=== PATIENT | female | born 1995 | race Caucasian/White ===

== ENCOUNTER → 2018-03-12 15:37 | Outpatient (REF) | payer OTHER, SELFPAY ==
[2018-03-12 19:29] LABS: TSH (W/Ref FT4) 2.72 uIU/mL (0.358-3.74)
== END ==
LOC: NCHCN 15:37
PROVIDERS: PCP Family Medicine; Visit Provider Family Medicine
DX: E03.9 Hypothyroidism, unspecified (principal)
CPT/HCPCS: 84443

== ENCOUNTER 2018-09-24 12:17 | Emergency (ER) | payer OTHER, SELFPAY ==
[2018-09-24 12:20] VITALS: BP 119/74; PULSE 89; RESP 16; TEMP 36.7; O2SAT 95
--- NOTE | 2018-09-24 13:11 | W.ED.GENAD ---
Discharge Plan Disposition Patient Disposition: HOME Condition: Stable Discharge Details Chief Complaint: RespSymp Clinical Impression: Viral syndrome Primary Care Provider: Marisol Palmer V ED Provider: Yoandy Gottlieb Home Meds and New Rx's Prescriptions: Continued trazodone 50 MG tablet 150 mg PO HS PRNRF: 0 Flovent HFA 10.6 GM HFA aerosol inhaler 88 mcg Inhalation BID RF: 0 medroxyprogesterone [Depo-Provera] 150 MG/1 ML syringe 150 mg IM [id number] RF: 0 loratadine [Claritin Liqui-Gel] 10 MG capsule 10 mg PO DAILY PRNRF: 0 paroxetine HCl 20 MG tablet 20 mg PO DAILY RF: 0 albuterol sulfate [Ventolin HFA] 1 PUFF HFA aerosol inhaler 2 puff Inhalation PRN PRNRF: 0 Discharge Instructions Instructions: Viral Syndrome (ED) Additional Instructions: Stay well-hydrated and continue to take [id number] medications as needed. Please return immediately if you begin running a new fever, have worsening of symptoms or further concerns otherwise follow-up with your primary care provider if not improving Stand Alone Forms: Work Release Referrals: Marisol Palmer MD [Primary Care Provider] - (As needed for reassessment) Medical Decision Making Patient presenting to the emergency department for chief complaint of cough, sore throat, intermittent vomiting, nasal congestion. Patient states that this is been going on for approximately 10 days and ran a fever for the first 3-4 days which is now resolved but symptoms have continued over the past week. Patient denies any new symptoms but just states more continuation of illness. Physical exam shows some mild anterior cervical lymphadenopathy otherwise clear lung sounds, normal HEENT exam, normal cardiac exam, normal abdominal exam. Did discuss with patient influenza testing but given duration of symptoms she would not meet criteria for treatment and is otherwise stable so influenza testing was deferred. Given report of sore throat, nausea, and cold-like symptoms consideration of streptococcal illness is made along with patient's persistent cough plan to do chest x-ray for rule out of pneumonia. I am mostly concern for post viral etiology and URI. Patient is stable with normal vital signs, afebrile, no tachycardia. Patient is not and chest x-ray performed and shows no acute findings as per my interpretation. Rapid strep test also returned negative result. Patient was able to tolerate p.o. intake in the emergency department and was offered lab testing for complaint of vomiting but patient has a nontender nonsurgical abdomen. Patient refused testing at this time. I feel most of patient's symptoms are viral in nature. return precautions discussed. After discussion of diagnosis and plan of care patient has no further needs, questions, or concerns and states clear understanding to return to the emergency department for any worsening symptoms. HPI General Mode of arrival: ambulatory. Date/Time Provider Initiated Documentation: 09/24/18 12:17. Limitations to Documentation: no limitations. Information obtained by: patient. History of Present Illness 22 year old F presents to the emergency department with the chief complaint of Cough, cold, sore throat, described as moderate, Quality is described as sharp, and is localized to the mouth (Sore throat). Patient started experiencing this day(s) (10) and it has been constant. No relieving factors improve symptom(s), Patient did receive the following treatments prior to arrival, other ([id number]) Related Data Home Medications Medication Instructions Recorded Confirmed albuterol sulfate [Ventolin HFA] 2 puff INHALATION PRN PRN 12/11/12 09/24/18 paroxetine HCl 20 mg PO DAILY 12/11/12 09/24/18 Flovent HFA 88 mcg INHALATION BID inhaler 07/08/14 09/24/18 loratadine [Claritin Liqui-Gel] 10 mg PO DAILY PRN 07/08/14 09/24/18 medroxyprogesterone [Depo-Provera] 150 mg IM [id number] 07/08/14 09/24/18 trazodone 150 mg PO HS PRN 07/08/14 09/24/18 Allergies Allergy/AdvReac Type Severity Reaction Status Date / Time bupropion HCl Allergy Mild Unverified 09/24/18 12:27 [From Wellbutrin] General Stated Complaint: RespSymp BERT: 3 Review of Systems Constitutional Reports body ache(s), Reports chills, Reports fever(s), Reports headache(s) and Reports malaise Eyes Denies eye discharge ENT Reports as per HPI, Denies ear discharge, Denies otalgia, Reports headache(s), Reports nasal congestion, Reports nasal discharge, Denies neck pain, Reports sinus pain, Reports sinus pressure, Reports sore throat and Denies throat swelling Cardiovascular Denies chest pain and Denies dyspnea Respiratory Reports cough and Denies dyspnea Gastrointestinal Denies abdominal pain, Reports diarrhea, Denies nausea and Reports vomiting Musculoskeletal Denies joint swelling and Denies neck pain Integumentary/Breasts Denies rash Neurologic Reports headache(s) Allergic/Immunologic Denies throat swelling [facility] Social History Smoking and Tabacco status: Never Exam Const General: cooperative, comfortable and no acute distress Orientation: alert and awake [facility] Head: normal to inspection, normocephalic and atraumatic Ears: hearing grossly normal bilaterally and TM's normal bilaterally General nose exam: external nose normal Face and sinus: normal facial exam, sinuses nontender and no erythema Mouth: oral mucosae normal, no drooling, no muffled voice and no trismus Throat: posterior oropharynx normal, tonsils normal and uvula midline Neck Neck: normal visual inspection, full ROM, no lymphadenopathy, no meningeal signs, trachea midline and supple Resp Effort & Inspection: normal respiratory effort and able to speak in complete sentences Auscultation: clear to auscultation bilaterally Cardio Rate: regular rate Rhythm: regular rhythm Heart Sounds: S1 normal, S2 normal, normal S1 and S2, no click, no gallops, no murmurs and no rubs GI Inspection: obesity Palpation: soft, no hepatosplenomegaly, not firm, no guarding, no hepatomegaly, no pulsatile masses, not rigid and nontender Auscultation: normal bowel sounds Back/Spine/Pelvis Back: no CVA tenderness Skin General skin exam: no rashes or lesions noted and dry skin (warm) Neuro General: alert, awake, oriented x3 and gait normal Course Vital Signs Temperature 36.7 C 09/24/18 12:20 Pulse 89 09/24/18 12:20 Respiratory Rate 16 09/24/18 12:20 Blood Pressure 119/74 09/24/18 12:20 Pulse Oximetry 95 09/24/18 12:20 Temperature 36.7 C 09/24/18 12:20 Temperature Source Temporal Artery Scan 09/24/18 12:20 Pulse 89 09/24/18 12:20 Respiratory Rate 16 09/24/18 12:20 Respiratory Effort Non-Labored 09/24/18 12:35 Respiratory Depth Normal 09/24/18 12:35 Blood Pressure 119/74 09/24/18 12:20 Blood Pressure Position Sitting 09/24/18 12:20 Pulse Oximetry 95 09/24/18 12:20 Oxygen Delivery Method Room Air 09/24/18 12:20 Oxygen Flow Rate 0 09/24/18 12:20 Pain Level 3 09/24/18 12:20 Lab/Test Results Lab/Test Results: 09/24/18 12:57 Tonsil - Not Specified Streptococcus Screen (EMILY) - Pending POC- Test(urine) Negative POC Strep Test-RAVIN(Rapid) Start: 09/24/18 12:42 Freq: .Rapid Strep Test Status: Active Protocol: Document 09/24/18 12:56 DB (Rec: 09/24/18 12:56 DB [id number]) Strep test-RAVIN(Rapid)-POC POC-Strep test-RAVIN (Rapid) Negative POC-Strep test-RAVIN (Rapid) Negative
--- NOTE | 2018-09-24 13:14 | ED.GENADUL_ITS ---
Discharge Plan Disposition Patient Disposition: HOME Condition: Stable Discharge Details Chief Complaint: RespSymp Clinical Impression: Viral syndrome Primary Care Provider: Marisol Palmer V ED Provider: Yoandy Gottlieb Home Meds and New Rx's Prescriptions: Continued trazodone 50 MG tablet 150 mg PO HS PRNRF: 0 Flovent HFA 10.6 GM HFA aerosol inhaler 88 mcg Inhalation BID RF: 0 medroxyprogesterone [Depo-Provera] 150 MG/1 ML syringe 150 mg IM [id number] RF: 0 loratadine [Claritin Liqui-Gel] 10 MG capsule 10 mg PO DAILY PRNRF: 0 paroxetine HCl 20 MG tablet 20 mg PO DAILY RF: 0 albuterol sulfate [Ventolin HFA] 1 PUFF HFA aerosol inhaler 2 puff Inhalation PRN PRNRF: 0 Discharge Instructions Instructions: Viral Syndrome (ED) Additional Instructions: Stay well-hydrated and continue to take [id number] medications as needed. Please return immediately if you begin running a new fever, have worsening of symptoms or further concerns otherwise follow-up with your primary care provider if not improving Stand Alone Forms: Work Release Referrals: Marisol Palmer MD [Primary Care Provider] - (As needed for reassessment) Medical Decision Making Patient presenting to the emergency department for chief complaint of cough, sore throat, intermittent vomiting, nasal congestion. Patient states that this is been going on for approximately 10 days and ran a fever for the first 3-4 days which is now resolved but symptoms have continued over the past week. Patient denies any new symptoms but just states more continuation of illness. Physical exam shows some mild anterior cervical lymphadenopathy otherwise clear lung sounds, normal HEENT exam, normal cardiac exam, normal abdominal exam. Did discuss with patient influenza testing but given duration of symptoms she would not meet criteria for treatment and is otherwise stable so influenza testing was deferred. Given report of sore throat, nausea, and cold-like symptoms consideration of streptococcal illness is made along with patient's persistent cough plan to do chest x-ray for rule out of pneumonia. I am mostly concern for post viral etiology and URI. Patient is stable with normal vital signs, afebrile, no tachycardia. Patient is not and chest x-ray performed and shows no acute findings as per my interpretation. Rapid strep test also returned negative result. Patient was able to tolerate p.o. intake in the emergency department and was offered lab testing for complaint of vomiting but patient has a nontender nonsurgical abdomen. Patient refused testing at this time. I feel most of patient's symptoms are viral in nature. return precautions discussed. After discussion of diagnosis and plan of care patient has no further needs, questions, or concerns and states clear understanding to return to the emergency department for any worsening symptoms. HPI General Mode of arrival: ambulatory . Date/Time Provider Initiated Documentation: 09/24/18 12:17 . Limitations to Documentation: no limitations . Information obtained by: patient . History of Present Illness 22 year old F presents to the emergency department with the chief complaint of Cough, cold, sore throat, described as moderate, Quality is described as sharp, and is localized to the mouth (Sore throat). Patient started experiencing this day(s) (10) and it has been constant. No relieving factors improve symptom(s), Patient did receive the following treatments prior to arrival, other ([id number]) Related Data Home Medications Medication Instructions Recorded Confirmed albuterol sulfate [Ventolin HFA] 2 puff INHALATION PRN PRN 12/11/12 09/24/18 paroxetine HCl 20 mg PO DAILY 12/11/12 09/24/18 Flovent HFA 88 mcg INHALATION BID inhaler 07/08/14 09/24/18 loratadine [Claritin Liqui-Gel] 10 mg PO DAILY PRN 07/08/14 09/24/18 medroxyprogesterone [Depo-Provera] 150 mg IM [id number] 07/08/14 09/24/18 trazodone 150 mg PO HS PRN 07/08/14 09/24/18 Allergies Allergy/AdvReac Type Severity Reaction Status Date / Time bupropion HCl Allergy Mild Unverified 09/24/18 12:27 [From Wellbutrin] General Stated Complaint: RespSymp BERT: 3 Review of Systems Constitutional Reports body ache(s), Reports chills, Reports fever(s), Reports headache(s) and Reports malaise Eyes Denies eye discharge ENT Reports as per HPI, Denies ear discharge, Denies otalgia, Reports headache(s), Reports nasal congestion, Reports nasal discharge, Denies neck pain, Reports sinus pain, Reports sinus pressure, Reports sore throat and Denies throat swelling Cardiovascular Denies chest pain and Denies dyspnea Respiratory Reports cough and Denies dyspnea Gastrointestinal Denies abdominal pain, Reports diarrhea, Denies nausea and Reports vomiting Musculoskeletal Denies joint swelling and Denies neck pain Integumentary/Breasts Denies rash Neurologic Reports headache(s) Allergic/Immunologic Denies throat swelling [facility] Social History Smoking and Tabacco status: Never Exam Const General: cooperative, comfortable and no acute distress Orientation: alert and awake [facility] Head: normal to inspection, normocephalic and atraumatic Ears: hearing grossly normal bilaterally and TM's normal bilaterally General nose exam: external nose normal Face and sinus: normal facial exam, sinuses nontender and no erythema Mouth: oral mucosae normal, no drooling, no muffled voice and no trismus Throat: posterior oropharynx normal, tonsils normal and uvula midline Neck Neck: normal visual inspection, full ROM, no lymphadenopathy, no meningeal signs, trachea midline and supple Resp Effort & Inspection: normal respiratory effort and able to speak in complete sentences Auscultation: clear to auscultation bilaterally Cardio Rate: regular rate Rhythm: regular rhythm Heart Sounds: S1 normal, S2 normal, normal S1 and S2, no click, no gallops, no murmurs and no rubs GI Inspection: obesity Palpation: soft, no hepatosplenomegaly, not firm, no guarding, no hepatomegaly, no pulsatile masses, not rigid and nontender Auscultation: normal bowel sounds Back/Spine/Pelvis Back: no CVA tenderness Skin General skin exam: no rashes or lesions noted and dry skin (warm) Neuro General: alert, awake, oriented x3 and gait normal Course Vital Signs Temperature 36.7 C 09/24/18 12:20 Pulse 89 09/24/18 12:20 Respiratory Rate 16 09/24/18 12:20 Blood Pressure 119/74 09/24/18 12:20 Pulse Oximetry 95 09/24/18 12:20 Temperature 36.7 C 09/24/18 12:20 Temperature Source Temporal Artery Scan 09/24/18 12:20 Pulse 89 09/24/18 12:20 Respiratory Rate 16 09/24/18 12:20 Respiratory Effort Non-Labored 09/24/18 12:35 Respiratory Depth Normal 09/24/18 12:35 Blood Pressure 119/74 09/24/18 12:20 Blood Pressure Position Sitting 09/24/18 12:20 Pulse Oximetry 95 09/24/18 12:20 Oxygen Delivery Method Room Air 09/24/18 12:20 Oxygen Flow Rate 0 09/24/18 12:20 Pain Level 3 09/24/18 12:20 Lab/Test Results Lab/Test Results: 09/24/18 12:57 Tonsil - Not Specified Streptococcus Screen (EMILY) - Pending POC- Test(urine) Negative POC Strep Test-RAVIN(Rapid) Start: 09/24/18 12:42 Freq: .Rapid Strep Test Status: Active Protocol: Document 09/24/18 12:56 DB (Rec: 09/24/18 12:56 DB [id number]) Strep test-RAVIN(Rapid)-POC POC-Strep test-RAVIN (Rapid) Negative POC-Strep test-RAVIN (Rapid) Negative
--- NOTE | 2018-09-24 13:15 | DI.RAD_ITS ---
SYMPTOMS/DIAGNOSIS: COUGH PA AND LATERAL CHEST: There are no prior comparison exams. The cardiac and mediastinal contours have a normal appearance. The lungs are well inflated and clear. No infiltrate or effusion is seen. IMPRESSION: Negative chest x-ray.
[2018-09-24 13:58] VITALS: BP 119/74; PULSE 89; RESP 16; TEMP 36.7; O2SAT 95
== END 2018-09-24 14:00 | disposition home or self-care (01) ==
PROVIDERS: Emergency Provider Nurse Practitioner Family; PCP Family Medicine
DX: R05 Cough (principal); R09.81 Nasal congestion; R11.2 Nausea with vomiting, unspecified; B34.9 Viral infection, unspecified; J02.8 Acute pharyngitis due to other specified organisms
CPT/HCPCS: 81025; 87880; 99283; 71046; 87081

== ENCOUNTER 2018-10-01 16:07 | Outpatient (CLI) | payer OTHER, SELFPAY ==
[2018-10-01 16:37] LABS: HCT 42.8 % (36.0-46.0); HGB 14.2 g/dL (12.0-15.5); Mean Corp. HGB Concentration 33.2 g/dL (32.0-36.0); Mean Corpuscular Hemoglobin 30.4 pg (27.0-33.0); Mean Corpuscular Volume 91.6 fL (80-95); Mean Platelet Volume 10.2 fL (8.0-11.0); Platelet Count 316 x1000/uL (130-400); RBC 4.67 m/cumm (4.00-5.20); RBC Distribution Width 12.6 % (11.7-14.6); White Blood Cell Count 11.46 k/cumm (4.4-10.8)
[2018-10-01 17:15] LABS: ESR 43 MM/HR (0-20)
[2018-10-01 17:49] LABS: ALT 23 U/L (12-78); AST 15 U/L (15-37); Albumin 3.9 g/dL (3.4-5.0); Alkaline Phosphatase 93 U/L (46-116); Anion Gap 10.4 mmol/L (3-11); BUN 14 mg/dL (7-18); Bilirubin, Total 0.6 mg/dL (0.2-1.0); CO2 26.6 mmol/L (21.0-32.0); CREATININE 0.93 mg/dL (0.55-1.02); Calcium 9.5 mg/dL (8.5-10.1); Chloride 102 mmol/L (98-107); Glucose 83 mg/dL (70-100); Potassium 4.1 mmol/L (3.5-5.1); Sodium 139 mmol/L (136-145); TSH (W/Ref FT4) 2.26 uIU/mL (0.358-3.74); Total Protein 7.9 g/dL (6.4-8.2)
[2018-10-04 09:55] LABS: HIV-1/2 Ag & Ab Screen Negative (NEGAT)
[2018-10-04 10:03] LABS: Hepatitis C Ab w Rflx HCV PCR Negative (NEGAT)
[2018-10-04 10:37] LABS: LH 5.6 mIU/ml
[2018-10-04 10:44] LABS: FSH 8.8 mIU/ml; Prolactin 6.3 ng/ml
[2018-10-08 10:12] LABS: Testosterone, Free 1.08 ng/dL (0.06-1.08); Testosterone, Total 36 ng/dL (8-60)
== END 2018-10-01 16:27 ==
PROVIDERS: PCP Family Medicine; Visit Provider Family Medicine
DX: Z00.00 Encounter for general adult medical examination without abnormal findings (principal); E28.2 Polycystic ovarian syndrome; E03.9 Hypothyroidism, unspecified; L73.2 Hidradenitis suppurativa; E66.9 Obesity, unspecified; Z11.4 Encounter for screening for human immunodeficiency virus [HIV]; Z11.59 Encounter for screening for other viral diseases
CPT/HCPCS: 36415; 80053; 84402; 84403; 85027; 85652; 86803; 87389; 83001; 83002; 84146; 84443

== ENCOUNTER 2019-01-17 12:56 | Emergency (ER) | payer OTHER, SELFPAY ==
[2019-01-17 13:00] VITALS: BP 117/62; PULSE 89; RESP 16; TEMP 36.6; O2SAT 100
--- NOTE | 2019-01-17 13:41 | ED.GENADUL_ITS ---
Discharge Plan Disposition Patient Disposition: HOME Condition: Stable Discharge Details Chief Complaint: RashLesion Clinical Impression: Rash Primary Care Provider: Marisol Palmer V ED Provider: Kaley Pacheco Home Meds and New Rx's Prescriptions: New prednisone 50 mg tablet 50 mg PO DAILY Qty: 4 RF: 0 Continued paroxetine HCl 40 mg tablet 40 mg PO DAILY RF: 0 ibuprofen 800 mg tablet 800 mg PO PRN PRNRF: 0 topiramate [Topamax] 25 mg tablet 25 mg PO QAM RF: 0 topiramate [Topamax] 50 mg tablet 50 mg PO QHS RF: 0 sumatriptan succinate 50 mg tablet 50 mg PO ONCE RF: 0 levothyroxine [Synthroid] 88 mcg tablet 88 mcg PO DAILY RF: 0 calcium carbonate-vitamin D3 [Calcium 600 with Vitamin D3] 600 mg(1,500mg) - 400 unit capsule PO BID RF: 0 trazodone 50 MG tablet 150 mg PO HS PRNRF: 0 Flovent HFA 10.6 GM HFA aerosol inhaler 88 mcg Inhalation BID RF: 0 medroxyprogesterone [Depo-Provera] 150 MG/1 ML syringe 150 mg IM [id number] RF: 0 loratadine [Claritin Liqui-Gel] 10 MG capsule 10 mg PO DAILY PRNRF: 0 paroxetine HCl 20 MG tablet 20 mg PO DAILY RF: 0 albuterol sulfate [Ventolin HFA] 1 PUFF HFA aerosol inhaler 2 puff Inhalation PRN PRNRF: 0 Discharge Instructions Instructions: Prednisone (By mouth), Insect Bite or Sting (ED), Acute Rash (ED) Additional Instructions: Please return immediately to the emergency department if you develop any new or worsening symptoms or if you become otherwise concerned. It is extremely important that you call as soon as possible to make an appointment to be seen in follow-up by your primary care doctor. Stand Alone Forms: Work Release Referrals: Marisol Palmer MD [Primary Care Provider] - Medical Decision Making Lelia Saldana is a 23-year-old woman with history of asthma, anxiety, depression who presented to the emergency department with round itchy rash to her left posterior upper arm. On exam patient is very well and nontoxic appearing. She has a 10 cm circular erythematous rash to the upper arm without other rash. Exam/history is not consistent with sepsis, meningitis, cellulitis, other infectious process, anaphylaxis, impending airway compromise, other acute emergent life-threatening process. Plan for Benadryl, prednisone. I had a lengthy discussion with the patient regarding return to emergency department precautions, importance of outpatient follow-up with her PCP, and home care. Patient verbalized understanding the plan was amenable. Patient was discharged home with clear plan for outpatient follow-up. All questions were answered. Medical Records Medical records reviewed: Yes I reviewed the patient's medical records. HPI General Mode of arrival: ambulatory . Date/Time Provider Initiated Documentation: 01/17/19 13:40 . Limitations to Documentation: no limitations . Information obtained by: patient, RN notes reviewed and old records reviewed . HPI Narrative: Lelia Saldana is a 23 y/o woman with history of asthma, anxiety, depression presenting to the emergency department with rash. Patient reports that she noticed round itchy rash on the posterior aspect of her left upper arm last night. Rash has increased somewhat, itchiness is severe and continued. She denies any known bite, sting, or other exposure to the area. No other rash, no pain, no vomiting/diarrhea, no shortness of breath/cough. Never had similar symptoms in the past. Has been eating and drinking as usual. No recent illness. No recent travel. Related Data Home Medications Medication Instructions Recorded Confirmed albuterol sulfate [Ventolin HFA] 2 puff INHALATION PRN PRN 12/11/12 01/17/19 paroxetine HCl 20 mg PO DAILY 12/11/12 01/17/19 Flovent HFA 88 mcg INHALATION BID inhaler 07/08/14 01/17/19 loratadine [Claritin Liqui-Gel] 10 mg PO DAILY PRN 07/08/14 01/17/19 medroxyprogesterone [Depo-Provera] 150 mg IM [id number] 07/08/14 01/17/19 trazodone 150 mg PO HS PRN 07/08/14 01/17/19 calcium carbonate-vitamin D3 600 cap PO BID cap 10/18/18 10/18/18 mg (1,500 mg)-400 unit capsule ibuprofen 800 mg tablet 800 mg PO PRN PRN tab 10/18/18 01/17/19 levothyroxine 88 mcg tablet 88 mcg PO DAILY 10/18/18 01/17/19 paroxetine 40 mg tablet 40 mg PO DAILY 10/18/18 01/17/19 sumatriptan 50 mg tablet 50 mg PO ONCE 10/18/18 01/17/19 topiramate 25 mg tablet 25 mg PO QAM tab 10/18/18 01/17/19 topiramate 50 mg tablet 50 mg PO QHS tab 10/18/18 01/17/19 prednisone 50 mg PO DAILY #4 tab 01/17/19 Previous Rx's Medication Instructions Recorded prednisone 50 mg PO DAILY #4 tab 01/17/19 Allergies Allergy/AdvReac Type Severity Reaction Status Date / Time bupropion HCl Allergy Mild Unverified 01/17/19 13:05 [From Wellbutrin] General Stated Complaint: RashLesion BERT: 4 Review of Systems Review of Systems Constitutional: denies fevers Eyes: denies eye pain ENT: denies facial pain, dental pain, sore throat Cardiovascular: denies chest pain, edema Respiratory: denies SOB, cough GI: denies abdominal pain, vomiting, diarrhea : denies flank pain MSK: denies back pain, neck pain, arthralgias, myalgias Skin: Reports rash Neuro: denies headaches, numbness, weakness [facility] Medical History Allergic asthma (Acute) Carpal tunnel syndrome on both sides (Acute) Contraception (Acute) Dizzy spells (Acute) Headache (Acute) Hepatitis A (Acute) Hidradenitis (Acute) Malaise and fatigue (Acute) Muscle spasm (Acute) Orthostatic hypotension (Acute) Polycystic ovary syndrome (Acute) Tendinitis (Acute) Depression (Chronic) Hypothyroidism (Chronic) Obesity (Chronic) Social History Smoking/Tobacco Use Status: Never Alcohol Intake: never Drug use: Never Do you feel safe at home: Yes Do you feel safe in your relationship?: Yes Exam Narrative Exam Narrative: Constitutional: well and [id number], pleasant, conversing normally HENT: head atraumatic/normocephalic/normal inspection, mucous membranes moist Eyes: conjunctiva normal, sclera normal, pupils 3mm b/l Neck: no stridor, normal ROM, trachea midline Resp: normal work of breathing Cardio: normal rate, normal rhythm Skin: warm, dry, normal color, no rash Neuro: alert, not altered, grossly non-focal, normal tone Ext: no edema, left posterior upper arm with 10 cm round area of erythema, raised, blanching, no induration/fluctuance, nontender to palpation, no apparent skin wound Psych: normal mood, normal affect, normal behavior Course Vital Signs Temperature 36.6 C 01/17/19 13:00 Pulse 89 01/17/19 13:00 Respiratory Rate 16 01/17/19 13:00 Blood Pressure 117/62 01/17/19 13:00 Pulse Oximetry 100 01/17/19 13:00 Temperature 36.6 C 01/17/19 13:00 Temperature Source Skin 01/17/19 13:00 Pulse 89 01/17/19 13:00 Respiratory Rate 16 01/17/19 13:00 Respiratory Effort 01/17/19 13:05 Blood Pressure 117/62 01/17/19 13:00 Blood Pressure Position Sitting 01/17/19 13:00 Pulse Oximetry 100 01/17/19 13:00 Oxygen Delivery Method Room Air 01/17/19 13:00 Oxygen Flow Rate 0 01/17/19 13:00 Pain Level 7 01/17/19 13:00
[2019-01-17] MEDS: diphenhydrAMINE 25 MG CAP 50 MG PO (14:37)
[2019-01-17] MEDS: predniSONE 20 MG TAB 60 MG PO (14:38)
== END 2019-01-17 15:09 | disposition home or self-care (01) ==
PROVIDERS: Emergency Provider Student in an Organized Health Care Education/Training Program; PCP Family Medicine
DX: R21 Rash and other nonspecific skin eruption (principal)
CPT/HCPCS: 99283; J7512

== ENCOUNTER 2019-03-20 19:08 | Emergency (ER) | payer OTHER, SELFPAY ==
[2019-03-20 19:15] VITALS: BP 117/74; PULSE 87; RESP 18; TEMP 37; O2SAT 97
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
[2019-03-20] MEDS: Methocarbamol 500 MG TAB 1000 MG PO (19:40)
[2019-03-20] MEDS: Lidocaine 5% Patch 1 PATCH TP (19:41)
== END 2019-03-20 19:50 | disposition home or self-care (01) ==
PROVIDERS: Emergency Provider Emergency Medicine; PCP Family Medicine
DX: M62.830 Muscle spasm of back (principal); X50.0XXA Overexertion from strenuous movement or load, initial encounter
CPT/HCPCS: 99283

== ENCOUNTER 2019-04-30 16:43 | Emergency (ER) | payer OTHER, SELFPAY ==
[2019-04-30 16:50] VITALS: BP 122/70; PULSE 89; RESP 16; TEMP 36.2; O2SAT 97
--- NOTE | 2019-04-30 17:07 | DI.RAD_ITS ---
EXAM: XR CHEST 2V PA LATERAL INDICATION: shortness of breath. COMPARISON: XR CHEST 2V PA LATERAL from 09/24/2018 TECHNIQUE: 2D digital imaging was performed. FINDINGS: The lungs are well expanded and free of infiltrate. There is no pleural effusion or pneumothorax. The cardiovascular structures are intact. IMPRESSION: No evidence of acute cardiopulmonary disease.
[2019-04-30 17:14] VITALS: RESP 1; RESP 18; RESP 8
[2019-04-30] MEDS: Albuterol/Ipratropium 3 ML UPD VIAL UPD (17:14)
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
[2019-04-30 17:50] VITALS: PULSE 87; RESP 15; O2SAT 98
[2019-04-30] MEDS: predniSONE 20 MG TAB 40 MG PO (17:50)
[2019-04-30 18:00] VITALS: PULSE 84; RESP 16; O2SAT 97
--- NOTE | 2019-04-30 18:00 | DI.VRAD_ITS ---
PROCEDURE INFORMATION: Exam: XR Chest, 2 Views Exam date and time: 04/30/2019 5:38 PM Clinical history: 23 years old, female; Shortness of breath TECHNIQUE: Imaging protocol: XR of the chest Views: 2 views. COMPARISON: CR XR CHEST 2V PA LATERAL 09/24/2018 12:56 PM FINDINGS: Lungs: Low lung volumes causes crowding of the bronchovascular structures. Lungs are otherwise clear. Mild segmental bronchial wall thickening. Pleural space: Unremarkable. No pleural effusion. No pneumothorax. Heart/Mediastinum: Unremarkable. No cardiomegaly. Bones/joints: No acute skeletal abnormality. IMPRESSION: Concern for reactive airways disease versus a mild viral illness. No evidence of lobar consolidation. Dictated and Authenticated by: Heber Roach MD. Ordering:DINA Johnson MD
[2019-04-30 18:10] VITALS: PULSE 81; RESP 19; O2SAT 97
[2019-04-30] MEDS: Inhaler, Assist Device 1 EACH MC (18:17)
[2019-04-30 18:27] VITALS: BP 107/46; PULSE 70; RESP 16; O2SAT 98
== END 2019-04-30 18:30 | disposition home or self-care (01) ==
PROVIDERS: Emergency Provider Student in an Organized Health Care Education/Training Program; PCP Family Medicine
DX: J45.901 Unspecified asthma with (acute) exacerbation (principal); J06.9 Acute upper respiratory infection, unspecified
CPT/HCPCS: 87449; 94640; 99283; 71046; J7512; J7620

== ENCOUNTER 2019-05-15 16:10 | Emergency (ER) | payer OTHER, SELFPAY ==
[2019-05-15 16:14] VITALS: BP 121/68; PULSE 86; RESP 16; TEMP 36.3; O2SAT 98
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
[2019-05-15 17:44] VITALS: BP 121/68; PULSE 86; RESP 16; O2SAT 98
[2019-05-15] MEDS: Lidocaine 5% Patch 2 PATCH TP (18:13)
[2019-05-15] MEDS: Cyclobenzaprine 10 MG TAB PO (18:13)
== END 2019-05-15 17:57 | disposition home or self-care (01) ==
PROVIDERS: Emergency Provider Physician Assistant; PCP Family Medicine
DX: S39.012A Strain of muscle, fascia and tendon of lower back, initial encounter (principal); X50.0XXA Overexertion from strenuous movement or load, initial encounter; Y99.0 Civilian activity done for income or pay
CPT/HCPCS: 99283

== ENCOUNTER 2019-05-27 16:01 | Outpatient (REF) | payer OTHER, SELFPAY ==
[2019-05-27 19:33] LABS: ALT 22 U/L (14-59); AST 13 U/L (15-37); Albumin 3.6 g/dL (3.4-5.0); Alkaline Phosphatase 73 U/L (46-116); Anion Gap 11.4 mmol/L (3-11); BUN 14 mg/dL (7-18); Bilirubin, Total 0.3 mg/dL (0.2-1.0); CO2 22.6 mmol/L (21.0-32.0); CREATININE 0.89 mg/dL (0.55-1.02); Calcium 9.4 mg/dL (8.5-10.1); Calculated LDL 116 mg/dL; Chloride 104 mmol/L (98-107); Cholesterol 180 mg/dL (50-200); Glucose 85 mg/dL (70-100); HDL Cholesterol 55 mg/dL (40-60); Potassium 4.5 mmol/L (3.5-5.1); Sodium 138 mmol/L (136-145); Total Protein 7.5 g/dL (6.4-8.2); Triglyceride 49 mg/dL (30-150)
== END 2019-05-27 16:21 ==
LOC: NCHCN 16:01
PROVIDERS: PCP Family Medicine; Visit Provider Physician Assistant Medical
DX: E03.9 Hypothyroidism, unspecified (principal); E66.9 Obesity, unspecified
CPT/HCPCS: 80053; 80061; 84443

== ENCOUNTER 2019-05-29 21:32 | Emergency (ER) | payer OTHER, SELFPAY ==
[2019-05-29 21:36] VITALS: BP 126/67; PULSE 107; RESP 18; TEMP 36.9; O2SAT 96
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
[2019-05-29] MEDS: Lidocaine 5% Patch 1 PATCH TP (22:34)
== END 2019-05-29 22:40 | disposition home or self-care (01) ==
PROVIDERS: Emergency Provider Emergency Medicine; PCP Family Medicine
DX: S39.012A Strain of muscle, fascia and tendon of lower back, initial encounter (principal); M62.830 Muscle spasm of back; Y99.0 Civilian activity done for income or pay
CPT/HCPCS: 99283

== ENCOUNTER 2019-08-28 17:26 | Emergency (ER) | payer SELFPAY ==
[2019-08-28 17:51] VITALS: BP 130/83; PULSE 119; RESP 18; TEMP 38.3; O2SAT 95
[2019-08-28] MEDS: Ondansetron O.D.T. 4 MG TABEF PO (18:20)
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
[2019-08-28] MEDS: Ibuprofen 400 MG TAB PO (18:49)
[2019-08-28] MEDS: Amoxicillin 875/Clav. 125 TAB PO (20:02)
== END 2019-08-28 20:00 | disposition home or self-care (01) ==
PROVIDERS: Emergency Provider Registered Nurse Emergency; PCP Family Medicine
DX: J10.83 Influenza due to other identified influenza virus with otitis media (principal)
CPT/HCPCS: 87449; 87880; 99283; 87081

== ENCOUNTER 2020-01-22 18:23 | Emergency (ER) | payer BC, SELFPAY ==
[2020-01-22] VITALS (36 sets, daily range): BP systolic 84–119; BP diastolic 37–89; PULSE 87–160; RESP 13–29; TEMP 36.6–36.9; O2SAT 90–100
--- NOTE | 2020-01-22 18:30 | DI.RAD_ITS ---
EXAM: XR PORTABLE CHEST AP CLINICAL HISTORY: AMS TECHNIQUE: 2D digital imaging was performed. COMPARISON: No exams were available for comparison FINDINGS: MEDIASTINUM: Normal. HEART: Normal. PULMONARY VASCULATURE: Normal. LUNGS: Clear. Poor inspiration. PLEURAL SPACE: No pleural effusion or pneumothorax. BONE:Normal. OTHER FINDINGS:Normal. IMPRESSION: No acute pulmonary findings. DATA REPOSITORY: RADIATION DOSE DELIVERED:
--- NOTE | 2020-01-22 18:30 | DI.CT_ITS ---
EXAM: CT HEAD WO CLINICAL HISTORY: AMS. TECHNIQUE: Imaging Protocol: Axial computed tomography images with coronal and sagittal reformatted images were created and reviewed COMPARISON: CT HEAD WITHOUT CONTRAST from 09/07/2015 FINDINGS: Ventricles and Extra axial spaces: Normal in size and morphology for the patient's age. Hemorrhage: None. Cerebral parenchyma: Normal. Midline shift: None. Brainstem/Cerebellum: Normal. Calvarium: Normal. Visualized Paranasal sinuses/Mastoids: Near complete opacification of the right sphenoid sinus. The remaining visualized paranasal sinuses and mastoid air cells are well pneumatized. Soft Tissues: Unremarkable. IMPRESSION: No acute intracranial process. RADIATION DOSE DELIVERED: Total DLP DATA REPOSITORY: All CT scans at this facility are submitted to the National Radiology Data Registry (NRDR) Dose Index Registry (DIR) with the [employer] (ACR). RADIATION OPTIMIZATION: All CT scans at this facility use at least one of these dose optimization te chniques: automated exposure control; mA and/or kV adjustment per patient size (includes targeted exa ms where dose is matched to clinical indication); or iterative reconstruction.
--- NOTE | 2020-01-22 18:45 | NUR.NOTE ---
Nursing Note: 1845 spoke with friend Christi gave me the patient's name, place of residence, place of work and cell phone number. This all matched with what we have on file for this patient. Samantha Barraza [phone]
[2020-01-22] MEDS: Naloxone 0.4 MG/ML VIAL 0.2 MG IVP (18:48)
[2020-01-22] MEDS: Normal Saline 1,000 ML 1000 ML IV ×3 (18:55→21:17)
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
[2020-01-22 19:00] LABS: Lactate 3.5 mmol/L (0.6-1.4)
[2020-01-22 19:02] LABS: Abs Immature Grans 0.03 k/cumm (0.0-0.09); Absolute Basophil Count 0.06 k/cumm (0.0-0.2); Absolute Eosinophil Count 0.26 k/cumm (0.0-0.7); Absolute Lymphocyte Count 4.44 k/cumm (1.2-3.4); Absolute Monocyte Count 1.24 k/cumm (0.11-0.7); Basophils % 0.4; Eosinophils % 1.9; HCT 42.3 % (36.0-46.0); Immature Grans % 0.2 %; Lymphocytes % 31.9; Mean Corp. HGB Concentration 33.1 g/dL (32.0-36.0); Mean Corpuscular Hemoglobin 30.2 pg (27.0-33.0); Mean Corpuscular Volume 91.2 fL (80-95); Mean Platelet Volume 11.3 fL (8.0-11.0); Monocytes % 8.9; Neutrophils % 56.7; Platelet Count 373 x1000/uL (130-400); RBC 4.64 m/cumm (4.00-5.20); RBC Distribution Width 12.7 % (11.7-14.6); White Blood Cell Count 13.93 k/cumm (4.4-10.8)
[2020-01-22] MEDS: LORazepam 2 MG/ML VIAL IM/IV (19:05)
[2020-01-22 19:15] LABS: ALT 28 U/L (14-59); AST 29 U/L (15-37); Albumin 3.8 g/dL (3.4-5.0); Alkaline Phosphatase 85 U/L (46-116); Anion Gap 11.3 mmol/L (3-11); BUN 17 mg/dL (7-18); Bilirubin, Total 0.9 mg/dL (0.2-1.0); CO2 24.7 mmol/L (21.0-32.0); CREATININE 1.18 mg/dL (0.55-1.02); Calcium 9.3 mg/dL (8.5-10.1); Chloride 103 mmol/L (98-107); Estimated GFR 55.37 (mL/min/1.73m2); Glucose 110 mg/dL (74-106); Magnesium 1.8 mg/dL (1.8-2.4); Potassium 3.8 mmol/L (3.5-5.1); Sodium 139 mmol/L (136-145); Total Protein 8.3 g/dL (6.4-8.2); Troponin I < 0.05 ng/mL (<0.06)
[2020-01-22 19:20] LABS: Bilirubin Negative (Negative); Blood Negative (Negative); Clarity Sl Cloudy (Clear); Glucose Negative (Negative); Ketones Trace mg/dL (Negative); Leukocyte Esterase Negative (Negative); Nitrite Negative (Negative); Specific Gravity >= 1.030 (1.005-1.025); Urobilinogen 0.2 EU/dL (Up TO 0.2); pH 5.5 (5-8)
[2020-01-22 19:21] LABS: Prothrombin Time 9.9 sec (9.3-11.0)
[2020-01-22 19:22] LABS: TSH 1.52 uIU/mL (0.36-3.74)
--- NOTE | 2020-01-22 19:30 | DI.VRAD_ITS ---
PROCEDURE INFORMATION: Exam: CT Head Without Contrast Exam date and time: 01/22/2020 7:17 PM Age: 24 years old Clinical indication: Other: AMS TECHNIQUE: Imaging protocol: Computed tomography of the head without contrast. Radiation optimization: All CT scans at this facility use at least one of these dose optimization techniques: automated exposure control; mA and/or kV adjustment per patient size (includes targeted exams where dose is matched to clinical indication); or iterative reconstruction. COMPARISON: CT HEAD WITHOUT CONTRAST 09/07/2015 6:03 PM FINDINGS: Brain: Normal. No hemorrhage. Unremarkable white matter. No mass effect. Ventricles: Normal. No ventriculomegaly. Bones/joints: Unremarkable. No acute fracture. Sinuses: Visualized sinuses are unremarkable. No fluid levels. Mastoid air cells: Visualized mastoid air cells are well aerated. Orbits: Unremarkable. Soft tissues: Unremarkable. IMPRESSION: No acute intracranial abnormality. Dictated and Authenticated by: Heber Roach MD. Ordering:DEMETRIS Colon MD
--- NOTE | 2020-01-22 19:31 | DI.VRAD_ITS ---
PROCEDURE INFORMATION: Exam: XR Chest, 1 View Exam date and time: 01/22/2020 7:24 PM Age: 24 years old Clinical indication: Other: AMS TECHNIQUE: Imaging protocol: XR of the chest Views: 1 view. COMPARISON: CR XR CHEST 2V PA LATERAL 04/30/2019 5:38 PM FINDINGS: Lungs: Low lung volumes causes crowding of the bronchovascular structures. No consolidation. Pleural space: Unremarkable. No pleural effusion. No pneumothorax. Heart/Mediastinum: Unremarkable. No cardiomegaly. Bones/joints: Unremarkable. IMPRESSION: No acute findings. Dictated and Authenticated by: Heber Roach MD. Ordering:DEMETRIS Colon MD
[2020-01-22 19:33] LABS: ETHANOL BLOOD < 3.0 mg/dL (<3)
[2020-01-22 19:38] LABS: *AMPHETAMINES SCREEN URINE Negative (Negative); *BARBITURATES SCREEN URINE Negative (Negative); *BENZODIAZEPINES SCREEN URINE Negative (Negative); Cannabinoids THC POSITIVE (Negative); Cocaine Screen,Urine Negative (Negative); METHADONE URINE SCREEN Negative (Negative); OPIATES URINE SCREEN Negative (Negative)
[2020-01-22 19:41] LABS: Tricyclic Antidepressants Negative (Negative)
[2020-01-22 21:36] LABS: Lactate 2.8 mmol/L (0.6-1.4)
== END 2020-01-22 22:00 | disposition home or self-care (01) ==
PROVIDERS: Emergency Provider Physician Assistant; PCP Family Medicine
DX: G40.89 Other seizures (principal); R74.0 Nonspecific elevation of levels of transaminase and lactic acid dehydrogenase [LDH]; D72.829 Elevated white blood cell count, unspecified; R41.82 Altered mental status, unspecified
CPT/HCPCS: 36415; 36416; 51701; 80053; 80307; 82962; 93005; 96361; 96372; 96374; 99284; 70450; 71045; 80320; 81003; 83605; 83735; 84443; 84484; 85025; 85610; 93010; 99285; J2060; J2310

== ENCOUNTER 2020-02-15 02:24 | Outpatient (CLI) | payer BC, SELFPAY ==
--- NOTE | 2020-02-15 08:30 | DI.MRI_ITS ---
EXAM: MR BRAIN WO CLINICAL HISTORY: seizure like activity,SPELL OF ABNL BEHAVIOR,R46.89 TECHNIQUE: Multiplanar multisequence MRI of the brain was performed. COMPARISON: CT CT HEAD WO from 01/22/2020 FINDINGS: VENTRICLES AND EXTRA AXIAL SPACES: Normal in size and morphology for the patient's age. MIDLINE SHIFT: None. CEREBRAL PARENCHYMA: No focus of restricted diffusion to suggest acute infarct. No space-occupying le lito identified. HEMORRHAGE: None. BRAINSTEM/CEREBELLUM: Normal. CALVARIUM: Normal. VISUALIZED PARANASAL SINUSES/MASTOIDS:Mild mucosal thickening in the right sphenoid sinus. The remain ing visualized paranasal sinuses are clear. IONE OF [place]: Normal flow void. PITUITARY GLAND: Unremarkable. OTHER FINDINGS: None. IMPRESSION: Unremarkable MRI of the brain. DATA REPOSITORY:
== END 2020-02-15 02:44 ==
PROVIDERS: PCP Family Medicine; Visit Provider Psychiatry & Neurology Neurology
DX: R46.89 Other symptoms and signs involving appearance and behavior (principal)
CPT/HCPCS: 70551

== ENCOUNTER 2020-03-02 03:54 | Outpatient (CLI) | payer SELFPAY ==
--- NOTE | 2020-03-05 17:11 | PDOC.EEG_ITS ---
Neurology EEG EEG: [facility] Department of Neurology EEG REPORT Date of Recordin03/02/20 Interpreting Physician: Dr. Zita Nelson PCP/Referring Provider: Dr. Palmer Reason for study: Ms. Saldana is a 24 year-old woman with a single seizure like event last month. Current Medications: Home Medications Medication Instructions Recorded Confirmed Type albuterol sulfate [Ventolin HFA] 2 puff INHALATION PRN PRN 12/11/12 02/07/20 History paroxetine HCl 20 mg PO DAILY 12/11/12 02/07/20 History Flovent HFA 88 mcg INHALATION BID inhaler 07/08/14 02/07/20 History loratadine [Claritin Liqui-Gel] 10 mg PO DAILY PRN 07/08/14 02/07/20 History trazodone 50 mg PO HS PRN 07/08/14 02/07/20 History calcium carbonate-vitamin D3 600 1 cap PO BID cap 10/18/18 02/07/20 History mg (1,500 mg)-400 unit capsule levothyroxine 88 mcg tablet 75 mcg PO DAILY 10/18/18 02/07/20 History paroxetine HCl 40 mg tablet 40 mg PO DAILY 10/18/18 02/07/20 History acetaminophen 1,000 mg PO Q6H PRN #0 tab 05/29/19 02/07/20 Rx ibuprofen 800 mg PO Q8H PRN #15 tab 05/29/19 02/07/20 Rx lidocaine [Lidoderm] 1 patch TP DAILY #30 each 05/29/19 02/07/20 Rx diazepam 5 mg tablet 5 mg PO ONCE PRN #2 tab 02/07/20 02/07/20 Rx sumatriptan succinate 100 mg tablet See Rx Instructions PO .COMPLEX #9 02/07/20 02/07/20 Rx tab topiramate 25 mg tablet See Rx Instructions PO QHS #60 tab 02/07/20 02/07/20 Rx METHODS: A 21 channel digitized electroencephalogram was performed in the [facility] Clinical Neurophysiology Laboratory. The 10/20 international system of electrode placement was used and bipolar and referential electrode montages were recorded. In addition to EEG the patient was monitored for EKG and lateral/vertical eye movements. Activation procedures of photic stimulation and hyperventilation were performed if applicable. Video was used during activation procedures and during events where applicable. The duration of the recording was 30 minutes. DESCRIPTION OF EEG: The patient was noted to be awake only during the recording. During maximal wakefulness a 10-11 Hz posterior background rhythm was present which was well- modulated, symmetrical, reactive to eye opening, and of moderate voltage. With eye opening the background activity changed to a low voltage mixture of alpha, beta, and occasional theta range frequencies. Faster frequencies were present in the bilateral anterior head regions. There was a normal anterior-posterior voltage gradient. No drowsiness or stage II sleep was recorded. Activating Procedures: Photic stimulation was performed which produced a symmetrical posterior driving response at various flash frequencies. Hyperventilation was performed with moderate effort and produced no physiological slowing of the background. EKG: EKG revealed normal sinus rhythm. INTERPRETATION: This EEG is normal during the awake state as well as during photic stimulation and hyperventilation. PRIOR EEG: none CLINICAL CORRELATION: No focal regions of cerebral dysfunction or epileptiform activity was present. No sleep was recorded during the study which reduces the sensitivity of the exam. If seizure remains a part of the differential, consider a repeat sleep- deprived EEG or overnight ambulatory EEG. Epilepsy remains a clinical diagnosis and a normal EEG does not rule out epilepsy. Clinical correlation is advised. Zita Nelson MD
== END 2020-03-02 04:14 ==
PROVIDERS: PCP Family Medicine; Visit Provider Psychiatry & Neurology Neurology
DX: R56.9 Unspecified convulsions (principal)
CPT/HCPCS: 95816

== ENCOUNTER 2020-03-27 12:07 | Outpatient (REF) | payer BC, SELFPAY ==
--- NOTE | 2020-03-27 09:15 | PAPFT_PTH ---
PATIENT: Lelia Saldana LOC: [facility] U#:[id number] AGE/SX: 24/F ROOM: RE03/27/[address]: Unique Francois : 1995 BED: DIS: 03/27/2020 SPEC #: [id number] RECD: 03/28/20 12:50 STATUS: AMEE PEÑA #: [id number] MENG: 03/27/20 09:[address]: Unique Francois DEPT: [facility] Cytology RECD BY: Stefan Kenyon Tissues: 1 - CX/ENDOCX FOR PAP SMEARS Procedures: PAP THIN PREP/UVM Screening Comments: [id number]
[2020-03-29 09:45] LABS: Syphilis Serology (RPR) Negative (Negative)
[2020-03-29 09:53] LABS: HIV-1/2 Ag & Ab Screen Negative (Negative)
[2020-03-29 09:57] LABS: Hepatitis C Ab w Rflx HCV PCR Negative (Negative)
[2020-03-29 14:18] LABS: Chlamydia Result Negative (Negative); GC Result Negative (Negative)
== END 2020-03-27 12:27 ==
LOC: NCHCN 12:07
PROVIDERS: PCP Family Medicine; Visit Provider Physician Assistant Medical
DX: L29.8 Other pruritus (principal); N89.8 Other specified noninflammatory disorders of vagina; Z11.3 Encounter for screening for infections with a predominantly sexual mode of transmission; Z11.4 Encounter for screening for human immunodeficiency virus [HIV]; Z11.59 Encounter for screening for other viral diseases; Z12.4 Encounter for screening for malignant neoplasm of cervix
CPT/HCPCS: 86803; 87389; 87491; 87591; 88142; 86592; 87086; 87480; 87510; 87660

== ENCOUNTER 2020-05-28 09:13 | Day surgery (SDC) | payer BC, SELFPAY ==
[2020-05-28 09:21] VITALS: BP 127/69; PULSE 88; RESP 18; TEMP 36.5; O2SAT 97
[2020-05-28] MEDS: Lactated Ringers 1,000 ML 80 ML IV (09:58)
--- NOTE | 2020-05-28 12:08 | PDOC.DSDIS_ITS ---
Discharge Plan Disposition Patient Disposition: HOME Condition: Good Discharge Details Reason For Visit: R ECTR Attending Provider: Clifton Resendiz Primary Care Provider: Marisol Palmer V Home Meds and New Rx's Prescriptions: New hydrocodone-acetaminophen 5-325 mg tablet 1 tab PO Q6H PRN (Reason: pain) Qty: 7 RF: 0 Continued paroxetine HCl 40 mg tablet 40 mg PO DAILY RF: 0 levothyroxine [Synthroid] 88 mcg tablet 75 mcg PO DAILY RF: 0 L norgest/e.estradiol-e.estrad [Seasonique] 0.15 mg-30 mcg (84)/10 mcg (7) tablets,dose pack,3 month 1 tab PO DAILY RF: 0 topiramate 100 mg tablet 100 mg PO QHS Qty: 90 RF: 3 calcium carbonate-vitamin D3 [Calcium 600 with Vitamin D3] 600 mg(1,500mg) - 400 unit capsule 1 cap PO BID RF: 0 sumatriptan succinate 100 mg tablet See Rx Instructions PO .COMPLEX Qty: 9 RF: 5 trazodone 50 MG tablet 50 mg PO HS PRNRF: 0 Flovent HFA 10.6 GM HFA aerosol inhaler 88 mcg Inhalation BID RF: 0 loratadine [Claritin Liqui-Gel] 10 MG capsule 10 mg PO DAILY PRNRF: 0 albuterol sulfate [Ventolin HFA] 1 PUFF HFA aerosol inhaler 2 puff Inhalation PRN PRNRF: 0 ibuprofen 800 mg tablet 800 mg PO Q8H PRNQty: 15 RF: 0 acetaminophen 500 mg Tablet 1,000 mg PO Q6H PRNQty: 0 RF: 0 lidocaine [Lidoderm] 5 % adhesive patch,medicated 1 patch TP DAILY Qty: 30 RF: 0 Discharge Instructions Additional Instructions: Try to elevate R hand above heart level as much as possible overnite tonite. Wiggle fingers R hand 10 times/hour when awake to prevent swelling. Keep dressings and splint dry and in place for 48 hours. After 48 hours, remove splint AND dressings and begin to move R wrist. Use R hand as much as your discomfort allows. After you remove dressings, you may shower or bathe and get incision wet. Leave incision uncovered when it is dry and sealed. Follow up with in 2 weeks. Take tylenol or ibuprofen for mild pain. Take hydrocodone for breakthru pain, if needed. Referrals: Clifton Resendiz MD [ [facility] STAFF PHYSICIAN] - (f/u in 2 weeks.) Equipment/Supplies: Splint Activity:: Activity as Tolerated Remove Dressings/Wound Care:: 48 hours Shower/Bathe:: 48 hours Diet:: As Tolerated Discharge Orders Discharge Orders: Discharge Order (Routine); Ordered 05/28/20 Ordered By: Clifton Resendiz
[2020-05-28 13:00] VITALS: BP 111/58; PULSE 72; RESP 16; TEMP 36.5; O2SAT 96
--- NOTE | 2020-05-31 12:51 | W.PM.OP ---
Date of service: 05/28/20 Time of Service: 12:52 Operative Note Operative Note DATE OF PROCEDURE: 05/28/20 PRE-OP DIAGNOSIS: R CARPAL TUNNEL SYNDROME POST-OP DIAGNOSIS: same PROCEDURE: R ECTR SURGEON: Clifton Resendiz ANESTHESIA: regional PATHOLOGY: none sent TOURNIQUET TIME: 26 COMPLICATIONS: None Patient was transported to: same day Patient's condition: stable Indications: This is a 24-year-old white female with a 4-year history of numbness in the median nerve distribution of both her hands. Her right is the worst. She was initially seen by me in 2016 and carpal tunnel release was recommended. She was lost to follow-up until she was recently referred back to be by neurology. She was being treated for seizures by neurologist and mentioned the numbness in both hands. Night splinting was instituted without benefit. Nerve conduction studies confirmed bilateral carpal tunnel syndrome. Physical examination was consistent with the diagnosis. I recommended carpal tunnel release to alleviate her symptoms. Patient wished to undergo the endoscopic technique of carpal tunnel release. She decided to have the right side done first. When she is recovered from the right side we will proceed with the left. Procedure Description: Patient was taken the operating room on 05/28/2020 she was placed supine operating table. IV regional anesthetic was administered to the right upper extremity. Once good anesthesia was obtained the right hand wrist and forearm were prepped and draped free in usual sterile fashion. Incision was made in line with the plaque proximal flexion crease of the wrist. It began at the flexor carpi radialis and extending to flexor carpi ulnaris tendons. Incision was carried down to the fascia. Subtenon's veins were cauterized. Distally based fascial flap was then created to gain access to the carpal canal. Synovial reflector was used to free up any attachments to the undersurface of all carpal ligament. Series of obturators were then introduced to make room for the endoscope. The endoscope blade device was then inserted in the carpal canal and advanced until the distal edge of the volar carpal ligament was seen. Care was taken to position the endoscope against the hook of the hamate. Once the distal edge of all carpal ligament visualized the trigger was depressed elevating the blade and the elevated blade was then brought out from distal to proximal through the incision, transecting the volar carpal ligament. Endoscope was replaced in the carpal canal to watch the median nerve fall into the defect created by the volar carpal ligament transection. Littler scissors were then used to perform subcutaneous fasciotomy from the incision proximally about 2 inches. A median nerve block was instituted with the 0.5 some Marcaine with epinephrine solution. The wound margins were pretreated 0.5% Marcaine with epinephrine solution. The wounds irrigated with saline solution then the skin and subcutaneous tissues were approximated with 2 horizontal mattress sutures of 4-0 nylon suture material. Wounds dressed with Xeroform gauze sterile gauze 4 x 4's wrapped with a Kerlix bandage and then an Lex bandage. She is placed in a commercial cock-up wrist splint. The IV regional anesthesia was reversed all complications she was discharged to the surgery unit in good condition. Patient was discharged home from day surgery unit and fully recovered from her IV regional anesthesia. She is given instructions to elevate her right hand above however is much as possible overnight tonight. She is encouraged to wiggle her fingers 10 times an hour when awake to prevent swelling. After 48 hours she is to remove the splint and dressings and start to move her right wrist. She may then shower and get her incision wet. She can leave the incision uncovered when is dry and sealed. She can use her right hand as much as discomfort allows. She is instructed to take Tylenol or ibuprofen for mild pain. She is given a prescription of hydrocodone with APAP 5/325 1 tab every 6 hours if needed for breakthrough pain. She will follow-up with Dr. Resendiz in 2 weeks.
== END 2020-05-28 13:00 | disposition home or self-care (01) ==
PROVIDERS: PCP Family Medicine; Visit Provider Orthopaedic Surgery
PROC: 01N54ZZ Release Median Nerve, Percutaneous Endoscopic Approach (ICD-10-PCS; CPT 29848; principal; 2020-05-28 13:00)
DX: G56.01 Carpal tunnel syndrome, right upper limb (principal); E03.9 Hypothyroidism, unspecified; J45.909 Unspecified asthma, uncomplicated
CPT/HCPCS: 29848; J0690; J2001; L3908

== ENCOUNTER 2020-06-05 12:43 | Outpatient (REF) | payer BC, SELFPAY ==
[2020-06-05 19:49] LABS: FREE T4 0.97 ng/dL (0.76-1.46)
[2020-06-05 19:58] LABS: Hemoglobin A1C 4.9 % (<5.7)
== END 2020-06-05 13:03 ==
LOC: NCHCN 12:43
PROVIDERS: PCP Family Medicine; Visit Provider Family Medicine
DX: E03.9 Hypothyroidism, unspecified (principal); E66.9 Obesity, unspecified; R53.83 Other fatigue
CPT/HCPCS: 83036; 84439

== ENCOUNTER 2020-12-03 02:06 | Emergency (ER) | payer BC, SELFPAY ==
[2020-12-03 02:17] VITALS: BP 144/96; PULSE 125; RESP 18; TEMP 37; O2SAT 97
[2020-12-03] MEDS: Normal Saline 1,000 ML 1000 ML IV (02:39)
[2020-12-03 02:46] LABS: Abs Immature Grans 0.04 10^3/uL (0.0-0.06); Absolute Basophil Count 0.05 10^3/uL (0.0-0.2); Absolute Eosinophil Count 0.33 10^3/uL (0.0-0.7); Absolute Lymphocyte Count 3.04 10^3/uL (1.2-3.4); Absolute Neutrophil Count 7.52 10^3/uL (1.2-6.7); Basophils % 0.4; Eosinophils % 2.8; HCT 41.1 % (36.0-46.0); HGB 13.2 g/dL (11.2-15.7); Immature Grans % 0.3; Lymphocytes % 25.9; MCH 29.4 pg (27.0-33.0); MCHC 32.1 % (32.0-36.0); MCV 91.5 fL (80-95); MPV 10.6 fL (8.0-11.0); Monocytes % 6.6; Nucleated RBC 0 %; Platelet Count 313 10^3/uL (130-400); RBC 4.49 10^6/uL (3.93-5.22); RDW 12.4 % (11.7-14.6); WBC 11.75 10^3/uL (4.4-10.8)
[2020-12-03 02:47] LABS: Absolute Monocyte Count 0.78 10^3/uL (0.1-0.8)
[2020-12-03] MEDS: LORazepam 2 MG/ML VIAL 0.5 MG IVP (02:51)
[2020-12-03 03:03] LABS: ALT 20 U/L (14-59); AST 12 U/L (15-37); Albumin 3.6 g/dL (3.4-5.0); Alkaline Phosphatase 77 U/L (46-116); Anion Gap 9.7 mmol/L (3-11); BUN 12 mg/dL (7-18); Bilirubin, Total 0.4 mg/dL (0.2-1.0); CO2 27.3 mmol/L (21.0-32.0); Calcium 8.6 mg/dL (8.5-10.1); Chloride 106 mmol/L (98-107); Glucose 114 mg/dL (74-106); Sodium 143 mmol/L (136-145); Total Protein 7.2 g/dL (6.4-8.2)
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
[2020-12-03] MEDS: diphenhydrAMINE 50 MG/ML VIAL 25 MG IVP (03:56)
[2020-12-03 03:57] VITALS: BP 121/63; PULSE 100; RESP 16; O2SAT 97
[2020-12-03 04:05] LABS: Source Nasal/Nares
[2020-12-03 04:25] VITALS: BP 120/68; PULSE 103; RESP 16; O2SAT 97
[2020-12-03 09:29] LABS: COVID-19 PCR Negative (Negative)
== END 2020-12-03 04:30 | disposition home or self-care (01) ==
LOC: ER 03:59
PROVIDERS: Emergency Provider Student in an Organized Health Care Education/Training Program; PCP Family Medicine
DX: R56.9 Unspecified convulsions (principal); F44.5 Conversion disorder with seizures or convulsions; Z20.822 Contact with and (suspected) exposure to COVID-19
CPT/HCPCS: 80053; 87635; 96361; 96374; 96375; 99284; 85025; J1200; J2060

== ENCOUNTER 2020-12-19 22:38 | Emergency (ER) | payer BC, SELFPAY ==
--- NOTE | 2020-12-19 00:01 | DI.RAD_ITS ---
Exam(s) XR KNEE LT 3V AP,LAT,CALIN EXAM: XR KNEE LT 3V AP,LAT,CALIN CLINICAL HISTORY: left lateral knee pain. TECHNIQUE: 2D digital imaging was performed. COMPARISON: No exams were available for comparison FINDINGS: There is no evidence of fracture nor obvious joint effusion. Bone density is normal. No osteochondr al defects. No osseous lesions. IMPRESSION: No fracture evident. DATA REPOSITORY: RADIATION DOSE DELIVERED:
[2020-12-19 22:42] VITALS: BP 90/65; PULSE 85; RESP 18; TEMP 36.1; O2SAT 98
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
[2020-12-19] MEDS: Ibuprofen 800 MG TAB PO (23:08)
[2020-12-19] MEDS: Acetaminophen 500 MG TAB 1000 MG PO (23:08)
[2020-12-20 00:20] VITALS: BP 113/74
--- NOTE | 2020-12-20 00:58 | DI.VRAD_ITS ---
PROCEDURE INFORMATION: Exam: XR Left Knee Exam date and time: 12/19/2020 10:59 PM Age: 25 years old Clinical indication: Injury or trauma; Other: Lifting injury; Work related; Sprain or strain; Patella or knee; Left; Injury date: 12/19/20; Injury details: Injured knee while lifting a heavy object from a pallet at work TECHNIQUE: Imaging protocol: XR Left knee. Views: 3 views. COMPARISON: CR LEFT KNEE LIMITED 1 OR 2 VIEWS 07/05/2014 10:18 AM FINDINGS: Bones/joints: No suspicious osseous lytic or blastic lesion. No discrete or displaced fracture. No joint dislocation. No significant joint effusion. Soft tissues: Normal. IMPRESSION: No acute findings. Dictated and Authenticated by: Kuldeep Marcos MD. Ordering:ED Palmer MD
== END 2020-12-20 00:40 | disposition home or self-care (01) ==
PROVIDERS: Emergency Provider Student in an Organized Health Care Education/Training Program; PCP Family Medicine
DX: S83.8X2A Sprain of other specified parts of left knee, initial encounter (principal); X50.9XXA Other and unspecified overexertion or strenuous movements or postures, initial encounter; Y99.0 Civilian activity done for income or pay
CPT/HCPCS: 29505; 73562; 99283

== ENCOUNTER 2021-01-18 15:18 | Outpatient (REF) | payer BC, SELFPAY ==
[2021-01-21 09:09] LABS: Hepatitis C Ab w Rflx HCV PCR Negative (Negative)
[2021-01-21 09:27] LABS: HIV-1/2 Ag & Ab Screen Negative (Negative)
[2021-01-21 15:41] LABS: Chlamydia Result Negative (Negative); GC Result Negative (Negative)
== END 2021-01-18 15:19 | disposition home or self-care (01) ==
LOC: LBN 15:18
PROVIDERS: PCP Family Medicine; Visit Provider Family Medicine
DX: Z11.3 Encounter for screening for infections with a predominantly sexual mode of transmission (principal); Z11.4 Encounter for screening for human immunodeficiency virus [HIV]; Z11.59 Encounter for screening for other viral diseases
CPT/HCPCS: 86803; 87389; 87491; 87591

== ENCOUNTER 2021-01-21 22:02 | Emergency (ER) | payer BC, SELFPAY ==
[2021-01-21 22:09] VITALS: BP 135/79; PULSE 86; RESP 16; TEMP 36.8; O2SAT 98
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
== END 2021-01-21 23:15 | disposition home or self-care (01) ==
PROVIDERS: Emergency Provider Physician Assistant; PCP Family Medicine
DX: L76.21 Postprocedural hemorrhage of skin and subcutaneous tissue following a dermatologic procedure (principal)
CPT/HCPCS: 99281

== ENCOUNTER 2021-02-25 01:57 | Outpatient (CLI) | payer BC, SELFPAY ==
[2021-02-25 12:17] LABS: Source Nasal/Nares
[2021-02-25 15:07] LABS: COVID-19 PCR Negative (Negative)
== END 2021-02-25 01:58 | disposition home or self-care (01) ==
LOC: LBO 01:58
PROVIDERS: PCP Family Medicine; Visit Provider Student in an Organized Health Care Education/Training Program
DX: Z20.822 Contact with and (suspected) exposure to COVID-19 (principal); Z01.818 Encounter for other preprocedural examination
CPT/HCPCS: 87635

== ENCOUNTER 2021-02-26 09:08 | Day surgery (SDC) | payer BC, SELFPAY ==
--- NOTE | 2021-02-26 07:53 | W.PM.DSUDISC ---
Discharge Plan Disposition Patient Disposition: HOME Condition: Good Discharge Details Reason For Visit: Right Open Carpal Tunnel Release Attending Provider: Neal Nuñez Primary Care Provider: Marisol Palmer V Home Meds and New Rx's Prescriptions: New oxycodone 5 mg tablet 5 mg PO Q4H PRNQty: 8 RF: 0 Continued paroxetine HCl 40 mg tablet 40 mg PO DAILY RF: 0 levothyroxine [Synthroid] 88 mcg tablet 75 mcg PO DAILY RF: 0 L norgest/e.estradiol-e.estrad [Seasonique] 0.15 mg-30 mcg (84)/10 mcg (7) tablets,dose pack,3 month 1 tab PO DAILY RF: 0 rizatriptan 10 mg tablet See Rx Instructions PO .COMPLEX Qty: 12 RF: 5 hydroxyzine HCl 50 mg tablet 50 mg PO QHS PRN (Reason: itching) Qty: 90 RF: 3 ibuprofen 800 mg tablet 800 mg PO Q8H PRN (Reason: pain) Qty: 90 RF: 0 calcium carbonate-vitamin D3 [Calcium 600 with Vitamin D3] 600 mg(1,500mg) -400 unit capsule 1 cap PO BID RF: 0 trazodone 50 MG tablet 50 mg PO HS PRNRF: 0 Flovent HFA 10.6 GM HFA aerosol inhaler 88 mcg Inhalation BID RF: 0 loratadine [Claritin Liqui-Gel] 10 MG capsule 10 mg PO DAILY PRNRF: 0 topiramate 100 mg tablet 100 mg PO QHS Qty: 90 RF: 3 albuterol sulfate [Ventolin HFA] 1 PUFF HFA aerosol inhaler 2 puff Inhalation PRN PRNRF: 0 acetaminophen 500 mg Tablet 1,000 mg PO Q6H PRNQty: 0 RF: 0 lidocaine [Lidoderm] 5 % adhesive patch,medicated 1 patch TP DAILY Qty: 30 RF: 0 Discharge Instructions Additional Instructions: Carpal Tunnel Decompression Discharge Instructions Activity: You should stay in the brace for the first 2 weeks. You may come out of the brace for gentle motion. You may advance light activity while in the brace Gentle motion of the elbow, hand, wrist, and fingers is okay and encouraged after the first few days, but no repetitive activities nor heavy lifting. You may apply ice. Medications: - You should take Tylenol and Ibuprofen around the clock. - You have been prescribed Oxycodone for breakthrough pain. Dressings: - The initial surgical dressing should stay in place for 3 days. It may then be removed and kept clean and dry. You should cover with a light gauze dressing. - You may shower after 3 days and get the wound wet. Follow-up: 10 days Referrals: Neal Nuñez MD [ [facility] STAFF PHYSICIAN] - Activity:: Activity as Tolerated Remove Dressings/Wound Care:: 72 hours Shower/Bathe:: 72 hours Diet:: As Tolerated Discharge Orders Discharge Orders: Discharge Order (Routine); Ordered 02/26/21 Ordered By: Marisol Lawson DS: Diagnosis Discharge Diagnosis (1) Bilateral carpal tunnel syndrome: Status: Acute
[2021-02-26 09:36] VITALS: BP 149/87; PULSE 76; RESP 16; TEMP 36.5; O2SAT 98
[2021-02-26] MEDS: Lactated Ringers 1,000 ML 80 ML IV (10:00)
--- NOTE | 2021-02-26 10:00 | W.ANESPRE ---
General Info Date of Service Date Performed: 02/26/21 Height: 5 ft 7 in Weight: 129.5 kg Body Mass Index (BMI): 44.6 Surgical Procedure: Operation Date: 02/26/21 12:25 Proposed Procedures Side Surgeon p Wrist Open Carpal Tunnel Release REVISION Right Neal Nuñez MD Meds Allergies and Home Medications Allergies Allergy/AdvReac Type Severity Reaction Status Date / Time bupropion HCl Allergy Mild itching, Verified 02/26/21 09:26 [From Wellbutrin] rash Home Medication Medication Instructions Recorded albuterol sulfate [Ventolin HFA] 2 puff INHALATION PRN PRN 12/11/12 Flovent HFA 88 mcg INHALATION BID inhaler 07/08/14 loratadine [Claritin Liqui-Gel] 10 mg PO DAILY PRN 07/08/14 trazodone 50 mg PO HS PRN 07/08/14 calcium carbonate-vitamin D3 600 1 cap PO BID cap 10/18/18 mg (1,500 mg)-400 unit capsule levothyroxine 88 mcg tablet 75 mcg PO DAILY 10/18/18 paroxetine HCl 40 mg tablet 40 mg PO DAILY 10/18/18 acetaminophen 1,000 mg PO Q6H PRN #0 tab 05/29/19 lidocaine [Lidoderm] 1 patch TP DAILY #30 each 05/29/19 L norgest/E estradiol-E estrad 1 tab PO DAILY 04/12/20 0.15 mg-30 mcg (84)/10 mcg(7) tabs,3mos topiramate 100 mg tablet 100 mg PO QHS #90 tab 09/25/20 hydroxyzine HCl 50 mg tablet 50 mg PO QHS PRN #90 tab 02/12/21 ibuprofen 800 mg tablet 800 mg PO Q8H PRN #90 tab 02/12/21 rizatriptan 10 mg tablet See Rx Instructions PO .COMPLEX 02/12/21 #12 tab oxycodone 5 mg PO Q4H PRN #8 tab 02/26/21 Current Visit Medications: Current Medications Generic Name Dose Route Start Last Admin Trade Name Freq PRN Reason Stop Dose Admin Acetaminophen 650 mg 02/26/21 07:52 Acetaminophen 325 Mg Tab PO Q4H PRN PRN Hydrocodone Bitart/Acetaminophen 0 tab 02/26/21 07:52 Hydrocodone 5/Acetaminophen 325 Tab PO Q3H PRN PRN Pain Ringer's Solution 1,000 mls @ 80 mls/hr 02/26/21 06:00 IV 03/27/21 23:59 INFUSION SIL Cefazolin Sodium 3,000 mg/ 100 mls @ 200 mls/hr 02/26/21 06:00 Sodium Chloride IVPB 02/26/21 18:00 PREOP SIL Ondansetron HCl 4 mg/ Sodium 52 mls @ 200 mls/hr 02/26/21 07:52 Chloride IVPB Q6H PRN PRN IV Miscellaneous Supplies 1 each 02/26/21 06:00 Iv Access IV 03/27/21 23:59 DIRECTED SIL Sodium Chloride 0 ml 02/26/21 06:00 Normal Saline Flush 10 Ml Syr IV 03/27/21 23:59 PRN PRN Sodium Chloride 0 ml 02/26/21 06:00 Normal Saline 10 Ml Vial IJ 03/27/21 23:59 DIRECTED PRN Sterile Water 0 ml 02/26/21 06:00 Water,Injection,Sterile 10 Ml Vial IJ 03/27/21 23:59 DIRECTED PRN PFSH Active Problems Active Problems: Problem Status Onset Code Post-op bleeding Bilateral carpal tunnel syndrome G56.03 Left knee sprain S83.92XA Spells of trembling R25.1 Functional neurological symptom disorder with attacks or seizures F44.5 Carpal tunnel syndrome, left G56.02 Insomnia G47.00 Carpal tunnel syndrome, right G56.01 Vomiting R11.10 Headache R51 Orthostatic hypotension I95.1 Dizzy spells R42 Contraception Z78.9 Back pain M54.9 Influenza A J10.1 Acute right otitis media H66.91 Spell of abnormal behavior R46.89 Migraine headache without aura G43.009 Chronic headache R51 Hand paresthesia R20.2 Retina disorder, 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 Albarran 03/2020 Hypothyroidism Obesity Polycystic ovary syndrome Retina disorder, right Surgical History Surgical History Carpal tunnel syndrome, right S/P ECTR: 05/28/2020 S/P eye surgery R torn retina Tobacco Smoking/Tobacco Use Status: Never Alcohol Alcohol Intake: never Substance Use Substance use: Occasionally Substance use type: marijuana Details: 02/26/21 Pt reports not having had marijuana in awhile. Vital Signs and Lab Results Vital Signs Most Recent Vital Signs in EMR: Most Recent Vital Signs Temp Pulse Resp BP Pulse Ox 36.5 C 76 16 149/87 H 98 02/26/21 09:36 02/26/21 09:36 02/26/21 09:36 02/26/21 09:36 02/26/21 09:36 Point of Care Results Point of Care Results: POC- Test(urine) Negative 02/26/21 09:47 Lab Results Blood Type / Crossmatch: No Data to Display Complete Blood Count: No Data to Display Complete Metabolic Panel: No Data to Display Liver Function Panel: No Data to Display Coagulation Panel: No Data to Display Cardiac Panel: No Data to Display Arterial Blood Gas: No Data to Display Venous Blood Gas: No Data to Display Pancreas Panel: No Data to Display Thyroid Panel: No Data to Display Infectious Disease: Coronavirus (COVID-19)(PCR) Negative (Negative) 02/25/21 11:06 02/25/21 Coronavirus 2019 Source Nasal/Nares 02/25/21 11:06 02/25/21 Blood Cultures: No Data to Display Toxicology Panel: No Data to Display Panel: No Data to Display Anesthesia Assessment and Plan Anesthesia History Personal History: No History of Anesthesia Complications Family History: No Family History of Anesthesia Complications Exercise Tolerance Exercise Tolerance: Metabolic Equivalents>4 Pertinent Negatives Pertinent Negatives: No Symptoms of GERD, No Major Cardiovascular Symptoms or Complaints and No Major Pulmonary Symptoms or Complaints (Mild Asthma ) Cardiac & Pulmonary Exam Cardiac Exam: Normal S1/S2 Heart Sounds Pulmonary Exam: Clear Bilateral Breath Sounds Airway Exam Known Difficult Airway: No Mallampati Class: 2 Mouth Opening: Normal (> 3cm) Thyromental Distance: Greater than 3 cm Neck Range of Motion: Full ROM Neck Circumference: Thick Teeth Condition: Normal Dentition ASA Classification ASA Score: ASA 2 Emergency Case?: No NPO Status NPO Status: NPO Clears >2 hours, Solids >8 hours Status Status: Negative HCG Anesthesia Plan Resuscitation Status: Full Code Anesthesia Technique: General Anesthesia Airway Planned: Natural Airway Monitors Used: Standard Monitors
[2021-02-26 10:02] VITALS: BMI 44.6
[2021-02-26] MEDS: ceFAZolin 3,000 MG in Normal Saline 100 ML 200 MG IVPB (10:22)
[2021-02-26] MEDS: Sodium Bicarbonate 50 MEQ/50 ML VIAL (10:40)
[2021-02-26] MEDS: Lidocaine 1% Multi-Dose 50 ML VIAL (10:40)
[2021-02-26 11:01] VITALS: BP 118/69; PULSE 76; RESP 14; TEMP 36.3; O2SAT 96
--- NOTE | 2021-02-26 11:03 | W.ANESPOSTOP ---
Postoperative Evaluation Date, Time and Location Date Performed: 02/26/21 Time Performed: 11:03 Patient Location: Day Surgery Unit Vital Signs Most Recent Imported Vital Signs: Most Recent Vital Signs Temp Pulse Resp BP Pulse Ox 36.5 C 76 16 149/87 H 98 02/26/21 09:36 02/26/21 09:36 02/26/21 09:36 02/26/21 09:36 02/26/21 09:36 Most Recent Manually Entered Vital Signs: Adult Blood Pressure: 118/69 Heart Rate: 76 Respirations: 12 Oxygen Saturation (%): 95 Temperature (C): 36.5 C Pain Score (0-10 Scale): 0 Pain Score Most Recent Pain Score: Most Recent Pain Score Pain Level 0 02/26/21 09:36 Assessment Mental Status: Awake (Alert & Oriented to Patient Baseline) Airway and Respiratory Function: Patent airway with normal (patient baseline) respiratory exam Cardiovascular Function: Hemodynamically Stable Hydration Status: Adequately Hydrated Nausea & Vomiting: No Nausea or Vomiting Pain: Pt. Denies Any Pain Peripheral Nerve Block: Patient did not receive a nerve block Teaching Patient Teaching: Discussed Safe Use of Pain Medication Given Recent Anesthesia and Discussed Safe Use of Pain Medication Given Likely or Known LOLA
[2021-02-26 11:05] VITALS: BP 118/69; PULSE 76; RESP 12; TEMPC 36.5; O2SAT 95
[2021-02-26 11:28] VITALS: BP 113/70; PULSE 67; RESP 16; TEMP 36.5; O2SAT 100
[2021-02-26] MEDS: Acetaminophen 325 MG TAB 650 MG PO (11:42)
--- NOTE | 2021-02-26 12:53 | ROE_ITS ---
Date of service: 02/26/21 Time of Service: 11:24 Operative Note Operative Note DATE OF PROCEDURE: 02/26/21 PRE-OP DIAGNOSIS: Recurent Carpal Tunnel Syndrome POST-OP DIAGNOSIS: same PROCEDURE: Open Carpal Tunnel Release - Right SURGEON: Neal Nuñez ANESTHESIA TYPE: General:No Airway Refer to Anesthesia Record ESTIMATED BLOOD LOSS: 5 PATHOLOGY: none sent TOURNIQUET TIME: 15 COMPLICATIONS: None Patient was transported to: same day Patient's condition: stable Indications: Lelia is a 25 year old female who I have seen for carpal tunnel syndrome. She had a previous endoscopic carpal tunnel release by Dr. Resendiz approximate 4 years ago. Unfortunately, she continued to have symptoms. Repeat nerve conduction studies demonstrated continued carpal tunnel. Her clinical history was also indicative of continued carpal tunnel symptoms. Therefore, I recommended proceeding with an open, revision carpal tunnel release. I reviewed the risk of the procedure to include bleeding, infection, pain, stiffness, continued numbness, damage to nerves and vessels, damage to muscles and tendons, need for repeat procedures. Despite these risk, patient desired to proceed. Findings: There was a tightened and thickened transverse carpal ligament. It was released fully released. The median nerve was inspected and showed no signs of adhesions or injury and was free throughout its course in the wrist. Procedure Description: Lelia was greeted in the preoperative holding area. The correct site was identified and marked. The consent was reviewed the patient and signed. The history physical was updated. Patient was taken back to the operating room and placed in the supine position with the right hand placed on a hand table. A nonsterile tourniquet was placed high up onto the arm. The hand and forearm was then prepped with ChloraPrep and draped in standard fashion. Prophylactic antibiotics in the form of cefazolin were given. A timeout was performed for safe surgery. The surgical site was then injected and anesthetized with 1% lidocaine with epinephrine buffered with sodium bicarbonate. The radial border of the fourth ray was marked on the skin as well as any other pertinent surface anatomy. The limb was exsanguinated and cuff inflated to 250 mmHg. Using 15 blade the skin was incised sharply. Blunt dissection was carried down to the level of the palmar fascia. This was sharply divided making sure to protect any crossing neurovascular branches. Once this was divided the fibers of the transverse carpal ligament were identified. Using a [employer], I was able to place this underneath a portion of the transverse carpal ligament. A knife was then used to cut directly onto the [employer]. This released the transverse carpal ligament. The ligament was notably thick, especially at his distal extent. Using the [employer] to protect underlying tendons and the median nerve, I released the remainder of the transverse carpal ligament. It was thickened and tight. A scissor was used to complete the far aspects after making sure there is no interposed tissue. There is notable separation of the leaflets. Elevating, lifting up, the radial flap of the transverse carpal ligament exposed the median nerve. Any adhesions between it and the transverse carpal ligament were released. It was fully inspected and showed no signs of injury or damage. The wound was then fully irrigated. The skin and deeper tissues were closed with a interrupted 4-0 nylon suture. The tourniquet was deflated and there was return of blood flow to all digits. No excessive bleeding from the wound. 4 x 4 gauze was applied followed by Kerlix wrap and an Lex wrap. The hand was placed into a removable brace. At the end the case all counts are correct. The patient tolerated the procedure well and was transferred back to the day surgery area in a stable condition.
== END 2021-02-26 12:25 | disposition home or self-care (01) ==
LOC: SUR 09:08
PROVIDERS: PCP Family Medicine; Visit Provider Student in an Organized Health Care Education/Training Program
PROC: (CPT 64721; principal; 2021-02-26 12:15)
DX: G56.03 Carpal tunnel syndrome, bilateral upper limbs (principal)
CPT/HCPCS: 64721; 81025; J0690; J1100; J1885; J2001; J2405; J2704

== ENCOUNTER 2021-04-08 12:18 | Outpatient (REF) | payer BC, SELFPAY ==
[2021-04-08 13:31] LABS: Source Nasal/Nares
[2021-04-08 17:01] LABS: COVID-19 PCR Negative (Negative)
== END 2021-04-08 12:19 | disposition home or self-care (01) ==
LOC: LBO 12:18
PROVIDERS: PCP Family Medicine; Visit Provider Student in an Organized Health Care Education/Training Program
DX: Z20.822 Contact with and (suspected) exposure to COVID-19 (principal); Z01.818 Encounter for other preprocedural examination
CPT/HCPCS: 87635

== ENCOUNTER 2021-04-10 07:44 | Day surgery (SDC) | payer BC, SELFPAY ==
--- NOTE | 2021-04-10 07:26 | W.PM.DSUDISC ---
Discharge Plan Disposition Patient Disposition: HOME Condition: Good Discharge Details Reason For Visit: Left ECTR Attending Provider: Neal Nuñez Primary Care Provider: Marisol Palmer V Home Meds and New Rx's Prescriptions: Continued paroxetine HCl 40 mg tablet 40 mg PO DAILY RF: 0 levothyroxine [Synthroid] 88 mcg tablet 75 mcg PO DAILY RF: 0 L norgest/e.estradiol-e.estrad [Seasonique] 0.15 mg-30 mcg (84)/10 mcg (7) tablets,dose pack,3 month 1 tab PO DAILY RF: 0 rizatriptan 10 mg tablet See Rx Instructions PO .COMPLEX Qty: 12 RF: 5 hydroxyzine HCl 50 mg tablet 50 mg PO QHS PRN (Reason: itching) Qty: 90 RF: 3 ibuprofen 800 mg tablet 800 mg PO Q8H PRN (Reason: pain) Qty: 90 RF: 0 calcium carbonate-vitamin D3 [Calcium 600 with Vitamin D3] 600 mg(1,500mg) -400 unit capsule 1 cap PO BID RF: 0 trazodone 50 MG tablet 50 mg PO HS PRNRF: 0 Flovent HFA 10.6 GM HFA aerosol inhaler 88 mcg Inhalation BID RF: 0 loratadine [Claritin Liqui-Gel] 10 MG capsule 10 mg PO DAILY PRNRF: 0 topiramate 100 mg tablet 100 mg PO QHS Qty: 90 RF: 3 albuterol sulfate [Ventolin HFA] 1 PUFF HFA aerosol inhaler 2 puff Inhalation PRN PRNRF: 0 acetaminophen 500 mg Tablet 1,000 mg PO Q6H PRNQty: 0 RF: 0 lidocaine [Lidoderm] 5 % adhesive patch,medicated 1 patch TP DAILY Qty: 30 RF: 0 Discharge Instructions Stand Alone Forms: Joaquin Ventura Tunnel Release Referrals: Neal Nuñez MD [ [facility] STAFF PHYSICIAN] - Equipment/Supplies: Walker Activity:: Activity as Tolerated Remove Dressings/Wound Care:: Do Not Remove Shower/Bathe:: 72 hours Diet:: As Tolerated Discharge Orders Discharge Orders: Discharge Order (Routine); Ordered 04/10/21 Ordered By: Marisol Lawson DS: Diagnosis Discharge Diagnosis (1) Carpal tunnel syndrome, left: Status: Acute
[2021-04-10 08:22] VITALS: BP 104/64; PULSE 90; RESP 16; TEMP 36.5; O2SAT 97
--- NOTE | 2021-04-10 08:46 | W.ANESPRE ---
General Info Date of Service Date Performed: 04/10/21 Height: 5 ft 7 in Weight: 128.6 kg Body Mass Index (BMI): 44.4 Surgical Procedure: Operation Date: 04/10/21 09:55 Proposed Procedures Side Surgeon p Wrist ECTR Left Neal Nuñez MD Meds Allergies and Home Medications Allergies Allergy/AdvReac Type Severity Reaction Status Date / Time bupropion HCl Allergy Mild itching, Verified 04/10/21 08:19 [From Wellbutrin] rash Home Medication Medication Instructions Recorded albuterol sulfate [Ventolin HFA] 2 puff INHALATION PRN PRN 12/11/12 Flovent HFA 88 mcg INHALATION BID inhaler 07/08/14 loratadine [Claritin Liqui-Gel] 10 mg PO DAILY PRN 07/08/14 trazodone 50 mg PO HS PRN 07/08/14 calcium carbonate-vitamin D3 600 1 cap PO BID cap 10/18/18 mg (1,500 mg)-400 unit capsule levothyroxine 88 mcg tablet 75 mcg PO DAILY 10/18/18 paroxetine HCl 40 mg tablet 40 mg PO DAILY 10/18/18 acetaminophen 1,000 mg PO Q6H PRN #0 tab 05/29/19 lidocaine [Lidoderm] 1 patch TP DAILY #30 each 05/29/19 L norgest/E estradiol-E estrad 1 tab PO DAILY 04/12/20 0.15 mg-30 mcg (84)/10 mcg(7) tabs,3mos topiramate 100 mg tablet 100 mg PO QHS #90 tab 09/25/20 hydroxyzine HCl 50 mg tablet 50 mg PO QHS PRN #90 tab 02/12/21 ibuprofen 800 mg tablet 800 mg PO Q8H PRN #90 tab 02/12/21 rizatriptan 10 mg tablet See Rx Instructions PO .COMPLEX 02/12/21 #12 tab Current Visit Medications: Current Medications Generic Name Dose Route Start Last Admin Trade Name Freq PRN Reason Stop Dose Admin Acetaminophen 650 mg 04/10/21 07:25 Acetaminophen 325 Mg Tab PO Q4H PRN PRN Hydrocodone Bitart/Acetaminophen 0 tab 04/10/21 07:25 Hydrocodone 5/Acetaminophen 325 Tab PO Q3H PRN PRN Pain Ringer's Solution 1,000 mls @ 80 mls/hr 04/10/21 06:00 IV 10/14/21 23:59 INFUSION SIL Cefazolin Sodium 2,000 mg/ 100 mls @ 200 mls/hr 04/10/21 06:00 Sodium Chloride IVPB 04/10/21 16:00 PREOP SIL Ondansetron HCl 4 mg/ Sodium 52 mls @ 200 mls/hr 04/10/21 07:25 Chloride IVPB Q6H PRN PRN IV Miscellaneous Supplies 1 each 04/10/21 06:00 Iv Access IV 05/09/21 23:59 DIRECTED SIL Sodium Chloride 0 ml 04/10/21 06:00 Normal Saline Flush 10 Ml Syr IV 05/09/21 23:59 PRN PRN Sodium Chloride 0 ml 04/10/21 06:00 Normal Saline 10 Ml Vial IJ 05/09/21 23:59 DIRECTED PRN Sterile Water 0 ml 04/10/21 06:00 Water,Injection,Sterile 10 Ml Vial IJ 05/09/21 23:59 DIRECTED PRN PFSH Active Problems Active Problems: Problem Status Onset Code Post-op bleeding Bilateral carpal tunnel syndrome G56.03 Left knee sprain S83.92XA Spells of trembling R25.1 Functional neurological symptom disorder with attacks or seizures F44.5 Carpal tunnel syndrome, left G56.02 Insomnia G47.00 Carpal tunnel syndrome, right G56.01 Vomiting R11.10 Headache R51 Orthostatic hypotension I95.1 Dizzy spells R42 Contraception Z78.9 Back pain M54.9 Influenza A J10.1 Acute right otitis media H66.91 Spell of abnormal behavior R46.89 Migraine headache without aura G43.009 Chronic headache R51 Hand paresthesia R20.2 Retina disorder, 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 Albarran 03/2020 Hypothyroidism Obesity Polycystic ovary syndrome Retina disorder, right Surgical History Surgical History Carpal tunnel syndrome, right S/P ECTR: 05/28/2020, Open revision 02/26/2021 S/P eye surgery R torn retina Tobacco Smoking/Tobacco Use Status: Never Alcohol Alcohol Intake: never Substance Use Substance use: Occasionally Substance use type: marijuana Details: Pt reports not having had marijuana in awhile. Vital Signs and Lab Results Vital Signs Most Recent Vital Signs in EMR: Most Recent Vital Signs Temp Pulse Resp BP Pulse Ox 36.5 C 90 16 104/64 97 04/10/21 08:22 04/10/21 08:22 04/10/21 08:22 04/10/21 08:22 04/10/21 08:22 Lab Results Blood Type / Crossmatch: No Data to Display Complete Blood Count: No Data to Display Complete Metabolic Panel: No Data to Display Liver Function Panel: No Data to Display Coagulation Panel: No Data to Display Cardiac Panel: No Data to Display Arterial Blood Gas: No Data to Display Venous Blood Gas: No Data to Display Pancreas Panel: No Data to Display Thyroid Panel: No Data to Display Infectious Disease: Coronavirus (COVID-19)(PCR) Negative (Negative) 04/08/21 11:00 04/08/21 Coronavirus 2019 Source Nasal/Nares 04/08/21 11:00 04/08/21 Blood Cultures: No Data to Display Toxicology Panel: No Data to Display Panel: No Data to Display Anesthesia Assessment and Plan Anesthesia History Personal History: No History of Anesthesia Complications Family History: No Family History of Anesthesia Complications Exercise Tolerance Exercise Tolerance: Metabolic Equivalents>4 Pertinent Negatives Pertinent Negatives: No Symptoms of GERD, No Major Cardiovascular Symptoms or Complaints, No Major Pulmonary Symptoms or Complaints and No History of CVA/TIA Cardiac & Pulmonary Exam Cardiac Exam: Normal S1/S2 Heart Sounds Pulmonary Exam: Clear Bilateral Breath Sounds Airway Exam Known Difficult Airway: No Mallampati Class: 2 Mouth Opening: Normal (> 3cm) Thyromental Distance: Greater than 3 cm Neck Range of Motion: Full ROM Neck Circumference: Thick Teeth Condition: Normal Dentition ASA Classification ASA Score: ASA 3 Emergency Case?: No NPO Status NPO Status: NPO Clears >2 hours, Solids >8 hours Status Status: Negative HCG Anesthesia Plan Resuscitation Status: Full Code Anesthesia Technique: General Anesthesia Airway Planned: LMA Monitors Used: Standard Monitors
[2021-04-10] MEDS: Lactated Ringers 1,000 ML 80 ML IV (08:50)
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
[2021-04-10 09:10] VITALS: BMI 44.4
[2021-04-10] MEDS: ceFAZolin 2,000 MG in Normal Saline 100 ML 200 MG IVPB (09:12)
[2021-04-10] MEDS: Sodium Bicarbonate 50 MEQ/50 ML VIAL (09:26)
[2021-04-10 09:37] VITALS: BP 100/55; PULSE 82; RESP 14; TEMP 36.2; O2SAT 96
--- NOTE | 2021-04-10 09:46 | W.ANESPOSTOP ---
Postoperative Evaluation Date, Time and Location Date Performed: 04/10/21 Time Performed: 09:47 Patient Location: Day Surgery Unit Vital Signs Most Recent Imported Vital Signs: Most Recent Vital Signs Temp Pulse Resp BP Pulse Ox 36.5 C 90 16 104/64 97 04/10/21 08:22 04/10/21 08:22 04/10/21 08:22 04/10/21 08:22 04/10/21 08:22 Pain Score Most Recent Pain Score: Most Recent Pain Score Pain Level 0 04/10/21 08:22 Assessment Mental Status: Awake (Alert & Oriented to Patient Baseline) Airway and Respiratory Function: Patent airway with normal (patient baseline) respiratory exam Cardiovascular Function: Hemodynamically Stable Hydration Status: Adequately Hydrated Nausea & Vomiting: No Nausea or Vomiting Pain: Pt. Denies Any Pain Peripheral Nerve Block: Patient did not receive a nerve block
[2021-04-10 10:05] VITALS: BP 95/51; PULSE 73; RESP 16; TEMP 36.1; O2SAT 97
--- NOTE | 2021-04-10 10:37 | W.PM.OP ---
Date of service: 04/10/21 Time of Service: 09:57 Operative Note Operative Note DATE OF PROCEDURE: 04/10/21 PRE-OP DIAGNOSIS: Left Carpal Tunnel Syndrome POST-OP DIAGNOSIS: same PROCEDURE: Left Endoscopic Carpal Tunnel Release SURGEON: Neal Nuñez ANESTHESIA TYPE: General:No Airway Refer to Anesthesia Record ESTIMATED BLOOD LOSS: 0 PATHOLOGY: none sent TOURNIQUET TIME: 11 COMPLICATIONS: None Patient was transported to: same day Patient's condition: stable Indications: I have seen Lelia in clinic for symptoms of carpal tunnel syndrome. The numbness, tingling, and pain limited function. Clinical exam findings with nerve conduction tests confirmed the diagnosis of carpal tunnel syndrome. Nonoperative measures such as bracing, time, activity modifications had been tried but disability and pain persisted. I discussed carpal tunnel release with the patient. I reviewed the risks of the procedure to include, but not limited to, bleeding, infection, pain, stiffness, incomplete release, damage to nerves or vessels, persistent numbness, recurrence. Despite these risks, the patient elected to proceed. Findings: There was tightened carpal tunnel. This was dilated and released successfully with the endoscopic with increased space within the tunnel. There was a good amount of fat and fatty-like tissue which made visualization challenging. The antebrachial fascia was released proximally freeing the median nerve at the wrist. Procedure Description: Lelia was greeted in the preoperative holding area where the correct side was identified and marked. The consent was reviewed with the patient and signed. The history and physical was updated. All questions were answered. She was taken back to the operating room. The patient was placed into the supine position on the operating room table with the left arm on an arm board. A nonsterile tourniquet was placed high onto the arm. All bony prominences were well padded. Prophylactic antibiotics in the form of Cefazolin were administered. The left arm was then prepped with Chloraprep and draped in a standard fashion with stockinette and extremity drape. A timeout to confirm correct identity, side and site, procedure, allergies, anesthesia, and medical concerns was performed. The surgical site was marked in the volar wrist creases in line with the radial border of the fourth ray. This area was anesthetized with approximately 6cc of 1% Lidocaine. The limb was then exsanguinated with an Esmarch. The skin was incised with a 15 blade, approximately 1cm. The skin only was cut and the deeper tissue was dissected bluntly with a tenotomy scissor, avoiding passing nerve and venous structures. The fascia was penetrated and opened bluntly. A two-prong skin hook was placed under this proximal fascial edge. A series of hamate finders were used to identify and dilate the carpal tunnel. Synovial elevator was used to free synovial attachments to the underside of the transverse carpal ligament. My thumb was kept in the palm to cristina the distal extent of the carpal tunnel and correctly position the hand. The Microaire endoscope was inserted without difficulty and without resistance. Visualization was hampered initially by a significant amount of fat in the carpal tunnel. Repeat releases with the synovial elevator was performed and position and direction checked. After this, excellent visualization showed horizontally running fibers of the transverse carpal ligament (TCL). The distal extent of the TCL was visualized and the end of the scope palpated with the thumb. The blade was elevated and withdrawn from distal to proximal. The TCL was split into two flaps. The endoscope was reinserted to confirm complete release and any remnant ligament was incised. The scope was withdrawn and the proximal aspect of the carpal tunnel was grossly inspected and appeared release with the median nerve visible. The antebrachial fascia at the level of the wrist was then freed from the overlying skin and then the underlying median nerve with blunt dissection. This was transected longitudinally for about 3cm proximal to the wrist incision. The wound was then irrigated with easy flow of irrigant distally and proximally. The incision was closed with a single 4-0 Nylon suture. The wound was dressed with Xeroform, Gauze, Kerlix and Lex. The tourniquet was deflated with the initial dressing and held with some pressure. Blood flow returned easily to all digits with capillary refill less than 2 seconds. The patient tolerated the procedure well and was returned to the Same Day Surgery area in a stable condition suffering no known complication.
[2021-04-10 10:39] VITALS: BP 95/43; PULSE 79; RESP 14; O2SAT 98
== END 2021-04-10 11:00 | disposition home or self-care (01) ==
PROVIDERS: PCP Family Medicine; Visit Provider Student in an Organized Health Care Education/Training Program
PROC: 01N54ZZ Release Median Nerve, Percutaneous Endoscopic Approach (ICD-10-PCS; CPT 29848; principal; 2021-04-10 09:45)
DX: G56.02 Carpal tunnel syndrome, left upper limb (principal); E66.9 Obesity, unspecified; Z68.41 Body mass index [BMI] 40.0-44.9, adult
CPT/HCPCS: 29848; J0690; J1100; J2001; J2405; J2704

== ENCOUNTER 2021-05-27 20:25 | Emergency (ER) | payer SELFPAY ==
[2021-05-27 20:31] VITALS: BP 127/66; PULSE 103; RESP 18; TEMP 36.5; O2SAT 98
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
[2021-05-27] MEDS: Lidocaine 5% Patch 1 PATCH TP (21:24)
[2021-05-27] MEDS: Acetaminophen 500 MG TAB 1000 MG PO (21:26)
[2021-05-27] MEDS: Ibuprofen 600 MG TAB PO (21:26)
== END 2021-05-27 21:45 | disposition home or self-care (01) ==
PROVIDERS: Emergency Provider Physician Assistant; PCP Family Medicine
DX: M54.50 Low back pain, unspecified (principal); X50.0XXA Overexertion from strenuous movement or load, initial encounter; Y99.0 Civilian activity done for income or pay
CPT/HCPCS: 81025; 99283

== ENCOUNTER 2021-06-14 15:36 | Outpatient (REF) | payer BC, SELFPAY ==
[2021-06-14 20:22] LABS: FREE T4 1.03 ng/dL (0.76-1.46); TSH 2.41 uIU/mL (0.36-3.74)
== END 2021-06-14 15:37 | disposition home or self-care (01) ==
LOC: NCHCN 15:36
PROVIDERS: PCP Family Medicine; Visit Provider Family Medicine
DX: E03.9 Hypothyroidism, unspecified (principal)
CPT/HCPCS: 84439; 84443

== ENCOUNTER 2021-11-08 11:51 | Emergency (ER) | payer BC, SELFPAY ==
[2021-11-08 12:02] VITALS: BP 120/73; PULSE 68; RESP 16; TEMP 37.1; O2SAT 99
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
[2021-11-08] MEDS: diphenhydrAMINE 25 MG CAP PO (12:53)
[2021-11-08] MEDS: predniSONE 20 MG TAB 60 MG PO (12:54)
[2021-11-08] MEDS: Famotidine 20 MG TAB 40 MG PO (12:54)
[2021-11-08 13:09] VITALS: BP 124/77; PULSE 77; RESP 16; TEMP 35.8; O2SAT 99
[2021-11-08] MEDS: Clindamycin 150 MG CAP 450 MG PO (14:07)
[2021-11-08 14:24] VITALS: BP 129/78; PULSE 75; RESP 16; TEMP 36.4; O2SAT 99
== END 2021-11-08 14:32 | disposition home or self-care (01) ==
PROVIDERS: Emergency Provider Registered Nurse Emergency; PCP Family Medicine
DX: K13.0 Diseases of lips (principal)
CPT/HCPCS: 99283; J7512

== ENCOUNTER 2022-02-04 18:30 | Outpatient (REF) | payer BC, SELFPAY ==
[2022-02-04 16:25] LABS: Magnesium 1.9 mg/dL (1.8-2.4); T4 5.9 ug/mL (4.7-13.3); TSH 2.42 uIU/mL (0.36-3.74)
[2022-02-06 05:24] LABS: Vitamin D 25 Total 38.1 ng/mL (30-100)
== END 2022-02-04 18:31 | disposition home or self-care (01) ==
LOC: NCHCN 18:30
PROVIDERS: PCP Family Medicine; Visit Provider Family Medicine
DX: E03.9 Hypothyroidism, unspecified (principal); E55.9 Vitamin D deficiency, unspecified; G43.009 Migraine without aura, not intractable, without status migrainosus
CPT/HCPCS: 82306; 83735; 84436; 84443

== ENCOUNTER 2022-02-19 15:59 | Outpatient (REF) | payer BC, SELFPAY ==
[2022-02-21 14:57] LABS: Chlamydia Result Negative (Negative); GC Result Negative (Negative)
== END 2022-02-19 16:00 | disposition home or self-care (01) ==
LOC: NCHCN 15:59
PROVIDERS: PCP Family Medicine; Visit Provider Family Medicine
DX: Z11.3 Encounter for screening for infections with a predominantly sexual mode of transmission (principal)
CPT/HCPCS: 87491; 87591

== ENCOUNTER 2022-03-20 17:59 | Emergency (ER) | payer BC, SELFPAY ==
[2022-03-20 18:08] VITALS: BP 124/75; PULSE 97; RESP 14; TEMP 36.8; O2SAT 99
[2022-03-20] MEDS: diazePAM 2 MG TAB PO (19:32)
[2022-03-20] MEDS: Ibuprofen 600 MG TAB PO (19:32)
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
== END 2022-03-20 20:13 | disposition home or self-care (01) ==
PROVIDERS: Emergency Provider Student in an Organized Health Care Education/Training Program; PCP Family Medicine
DX: G89.11 Acute pain due to trauma (principal); M54.50 Low back pain, unspecified; W18.40XA Slipping, tripping and stumbling without falling, unspecified, initial encounter; X50.1XXA Overexertion from prolonged static or awkward postures, initial encounter; Y99.0 Civilian activity done for income or pay; F17.290 Nicotine dependence, other tobacco product, uncomplicated
CPT/HCPCS: 99283; 99284

== ENCOUNTER 2022-05-06 02:39 | Outpatient (CLI) | payer BC, SELFPAY ==
[2022-05-06 16:08] LABS: Kit/Specimen SENT
[2022-05-06 16:18] LABS: Abs Immature Grans 0.02 10^3/uL (0.0-0.06); Absolute Basophil Count 0.03 10^3/uL (0.0-0.2); Absolute Lymphocyte Count 2.41 10^3/uL (1.2-3.4); Absolute Monocyte Count 0.58 10^3/uL (0.1-0.8); Absolute Neutrophil Count 6.24 10^3/uL (1.2-6.7); Basophils % 0.3; Eosinophils % 2.1; HCT 34.9 % (36.0-46.0); HGB 11.9 g/dL (11.2-15.7); Immature Grans % 0.2; Lymphocytes % 25.4; MCH 31.4 pg (27.0-33.0); MCHC 34.1 % (32.0-36.0); MCV 92 fL (80-95); MPV 10.7 fL (8.0-11.0); Monocytes % 6.1; Neutrophils % 65.9; Platelet Count 262 10^3/uL (130-400); RBC 3.79 10^6/uL (3.93-5.22); RDW 12.7 % (11.7-14.6); RDW-SD 42.6 fL; WBC 9.48 10^3/uL (4.4-10.8)
[2022-05-06 16:54] LABS: TSH (W/Ref FT4) 2.51 uIU/mL (0.36-3.74)
[2022-05-07 13:02] LABS: Glucose,1 Hr (Glucola) 71 mg/dL (80-140)
[2022-05-08 09:25] LABS: Hepatitis B Surface Ag Negative (Negative)
[2022-05-08 09:54] LABS: Varicella IgG Antibody Negative (See Note)
[2022-05-08 10:05] LABS: Hepatitis C Ab w Rflx HCV PCR Negative (Negative)
[2022-05-08 10:06] LABS: Rubella IgG Ab (UVM) Positive (See Note)
[2022-05-08 10:23] LABS: HIV-1/2 Ag & Ab Screen Negative (Negative)
[2022-05-08 23:29] LABS: Syphilis IgG w/Reflex Nonreactive (Nonreactive)
[2022-05-10 15:39] LABS: Specimen WB Whole Blood
[2022-05-27 13:04] LABS: Result Summary NEGATIVE; Specimen WB Whole Blood
== END 2022-05-06 02:40 | disposition home or self-care (01) ==
LOC: LBO 02:39
PROVIDERS: PCP Family Medicine; Visit Provider Advanced Practice Midwife
DX: O99.281 Endocrine, nutritional and metabolic diseases complicating pregnancy, first trimester (principal); O99.211 Obesity complicating pregnancy, first trimester; Z36.89 Encounter for other specified antenatal screening; Z3A.12 12 weeks gestation of pregnancy
CPT/HCPCS: 81220; 81222; 81329; 82950; 86787; 86803; 86850; 86900; 86901; 87340; 87389; 84443; 85025; 86762; 86780

== ENCOUNTER 2022-05-06 16:37 | Outpatient (REF) | payer BC, SELFPAY ==
[2022-05-06 17:29] LABS: *AMPHETAMINES SCREEN URINE Negative (Negative); *BARBITURATES SCREEN URINE Negative (Negative); *BENZODIAZEPINES SCREEN URINE Negative (Negative); Cannabinoids THC Negative (Negative); Cocaine Screen,Urine Negative (Negative); METHADONE URINE SCREEN Negative (Negative); OPIATES URINE SCREEN Negative (Negative)
[2022-05-06 17:31] LABS: Tricyclic Antidepressants Negative (Negative)
[2022-05-10 12:20] LABS: Buprenorphine Negative ng/mL (Cutoff: 5.0); Norbuprenorphine Negative ng/mL (Cutoff: 2.5)
== END 2022-05-06 16:38 | disposition home or self-care (01) ==
LOC: LBN 16:37
PROVIDERS: PCP Family Medicine; Visit Provider Advanced Practice Midwife
DX: Z34.91 Encounter for supervision of normal pregnancy, unspecified, first trimester
CPT/HCPCS: 80307; 80348; 87086

== ENCOUNTER 2022-05-14 02:42 | Outpatient (CLI) | payer BC, SELFPAY ==
[2022-05-14 11:35] LABS: Glucose,1 Hr (Glucola) 68 mg/dL (80-140)
== END 2022-05-14 02:43 | disposition home or self-care (01) ==
LOC: LBO 02:42
PROVIDERS: PCP Family Medicine; Visit Provider Advanced Practice Midwife
DX: O99.211 Obesity complicating pregnancy, first trimester
CPT/HCPCS: 36415; 82950

== ENCOUNTER 2022-06-03 16:24 | Outpatient (REF) | payer BC, SELFPAY ==
[2022-06-06 11:03] LABS: GC Result Negative (Negative)
[2022-06-06 11:12] LABS: Specimen Description URINE
[2022-06-06 11:16] LABS: Chlamydia Result Positive (Negative)
== END 2022-06-03 16:25 | disposition home or self-care (01) ==
LOC: LBN 16:24
PROVIDERS: PCP Family Medicine; Visit Provider Advanced Practice Midwife
DX: Z34.92 Encounter for supervision of normal pregnancy, unspecified, second trimester (principal)
CPT/HCPCS: 87491; 87591

== ENCOUNTER 2022-06-29 13:54 | Emergency (ER) | payer BC, SELFPAY ==
[2022-06-29 13:58] VITALS: BP 113/70; PULSE 95; RESP 20; TEMP 36.9; O2SAT 97
[2022-06-29] MEDS: Albuterol/Ipratropium 3 ML UPD VIAL UPD (15:23)
[2022-06-29] MEDS: predniSONE 20 MG TAB 40 MG PO (15:24)
[2022-06-29 15:39] LABS: COVID-19 PCR Negative (Negative); Influenza A PCR Negative (Negative); Influenza B PCR Negative (Negative); RSV PCR Negative (Negative)
[2022-06-29 15:42] LABS: Source Nasopharynx
[2022-06-29 15:53] VITALS: RESP 1; RESP 18; O2SAT 98
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
--- NOTE | 2022-06-29 16:10 | NUR.NOTE ---
Nursing Note: Referral faxed to PCP for asthma,; for tomorrow or Thursday.
[2022-06-29] MEDS: Inhaler, Assist Device 1 EACH MC (16:25)
== END 2022-06-29 16:27 | disposition home or self-care (01) ==
PROVIDERS: Emergency Provider Physician Assistant; PCP Family Medicine
DX: O26.892 Other specified pregnancy related conditions, second trimester (principal); Z3A.20 20 weeks gestation of pregnancy; J20.9 Acute bronchitis, unspecified
CPT/HCPCS: 87637; 99283; J7512; J7620

== ENCOUNTER 2022-07-29 18:21 | Outpatient (REF) | payer SELFPAY ==
[2022-07-31 13:53] LABS: Chlamydia Result Negative (Negative); GC Result Negative (Negative)
== END 2022-07-29 18:22 | disposition home or self-care (01) ==
LOC: LBN 18:21
PROVIDERS: PCP Family Medicine; Visit Provider Advanced Practice Midwife
DX: A74.9 Chlamydial infection, unspecified (principal); O98.811 Other maternal infectious and parasitic diseases complicating pregnancy, first trimester
CPT/HCPCS: 87491; 87591

== ENCOUNTER 2022-08-26 03:04 | Outpatient (CLI) | payer SELFPAY ==
[2022-08-26 16:30] LABS: HCT 35.2 % (36.0-46.0); HGB 11.6 g/dL (11.2-15.7); MCH 30.1 pg (27.0-33.0); MCV 91 fL (80-95); MPV 10.7 fL (8.0-11.0); Platelet Count 254 10^3/uL (130-400); RBC 3.85 10^6/uL (3.93-5.22); RDW 12.8 % (11.7-14.6); RDW-SD 42.8 fL; WBC 12.84 10^3/uL (4.4-10.8)
[2022-08-26 16:40] LABS: Glucose,1 Hr (Glucola) 96 mg/dL (80-140)
[2022-08-26 17:40] LABS: TSH (W/Ref FT4) 1.31 uIU/mL (0.36-3.74)
== END 2022-08-26 03:05 | disposition home or self-care (01) ==
LOC: LBO 03:05
PROVIDERS: PCP Family Medicine; Visit Provider Advanced Practice Midwife
DX: O99.343 Other mental disorders complicating pregnancy, third trimester (principal); F41.8 Other specified anxiety disorders; O99.283 Endocrine, nutritional and metabolic diseases complicating pregnancy, third trimester; E03.9 Hypothyroidism, unspecified; Z3A.28 28 weeks gestation of pregnancy
CPT/HCPCS: 36415; 82950; 85027; 84443

== ENCOUNTER 2022-10-17 00:57 | Outpatient (CLI) | payer MEDICAID, SELFPAY ==
--- NOTE | 2022-10-17 07:45 | DI.US_ITS ---
Exam(s) US OB PARKER WEIGHT EXAM: US OB PARKER WEIGHT CLINICAL HISTORY: size greater than dates,HIGH FUNDAL HEIGHT,Z34.90. TECHNIQUE: Transabdominal obstetrical ultrasound performed. COMPARISON: US US OB F/U FACIAL/LVOT/RVOT from 06/23/2022 FINDINGS: Number of fetuses: 1 position: Cephalic. Placental location: There is a grade 2 posterior placenta. No evidence of previa. BIOMETRIC DATA: BPD: 8.54cm, 34weeks 3days HC: 31.84cm, 35weeks 6days AC: 31.14cm, 35weeks 1day FL: 6.84cm, 35weeks 1day EFW: 2,593.71g, 5lb 11.54oz, 26.9% Composite Age: 35weeks 1day CAROLYN: 11/20/2022 Heart Rate: 131bpm Amniotic fluid index: 17.36cm. Visually, amount of fluid is within normal limits. IMPRESSION: 1. Single live intrauterine gestation as above. 2. Estimated weight is 2594gms. This is the 27th percentile. 3. Amniotic fluid index is 17.4 cm. Visually within normal limits. DATA REPOSITORY:
== END 2022-10-17 01:17 ==
LOC: DI 00:57
PROVIDERS: PCP Family Medicine; Visit Provider Advanced Practice Midwife
DX: O26.843 Uterine size-date discrepancy, third trimester; Z3A.35 35 weeks gestation of pregnancy
CPT/HCPCS: 76816

== ENCOUNTER 2022-10-20 16:53 | Outpatient (REF) | payer MEDICAID, SELFPAY ==
[2022-10-20 20:22] LABS: *AMPHETAMINES SCREEN URINE Negative (Negative); *BARBITURATES SCREEN URINE Negative (Negative); *BENZODIAZEPINES SCREEN URINE Negative (Negative); Cannabinoids THC Negative (Negative); Cocaine Screen,Urine Negative (Negative); METHADONE URINE SCREEN Negative (Negative); OPIATES URINE SCREEN Negative (Negative)
[2022-10-20 20:25] LABS: Tricyclic Antidepressants Negative (Negative)
[2022-10-22 14:36] LABS: Chlamydia Result Negative (Negative); GC Result Negative (Negative)
[2022-10-28 19:19] LABS: Buprenorphine Negative ng/mL (Cutoff: 5.0); Norbuprenorphine Negative ng/mL (Cutoff: 2.5)
== END 2022-10-20 16:54 | disposition home or self-care (01) ==
LOC: LBN 16:53
PROVIDERS: PCP Family Medicine; Visit Provider Advanced Practice Midwife
DX: Z34.93 Encounter for supervision of normal pregnancy, unspecified, third trimester (principal); Z36.85 Encounter for antenatal screening for Streptococcus B; Z11.3 Encounter for screening for infections with a predominantly sexual mode of transmission; Z3A.36 36 weeks gestation of pregnancy
CPT/HCPCS: 80307; 80348; 87491; 87591; 87081

== ENCOUNTER 2022-10-27 15:10 | Outpatient (REF) | payer MEDICAID, SELFPAY ==
[2022-10-29 14:22] LABS: Chlamydia Result Negative (Negative); GC Result Negative (Negative)
== END 2022-10-27 15:11 | disposition home or self-care (01) ==
LOC: LBN 15:10
PROVIDERS: PCP Family Medicine; Visit Provider Advanced Practice Midwife
DX: Z34.93 Encounter for supervision of normal pregnancy, unspecified, third trimester (principal); Z72.51 High risk heterosexual behavior; Z3A.37 37 weeks gestation of pregnancy
CPT/HCPCS: 87491; 87591; 87480; 87510; 87660

== ENCOUNTER 2022-11-07 15:03 | Emergency (ER) | payer MEDICAID, SELFPAY ==
[2022-11-07 15:11] VITALS: BP 127/73; PULSE 103; RESP 18; TEMP 36.9; O2SAT 97
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
== END 2022-11-07 16:32 | disposition home or self-care (01) ==
PROVIDERS: Emergency Provider Emergency Medicine; PCP Family Medicine
DX: J45.909 Unspecified asthma, uncomplicated (principal); F17.290 Nicotine dependence, other tobacco product, uncomplicated
CPT/HCPCS: 87426; 99283

== ENCOUNTER 2022-11-14 18:39 | Outpatient (REF) | payer MEDICAID, SELFPAY ==
[2022-11-14 19:36] LABS: TSH (W/Ref FT4) 2.25 uIU/mL (0.36-3.74)
[2022-11-16 10:06] LABS: HIV-1/2 Ag & Ab Screen Negative (Negative)
[2022-11-16 11:57] LABS: Chlamydia Result Negative (Negative); GC Result Negative (Negative)
[2022-11-17 10:25] LABS: HSV Type 1 Ab, IgG Negative (Negative); HSV Type 2 Ab, IgG Negative (Negative)
[2022-11-17 10:41] LABS: Hepatitis C Ab w Rflx HCV PCR Negative (Negative)
== END 2022-11-14 18:40 | disposition home or self-care (01) ==
LOC: NCHCN 18:39
PROVIDERS: PCP Family Medicine; Visit Provider Family Medicine
DX: E03.9 Hypothyroidism, unspecified (principal); Z33.1 Pregnant state, incidental; Z11.4 Encounter for screening for human immunodeficiency virus [HIV]; Z11.59 Encounter for screening for other viral diseases; Z11.3 Encounter for screening for infections with a predominantly sexual mode of transmission
CPT/HCPCS: 86803; 87389; 87491; 87591; 84443; 86695; 86696

== ENCOUNTER 2022-11-19 20:05 | Inpatient (IN) | payer MEDICAID, SELFPAY ==
[2022-11-19] VITALS (8 sets, daily range): BP systolic 119–129; BP diastolic 59–73; PULSE 77–95; RESP 16; TEMP 36.8–36.9
[2022-11-19 21:43] LABS: HCT 37.8 % (36.0-46.0); HGB 12.8 g/dL (11.2-15.7); MCH 29.8 pg (27.0-33.0); MCHC 33.9 % (32.0-36.0); MCV 88 fL (80-95); MPV 11.4 fL (8.0-11.0); Platelet Count 260 10^3/uL (130-400); RBC 4.29 10^6/uL (3.93-5.22); RDW 13.4 % (11.7-14.6); RDW-SD 43.3 fL; WBC 17.76 10^3/uL (4.4-10.8)
--- NOTE | 2022-11-19 22:07 | W.OBNST ---
Date of service: 11/19/22 Time of Service: 22:07 NST Evaluation Reason for NST Reasons for Nonstress Test: POSTDATES Gestational Age Gestational Age in Weeks and Days: 40 Weeks and 5Days Test and Monitor Explained Test/Monitor Explained: Test Explained Vital Signs Blood Pressure: 129/73 Pulse: 95 Temperature: 98.2 F NST Information Date on Monitor: 11/19/22 Time on Monitor: 20:20 Date off Monitor: 11/19/22 Time off Monitor: 20:45 Total Time on Monitor: 25 NST Interventions: None NST Evaluation Patient States Movement: Present FHR Baseline: 125 Variability: Moderate 6-25 bpm Accelerations: 15x15 Decelerations: None NST Results: Reactive Note Ultrasound Done: N/A. NST Note Note: Lelia reports regular strong contractions and came to the center. Her cervix was examined by RN ad was 3 cms/90/-1 station and she was admitted in early labor. Reactive NST. NST Reviewed and Verified by: Jacqueline Benavidez
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
[2022-11-20] VITALS (171 sets, daily range): BP systolic 97–166; BP diastolic 56–91; PULSE 0–121; RESP 18–97; TEMP 36.7–37.6; O2SAT 91–100
[2022-11-20] MEDS: Normal Saline Flush 10 ML SYR IVP (01:01)
--- NOTE | 2022-11-20 02:56 | W.PM.OBNL1 ---
Date of service: 11/20/22 Time of Service: 03:08 Pelvic Exam Dilation: 5 Effacement (%): 100 station: -1 Cervix Position: mid Consistency: soft Vaginal Exam Presentation: Vertex Comments: bulging membranes noted Contractions Monitor Mode: External Contraction Frequency(min): every 3-4 Contraction Duration(sec): 60 Intensity: Moderate Fetus A Monitor: External (US) Heart Rate Baseline: 130 Presentation: Vertex Variability: Moderate (6-25 BPM) Categories: Category I FHR Rhythm: Regular Accelerations: 15 X 15 Decelerations: None Amniotic Membrane Status: Intact Assessment Note: novii placed at 0300 Assessment and Plan Assessment and plan (1) Spontaneous onset of labor: Status: Acute Assessment and plan: Ambulation encouraged as Lelia has been lying in bed x 5 hours. Shower or bath offered. Comfort measures. Anticipate . Objective Abnormal lab results 11/19/22 Range/Units 21:33 WBC 17.76 H (4.4-10.8) 10^3/uL MPV 11.4 H (8.0-11.0) fL Temp Pulse Resp BP 98.6 F 82 16 116/65 11/20/22 01:59 11/20/22 01:59 11/19/22 21:35 11/20/22 01:59 Laboratory Results WBC 17.76 10^3/uL (4.4-10.8) H 11/19/22 21:33 RBC 4.29 10^6/uL (3.93-5.22) 11/19/22 21:33 Hgb 12.8 g/dL (11.2-15.7) 11/19/22 21:33 Hct 37.8 % (36.0-46.0) 11/19/22 21:33 MCV 88 fL (80-95) 11/19/22 21: MCH 29.8 pg (27.0-33.0) 11/19/22 21: MCHC 33.9 % (32.0-36.0) 11/19/22 21: RDW 13.4 % (11.7-14.6) 11/19/22 21:33 Plt Count 260 10^3/uL (130-400) 11/19/22 21:33 MPV 11.4 fL (8.0-11.0) H 11/19/22 21:33 Patient ABO/Rh O Positive 11/19/22 21:33 Antibody Screen NEGATIVE 11/19/22 21:33 Subjective Interval history since last seen: Lelia was examined at 0130 by RN and was 5 cms. She complained of rectal presure and I examined her at 0250. Results Hemoglobin/Hematocrit: Hgb 12.8 g/dL (11.2-15.7) 11/19/22 21:33 Hct 37.8 % (36.0-46.0) 11/19/22 21:33 Abnormal Lab Findings: Abnormal Labs 11/19/22 21:33 WBC 17.76 H MPV 11.4 H
[2022-11-20] MEDS: Lactated Ringers 1,000 ML 125 ML IV (06:21)
--- NOTE | 2022-11-20 06:39 | ANES.PREOP_ITS ---
General Info Date of Service Date Performed: 11/20/22 Height: 5 ft 7 in Weight: 273 g Body Mass Index (BMI): 0.1 Meds Allergies and Home Medications Allergies Allergy/AdvReac Type Severity Reaction Status Date / Time bupropion HCl Allergy Mild itching, Verified 11/14/22 15:41 [From Wellbutrin] rash Home Medication Medication Instructions Recorded albuterol sulfate 90 mcg/actuation 2 puff inhalation PRN PRN 12/11/12 aerosol inhaler (Ventolin HFA) calcium carbonate 600 mg-vitamin 1 cap PO BID 10/18/18 D3 10 mcg (400 unit) capsule (Calcium 600 with Vitamin D3) acetaminophen 500 mg tablet 1,000 mg PO Q6H PRN #0 tabs 05/29/19 aspirin 81 mg tablet,delayed 81 mg PO DAILY #90 tabs 05/06/22 release levothyroxine 75 mcg tablet 75 mcg PO DAILY #90 tabs 06/03/22 loratadine 10 mg capsule (Claritin 10 mg PO DAILY PRN allergic 06/03/22 Liqui-Gel) symptoms #90 caps vitamin with calcium 1 tab PO DAILY #90 tabs 07/01/22 no.72-iron 27 mg-folic acid 1 mg tablet fluticasone propionate 115 2 puff inhalation BID #12 grams 08/06/22 mcg-salmeterol 21 mcg/actuation HFA inhaler (Advair HFA) pantoprazole 40 mg tablet,delayed 40 mg PO DAILY #30 tabs 09/24/22 release (Protonix) sertraline 100 mg tablet (Zoloft) 100 mg PO DAILY #30 tabs 11/03/22 Current Visit Medications: Current Medications Generic Name Dose Route Start Last Admin Trade Name Freq PRN Reason Stop Dose Admin Ephedrine Sulfate 5 mg 11/20/22 06:13 Ephedrine 50 Mg/Ml Vial IVP DIRECTED PRN Ephedrine Sulfate 5 mg 11/20/22 06:23 Ephedrine 50 Mg/Ml Vial IVP DIRECTED PRN Fentanyl/Ropivacaine 200 ml 11/20/22 06:30 Fentanyl/Ropivacaine 2 Mcg/Ml And 0.1% 200 Ml [place] EP DIRECTED SIL Sodium Chloride 500 mls @ 0 mls/hr 11/19/22 21:18 Saline 500ml Bag IV PRN PRN As Directed Ringer's Solution 250 mls @ 500 mls/hr 11/20/22 06:13 IV 11/20/22 06:42 BOLUS ONE Ringer's Solution 1,000 mls @ 125 mls/hr 11/20/22 06:30 11/20/22 06:21 IV 125 mls/hr INFUSION SIL Administration Ringer's Solution 250 mls @ 500 mls/hr 11/20/22 06:23 IV 11/20/22 06:52 BOLUS ONE Nalbuphine HCl 5 mg/ Sodium 50.5 mls @ 100 mls/hr 11/20/22 06:23 Chloride IVPB Q3H PRN PRN Pruritis IV Miscellaneous Supplies 1 each 11/19/22 21:30 Iv Access IV DIRECTED SIL Naloxone HCl 0 mg 11/20/22 06:13 Naloxone 0.4 Mg/Ml Vial IVP DIRECTED PRN Naloxone HCl 0 mg 11/20/22 06:23 Naloxone 0.4 Mg/Ml Vial IVP DIRECTED PRN Non-Formulary Medication 75 mcg 11/20/22 08:30 Levothyroxine [Levothyroxine] PO DAILY [facility] Ondansetron HCl 4 mg 11/20/22 06:23 Ondansetron 4 Mg/2 Ml Vial IVP Q6H PRN PRN Nausea Sertraline HCl 100 mg 11/20/22 08:30 Sertraline 100 Mg Tab PO DAILY [facility] Sodium Chloride 0 ml 11/19/22 21:18 11/20/22 01:01 Normal Saline Flush 10 Ml Syr IVP 10 ml PRN PRN Administration PFSH Active Problems Active Problems: Problem Status Onset Code Spontaneous onset of labor Chlamydia infection affecting in first trimester O98.811, A74.9 Need for financial support Z59.9 Susceptible to varicella (non-immune), currently O09.899, Z28.39 Z34.90 Lumbar back pain M54.50 Carpal tunnel syndrome, left G56.02 Obesity E66.9 Hypothyroidism E03.9 Depression F32.9 Medical History Medical History (Updated 11/19/22 @ 22:40 by Jacqueline Benavidez CNM) Acute asthmatic bronchitis Acute right otitis media Allergic asthma Back pain Carpal tunnel syndrome on both sides Chronic headache Class 3 severe obesity due to excess calories in adult Contraception Dizzy spells Functional neurological symptom disorder with attacks or seizures Hand paresthesia Headache Hepatitis A Hidradenitis History of seizures F/U with Dr. Albarran 03/2020 Influenza A Insomnia Left knee sprain Migraine headache without aura Orthostatic hypotension Polycystic ovary syndrome Post-op bleeding Retina disorder, right Spell of abnormal behavior Spells of trembling Vomiting Surgical History Surgical History (Updated 11/19/22 @ 22:23 by Jacqueline Benavidez CNM) Carpal tunnel syndrome, right S/P ECTR: 05/28/2020, Open revision 02/26/2021 S/P eye surgery R torn retina Tobacco Smoking/Tobacco Use Status: Former Tobacco Use Alcohol Alcohol Intake: never Substance Use Substance use: Rarely Substance use type: marijuana Details: Pt reports not having had marijuana in awhile. Prental History History 1 Para 0 Hx # Term Pregnancies 0 Multiple births 0 Hx # Pregnancies 0 Ectopic pregnancies 0 AB induced 0 Hx Number of Living Children 0 AB spontaneous 0 Vital Signs and Lab Results Vital Signs Most Recent Vital Signs in EMR: Most Recent Vital Signs Temp Pulse Resp BP 36.7 C 95 H 16 134/74 11/20/22 05:49 11/20/22 06:37 11/19/22 21:35 11/20/22 05:51 Lab Results 11/19/22 21:33 Blood Type / Crossmatch: Patient ABO/Rh O Positive 11/19/22 Antibody Screen NEGATIVE 11/19/22 Complete Blood Count: White Blood Count 17.76 10^3/uL (4.4-10.8) H 11/19/22 21:33 Red Blood Count 4.29 10^6/uL (3.93-5.22) 11/19/22 21:33 Hemoglobin 12.8 g/dL (11.2-15.7) 11/19/22 21:33 Hematocrit 37.8 % (36.0-46.0) 11/19/22 21:33 Platelet Count 260 10^3/uL (130-400) 11/19/22 21:33 Complete Metabolic Panel: No Data to Display Liver Function Panel: No Data to Display Coagulation Panel: No Data to Display Cardiac Panel: No Data to Display Arterial Blood Gas: No Data to Display Venous Blood Gas: No Data to Display Pancreas Panel: No Data to Display Thyroid Panel: Thyroid Stimulating Hormone (TSH) 2.25 uIU/mL (0.36-3.74) 11/14 15:00 Infectious Disease: HIV (1&2) Ag and Ab, 4th Generation Negative (Negative) 15:00 Hepatitis C Antibody Negative (Negative) 11/14/22 15:00 Neisseria gonorrhoeae DNA Probe Negative (Negative) 11/14/22 1 5:00 Blood Cultures: No Data to Display Toxicology Panel: No Data to Display Panel: No Data to Display Anesthesia Assessment and Plan Anesthesia History Personal History: No History of Anesthesia Complications Family History: No Family History of Anesthesia Complications Exercise Tolerance Exercise Tolerance: Metabolic Equivalents>4 Pertinent Negatives Pertinent Negatives: No Symptoms of GERD, No Major Cardiovascular Symptoms or Complaints and No History of CVA/TIA Cardiac & Pulmonary Exam Cardiac Exam: Normal S1/S2 Heart Sounds Pulmonary Exam: Clear Bilateral Breath Sounds Implantable Cardiac Device Does patient have a Pacemaker or an ICD?: No Airway Exam Known Difficult Airway: No Mallampati Class: 2 Mouth Opening: Normal (> 3cm) Thyromental Distance: Greater than 3 cm Neck Range of Motion: Full ROM Neck Circumference: Thick Teeth Condition: Normal Dentition ASA Classification ASA Score: ASA 3 Emergency Case?: No NPO Status NPO Status: NPO Clears >2 hours, Solids >8 hours Status Status: Confirmed Anesthesia Plan Resuscitation Status: Full Code Anesthesia Technique: Epidural Anesthesia Airway Planned: Natural Airway Pain Management: Surgeon and patient request nerve block Monitors Used: Standard Monitors
[2022-11-20] MEDS: FentaNYL/ROPIvacaine 2 mcg/ml and 0.1% 200 ML CADD Cassette EP (07:08)
--- NOTE | 2022-11-20 07:09 | W.PM.OBNL1 ---
Date of service: 11/20/22 Time of Service: 07:09 Pelvic Exam Dilation: 8 Effacement (%): 100 station: 0 Cervix Position: mid Consistency: soft Vaginal Exam Presentation: Vertex Contractions Monitor Mode: External Contraction Frequency(min): every 2 minutes Contraction Duration(sec): 60 Intensity: Moderate/Strong Fetus A Monitor: External (US) Heart Rate Baseline: 130 Presentation: Vertex Variability: Moderate (6-25 BPM) Categories: Category I Accelerations: 15 X 15 Decelerations: Variable Recurrence: Intermittent Amniotic Membrane Status: Intact Assessment and Plan Assessment and plan (1) Spontaneous onset of labor: Status: Acute Assessment and plan: Anticipate . Rest encouraged. Will reassess in 2 hours or PRN. Objective Abnormal lab results 11/19/22 Range/Units 21:33 WBC 17.76 H (4.4-10.8) 10^3/uL MPV 11.4 H (8.0-11.0) fL Temp Pulse Resp BP Pulse Ox 98.0 F 100 H 16 128/60 97 11/20/22 05:49 11/20/22 07:07 11/19/22 21:35 11/20/22 07:07 11/20/22 07:04 Laboratory Results WBC 17.76 10^3/uL (4.4-10.8) H 11/19/22 21:33 RBC 4.29 10^6/uL (3.93-5.22) 11/19/22 21:33 Hgb 12.8 g/dL (11.2-15.7) 11/19/22 21:33 Hct 37.8 % (36.0-46.0) 11/19/22 21: MCV 88 fL (80-95) 11/19/22 21: MCH 29.8 pg (27.0-33.0) 11/19/22 21: MCHC 33.9 % (32.0-36.0) 11/19/22 21: RDW 13.4 % (11.7-14.6) 11/19/22 21:33 Plt Count 260 10^3/uL (130-400) 11/19/22 21:33 MPV 11.4 fL (8.0-11.0) H 11/19/22 21:33 Patient ABO/Rh O Positive 11/19/22 21:33 Antibody Screen NEGATIVE 11/19/22 21:33 Subjective Interval history since last seen: Lelia's labor is progressing steadily and she is coping well with contractions. She used nitrous oxide for pain relief with fair effect. She complains of fatigue and requested an epidural. The epidural was placed by Kurt Spicer CRNA with good effect. Results Hemoglobin/Hematocrit: Hgb 12.8 g/dL (11.2-15.7) 11/19/22 21: Hct 37.8 % (36.0-46.0) 11/19/22 21:33 Abnormal Lab Findings: Abnormal Labs 11/19/22 21: WBC 17.76 H MPV 11.4 H
--- NOTE | 2022-11-20 07:17 | W.ANESNEU ---
Epidural/Spinal Catheter Date Performed: 11/20/22 Procedure Start: 07:00 Procedure Stop: 07:09 Requesting Provider: Jacqueline Benavidez Procedure Location: Obstetrics Reason Performed: Labor Epidural Standard Monitors Applied: Blood Pressure, SpO2 and See EMR for corresponding vital signs Patient Position: Sitting Sedation Given (Indicate Dose Given): No Sedation given Patient Mental Status: Awake Sterility: Hand Hygiene, Surgical Cap, Surgical Mask, Sterile Gloves, Sterile Drape/Sheet and Chlorhexidine Procedure Location: L3-L4 Interspace Epidural Needle: Tuohy 17 Guage Needle Length: 3.5 Inch Needle Approach: Midline Epidural Procedure: Skin Prepped, Sterile Drape Placed, 1% Lidocaine to skin and subcutaneous tissue with 25G needle, Tuohy Needle placed, GRIS to Air Used, GRIS to Saline Used, Epidural Catheter Placed, Positive Heme Noted (at site not in catheter), Negative CSF Flow and Tuohy Needle Removed Catheter Placed?: Catheter Placed Test Dose (Indicate Dose Given): 5ml 1.5% Lidocaine with 1:200K Epinephrine Given and Negative Test Dose Loss of Resistance Depth (cm): 9 Catheter depth at skin (cm): 15 Dressing: Sorbaview Dressing Placed, Mastisol Used and Dressing reinforced with Tape Epidural Provider Bolus (Indicate Dose Given): None Given and Total Ropivacaine 0.1% with Fentanyl 2mcg/ml Given from pump. (ml) Dose:: 10 ml Additives (Indicate Dose Given ): None Infusion Medication: Medication Infusion Began Medication Infusion: Ropivacaine 0.1% with Fentanyl 2mcg/ml Maintenance Infusion Rate (ml/hour): 10 PCEA Bolus Dose (ml): 5 Block Level: T10 Paresthesia: None Ultrasound: Not Used Number of Attempts (See previous attempts in note section): 2 Procedure Tolerated: No Complications, Patient tolerated well and Complications Encountered Procedure Outcome: Successful Procedure Comment:: Attempted x2, initial attempt with good placement, did not appreciate a stickiness to the catheter around 20. on removal of needle, pulled catheter to far out to be effective. Needed to place again, was without issue on second placement., Performed By: Kurt Spicer
[2022-11-20] MEDS: Levothyroxine 75 MCG TAB PO (08:23)
[2022-11-20] MEDS: Sertraline 100 MG TAB PO (08:23)
[2022-11-20] MEDS: Oxytocin/Normal Saline 30 UNIT/500 ML BAG 167 UNITS IV (10:20)
--- NOTE | 2022-11-20 11:03 | OBVDS_ITS ---
Date of service: 11/20/22 Time of Service: 11:05 OB Labor/ Delivery Information Baby A Delivery Delivery Method: Spontaneaous Cephalic Position: Vertex Vertex Position: Right Occipital Anterior Amniotic Fluid: Meconium (light) Estimated Blood Loss: 200 Delivery Outcome: Liveborn Infant Complications: Baby was noted to be pale with grunting noted in first 20 minutes. She was bulb suctioned on the warmer and stimulated. Dr Aren Luis notified who assessed the baby at 35 minutes of age. She was rooting and pink at that time. Transferred: Remains with Mother Note: FHTs 130s during first stage of labor. FHTs 130s in second stage with occasional variable decelerations. She received an epidural and progressed to full dilation and began pushing. Second stage huddle was done. Spontaneous delivery of female delivered in KJ position. Baby was placed on mother's abdomen and dried and stimulated. Spontaneous cry. Cord was clamped and cut by the baby's grandmother . The placenta delivered spontaneously and appears to by intact with a three vessel cord. Pitocin 30 units IV was administered before delivery of the placenta. The perineum was inspected and is intact. The baby did breastfeed. After delivery, Mother and baby and grandmother of the baby were stable and bonding well in the delivery room and there were no complications. Providers Nurse Commissary Steward: Jacqueline Benavidez Monorail Crane Operator: Spencer Luis Nurse: Bailee Paul Nurse: Elmer Hernandez Labor/Delivery Information Number of Babies in Womb: 1 Steroids Given: None Reason Steroids Not Administered: N/A Group Beta Strep: Negative Antibiotics Administered: No Rubella Status: Immune Blood Type: O+ Varicella Immunity: Nonimmune Medication in Delivery: epidural analgesia Born En Route: No Maternal Complications: None Shoulder Dystocia: No Stages of Labor Onset of Labor Date: 11/18/22 Onset of Labor Time: 09:30 Complete Dilatation Date: 11/20/22 Complete Dilatation Time: 08:52 Labor - Stage 1 Duration: 47 hours and 22 minutes ROM Baby A: 11/20/22 ROM Baby A: 08:56 Delivery Date-Baby A: 11/20/22 Infant Delivery Time-Baby A: 10:13 Labor Stage 2 Duration: 1 hours and 21 minutes Placenta Delivery Date-Baby A: 11/20/22 Placenta Delivery Time-Baby A: 10:23 Labor-Stage 3 Duration: 10 minutes Total Length of Labor-Baby A: 48 hours and 43 minutes Placenta Status: Delivered Baby A Gender: Female Gestational Age in Weeks/Days: 40 Weeks and 6 Days Score-1 Minute Interval(Baby A) Heart Rate-1 minute: 100 BPM or Greater Respiratory Effort- 1 minute: Slow Respiration/Weak Cry Muscle Tone-1 minute: Minimal Flexion/Extension Reflex Response-1 minute: Minimal Response Color-1 minute: Bluish Hands or Feet Total Score-1 minute: 6 Score-5 Minute Interval(Baby A) Heart Rate- 5 minute: 100 BPM or Greater Respiratory Effort-5 minute: Slow Respiration/Weak Cry Muscle Tone-5 minute: Minimal Flexion/Extension Reflex Response-5 minute: Minimal Response Color-5 minute: Witt/No Cyanosis Total Score- 5 minute: 7
--- NOTE | 2022-11-20 15:11 | W.ANESPOSTOP ---
Postoperative Evaluation Date, Time and Location Date Performed: 11/20/22 Time Performed: 15:12 Patient Location: Obstetrics Vital Signs Most Recent Imported Vital Signs: Most Recent Vital Signs Temp Pulse Resp BP Pulse Ox 37.2 C 88 16 122/56 L 98 11/20/22 13:15 11/20/22 14:15 11/19/22 21:35 11/20/22 14:15 11/20/22 12:20 Pain Score Most Recent Pain Score: Most Recent Pain Score Pain Level [Abdomen] 6 11/19/22 20:34 Pain Level 6 11/19/22 21:35 Assessment Mental Status: Awake (Alert & Oriented to Patient Baseline) Airway and Respiratory Function: Patent airway with normal (patient baseline) respiratory exam Cardiovascular Function: Hemodynamically Stable Hydration Status: Adequately Hydrated Nausea & Vomiting: No Nausea or Vomiting Pain: Pain is tolerable per patient Peripheral Nerve Block: Patient did not receive a nerve block
[2022-11-20] MEDS: Acetaminophen 325 MG TAB 650 MG PO (17:41)
[2022-11-20] MEDS: Ibuprofen 600 MG TAB PO (17:42)
[2022-11-21 01:05] VITALS: BP 116/76; PULSE 92; RESP 18
[2022-11-21] MEDS: Levothyroxine 75 MCG TAB PO (06:44)
[2022-11-21] MEDS: Acetaminophen 325 MG TAB 650 MG PO (06:49)
[2022-11-21] MEDS: Ibuprofen 600 MG TAB PO (06:49)
[2022-11-21 08:00] VITALS: BP 118/77; PULSE 77; RESP 16; TEMP 36.6; O2SAT 96
[2022-11-21] MEDS: Sertraline 100 MG TAB PO (08:57)
[2022-11-21 12:00] VITALS: BP 103/66; PULSE 81; TEMP 36.7; O2SAT 97
[2022-11-21] MEDS: Varicella Virus Vaccine (Live) 0.5 ML SC (15:36)
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
[2022-11-23 04:59] VITALS: BP 134/88; PULSE 100
== END 2022-11-21 16:35 | disposition home or self-care (01) | DRG 806 ==
PROVIDERS: Admitting Provider Advanced Practice Midwife; PCP Family Medicine; Visit Provider Advanced Practice Midwife
DX: O48.0 Post-term pregnancy (principal); O99.354 Diseases of the nervous system complicating childbirth; Z37.0 Single live birth; Z3A.40 40 weeks gestation of pregnancy; O99.214 Obesity complicating childbirth; E66.9 Obesity, unspecified; O99.52 Diseases of the respiratory system complicating childbirth; O99.284 Endocrine, nutritional and metabolic diseases complicating childbirth; E03.9 Hypothyroidism, unspecified; O99.344 Other mental disorders complicating childbirth; F32.A Depression, unspecified; J45.909 Unspecified asthma, uncomplicated; G89.29 Other chronic pain; M54.50 Low back pain, unspecified; G56.03 Carpal tunnel syndrome, bilateral upper limbs; G43.009 Migraine without aura, not intractable, without status migrainosus
CPT/HCPCS: 36415; 85027; 86850; 86900; 86901; 90471

== ENCOUNTER 2022-11-24 02:33 | Emergency (ER) | payer MEDICAID, SELFPAY ==
[2022-11-24 02:43] VITALS: BP 119/68; PULSE 82; RESP 16; TEMP 36.9; O2SAT 96
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
[2022-11-24 03:03] LABS: Bilirubin Negative (Negative); Blood Moderate (Negative); Clarity Sl Cloudy (Clear); Glucose Negative (Negative); Ketones Negative (Negative); Leukocyte Esterase Small (Negative); Nitrite Negative (Negative); Specific Gravity >= 1.030 (1.005-1.025); Urobilinogen 0.2 mg/dL (Up to 0.2); pH 5.5 (5-8)
[2022-11-24 03:14] LABS: Bacteria Few HPF (Negative); C & S Indicated? No/Sq. Contamination; Crystals Negative HPF (Negative); Epithelial Cells Many HPF (Negative); Mucus Trace (Negative)
[2022-11-24] MEDS: Lidocaine 2% Jelly 6 ML SYR TP (03:25)
[2022-11-24] MEDS: Cephalexin 500 MG CAP PO (03:25)
[2022-11-24 03:34] LABS: Bilirubin Negative (Negative); Blood Moderate (Negative); Clarity Sl Cloudy (Clear); Glucose Negative (Negative); Ketones Negative (Negative); Leukocyte Esterase Small (Negative); Nitrite Negative (Negative); Specific Gravity >= 1.030 (1.005-1.025); Urobilinogen 0.2 mg/dL (Up to 0.2)
[2022-11-24] MEDS: Lidocaine 2% Jelly 6 ML SYR (03:40)
[2022-11-24 03:43] LABS: Bacteria Few HPF (Negative); C & S Indicated? C&S Done As Ordered; Crystals Negative HPF (Negative); Epithelial Cells Many HPF (Negative); Mucus Negative (Negative); RBC >50 HPF (0-2)
== END 2022-11-24 03:39 | disposition home or self-care (01) ==
PROVIDERS: Emergency Provider Physician Assistant; PCP Family Medicine
DX: O87.2 Hemorrhoids in the puerperium (principal); N39.0 Urinary tract infection, site not specified; B96.89 Other specified bacterial agents as the cause of diseases classified elsewhere
CPT/HCPCS: 99283; 81003; 81015; 87086

== ENCOUNTER 2022-12-05 10:29 | Emergency (ER) | payer MEDICAID, SELFPAY ==
[2022-12-05 10:35] VITALS: BP 88/49; PULSE 81; RESP 20; TEMP 36.6; O2SAT 98
--- NOTE | 2022-12-05 10:45 | DI.US_ITS ---
Exam(s) US PELVIS TRANSVAGINAL EXAM: US PELVIS TRANSVAGINAL CLINICAL HISTORY: cramping, concern of retained products TECHNIQUE: Transabdominal and transvaginal imaging was performed using standard protocol. COMPARISON: US POCUS EXAM from 04/22/2022 US US OB 2-3 TRIMESTER from 06/16/2022 FINDINGS: Two weeks . UTERUS: Anteverted. 11.4 x 6.1 x 8.8 cm Endometrium: 7 millimeters. Focal area of debris in lower uterine segment measuring 3.4 x 1.0 x 2.3 cm. There is a 6 millimeter shadowing area which could represent a calcification. This could represe nt focal blood clot versus retained products of conception. Myometrium: Unremarkable. No fibroid Cervix: Unremarkable. OVARIES: Right: Cyst or mass: None. Left: Cyst or mass: None. DOPPLER: Color: Symmetric and uniform flow to both ovaries. No hyperemia. CUL-DE-SAC: Free fluid: None. IMPRESSION: 1. Focal area of hemorrhage in the lower uterine segment with apparent calcification.. 2. Unremarkable bilateral ovaries. DATA REPOSITORY:
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
[2022-12-05 11:09] VITALS: BP 107/56; PULSE 85
[2022-12-05 11:10] LABS: Abs Immature Grans 0.02 10^3/uL (0.0-0.06); Absolute Basophil Count 0.05 10^3/uL (0.0-0.2); Absolute Eosinophil Count 0.39 10^3/uL (0.0-0.7); Absolute Lymphocyte Count 2.71 10^3/uL (1.2-3.4); Absolute Monocyte Count 0.44 10^3/uL (0.1-0.8); Absolute Neutrophil Count 3.91 10^3/uL (1.2-6.7); Basophils % 0.7; Eosinophils % 5.2; HCT 39.4 % (36.0-46.0); Immature Grans % 0.3; MCH 29.3 pg (27.0-33.0); MCV 89 fL (80-95); MPV 9.9 fL (8.0-11.0); Monocytes % 5.9; Neutrophils % 51.9; Platelet Count 274 10^3/uL (130-400); RBC 4.43 10^6/uL (3.93-5.22); RDW 13.6 % (11.7-14.6); RDW-SD 44.6 fL; WBC 7.52 10^3/uL (4.4-10.8)
[2022-12-05 11:11] VITALS: RESP 18
[2022-12-05 11:24] LABS: ALT 24 U/L (14-59); AST 17 U/L (15-37); Albumin 3.1 g/dL (3.4-5.0); Alkaline Phosphatase 116 U/L (46-116); Anion Gap 8.1 mmol/L (3-11); BUN 12 mg/dL (7-18); Bilirubin, Total 0.9 mg/dL (0.2-1.0); CO2 24.9 mmol/L (21.0-32.0); CREATININE 0.9 mg/dL (0.55-1.02); Calcium 8.9 mg/dL (8.5-10.1); Chloride 106 mmol/L (98-107); Estimated GFR 88.75 (mL/min/1.73m2); Glucose 82 mg/dL (74-106); Potassium 3.7 mmol/L (3.5-5.1); Sodium 139 mmol/L (136-145); Total Protein 7.1 g/dL (6.4-8.2)
[2022-12-05] MEDS: ACETAMINOPHEN 1,000 MG/100 ML BTL 400 MG IVPB (11:42)
[2022-12-05] MEDS: Normal Saline 1,000 ML 1000 ML IV (11:42)
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
[2022-12-05 13:17] VITALS: BP 114/66; PULSE 80
== END 2022-12-05 14:19 | disposition home or self-care (01) ==
PROVIDERS: Emergency Provider Nurse Practitioner Family; PCP Family Medicine
DX: O73.1 Retained portions of placenta and membranes, without hemorrhage (principal); Z37.0 Single live birth
CPT/HCPCS: 80053; 86850; 86900; 86901; 96361; 96365; 99284; 76830; 76856; 85025; J0131

== ENCOUNTER 2022-12-11 16:37 | Outpatient (REF) | payer MEDICAID, SELFPAY ==
--- NOTE | 2022-12-11 15:40 | SKI_PTH ---
PATIENT: Lelia Saldana LOC: NCN U#:[id number] AGE/SX: 27/F ROOM: RE12/11/[address]: Marisol aPlmer V : 1995 BED: DIS: 12/11/2022 SPEC #: [id number] RECD: 12/12/22 11:35 STATUS: AMEE PEÑA #: [id number] MENG: 12/11/22 15:[address]: Marisol Palmer V DEPT: Surgical Specimen RECD BY: Lenora Blancas Tissues: 1 - SKIN BIOPSY(SHAVE/PUNCH) 2 - SKIN BIOPSY(SHAVE/PUNCH) 3 - SKIN BIOPSY(SHAVE/PUNCH) Procedures: SKIN LEVEL 4 Comments: [id number]
== END 2022-12-11 16:38 | disposition home or self-care (01) ==
LOC: NCHCN 16:37
PROVIDERS: PCP Family Medicine; Visit Provider Family Medicine
DX: D22.5 Melanocytic nevi of trunk (principal); D22.62 Melanocytic nevi of left upper limb, including shoulder
CPT/HCPCS: 88305

== ENCOUNTER 2022-12-30 13:14 | Outpatient (REF) | payer MEDICAID, SELFPAY ==
[2022-12-30 15:50] LABS: HCT 40.8 % (36.0-46.0); HGB 12.9 g/dL (11.2-15.7)
[2022-12-30 16:40] LABS: FREE T4 0.91 ng/dL (0.76-1.46); TSH 2.33 uIU/mL (0.36-3.74)
[2022-12-31 18:00] LABS: T3,Free 4.3 pg/mL (2.8-5.3)
== END 2022-12-30 13:15 | disposition home or self-care (01) ==
LOC: NCHCN 13:14
PROVIDERS: PCP Family Medicine; Visit Provider Family Medicine
DX: E03.9 Hypothyroidism, unspecified (principal)
CPT/HCPCS: 84439; 84443; 84481; 85014; 85018

== ENCOUNTER 2023-02-22 09:31 | Emergency (ER) | payer MEDICAID, SELFPAY ==
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
[2023-02-22 09:47] VITALS: PULSE 96; RESP 20; TEMP 36.5; O2SAT 97
[2023-02-22 10:18] VITALS: BP 108/62
[2023-02-22 11:41] LABS: COVID-19 PCR Negative (Negative); Influenza A PCR Negative (Negative); Influenza B PCR Negative (Negative); RSV PCR Negative (Negative)
[2023-02-22 11:43] LABS: Source Nasopharynx
[2023-02-22 11:48] VITALS: BP 108/62
== END 2023-02-22 12:02 | disposition home or self-care (01) ==
PROVIDERS: Emergency Provider Emergency Medicine; PCP Family Medicine
DX: U07.1 COVID-19 (principal); R05.9 Cough, unspecified; Z87.891 Personal history of nicotine dependence
CPT/HCPCS: 87637; 99283; 99282

== ENCOUNTER 2023-03-06 18:42 | Outpatient (REF) | payer MEDICAID, SELFPAY ==
--- NOTE | 2023-03-06 15:20 | SKI_PTH ---
PATIENT: Lelia Saldana LOC: [facility] U#:[id number] AGE/SX: 27/F ROOM: RE03/06/[address]: Loco Huynh DO : 1995 BED: DIS: 03/06/2023 SPEC #: [id number] RECD: 03/06/23 18:47 STATUS: AMEE REQ #: [id number] MENG: 03/06/23 15:[address]: Loco Huynh DEPT: Surgical Specimen RECD BY: Lenora Blancas ENTERED: 03/06/23 18:47 SP TYPE: SKI OTHR DR: Marisol Palmer V Tissues: 1 - SKIN BIOPSY(SHAVE/PUNCH) Procedures: SKIN LEVEL 4 Comments: [id number]
== END 2023-03-06 18:43 | disposition home or self-care (01) ==
LOC: LBN 18:42
PROVIDERS: PCP Family Medicine; Visit Provider Otolaryngology Otolaryngology/Facial Plastic Surgery
DX: D22.71 Melanocytic nevi of right lower limb, including hip (principal)
CPT/HCPCS: 88305

== ENCOUNTER 2023-03-24 10:13 | Observation (INO) | payer MEDICAID, SELFPAY ==
[2023-03-24 10:33] VITALS: BP 125/71; PULSE 84; RESP 20; TEMP 36.7; O2SAT 99
[2023-03-24 10:42] VITALS: BP 125/71; PULSE 79
[2023-03-24 10:47] VITALS: BP 114/74; PULSE 75
[2023-03-24 10:51] LABS: Abs Immature Grans 0.01 10^3/uL (0.0-0.06); Absolute Basophil Count 0.05 10^3/uL (0.0-0.2); Absolute Eosinophil Count 0.15 10^3/uL (0.0-0.7); Absolute Lymphocyte Count 3.15 10^3/uL (1.2-3.4); Absolute Monocyte Count 0.54 10^3/uL (0.1-0.8); Absolute Neutrophil Count 4.75 10^3/uL (1.2-6.7); Basophils % 0.6; Eosinophils % 1.7; HGB 13.6 g/dL (11.2-15.7); Immature Grans % 0.1; Lymphocytes % 36.4; MCH 29.7 pg (27.0-33.0); MCHC 33.2 % (32.0-36.0); MCV 90 fL (80-95); MPV 10.5 fL (8.0-11.0); Monocytes % 6.2; Platelet Count 274 10^3/uL (130-400); RBC 4.58 10^6/uL (3.93-5.22); RDW 12.1 % (11.7-14.6); RDW-SD 39.6 fL; WBC 8.65 10^3/uL (4.4-10.8)
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
[2023-03-24 11:13] LABS: ALT 19 U/L (14-59); AST 14 U/L (15-37); Albumin 3.3 g/dL (3.4-5.0); Alkaline Phosphatase 72 U/L (46-116); Anion Gap 7.8 mmol/L (3-11); BUN 17 mg/dL (7-18); Bilirubin, Total 0.5 mg/dL (0.2-1.0); CO2 25.2 mmol/L (21.0-32.0); CREATININE 0.8 mg/dL (0.55-1.02); Chloride 104 mmol/L (98-107); Estimated GFR 102.22 (mL/min/1.73m2); Glucose 85 mg/dL (74-106); Lipase 57 U/L (16-77); Potassium 4.2 mmol/L (3.5-5.1); Sodium 137 mmol/L (136-145); Total Protein 7.5 g/dL (6.4-8.2)
[2023-03-24 11:14] LABS: Bilirubin Negative (Negative); Blood Negative (Negative); Clarity Clear (Clear); Glucose Negative (Negative); Ketones Negative (Negative); Leukocyte Esterase Trace (Negative); Nitrite Negative (Negative); Specific Gravity 1.025 (1.005-1.025); Urobilinogen 0.2 mg/dL (Up to 0.2); pH 5.5 (5-8)
[2023-03-24 11:20] LABS: Bacteria Moderate HPF (Negative); C & S Indicated? No/Sq. Contamination; Casts Negative LPF (Negative); Crystals Negative HPF (Negative); Epithelial Cells Many HPF (Negative); Mucus Negative (Negative); RBC 0-2 HPF (0-2)
[2023-03-24] MEDS: Ondansetron 4 MG/2 ML VIAL IVP (11:35)
[2023-03-24] MEDS: Ketorolac 15 MG/ML VIAL IVP (11:35)
[2023-03-24] MEDS: Normal Saline 1,000 ML 1000 ML IV (11:35)
[2023-03-24] MEDS: Omnipaque 350 MG/ML 500 ML BTL-Imaging package 100 ML IJ (11:51)
[2023-03-24] MEDS: Normal Saline - Diluent 50 ML VIAL IJ (12:01)
[2023-03-24] MEDS: Normal Saline Flush 10 ML SYR IVP ×2 (12:01→14:49)
--- NOTE | 2023-03-24 12:02 | DI.CT_ITS ---
Exam(s) CT ABDOMEN PELVIS W EXAM: CT ABDOMEN PELVIS W CLINICAL HISTORY: mid and upper right abdominal pain TECHNIQUE: Imaging Protocol: Axial computed tomography images with coronal and sagittal reformatted images were created and reviewed CONTRAST MATERIAL: Intravenous: Omnipaque contrast volume:100 mL Oral: No COMPARISON: No exams were available for comparison FINDINGS: ABDOMEN: Lung Bases: Normal where visualized. Liver: Normal density. No measurable mass. Portal, Superior Mesenteric, and Splenic Veins: Unremarkable. Gallbladder and Biliary Tract: No radiodense calculus or dilation. Pancreas: Normal density, no abnormal calcifications or inflammatory process. Spleen: There is a well-circumscribed 2.6 x 3.8 cm simple cyst in the spleen. Adrenals: No masses seen. Kidneys: Normal size, contour and axis. No radiodense stones or obstructive uropathy. No masses seen. Abdominal Aorta: Abdominal portion non-dilated. Bowel: No obstruction or bowel wall thickening. The appendix measures up to 6.7 mm in diameter. It i s fluid-filled. No Michelle appendiceal inflammation or appendicoliths is seen. Peritoneal Cavity: No ascites, collection or mesenteric inflammatory response. No free air. Lymph Nodes: Within normal limits. Bones: Within normal limits for the patient's age. Soft Tissues: Unremarkable. PELVIS: Bladder: There is mild thickening of the wall of the urinary bladder which may be due to underdistent ion. Reproductive Organs: Unremarkable as visualized. Lymph Nodes: Within normal limits. Bones: Within normal limits for the patient's age. IMPRESSION: 1. Appendix which measures 6.7 mm in diameter. It is fluid-filled. No appendicolith is seen. No Pe ri appendiceal inflammation, abscess or free air is identified. Appendicitis cannot be excluded. Pl ease correlate clinically. 2. Findings were discussed with Dr. Sherman at 12:14 p.m. on 03/24/2023. RADIATION DOSE DELIVERED: 1,598.16mGy.cm Total DLP DATA REPOSITORY: All CT scans at this facility are submitted to the National Radiology Data Registry (NRDR) Dose Index Registry (DIR) with the [employer] ([employer]). RADIATION OPTIMIZATION: All CT scans at this facility use at least one of these dose optimization te chniques: automated exposure control; mA and/or kV adjustment per patient size (includes targeted exa ms where dose is matched to clinical indication); or iterative reconstruction.
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
[2023-03-24 14:25] VITALS: BP 108/71; PULSE 74; RESP 18; TEMP 36.7; O2SAT 98
[2023-03-24] MEDS: Pantoprazole 40 MG VIAL IVP (14:48)
[2023-03-24] MEDS: MORPHine 2 MG/ML SYR IVP (14:49)
[2023-03-24 15:15] VITALS: BP 107/70; PULSE 70; RESP 18; TEMP 36.8; O2SAT 98
[2023-03-24] MEDS: Prochlorperazine 10 MG/2 ML VIAL 5 MG IVP (15:25)
--- NOTE | 2023-03-24 16:09 | PGE_ITS ---
Date of Service Date of service: 03/24/23 Time of Service: 16:09 Assessment and Plan Assessment and plan (1) Abdominal pain: Status: Acute Assessment and plan: Patient has not had any increase in her pain. Her nausea is now controlled after some compazine. Patient really wants to go home. I discussed return precautions with her. She needs to return to the ER if she develops Vomiting, worsening pain, fevers >101.5. If her pain is not worse then we can see her in the office tomorrow for a re-check. Subjective Subjective Interval history since last seen: Lelia is doing OK. She tells me that she wants to go home. I am going stir crazy. Pain is about the same. Had some Nausea. Compazine helped Exam Const General: cooperative, comfortable and no acute distress Orientation: alert and oriented x3 HENMT Head: normocephalic and atraumatic Resp Effort & Inspection: normal respiratory effort GI Palpation: soft, no hepatosplenomegaly and tender (mild, no guarding or rebound) Objective Last Vital Signs Temp 98.2 F 03/24/23 15:15 Pulse 70 03/24/23 15:15 Resp 18 03/24/23 15:15 BP 107/70 03/24/23 15:15 Pulse Ox 98 03/24/23 15:15 Laboratory Results - last 24 hr 03/24/23 03/24/23 03/24/23 10:45 10:45 10:59 WBC 8.65 RBC 4.58 Hgb 13.6 Hct 41.0 MCV 90 MCH 29.7 MCHC 33.2 RDW 12.1 Plt Count 274 MPV 10.5 Immature Gran % 0.1 Neutrophils % 55.0 Lymphocytes % 36.4 Monocytes % 6.2 Eosinophils % 1.7 Basophils % 0.6 Nucleated RBC % 0.0 Absolute Neutrophils 4.75 Absolute Lymphocytes 3.15 Absolute Monocytes 0.54 Absolute Eosinophils 0.15 Absolute Basophils 0.05 Sodium 137 Potassium 4.2 Chloride 104 Carbon Dioxide 25.2 Anion Gap 7.8 BUN 17 Creatinine 0.8 Est GFR (CKD-EPI 2020) 102.22 Glucose 85 Calcium 9.0 Total Bilirubin 0.5 AST 14 L ALT 19 Alkaline Phosphatase 72 Total Protein 7.5 Albumin 3.3 L Lipase 57 Urine Color Yellow Urine Clarity Clear Urine pH 5.5 Ur Specific [place] 1.025 Urine Protein Negative Urine Ketones Negative Urine Blood Negative Urine Nitrite Negative Urine Bilirubin Negative Urine Urobilinogen 0.2 Ur Leukocyte Esterase Trace H Urine RBC 0-2 Urine WBC 5-10 Ur Epithelial Cells Many Urine Crystals Negative Urine Bacteria Moderate Urine Casts Negative Urine Mucus Negative Ur Culture Indicated? No/Sq. Contamination Urine Glucose Negative Time Spent with Patient Time Spent with Patient: <25 minutes Time was spent: preparing to see the patient(eg.review tests), obtaining and/or reviewing separately otained hiistory, indepentently interpreting results and counseling the patient
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
== END 2023-03-24 16:36 | disposition home or self-care (01) ==
LOC: ER 12:48 → MS 14:23
PROVIDERS: Admitting Provider Surgery; Emergency Provider Emergency Medicine; PCP Family Medicine; Visit Provider Surgery
DX: R10.9 Unspecified abdominal pain (principal); R11.0 Nausea; J45.909 Unspecified asthma, uncomplicated; F41.9 Anxiety disorder, unspecified; E03.9 Hypothyroidism, unspecified; F32.A Depression, unspecified; E66.9 Obesity, unspecified; Z68.31 Body mass index [BMI] 31.0-31.9, adult; G47.00 Insomnia, unspecified; M54.50 Low back pain, unspecified; G43.009 Migraine without aura, not intractable, without status migrainosus; Z79.899 Other long term (current) drug therapy
CPT/HCPCS: 80053; 81025; 83690; 96361; 96374; 96375; 99285; 74177; 81003; 81015; 85025; J0780; J1885; J2270; J2405

== ENCOUNTER 2023-03-25 10:24 | Day surgery (SDC) | payer MEDICAID, SELFPAY ==
[2023-03-25] VITALS (12 sets, daily range): BP systolic 96–123; BP diastolic 46–68; PULSE 61–80; RESP 12–20; TEMP 36.4–36.6; O2SAT 93–99; BMI 42.3
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
[2023-03-25] MEDS: Celecoxib 200 MG CAP PO (10:57)
[2023-03-25] MEDS: Acetaminophen 500 MG TAB 1000 MG PO (10:57)
[2023-03-25] MEDS: Gabapentin 300 MG CAP 600 MG PO (10:57)
--- NOTE | 2023-03-25 11:02 | ANES.PREOP_ITS ---
General Info Date of Service Date Performed: 03/25/23 Height: 5 ft 7 in Weight: 122.4 kg Body Mass Index (BMI): 42.3 Surgical Procedure: Operation Date: 03/25/23 11:10 Proposed Procedure Side Surgeon p Appendectomy Laparoscopic Liliebth Portillo MD Meds Allergies and Home Medications Allergies Allergy/AdvReac Type Severity Reaction Status Date / Time bupropion HCl Allergy Mild itching, Verified 03/25/23 10:43 [From Wellbutrin] rash Home Medication Medication Instructions Recorded albuterol sulfate 90 mcg/actuation 2 puff inhalation PRN PRN 12/11/12 aerosol inhaler (Ventolin HFA) calcium carbonate 600 mg-vitamin 1 cap PO BID 10/18/18 D3 10 mcg (400 unit) capsule (Calcium 600 with Vitamin D3) acetaminophen 500 mg tablet 1,000 mg PO Q6H PRN #0 tabs 05/29/19 fluticasone propionate 115 2 puff inhalation BID #12 grams 08/06/22 mcg-salmeterol 21 mcg/actuation HFA inhaler (Advair HFA) lidocaine HCl 2 % mucosal jelly in 1 applic topical BID PRN pain #125 11/24/22 applicator mL aspirin 81 mg tablet,delayed 81 mg PO PRN PRN 02/02/23 release (Adult Low Dose Aspirin) levothyroxine 75 mcg tablet 75 mcg PO DAILY 02/02/23 sertraline 50 mg tablet (Zoloft) 50 mg PO DAILY 02/02/23 methylphenidate HCl 10 mg tablet 20 mg PO DAILY 03/24/23 Current Visit Medications: Current Medications Generic Name Dose Route Start Last Admin Trade Name Jay PRN Reason Stop Dose Admin Ringer's Solution 1,000 mls @ 80 mls/hr 03/25/23 10:30 IV 04/24/23 10:29 INFUSION SIL IV Miscellaneous Supplies 1 each 03/25/23 06:00 Iv Access IV 04/24/23 23:59 DIRECTED SIL Sodium Chloride 0 ml 03/25/23 06:00 Normal Saline Flush 10 Ml Syr IV 04/24/23 23:59 PRN PRN Sodium Chloride 0 ml 03/25/23 06:00 Normal Saline 10 Ml Vial IJ 04/24/23 23:59 DIRECTED PRN Sterile Water 0 ml 03/25/23 06:00 Water,Injection,Sterile 10 Ml Vial IJ 04/24/23 23:59 DIRECTED PRN PFSH Active Problems Active Problems: Problem Status Onset Code Acute appendicitis K35.80 Clinical diagnosis of COVID-19 U07.1 Abdominal pain R10.9 Asthma J45.909 Lactating mother Z39.1 Anxiety F41.9 Need for financial support Z59.9 Obesity E66.9 Hypothyroidism E03.9 Depression F32.9 Medical History Medical History Acute asthmatic bronchitis Acute right otitis media Allergic asthma Back pain Carpal tunnel syndrome on both sides Chlamydia infection affecting in first trimester Chronic headache Class 3 severe obesity due to excess calories in adult Contraception Dizzy spells Functional neurological symptom disorder with attacks or seizures Hand paresthesia Headache Hepatitis A Hidradenitis History of seizures F/U with Dr. Albarran 03/2020 Influenza A Insomnia Left knee sprain Lumbar back pain Migraine headache without aura Orthostatic hypotension Polycystic ovary syndrome Post-op bleeding Retained products of conception after delivery without hemorrhage Retina disorder, right Spell of abnormal behavior Spells of trembling Susceptible to varicella (non-immune), currently Vomiting Surgical History Surgical History Carpal tunnel syndrome, left S/P ECTR: 04/10/2021 Carpal tunnel syndrome, right S/P ECTR: 05/28/2020, Open revision 02/26/2021 S/P eye surgery R torn retina Tobacco Smoking/Tobacco Use Status: Former Tobacco Use Alcohol Alcohol Intake: current Alcohol intake frequency: holidays/special occasions only Substance Use Substance use type: does not use Prental History History 1 Para 1 Hx # Term Pregnancies 1 Multiple births 0 Hx # Pregnancies 0 Ectopic pregnancies 0 AB induced 0 Hx Number of Living Children 1 AB spontaneous 0 Past Pregnancies Del. Date GA/Weeks # Preg Succ Route Wgt Sex Labor Lgth Anesth esia Location Prov [facility] 11/20/22 40 No Yes vaginal 3474.801 g Female 48hrs 43min [facility] KYLEE Marquez Delivery Date: 11/20/22 Last Updated by: MARC Sosa CNM; Manuel Sauer Vital Signs and Lab Results Vital Signs Most Recent Vital Signs in EMR: Most Recent Vital Signs Temp Pulse Resp BP Pulse Ox 36.4 C L 80 17 111/57 L 98 03/25/23 10:48 03/25/23 10:48 03/25/23 10:48 03/25/23 10:48 03/25/23 10:48 Point of Care Results Point of Care Results: POC- Test(urine) Negative 03/25/23 10:48 Lab Results 03/25/23 10:36 03/25/23 10:36 Blood Type / Crossmatch: No Data to Display Complete Blood Count: White Blood Count 8.65 10^3/uL (4.4-10.8) 03/24/23 10:45 Red Blood Count 4.58 10^6/uL (3.93-5.22) 03/24/23 10:45 Hemoglobin 13.6 g/dL (11.2-15.7) 03/24/23 10:45 Hematocrit 41.0 % (36.0-46.0) 03/24/23 10:45 Platelet Count 274 10^3/uL (130-400) 03/24/23 10:45 Complete Metabolic Panel: Sodium 137 mmol/L (136-145) 03/24/23 10:45 Potassium 4.2 mmol/L (3.5-5.1) 03/24/23 10:45 Chloride 104 mmol/L (98-107) 03/24/23 10:45 Carbon Dioxide 25.2 mmol/L (21.0-32.0) 03/24/23 10:45 BUN 17 mg/dL (7-18) 03/24/23 10:45 Creatinine 0.8 mg/dL (0.55-1.02) 03/24/23 10:45 Est GFR (CKD-EPI 2020) 102.22 (mL/min/1.73m2) 03/24/23 10:45 Calcium 9.0 mg/dL (8.5-10.1) 03/24/23 10:45 Albumin 3.3 g/dL (3.4-5.0) L 03/24/23 10:45 Glucose 85 mg/dL (74-106) 03/24/23 10:45 Liver Function Panel: Alanine Aminotransferase (ALT/SGPT) 19 U/L (14-59) 03/24/23 10: 45 Aspartate Amino Transf (AST/SGOT) 14 U/L (15-37) L 03/24/23 10: 45 Coagulation Panel: No Data to Display Cardiac Panel: No Data to Display Arterial Blood Gas: No Data to Display Venous Blood Gas: No Data to Display Pancreas Panel: Lipase 57 U/L (16-77) 03/24/23 10:45 Thyroid Panel: No Data to Display Infectious Disease: No Data to Display Blood Cultures: No Data to Display Toxicology Panel: No Data to Display Panel: No Data to Display Anesthesia Assessment and Plan Anesthesia History Personal History: No History of Anesthesia Complications Family History: No Family History of Anesthesia Complications Exercise Tolerance Exercise Tolerance: Metabolic Equivalents>4 Pertinent Negatives Pertinent Negatives: No Symptoms of GERD, No Major Cardiovascular Symptoms or Complaints, No Major Pulmonary Symptoms or Complaints and No History of CVA/TIA Cardiac & Pulmonary Exam Cardiac Exam: Normal S1/S2 Heart Sounds Pulmonary Exam: Clear Bilateral Breath Sounds Implantable Cardiac Device Does patient have a Pacemaker or an ICD?: No Airway Exam Known Difficult Airway: No Mallampati Class: 3 Mouth Opening: Normal (> 3cm) Thyromental Distance: Greater than 3 cm Neck Range of Motion: Full ROM Neck Circumference: Thick Teeth Condition: Normal Dentition Airway Comments: Nose ring and lip ring unable to be removed. Tongue ring has been removed. ASA Classification ASA Score: ASA 3 Emergency Case?: No NPO Status NPO Status: NPO Clears >2 hours, Solids >8 hours Status Status: Negative HCG Anesthesia Plan Resuscitation Status: Full Code Anesthesia Technique: General Anesthesia Airway Planned: Endotracheal Tube Pain Management: Surgeon and patient request nerve block Monitors Used: Standard Monitors
[2023-03-25] MEDS: Lactated Ringers 1,000 ML 80 ML IV (11:19)
[2023-03-25] MEDS: AMPICILLIN/SULBACTAM 3 GM in Normal Saline 100 ML IVPB (11:52)
[2023-03-25 11:55] LABS: Abs Immature Grans 0.01 10^3/uL (0.0-0.06); Absolute Basophil Count 0.04 10^3/uL (0.0-0.2); Absolute Eosinophil Count 0.19 10^3/uL (0.0-0.7); Absolute Lymphocyte Count 2.84 10^3/uL (1.2-3.4); Absolute Monocyte Count 0.46 10^3/uL (0.1-0.8); Absolute Neutrophil Count 3.97 10^3/uL (1.2-6.7); Basophils % 0.5; Eosinophils % 2.5; HCT 37.9 % (36.0-46.0); HGB 12.5 g/dL (11.2-15.7); Immature Grans % 0.1; Lymphocytes % 37.8; MCH 29.6 pg (27.0-33.0); MCV 90 fL (80-95); MPV 10.6 fL (8.0-11.0); Monocytes % 6.1; Platelet Count 235 10^3/uL (130-400); RBC 4.22 10^6/uL (3.93-5.22); RDW-SD 39.2 fL; WBC 7.51 10^3/uL (4.4-10.8)
[2023-03-25 12:05] LABS: Anion Gap 7.3 mmol/L (3-11); BUN 13 mg/dL (7-18); CO2 24.7 mmol/L (21.0-32.0); CREATININE 0.9 mg/dL (0.55-1.02); Calcium 8.8 mg/dL (8.5-10.1); Chloride 105 mmol/L (98-107); Estimated GFR 88.75 (mL/min/1.73m2); Glucose 87 mg/dL (74-106); Potassium 4.4 mmol/L (3.5-5.1); Sodium 137 mmol/L (136-145)
--- NOTE | 2023-03-25 12:25 | APP_PTH ---
PATIENT: Lelia Saldana LOC: [facility] U#:[id number] AGE/SX: 27/F ROOM: RE03/25/[address]: Lilibeth Portillo MD : [id number] BED: DIS: 03/25/2023 SPEC #: [id number] RECD: 03/25/23 18:26 STATUS: AMEE REQ #: [id number] MENG: 03/25/23 12:[address]: Lilibeth Portillo DEPT: Surgical Specimen RECD BY: Lenora Blancas ENTERED: 03/25/23 18:27 SP TYPE: Appendix OTHR DR: Marisol Palmer V Tissues: 1 - APPENDIX NOT INCIDENTAL Procedures: GROSS AND MICRO LEVEL 3 Comments: [id number]
[2023-03-25] MEDS: Bupivacaine 0.25% Pres-Free 30 ML VIAL (12:30)
--- NOTE | 2023-03-25 12:49 | W.PM.OP ---
Date of service: 03/25/23 Time of Service: 12:49 Operative Note Operative Note DATE OF PROCEDURE: 03/25/23 PRE-OP DIAGNOSIS: acute appendicitis POST-OP DIAGNOSIS: other (normal appendix, Right ovarian cyst and fluid in the pelvis) PROCEDURE: Laparoscopic Appendectomy SURGEON: Lilibeth Portillo FISH AND WILDLIFE TECHNICIAN: Cari Sanches ANESTHESIA TYPE: Local By Surgeon and General LMA/ETT Refer to Anesthesia Record ESTIMATED BLOOD LOSS: 10 PATHOLOGY: other (appendix) COMPLICATIONS: None Patient was transported to: PACU Patient's condition: stable Indications: Lelia is a pleasant 27-year-old female who is seen today in the office for ongoing abdominal pain.? Her CT scan yesterday showed mildly dilated appendix with fluid in it.? There are no inflammatory markers.? Her pain was quite mild and mostly in the entire lower abdomen and she had no white count or fevers.? Patient elected to go home after being admitted for observation.? This morning she is seen in the office because of ongoing pain.? She is also now not having an appetite and just does not feel well.? Risks benefits and complications of laparoscopic appendectomy reviewed with her.? Because of her central obesity she is at increased risk for injury at the time of port placement.? I told the patient that I would do an open entrance to try to decrease the chance of injury to the small intestine.? After our conversation the patient and her mother had a good understanding of the procedure as well as the possible complications.? Risks, benefits and complications have been reviewed. Complications include but are not limited to bleeding, infection, injury to adjacent bowel, abscess formation, staple line leak, inability to do the procedure laparoscopically and adverse reaction to the medications. Questions were entertained and answered to their satisfaction and they wished to proceed. No guarantees were given or implied. Procedure Description: After informed consent was obtained the patient was taken to the operating room placed in the supine position, SCDs were applied as well as monitors. A timeout was done. The patient was then placed under general anesthesia and intubated without any difficulty. Next a Reyna catheter was placed in a standard surgical fashion. At this point the abdomen was prepped and draped in a sterile surgical fashion with chlorhexidine. A second timeout was done and the patient's name, date of , operation to be performed, DVT prophylaxis, antibiotic given, and fire risk was assessed. 0.25% Bupivocaine was injected into the dermis just above the umbilicus. A 20 mm incision was made with an 11 blade. The subcutaneous tissue was dissected bluntly with hemostat. The fascia was grasped with kockers and the fascia was opened sharply. A 12 mm port was placed into the abdomen. The abdomen was insufflated. Local anesthetic was then injected just above the pubic symphysis just to the right of midline. A small 5 mm incision was made with an 11 blade and another 5 mm port was placed under direct visualization into the abdomen. The local anesthetic was then injected in the left lower quadrant area and a 5 mm incision was made with an 11 blade. A 5 mm port was then placed under direct visualization. The patient's bed was then turned to the left and head down allowing me to sweep of the small bowel out of the right lower quadrant. The cecum was gently grasped and the appendix was identified. The appendix looked normal. No purulent fluid was noted. The appendix was grasped at the neck and pulled up slightly allowing me to visualize the junction with the cecum. Using the laparoscopic LigaSure the mesoappendix was slowly transected. Using a laparoscopic straight stapler the appendix was then transected at the junction with the cecum. The appendix was placed into an Endo Catch bag and removed through the 12 mm port site. The port was placed back into the abdomen and the staple line was identified. No bleeding was noted. The transected mesentery was identified and no bleeding was noted. The right ovary was inspected and there was a small cyst noted. The left ovary was noted and was normal. There was some fluid noted in the pelvis which appeared serous. The 2 5 mm ports were then removed under direct visualization and no bleeding was noted from the fascia. The insufflation was stopped and the 12 mm port was removed. The 12 mm port site fascia was closed with a 0 Vicryl [id number] suture. The skin was then closed with 4-0 Vicryl. The skin was cleaned and dried and dermoband was applied. The patient was woken up, extubated and taken back to recovery room in stable condition. There were no immediate complications. Sponge, instrument and needle counts were correct at the end of the case x2.
--- NOTE | 2023-03-25 13:03 | W.PM.DSUDISC ---
Date of service: 03/25/23 Time of Service: 15:12 Discharge Plan Disposition Patient Disposition: Home Condition: Stable Discharge Details Reason For Visit: abdominal pain Attending Provider: Lilibeth Portillo Primary Care Provider: Marisol Palmer V Home Meds and New Rx's Prescriptions: New tramadol 50 mg tablet 50 mg PO Q6H PRNQty: 14 0RF Continued fluticasone propion-salmeterol [Advair HFA] 115-21 mcg/actuation HFA aerosol inhaler 2 puff inhalation BID Qty: 12 5RF calcium carbonate-vitamin D3 [Calcium 600 with Vitamin D3] 600 mg(1,500mg) -400 unit capsule 1 cap PO BID levothyroxine 75 mcg tablet 75 mcg PO DAILY Patient Comments: not taking aspirin [Adult Low Dose Aspirin] 81 mg tablet,delayed release (DR/EC) 81 mg PO PRN PRN sertraline [Zoloft] 50 mg tablet 50 mg PO DAILY Patient Comments: not taking albuterol sulfate [Ventolin HFA] 1 PUFF HFA aerosol inhaler 2 puff Inhalation PRN PRN lidocaine HCl 2 % jelly in applicator 1 applic topical BID PRN (Reason: pain) Qty: 125 0RF acetaminophen 500 mg Tablet 1,000 mg PO Q6H PRNQty: 0 0RF methylphenidate HCl 10 mg tablet 20 mg PO DAILY Patient Comments: TAKE 1 TABLET BY MOUTH EVERY MORNING, CAN INCREASE TO 2 IN THE MORNING OR 1 TWICE DAILY NEEDED Discharge Instructions Additional Instructions: Activity at Home after surgery: 1. Make sure you walk outside at least 4 times per day 2. You should be able to climb a flight of stairs 3. No driving while in pain or taking pain medications 4. No strenuous activity or heavy lifting for 2 weeks (laparoscopic surgery) Diet, Nutrition, & wound healin. Avoid alcohol until after you are recovered from your surgery 2. Make sure to eat plenty of lean protein (meat, fish, eggs, cottage cheese, beans) 3. Eat a variety of fruits and vegetables. Eat plenty of high fiber foods to avoid constipation. 4. Drink plenty of liquids to stay hydrated and avoid constipation Pain Medications: 1. Tylenol 650mg every 6 hours as needed and Ibuprofen 600 mg every 6 hours as needed. You may alternate between the 2 medications every 3 hours 2. If a narcotic has been prescribed take as directed only for breakthrough pain For Constipation: 1. Take Milk of Magnesia or MiraLax as needed for constipation Other: 1. You may shower daily. Do not scrub the incisions 2. Do not soak the incisions for 1 week 3. You may alternate ice and heat as needed for pain and swelling Wound Care: 1. Keep the incisions clean and dry Please call our office if you develop: 1. Fevers >101.5 2. Nausea or Vomiting 3. Worsening pain 4. Redness and thick discharge from the wounds If after hours please call the Hospital at and ask to speak to the on-call surgeon Referrals: Lilibeth Portillo MD [ [facility] STAFF PHYSICIAN] - 04/06/23 9:00 am Activity:: as above Remove Dressings/Wound Care:: Do Not Remove Shower/Bathe:: 24 hours Diet:: As Tolerated Discharge Orders Discharge Orders: Discharge Order (Routine); Ordered 03/25/23 Ordered By: Lilibeth Portillo DS: Diagnosis Discharge Diagnosis (1) Acute appendicitis: Status: Acute Asessment and Plan: The patient is doing well post-op from their laparoscopic appendectomy surgery.? They are having no nausea or vomiting. They are tolerating liquids and a snack. The pt is not having any chest pain or SOB.? Their pain is adequately controlled. They have been able to urinate.? Patient states her pain is 5/10 and tolerable. ?HEENT:? no eye pain/drainage/redness/swelling. Mild sore throat ?Cardio- NSR, no chest pain, BP stable- see VS record ?Pulm: no sob or productive cough. No hemoptysis ?Incision- dressing is c/d/i w/ no excessive bleeding or drainage ?I discussed with the patient the findings at the time of surgery and the patient?s progress. ?We reviewed expectations at home; what the patient could expect for recovery time, and in the post-operative period.? We discussed the importance of walking to avoid blood clots and pneumonia.? We discussed and reviewed the patient's post-operative wound care and dressing needs.?? We reviewed their step-cerda pain management plan, Rx called to the pharmacy of their choice.? We reviewed activity and limitations-see discharge instructions. We reviewed warning signs, and when to seek medical attention- see d/c instructions.?? Patient was given a postoperative follow-up appointment. Patient verbalized understanding of their postoperative instructions, how do to take care of themselves and their incision, and the pain management plan. Please see discharge instructions.?
[2023-03-25] MEDS: fentaNYL 100 MCG/2 ML VIAL IVP ×2 (13:13→13:18)
[2023-03-25] MEDS: Normal Saline 10 ML VIAL IJ (13:41)
[2023-03-25] MEDS: HYDROmorphone 2 MG/ML SYR IVP ×2 (13:41→13:56)
--- NOTE | 2023-03-25 13:47 | W.ANESPOSTOP ---
Postoperative Evaluation Date, Time and Location Date Performed: 03/25/23 Time Performed: 13:47 Patient Location: PACU Vital Signs Most Recent Imported Vital Signs: Most Recent Vital Signs Temp Pulse Resp BP Pulse Ox 36.6 C 63 12 113/52 L 94 03/25/23 13:37 03/25/23 13:37 03/25/23 13:37 03/25/23 13:37 03/25/23 13:37 Pain Score Most Recent Pain Score: Most Recent Pain Score Pain Level 6 03/25/23 13:37 Assessment Mental Status: Awake (Alert & Oriented to Patient Baseline) Airway and Respiratory Function: Patent airway with normal (patient baseline) respiratory exam Cardiovascular Function: Hemodynamically Stable Hydration Status: Adequately Hydrated Nausea & Vomiting: No Nausea or Vomiting Pain: Pain is tolerable per patient (Reports pain is tolerable and wants to try next pain intervention in the Day surgery unit) Peripheral Nerve Block: Patient did not receive a nerve block
== END 2023-03-25 16:00 | disposition home or self-care (01) ==
PROVIDERS: PCP Family Medicine; Visit Provider Surgery
PROC: 0DTJ4ZZ Resection of Appendix, Percutaneous Endoscopic Approach (ICD-10-PCS; CPT 44970; principal; 2023-03-25 11:00)
DX: K35.80 Unspecified acute appendicitis (principal); J45.909 Unspecified asthma, uncomplicated; F32.A Depression, unspecified; E03.9 Hypothyroidism, unspecified
CPT/HCPCS: 44970; 80048; 81025; 85025; 88304; J0131; J0295; J1100; J1170; J1885; J2250; J2405; J2704; J3010

== ENCOUNTER 2023-04-14 16:14 | Outpatient (REF) | payer MEDICAID, SELFPAY ==
--- NOTE | 2023-04-14 15:20 | PAPFT_PTH ---
PATIENT: Lelia Saldana LOC: [facility] U#:[id number] AGE/SX: 27/F ROOM: RE04/14/[address]: Jacqueline Rodriguez CNM : 1995 BED: DIS: 04/14/2023 SPEC #: [id number] RECD: 04/14/23 16:56 STATUS: AMEE REQ #: [id number] MENG: 04/14/23 15:[address]: Jacqueline Rodriguez DEPT: [facility] Cytology RECD BY: Lenora Blancas ENTERED: 04/14/23 16:57 SP TYPE: PAPFT OTHR DR: Marisol Palmer V Tissues: 1 - CX/ENDOCX FOR PAP SMEARS Procedures: PAP THIN PREP/UVM Screening Comments: [id number]
== END 2023-04-14 16:15 | disposition home or self-care (01) ==
LOC: LBN 16:14
PROVIDERS: PCP Family Medicine; Visit Provider Advanced Practice Midwife
DX: Z12.4 Encounter for screening for malignant neoplasm of cervix (principal)
CPT/HCPCS: 88142

== ENCOUNTER 2023-06-03 10:59 | Emergency (ER) | payer MEDICAID, SELFPAY ==
[2023-06-03 11:05] VITALS: BP 159/74; PULSE 105; TEMP 36.6; O2SAT 98
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
[2023-06-03 11:33] VITALS: BP 159/74; PULSE 105; RESP 18
[2023-06-03 12:00] VITALS: RESP 18
== END 2023-06-03 12:02 | disposition home or self-care (01) ==
PROVIDERS: Emergency Provider Physician Assistant; PCP Family Medicine
DX: K64.4 Residual hemorrhoidal skin tags (principal)
CPT/HCPCS: 99283

== ENCOUNTER 2023-08-26 16:55 | Emergency (ER) | payer MEDICAID, SELFPAY ==
[2023-08-26 16:58] VITALS: BP 126/66; PULSE 81; RESP 17; TEMP 36.5; O2SAT 98
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
[2023-08-26] MEDS: Orphenadrine 60 MG/2 ML VIAL IM (17:30)
[2023-08-26] MEDS: Ketorolac 30 MG/ML VIAL IM (17:30)
== END 2023-08-26 17:32 | disposition home or self-care (01) ==
PROVIDERS: Emergency Provider Emergency Medicine; PCP Family Medicine
DX: M62.838 Other muscle spasm (principal); R20.2 Paresthesia of skin; Z87.891 Personal history of nicotine dependence
CPT/HCPCS: 99283; J2360; J1885

== ENCOUNTER 2023-10-13 11:25 | Outpatient (REF) | payer MEDICAID, SELFPAY ==
[2023-10-13 15:26] LABS: ESR 32 mm/hr (0-20)
[2023-10-13 16:11] LABS: FREE T4 1.03 ng/dL (0.76-1.46); TSH 3.55 uIU/Ml (0.36-3.74)
[2023-10-13 21:48] LABS: CRP, High Sensitivity 7.74 mg/L (See Note)
== END 2023-10-13 11:26 | disposition home or self-care (01) ==
LOC: NCHCN 11:25
PROVIDERS: PCP Family Medicine; Visit Provider Family Medicine
DX: E03.9 Hypothyroidism, unspecified (principal); M67.813 Other specified disorders of tendon, right shoulder
CPT/HCPCS: 85652; 86141; 84439; 84443

== ENCOUNTER 2023-12-01 16:46 | Outpatient (REF) | payer MEDICAID, SELFPAY ==
[2023-12-01 19:06] LABS: ESR 37 mm/hr (0-20)
[2023-12-02 17:58] LABS: Rheumatoid Factor <8.6 IU/mL (<12.0)
[2023-12-03 13:26] LABS: ANA Interpretation Positive (Negative); ANA Titer Pattern 1:320 Speckled
== END 2023-12-01 16:47 | disposition home or self-care (01) ==
LOC: NCHCN 16:46
PROVIDERS: PCP Family Medicine; Visit Provider Family Medicine
DX: M79.631 Pain in right forearm (principal); M79.632 Pain in left forearm
CPT/HCPCS: 85652; 86038; 86140; 86431

== ENCOUNTER 2023-12-10 16:19 | Outpatient (REF) | payer MEDICAID, SELFPAY ==
[2023-12-11 21:44] LABS: Hepatitis C Ab w Rflx HCV PCR Negative (Negative)
[2023-12-14 18:15] LABS: RNP Ab, IgG <6.0 CU (<20.0); Ro60 Ab, IgG <7.0 CU (<20.0); SS-A/Ro, IgG <2.3 CU (<20.0); SS-B (La) Ab, IgG <3.3 CU (<20.0); Sm (Smith) Ab, IgG <8.0 CU (<20.0)
[2023-12-15 06:52] LABS: dsDNA Ab, IgG 45.1 IU/mL (<27.0)
== END 2023-12-10 16:20 | disposition home or self-care (01) ==
LOC: NCHCN 16:19
PROVIDERS: PCP Family Medicine; Visit Provider Family Medicine
DX: M32.9 Systemic lupus erythematosus, unspecified (principal)
CPT/HCPCS: 86803; 86225; 86235

== ENCOUNTER 2024-03-04 13:33 | Outpatient (REF) | payer MEDICAID, SELFPAY ==
--- OUTSIDE RECORDS SUMMARY | 2024-03-04 13:37 | XMS_ITS | Encounter Summary ---
Author Organization [facility] Address [address] [place] [address] Care Team Providers Care Coil Former Name Role Phone Unknown, Provider Primary Care Provider [phone] Marisol Palmer MD Primary Care Provider [phone] Encounter Details Date Type Department Care Team (Late st Contact Info) Description 03/26/2023 Lab Requisition [facility] Pathology & Laboratory Medicine - [address] [address] Ellyn Portillo MD [address] [place] [address] [place] [address] Encounter for other general examination Social History Tobacco Use Types Packs/Day Years Used Date Smoking Tobacco: Never Assessed Sex and Gender Information Value Date Recorded Sex Assigned at Not on file Gender Identity Not on file Sexual Orientation Not on file documented as of this encounter Plan of Treatment Upcoming Encounters Date Type Department Care Team (Late Contact Info) Description 07/07/2024 13:30 EST Telemedicine [facility] Rheumatology [address] [place] [address] Melida Barrera MD 111 [facility], [facility] [address] [place] [address] documented as of this encounter Procedures Procedure Name Priority Date/Time Associated Diagnosis Comments SURGICAL PATHOLOGY Today 03/25/2023 12 :25 EDT Encounter for other general examination documented in this encounter Results * SURGICAL PATHOLOGY (03/25/2023 12:25 EDT) Note to Patient The following pathology results have been interpreted by your pathologist and may be available to you before your health provider has had the opportunity to review them. Please allow time for your provider to receive these results and explore management options, if applicable. 03/31/2023 18:33 [facility] Final Diagnosis A. APPENDIX, APPENDECTOMY: - Early (mucosal) acute appendicitis. 03/31/2023 18:33 [facility] Attestation There was significant resident/fellow involvement in the diagnostic evaluation of this case. By the signature below, the attending physician certifies that they have personally conducted a gross and/or microscopic examination of the described specimens and rendered or confirmed the above diagnosis. 03/31/2023 18:33 [facility] at 1833 Clinical History Acute appendicitis 03/31/2023 18:33 [facility] Gross Description A. Received in formalin, labelled with proper patient identification (initials P, D) and appendix and contents is an appendix (8.5 cm in length x 0.8 cm in diameter), with a large amount of attached mesoappendix. The proximal margin is stapled. The serosa is shaw-white with distinct small vessels and focally raised. The cut surface is white-shaw and smooth. The average wall thickness is 0.2 cm. A perforation site is not identified. The lumen ranges from 0.1 cm to 0.4 cm in diameter. A fecalith is identified. The proximal margin is inked. The entire specimen is submitted in A1-A5. JERMAINE BOTELLO MD PhD 03/26/2023 16:19 03/31/2023 18:33 [facility] Resident/Freedom w: Jermaine Botello MD PhD 03/31/2023 18:33 [facility] Performing Lab [facility] 03/31/2023 18:33 [facility] Scanned Images 03/31/2023 18:33 [facility] Tissue APPENDIX STRUCTURE / Unknown 03/25/2023 12:25 EDT 03/26/2023 6:53 EDT Ellyn Portillo MD PATHOLOGY ORDERA IVETT [facility] [address] [place] [address] documented in this encounter Visit Diagnoses Diagnosis Encounter for other general examination documented in this encounter Care Teams Coil Former Relationship Specialty Start Date End Date Unknown, Provider, PCP - General 02/23/17 12/27/23 Marisol Palmer MD [address] [place] [address] PCP - General 12/28/23 documented as of this encounter
--- OUTSIDE RECORDS SUMMARY | 2024-03-04 13:37 | XMS_ITS | Encounter Summary ---
Author Organization [facility] Address [address] [place] [address] Care Team Providers Care Costume Draper Name Role Phone Unknown, Provider Primary Care Provider [phone] Marisol Palmer MD Primary Care Provider [phone] Encounter Details Date Type Department Care Team (Late st Contact Info) Description 05/07/2022 Lab Requisition [facility] Pathology & Laboratory Medicine - [address] [address] Outr Resulting Lab, Provider Social History Tobacco Use Types Packs/Day Years Used Date Smoking Tobacco: Never Assessed Sex and Gender Information Value Date Recorded Sex Assigned at Not on file Gender Identity Not on file Sexual Orientation Not on file documented as of this encounter Plan of Treatment Upcoming Encounters Date Type Department Care Team (Late st Contact Info) Description 07/07/2024 13:30 EST Telemedicine [facility] Rheumatology [address] [place] [address] Melida Barrera MD [address] [facility], [address] [place] [phone] documented as of this encounter Procedures Procedure Name Priority Date/Time Associated Diagnosis Comments HOLD SST Today 05/06/2022 16:00 EDT HOLD SST Today 05/06/2022 16:00 EDT HOLD SST Today 05/06/2022 16:00 EDT RUBELLA IGG ANTIBODY Today 05/06/2022 16:00 EDT VARICELLA IGG ANTIBODY Today 05/06/2022 16:00 EDT documented in this encounter Results * HOLD SST (05/06/2022 16:00 EDT) Hold Hold 05/07/2022 17:46 EDT [facility] Blood VENOUS BLOOD / Unknown 05/06/2022 16:00 EDT 05/07/2022 16:46 EDT Provider Outr Resulting Lab LAB INFO SER VICE AND SUPPORT & PHONE RESULT Performing Organization Address [facility]/ZIP Co de Phone Number [facility] [address] [place] [phone] * HOLD SST (05/06/2022 16:00 EDT) Hold Hold 05/07/2022 17:46 EDT [facility] Blood VENOUS BLOOD / Unknown 05/06/2022 16:00 EDT 05/07/2022 16:46 EDT Provider Outr Resulting Lab LAB INFO SER VICE AND SUPPORT & PHONE RESULT Performing Organization Address [facility]/ZIP Co de Phone Number [facility] [address] [place] [address] * HOLD SST (05/06/2022 16:00 EDT) Hold Hold 05/07/2022 17:46 EDT [facility] Blood VENOUS BLOOD / Unknown 05/06/2022 16:00 EDT 05/07/2022 16:46 EDT Provider Outr Resulting Lab LAB INFO SER VICE AND SUPPORT & PHONE RESULT Performing Organization Address [facility]/ZIP Co de Phone Number [facility] [address] [place] [address] * VARICELLA IGG ANTIBODY (05/06/2022 16:00 EDT) Varicella IgG Ab Negative See Note 05/08/2022 9:50 EDT [facility] Comment:Absence of detectabl e Varicella Zoster virus IgG antibodies. A negative result generally indicates no detectable antibody, but does not rule out acute infection. If VZV exposure is suspected, a second sample should be collected and tested no less than one or two weeks later. Blood VENOUS BLOOD / Unknown 05/06/2022 16:00 EDT 05/07/2022 16:44 EDT Provider Outr Resulting Lab IMMUNOLOGY A ND SEROLOGY ORDERABLES Performing Organization Address [facility] Co de Phone Number [facility] [address] [place] [address] * RUBELLA IGG ANTIBODY (05/06/2022 16:00 EDT) Rubella IgG Ab Positive See Note 05/08/2022 10:00 EDT [facility] Comment:Positive for IgG ant ibodies to Rubella virus. Blood VENOUS BLOOD / Unknown 05/06/2022 16:00 EDT 05/07/2022 16:44 EDT Provider Outr Resulting Lab CHEMISTRY & BLOOD GAS ORDERABLES Performing Organization Address City/[facility] Co de Phone Number [facility] [address] [place] [address] documented in this encounter Visit Diagnoses Not on filedocumented in this encounter Care Teams Costume Draper Relationship Specialty Start Date End Date Unknown, MD Thien PCP - General 02/23/17 12/27/23 Marisol Palmer MD [address] [place] [address] PCP - General 12/28/23 documented as of this encounter
--- OUTSIDE RECORDS SUMMARY | 2024-03-04 13:37 | XMS_ITS | Encounter Summary ---
Author Organization [facility] Address [address] [place] [address] Care Team Providers Care Juvenile Justice Specialist Name Role Phone Unknown, Provider Primary Care Provider [phone] Marisol Palmer MD Primary Care Provider [phone] Encounter Details Date Type Department Care Team (Late st Contact Info) Description 02/20/2022 Lab Requisition [facility] Pathology & Laboratory Medicine - [address] [address] Outr Resulting Lab, Provider Social History Tobacco [...] Contact Info) Description 07/07/2024 13:30 EST Telemedicine [facility] Rheumatology [address] [place] [address] Melida Barrera MD 111 [facility], [address] [place] [phone] documented as of this encounter Procedures Procedure Name Priority Date/Time Associated Diagnosis Comments CHLAMYDIA/N. GONORRHOEAE AMPLIFIED NUCLEIC ACID Routine 02/19/2022 15:40 EDT documented in this encounter Results * CHLAMYDIA/N. GONORRHOEAE AMPLIFIED RNA (02/19/2022 15:40 EDT) Neisseria gonorrhoeae Result Negative Negative 02/21/2022 14:52 EDT [facility] Chlamydia trachomatis Result Negative Negative 02/21/2022 14:52 EDT [facility] Urine URINE / Unknown 02/19/2022 1 5:40 EDT 02/20/2022 19:50 EDT Narrative [facility] - 02/21/2022 14:52 EDT A first catch urine specimen is acceptable for detection of Gonorrhea and Chlamydia, but might detect up to 10% fewer infections when compared with vaginal and endocervical swab samples. Provider Outr Resulting Lab MICROBIOLOGY - GENERAL ORDERABLES [facility] [address] [place] [address] documented in this encounter Visit Diagnoses Not on filedocumented in this encounter Care Teams Juvenile Justice Specialist Relationship Specialty Start Date End Date Unknown, ProviderMD PCP - General 02/23/17 12/27/23 Marisol Palmer MD [address] [place] [address] PCP - General 12/28/23 documented as of this encounter
--- OUTSIDE RECORDS SUMMARY | 2024-03-04 13:37 | XMS_ITS | Encounter Summary ---
Author Organization [facility] Address [address] [place] [address] Care Team Providers Care General Store Manager Name Role Phone Unknown, Provider Primary Care Provider [phone] Marisol Palmer MD Primary Care Provider [phone] Encounter Details Date Type Department Care Team (Late st Contact Info) Description 10/13/2023 Lab Requisition [facility] Pathology & Laboratory Medicine - [address] [address] Outr Resulting Lab, Provider Social History Tobacco [...] Contact Info) Description 07/07/2024 13:30 EST Telemedicine [facility] Rheumatology [address] [place] [address] Melida Barrera MD [address] [facility], [address] [place] [phone] documented as of this encounter Procedures Procedure Name Priority Date/Time Associated Diagnosis Comments HIGH SENSITIVITY C-REACTIVE PROTEIN (CARDIOVASCULAR DISEASE) Routine 10/13/2023 10:05 EDT documented in this encounter Results * HIGH SENSITIVITY C-REACTIVE PROTEIN (CARDIOVASCULAR DISEASE) (10/13/2023 10:05 EDT) High Sensitivity CRP 7.74 See Note mg/L 10/13/2023 21:43 EDT [facility] Comment: Reference Range: ??Low Risk: ? <1.0 mg/L ??Average Risk: ?? 1.0 - 3.0 mg/L ??High Risk: ?>3.0 mg/L ??Indeterminate*: >10.0 mg/L ??*May be an indication of another source of inflammation or infection Blood VENOUS BLOOD / Unknown 10/13/2023 10:05 EDT 10/13/2023 21:23 EDT Provider Outr Resulting Lab CHEMISTRY & BLOOD GAS ORDERABLES Performing Organization Address City/State/[facility] Co de Phone Number [facility] [address] [place] [address] documented in this encounter Visit Diagnoses Not on filedocumented in this encounter Care Teams General Store Manager Relationship Specialty Start Date End Date Unknown, MD Thien PCP - General 02/23/17 12/27/23 Marisol Palmer MD [address] [place] [address] PCP - General 12/28/23 documented as of this encounter
--- OUTSIDE RECORDS SUMMARY | 2024-03-04 13:37 | XMS_ITS | Clinical Summary ---
Author Organization [facility] Address [address] [place] [address] Care Team Providers Care Advertiser Name Role Phone Marisol Palmer MD Primary Care Provider [phone] Allergies Active Allergy Reactions Criticality Noted Date Comments Zolpidem 01/01/2024 Bupropion Hcl 01/01/2024 Medications Medication Sig Dispensed Refills Start Date End Date Status acetaminophen (TYLENOL) 500 mg tablet Take 2 Tablets by mouth every 6 hours as needed for Pain. Active Cholecalciferol, Vitamin D3, 50 mcg capsule Take 1 Capsule by mouth daily. Active methylphenidate HCl (RITALIN SR; METADATE ER; METHYLIN ER) 20 mg SR tablet Take 1 Tablet by mouth daily. Active orphenadrine (NORFLEX) 100 mg tablet Take 1 Tablet by mouth if needed. Active budesonide-formoterol HFA (SYMBICORT) 80-4.5 mcg/actuation HFA aerosol inhaler inhaler Inhale as directed 2 times daily. Inhale 2 puffs by mouth twice a day. Active albuterol 90 mcg/actuation HFA aerosol inhaler inhaler Inhale 2 Puffs as directed every 4 hours. Inhale 2 puffs into the lungs every 6 hours as needed. Active DEBLITANE 0.35 mg tablet Take 1 Tablet by mouth daily. 12/26/2023 Active hydroxychloroquine (PLAQUENIL) 200 mg tablet TAKE ONE TABLET BY MOUTH EVERY DAY WITH BREAKFAST IF STOMACH UPSET OCCURS THEN TRY SWITCHING TO EVENING/BEDTIME DOSING 12/18/2023 Active meloxicam (MOBIC) 7.5 mg tablet Take 2 Tablets by mouth daily. 12/18/2023 Active Active Problems Problem Noted Date Diagnosed Date Multiple joint pain 01/01/2024 Asthma without status asthmaticus 01/01/2024 Pain of shoulder girdle 01/01/2024 Tendinitis of both rotator cuffs 01/01/2024 Retained placenta without hemorrhage 01/01/2024 Dream anxiety disorder 01/01/2024 Viral hepatitis A 01/01/2024 Amenorrhea 01/01/2024 Nausea and vomiting 01/01/2024 Venereal disease screening 01/01/2024 Acute non-infective otitis externa 01/01/2024 Enthesopathy 01/01/2024 Polycystic ovary syndrome 01/01/2024 Headache 01/01/2024 Dizziness and giddiness 01/01/2024 Low back pain 01/01/2024 Orthostatic hypotension 01/01/2024 Neurological symptoms 01/01/2024 Upper respiratory tract infection 01/01/2024 Vitamin D deficiency 01/01/2024 Attention deficit hyperactivity disorder 024 Major depression, single episode 01/01/2024 Hypothyroidism 01/01/2024 Obesity 01/01/2024 Itching 01/01/2024 Migraine without aura, not refractory 01/01/2024 Spasm 01/01/2024 Cough 01/01/2024 Verruca vulgaris 01/01/2024 Carpal tunnel syndrome 01/01/2024 Hidradenitis suppurativa 01/01/2024 Allergic 01/01/2024 Concussion with no loss of consciousness 024 Hemorrhoids 01/01/2024 Moderate persistent asthma, uncomplicated 2023 Acquired absence of organ 01/01/2024 01/01/2024 Disorder of skin 01/01/2024 Fatigue 01/01/2024 Benign neoplasm of skin 01/01/2024 Encounters Date Type Department Care Team Description 01/07/2024 Telephone [facility] Rheumatology [address] [place] [address] Melida Barrera MD Other 01/06/2024 10:10 EDT Phlebotomy Only [facility] - Outpatient Phlebotomy Drawing [address] [place] [address] Lab, [facility] Op Phlebotomy Positive VANDANA (antinuclear antibody); Fibromyalgia 01/06/2024 9:00 EDT Office Visit [facility] Rheumatology [address] [place] [address] Melida Barrera MD Fibromyalgia (Primary Dx); Positive VANDANA (antinuclear antibody) 01/01/2024 Abstract [facility] Rheumatology [address] [place] [address] Melida Barrera MD 12/11/2023 Lab Requisition [facility] Pathology & Laboratory Medicine - [address] [address] Outr Resulting Lab, Provider from Last 3 Months Immunizations Name Administration Dates Next Due Hepatitis B 10/22/1994,03/28/1994,1993 Hib 10/09/1995,10/22/1994,03/28/1994 Historical DTaP Vaccine, Unspecified 05/1999,09/29/1995,07/23/1995,10/22,03/28/1994 Historical HPV Vaccine, Unspecified 09/30/2007,1 09/01/2006,04/06/2007 Historical Influenza Vaccine , Unspecified 04/18/2022,06/14/2021,06/05/2020,04/12 Historical Meningococcal MCV 4 Conjugate Vaccine, Unspecified 07/01/2007 Historical Polio Vaccine, Unspecified ,07/23/1995,10/22/1994,03/28 MMR Vaccine SQ 03/06/1999,07/23/1995 Pneumococcal Conjugate Vacci ne 20-Valent (PCV20) (PREVNAR-20) 0.5 mL IM (6 wks+) 04/18/2022 Tdap Vaccine =>7YO IM 04/06/2007 Varicella (Chickenpox) vacci ne (VARIVAX) SQ 03/06/1999 Surgical History Surgery Date Site/Laterality Comments RETINAL DETACHMENT SURGERY 07/27/2000 - 07/26/2001 Right done at [facility] Family History Medical History Relation Comments *Other(comment) Father family history o f disorder of lung Anxiety Disorder Father Asthma Father *Other(comment) Mother fam hx of hypert hyroidism, breast CA-estrogen driven(TA TITI)lumpectomy, thyroid inactive, fam history of breast cancer 1 gene mutation Breast Cancer Mother *Other(comment) Paternal Grandfather fam hx of m alignant neoplasm of skin Relation Status Comments Brother Alive Father Alive Mother Alive Paternal Grandfather Social History Tobacco Use Types Packs/Day Years Used Date Smoking Tobacco: Former Cigarettes Smokeless Tobacco: Never Tobacco Cessation:Counseling Given: Not Answered Sex and Gender Information Value Date Recorded Sex Assigned at Not on file Gender Identity Not on file Sexual Orientation Not on file Obstetrics History Last Filed Vital Signs Vital Sign Reading Time Taken Comments Blood Pressure 106/72 01/06/2024 0859 EDT Pulse 88 01/06/2024 0859 EDT Temperature - - Respiratory Rate - - Oxygen Saturation - - Inhaled Oxygen Concentration - - Weight 130.2 kg (287 lb) 01/06/2024 0859 EDT Height 170.2 cm (5' 7) 01/06/2024 0859 EDT Body Mass Index 44.95 01/06/2024 0859 EDT Plan of Treatment Upcoming Encounters Date Type Department Care Team (Late st Contact Info) Description 07/07/2024 13:30 EST Telemedicine [facility] Rheumatology [address] [place] [address] Melida Barrera MD [address] [place] [address], [address] [place] [address] Health Maintenance Due Date Last Done Comments Asthma Action Plan 1993 Lung Function Test (Spirometry) 1993 COVID-19 Vaccine (2022-2 4 season) 2023 Hepatitis B Vaccine Completed 10/22/1994, 03/28/1994, 1993 Hepatitis C Screen Completed 12/10/2023, 0 11/14/2022, 05/06/2022, Additional history exists Procedures Procedure Name Priority Date/Time Associated Diagnosis Comments CCP ANTIBODIES Routine 01/06/2024 10:28 EDT Fibromyalgia DOUBLE STRANDED DNA ANTIBODY, IGG Routine 01/06/2024 10:28 EDT Positive VANDANA (antinuclear antibody) C3 COMPLEMENT Routine 01/06/2024 10:28 EDT Positive VANDANA (antinuclear antibody) C4 COMPLEMENT Routine 01/06/2024 10:28 EDT Positive VANDANA (antinuclear antibody) URINE CHEMICAL (DIP) & SEDIMENT (MICRO) WITH REFLEX TO CULTURE Routine 01/06/2024 10:28 EDT Positive VANDANA (antinuclear antibody) COMPREHENSIVE METABOLIC PANEL (CMP) Routine 01/06/2024 10:28 EDT Positive VANDANA (antinuclear antibody) COMPLETE BLOOD COUNT AND DIFFERENTIAL Routine 01/06/2024 10:28 EDT Positive VANDANA (antinuclear antibody) BACTERIAL CULTURE, URINE Today 01/06/2024 10:28 EDT Positive VANDANA (antinuclear antibody) HEPATITIS C AB W REFLEX TO HCV RNA BY PCR Routine 12/10/2023 15:30 EDT DOUBLE STRANDED DNA ANTIBODY, IGG Routine 12/10/2023 15:30 EDT WENDY ANTIBODY PANEL Routine 12/10/2023 15 :30 EDT from Last 3 Months Results * (ABNORMAL) UA CHEMICAL & SEDIMENT + REFLEX TO CULTURE (01/06/2024 10:28 EDT) Color UA Yellow Colorless, Yellow 01/06/2024 11:32 [facility] Clarity UA Clear Clear 01/06/2024 11:32 [facility] Glucose UA Negative Negative mg/dL 01/06/2024 11:32 [facility] Bilirubin UA Negative Negative 01/06/2024 11:32 [facility] Ketones UA Trace(A) Negative 01/06/2024 11:32 [facility] Specific [place], Urine >=1.030 1.001 - 1.030 01/06/2024 11:32 [facility] Blood UA Negative Negative 01/06/2024 11:32 [facility] Nitrite UA Negative Negative 01/06/2024 11:32 [facility] Leukocyte Esterase UA 1+(A) Negative 01/06/2024 11:32 [facility] Protein UA Trace(A) Negative mg/dL 01/06/2024 11:32 [facility] pH, UA 5.5 <8.5 01/06/2024 11:32 [facility] Urine RBC Count, Manual 0 - 2 0 - 2 Cells/HPF 01/06/2024 11:32 [facility] Urine WBC Count 10 - 50(A) 0 - 3 Cells/HPF 01/06/2024 11:32 [facility] Urine Squamous Count, Manual Many(A) None Seen Cells/HPF 01/06/2024 11:32 [facility] Urine Hyaline Cast Count, Manual <=10 <=10 Casts/LPF 01/06/2024 11:32 [facility] Urine Bacteria Count, Manual Many(A) None Seen Bacteria/HP F 01/06/2024 11:32 [facility] Urobilinogen UA 0.2 0.2-1.0 mg/dL mg/dL 01/06/2024 11:32 [facility] Urine URINE SPECIMEN OBTAINED BY CLEAN CATCH PROCEDURE / Unknown Urine Collect / Unknown 01/06/2024 10:28 EDT 01/06/2024 11:07 [facility] - 01/06/2024 11:32 EDT Urine Sediment Analysis results are unreliable on urines that are unrefrigerated for >2 hrs or refrigerated >8 hrs. A Urine Culture test has been reflexively ordered based on result criteria from the Urine Sediment Analysis. Melida Barrera MD URINALYSIS ORDERABL ES [facility] [address] [place] [id number] * CCP ANTIBODIES (01/06/2024 10:28 EDT) CCP Antibodies <2.5 <5.0 U/mL 01/07/2024 8:50 EDT [facility] Blood VENOUS BLOOD / Unknown Venipuncture / Unknown 01/06/2024 10:28 EDT 01/06/2024 10:47 EDT Melida Barrera MD IMMUNOLOGY AND SERO LOGY ORDERABLES Performing Organization Address [facility] Co de Phone Number [facility] [address] [place] [address] * (ABNORMAL) DOUBLE STRANDED DNA ANTIBODY, IGG (01/06/2024 10:28 EDT) Only the most recent of2 resultswithin the time period is included. dsDNA Ab, IgG 42.7(H) <27.0 IU/mL 01/07/2024 12:48 EDT [facility] Comment: Negative: <27.0 IU/mL Indeterminate: 27.0 - 35.0 IU/mL Positive: >35.0 IU/mL Results were obtained with [employer] Flash dsDNA chemiluminescent immunoassay. Values obtained with different manufacturers' assay methods may not be used interchangeably. Blood VENOUS BLOOD / Unknown Venipuncture / Unknown 01/06/2024 10:28 EDT 01/06/2024 10:48 EDT Melida Barrera MD IMMUNOLOGY AND SERO LOGY ORDERABLES Performing Organization Address City/[facility]/ZIP Co de Phone Number [facility] [address] [place] [id number] * COMPLETE BLOOD COUNT AND DIFFERENTIAL (01/06/2024 10:28 EDT) WBC 7.69 4.00 - 12.40 K/cmm 01/06/2024 10:41 EDT [facility] RBC 4.52 3.86 - 5.04 M/cmm 01/06/2024 10:41 EDT [facility] Hemoglobin 13.0 11.6 - 15.2 g/dL 01/06/2024 10:41 EDT [facility] HCT 40.0 34.9 - 44.4 % 01/06/2024 10:41 [facility] MCV 89 81 - 98 fL 01/06/2024 10:41 [facility] MCH 28.8 26.7 - 33.3 pg 01/06/2024 10:41 [facility] MCHC 32.5 32.1 - 35.9 g/dL 01/06/2024 10:41 [facility] RDW-CV 12.3 <14.7 % 01/06/2024 10:41 [facility] RDW-SD 39.9 <50.4 fl 01/06/2024 10:41 [facility] PLT 312 141 - 377 K/cmm 01/06/2024 10:41 [facility] MPV 10.4 9.5 - 12.7 fL 01/06/2024 10:41 [facility] % Neutrophils 55.8 % 01/06/2024 10:41 [facility] % Lymphocytes 31.6 % 01/06/2024 10:41 [facility] % Monocytes 6.6 % 01/06/2024 10:41 [facility] % Eosinophils 5.1 % 01/06/2024 10:41 [facility] % Basophils 0.5 % 01/06/2024 10:41 [facility] % Immature Grans 0.4 <0.9 % 01/06/20 10:41 [facility] Absolute Neutrophils 4.29 2.20 - 8.85 K/cmm 01/06/2024 10:41 [facility] Absolute Lymphocytes 2.43 1.09 - 3.30 K/cmm 01/06/2024 10:41 [facility] Absolute Monocytes 0.51 0.10 - 0.80 K/cmm 01/06/2024 10:41 [facility] Absolute Eosinophils 0.39 0.03 - 0.61 K/cmm 01/06/2024 10:41 EDT [facility] ABS Basophils 0.04 0.01 - 0.11 K/cmm 01/06/2024 10:41 EDT [facility] Absolute Immature Grans 0.03 0.00 - 0.06 K/cmm 01/06/2024 10:41 EDT [facility] Type of Differential: Auto 01/06/2024 10:41 EDT [facility] Blood VENOUS BLOOD / Unknown Venipuncture / Unknown 01/06/2024 10:28 EDT 01/06/2024 10:38 EDT Melida Barrera MD PACKAGES & DNA PROB E ORDERABLES Performing Organization Address City/[facility] Co de Phone Number [facility] [address] [place] [address] * BACTERIAL CULTURE, URINE (01/06/2024 10:28 EDT) Organism ID [id number] to [id number] CFU/ml VITEK SUSCEPTIBILITY 01/07/2024 9:50 EDT [facility] Comment: Usual urogenital rosa. Urine URINE SPECIMEN OBTAINED BY CLEAN CATCH PROCEDURE / Unknown Urine Collect / Unknown 01/06/2024 10:28 EDT 01/06/2024 11:32 EDT Melida Barrera MD MICROBIOLOGY - GENE RAL ORDERABLES Performing Organization Address City/[facility]/ZIP Co de Phone Number [facility] [address] [place] [address] * C3 COMPLEMENT (01/06/2024 10:28 EDT) C3 Complement 136 81 - 157 mg/dL 01/07/2024 9:43 EDT [facility] Blood VENOUS BLOOD / Unknown Venipuncture / Unknown 01/06/2024 10:28 EDT 01/06/2024 10:47 EDT Melida Barrera MD CHEMISTRY & BLOOD G ORDERABLES Performing Organization Address City/[facility]/ZIP Co de Phone Number [facility] [address] [place] [address] * C4 COMPLEMENT (01/06/2024 10:28 EDT) C4 Complement 21 13 - 39 mg/dL 01/07/2024 9:43 EDT [facility] Blood VENOUS BLOOD / Unknown Venipuncture / Unknown 01/06/2024 10:28 EDT 01/06/2024 10:47 EDT Melida Barrera MD CHEMISTRY & BLOOD G ORDERABLES Performing Organization Address [facility] Co de Phone Number [facility] [address] [place], [place] [id number] * (ABNORMAL) COMPREHENSIVE METABOLIC PANEL (CMP) (01/06/2024 10:28 EDT) Pathologist [facility] Sodium 140 136 - 145 mmol/L 01/06/2024 11:19 [facility] Potassium 4.5 3.5 - 5.0 mmol/L 01/06/2024 11:19 [facility] Chloride 106 96 - 110 mmol/L 01/06/2024 11:19 [facility] CO2 Total 21(L) 22 - 32 mmol/L 01/06/2024 11:19 [facility] Glucose 84 70 - 99 mg/dl 01/06/2024 11:19 [facility] BUN 14 10 - 26 mg/dL 01/06/2024 11:19 [facility] Creatinine 0.78 0.52 - 1.04 mg/dL 01/06/2024 11:19 [facility] eGFR 105 >60 mL/min/1.7 3m2 01/06/2024 11:19 [facility] Total Protein 7.8 6.3 - 8.2 g/dL 01/06/2024 11:19 [facility] Albumin 4.5 3.4 - 4.9 g/dL 01/06/2024 11:19 [facility] Alkaline Phosphatase 82 38 - 126 U/L 01/06/2024 11:19 [facility] AST 21 15 - 46 U/L 01/06/2024 11:19 [facility] ALT 21 <35 U/L 01/06/2024 11:19 [facility] Bilirubin, Total 0.9 <1.4 mg/dL 01/06/20 11:19 [facility] Calcium 9.7 8.5 - 10.5 mg/dL 01/06/2024 11:19 [facility] Albumin/Globulin Ratio 1.4 1.0 - 2.5 01/06/2024 11:19 [facility] Anion Gap 13 5 - 14 mmol/L 01/06/2024 11:19 [facility] Blood VENOUS BLOOD / Unknown Venipuncture / Unknown 01/06/2024 10:28 EDT 01/06/2024 10:47 EDT Melida Barrera MD CHEMISTRY & BLOOD G ORDERABLES [facility] [address] [place] [address] * WENDY ANTIBODY PANEL (12/10/2023 15:30 EDT) Ro52 Anitbody, IgG <2.3 <20.0 CU 2023 18:11 EDT [facility] Comment:Results were obtaine d with the [employer] Flash Ro52 chemiluminescent immunoassay. Values obtained with different manufacturers' assay methods must not be used interchangeably. Ro60 Antibody, IgG <7.0 <20.0 CU 2023 18:11 EDT [facility] Comment:Results were obtaine d with the [employer] Flash Ro60 chemiluminescent immunoassay. Values obtained with different manufacturers' assay methods must not be used interchangeably. SSB Antibody, IgG <3.3 <20.0 CU 024 18:11 EDT [facility] Comment:Results were obtaine d with the [employer] Flash SS-B chemiluminescent immunoassay. Values obtained with different manufacturers' assay methods must not be used interchangeably. SM (Steele) Antibody, IgG <8.0 <20.0 CU 12/14/2023 18:11 EDT [facility] Comment:Results were obtaine d with the [employer] Flash Sm chemiluminescent immunoassay. Values obtained with different manufacturers' assay methods must not be used interchangeably. SOFA INSPECTOR Antibody, IgG <6.0 <20.0 CU 024 18:11 EDT [facility] Comment:Results were obtaine d with the [employer] Flash SOFA INSPECTOR chemilumenscent immunoassay. Values obtained with different manufacturers' assay methods may not be used interchangeably. Blood VENOUS BLOOD / Unknown 12/10/2023 15:30 EDT 12/11/2023 16:59 EDT Provider Outr Resulting Lab IMMUNOLOGY A ND SEROLOGY ORDERABLES [facility] [address] [place] [address] * HEPATITIS C AB W REFLEX TO HCV RNA BY PCR (12/10/2023 15:30 EDT) Hep C Antibody Negative Negative 12/11/2023 21:40 EDT [facility] Blood VENOUS BLOOD / Unknown 12/10/2023 15:30 EDT 12/11/2023 16:59 EDT Provider Outr Resulting Lab CHEMISTRY & BLOOD GAS ORDERABLES [facility] [address] [place], [place] [id number] from Last 3 Months Care Teams Advertiser Relationship Specialty Start Date End Date Marisol Palmer MD [address] [place] [id number] PCP - General 12/28/23
--- OUTSIDE RECORDS SUMMARY | 2024-03-04 13:37 | XMS_ITS | Encounter Summary ---
Author Organization [facility] Address [address] [place] [address] Care Team Providers Care Head Refrigerating Engineer Name Role Phone Unknown, Provider Primary Care Provider [phone] Marisol Palmer MD Primary Care Provider [phone] Encounter Details Date Type Department Care Team (Late st Contact Info) Description 12/02/2023 Lab Requisition [facility] Pathology & Laboratory Medicine - [address] [address] Outr Resulting Lab, Provider Social History Tobacco [...] Contact Info) Description 07/07/2024 13:30 EST Telemedicine [facility] - [facility] Rheumatology [address] [place] [address] Melida Barrera MD [address] [facility], [address] [place] [phone] documented as of this encounter Procedures Procedure Name Priority Date/Time Associated Diagnosis Comments HOLD SST Today 12/01/2023 16:00 EDT RHEUMATOID FACTOR Today 12/01/2023 16: 00 EDT ANTI NUCLEAR AB (VANDANA), IFA Today 12/01/2023 16:00 EDT documented in this encounter Results * HOLD SST (12/01/2023 16:00 EDT) Hold Hold 12/02/2023 19:46 EDT [facility] Blood VENOUS BLOOD / Unknown 12/01/2023 16:00 EDT 12/02/2023 18:39 EDT Provider Outr Resulting Lab LAB INFO SER VICE AND SUPPORT & PHONE RESULT Performing Organization Address [facility]/ZIP Co de Phone Number [facility] [address] [place] [address] * RHEUMATOID FACTOR (12/01/2023 16:00 EDT) Pathologist [facility] Rheumatoid Factor <8.6 <12.0 IU/mL 12/02/2023 17:53 EDT [facility] Blood VENOUS BLOOD / Unknown 12/01/2023 16:00 EDT 12/02/2023 17:30 EDT Provider Outr Resulting Lab CHEMISTRY & BLOOD GAS ORDERABLES Performing Organization Address [facility] Co de Phone Number [facility] [address] [place] [address] * (ABNORMAL) ANTI NUCLEAR AB (VANDANA), IFA (12/01/2023 16:00 EDT) Pathologist [facility] VANDANA Interpretation Positive(A) Negative 12/03/2023 13:21 EDT [facility] Comment: For titers greater than or equal to 1:160 (except the centromere and nucleolar patterns) it is recommended that specific follow-up autoantibody testing ??(such as for dsDNA and Extractable Nuclear Antigens) be performed on all diffuse and/or speckled patterns NOTE: For add-on testing dsDNA is stable for 7 days refrigerated while Extractable Nuclear Antigens are only stable for 48 hours refrigerated. VANDANA Titer and Pattern 1 1:320 Speckled 12/03/2023 13:21 EDT [facility] Blood VENOUS BLOOD / Unknown 12/01/2023 16:00 EDT 12/02/2023 17:30 EDT Narrative [facility] - 12/03/2023 13:21 EDT Results were obtained with the INOVA NOVA Lite HEp-2 VANDANA Kit by indirect immunofluorescence. Provider Outr Resulting Lab IMMUNOLOGY A ND SEROLOGY ORDERABLES Performing Organization Address City/State/[facility] Co de Phone Number [facility] [address] [place], [place] [address] documented in this encounter Visit Diagnoses Not on filedocumented in this encounter Care Teams Head Refrigerating Engineer Relationship Specialty Start Date End Date Unknown, Provider, PCP - General 02/23/17 12/27/23 Marisol Palmer MD [address] [place] [id number] PCP - General 12/28/23 documented as of this encounter
--- OUTSIDE RECORDS SUMMARY | 2024-03-04 13:37 | XMS_ITS | Referral Summary ---
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 Mechanic Name Role Phone Marisol Palmer MD Primary Care Provider [phone] Encounters Date Type Department Care Team Description 01/07/2024 Telephone [facility] Rheumatology [address] [place] [address] Melida Barrera MD Other 01/06/2024 10:10 EDT Phlebotomy Only [facility] - Outpatient Phlebotomy Drawing [address] [place] [address] Lab, [facility] Op Phlebotomy Positive VANDANA (antinuclear antibody); Fibromyalgia 01/06/2024 9:00 EDT Office Visit [facility] Rheumatology [address] [place] [address] Melida Barrera MD Fibromyalgia (Primary Dx); Positive VANDANA (antinuclear antibody) 01/01/2024 Abstract [facility] Rheumatology [address] [place] [address] Melida Barrera MD 12/11/2023 Lab Requisition [facility] Pathology & Laboratory Medicine - [facility] [address] [place] [address] Outr Resulting Lab, Provider from Last 3 Months Allergies Active Allergy Reactions Criticality Noted Date [...] Fatigue 01/01/2024 Benign neoplasm of skin 01/01/2024 Immunizations Name Administration Dates Next Due Hepatitis [...] Varicella (Chickenpox) vacci ne (VARIVAX) SQ 03/06/1999 Social History Tobacco Use Types Packs/Day Years Used Date Smoking Tobacco: Former Cigarettes Smokeless Tobacco: Never Tobacco Cessation:Counseling Given: Not Answered Sex and Gender Information Value Date Recorded Sex Assigned at Not on file Gender Identity Not on file Sexual Orientation Not on file Last Filed Vital Signs Vital Sign Reading Time Taken Comments Blood Pressure 106/72 01/06/2024 0859 EDT Pulse 88 01/06/2024 0859 EDT Temperature - - Respiratory Rate - - Oxygen Saturation - - Inhaled Oxygen Concentration - - Weight 130.2 kg (287 lb) 01/06/2024 0859 EDT Height 170.2 cm (5' 7) 01/06/2024 0859 EDT Body Mass Index 44.95 01/06/2024 0859 EDT Functional Status Functional Status Response Date of Assess ment Because of a physical, menta l, or emotional condition, does this person have difficulty doing errands alone such as visiting a doctor's office or shopping? No 01/06/2024 Cognitive Status Response Date of Assessm ent Because of a physical, menta l, or emotional condition, does this person have serious difficulty concentrating, remembering, or making decisions? Yes 01/06/2024 Plan of Treatment Upcoming Encounters Date Type Department Care Team (Late st Contact Info) Description 07/07/2024 13:30 EST Telemedicine [facility] Rheumatology [address] [place] [address] Melida Barrera MD [address] [place] [address], [facility] [address] [place] [address] Procedures Procedure Name Priority Date/Time Associated Diagnosis [...] Color UA Yellow Colorless, Yellow 01/06/2024 11:32 [facility] Clarity UA Clear Clear 01/06/2024 11:32 [facility] Glucose UA Negative Negative mg/dL 01/06/2024 11:32 [facility] Bilirubin UA Negative Negative 01/06/2024 11:32 [facility] Ketones UA Trace(A) Negative 01/06/2024 11:32 [facility] Specific [place], Urine >=1.030 1.001 - 1.030 01/06/2024 11:32 [facility] Blood UA Negative Negative 01/06/2024 11:32 [facility] Nitrite UA Negative Negative 01/06/2024 11:32 [facility] Leukocyte Esterase UA 1+(A) Negative 01/06/2024 11:32 [facility] Protein UA Trace(A) Negative mg/dL 01/06/2024 11:32 [facility] pH, UA 5.5 <8.5 01/06/2024 11:32 [facility] Urine RBC Count, Manual 0 - 2 0 - 2 Cells/HPF 01/06/2024 11:32 [facility] Urine WBC Count 10 - 50(A) 0 - 3 Cells/HPF 01/06/2024 11:32 EDT [facility] Urine Squamous Count, Manual Many(A) None Seen Cells/HPF 01/06/2024 11:32 EDT [facility] Urine Hyaline Cast Count, Manual <=10 <=10 Casts/LPF 01/06/2024 11:32 EDT [facility] Urine Bacteria Count, Manual Many(A) None Seen Bacteria/HP F 01/06/2024 11:32 EDT [facility] Urobilinogen UA 0.2 0.2-1.0 mg/dL mg/dL 01/06/2024 11:32 EDT [facility] Urine URINE SPECIMEN OBTAINED BY CLEAN CATCH PROCEDURE / Unknown Urine Collect / Unknown 01/06/2024 10:28 EDT 01/06/2024 11:07 EDT Narrative [facility] - 01/06/2024 11:32 EDT Urine Sediment Analysis results are unreliable on urines that are unrefrigerated for >2 hrs or refrigerated >8 hrs. A Urine Culture test has been reflexively ordered based on result criteria from the Urine Sediment Analysis. Melida Barrera MD URINALYSIS ORDERABL ES Performing Organization Address [facility]/ZIP Co de Phone Number [facility] [address] [place] [address] * CCP ANTIBODIES (01/06/2024 10:28 EDT) CCP Antibodies <2.5 <5.0 U/mL 01/07/2024 8:50 EDT [facility] Blood VENOUS BLOOD / Unknown Venipuncture / Unknown 01/06/2024 10:28 EDT 01/06/2024 10:47 EDT Melida Barrera MD IMMUNOLOGY AND SERO LOGY ORDERABLES Performing Organization Address City/[facility]/ZIP Co de Phone Number [facility] [address] [place] [address] * (ABNORMAL) DOUBLE STRANDED DNA ANTIBODY, IGG (01/06/2024 10:28 EDT) Only the most recent of2 resultswithin the time period is included. [facility] dsDNA Ab, IgG 42.7(H) <27.0 IU/mL 01/07/2024 12:48 EDT [facility] Comment: Negative: <27.0 IU/mL Indeterminate: 27.0 - 35.0 IU/mL Positive: >35.0 IU/mL Results were obtained with [employer] Flash dsDNA chemiluminescent immunoassay. Values obtained with different manufacturers' assay methods may not be used interchangeably. Blood VENOUS BLOOD / Unknown Venipuncture / Unknown 01/06/2024 10:28 EDT 01/06/2024 10:48 EDT Melida Barrera MD IMMUNOLOGY AND SERO LOGY ORDERABLES [facility] [address] [place] [address] * COMPLETE BLOOD COUNT AND DIFFERENTIAL (01/06/2024 10:28 EDT) [facility] WBC 7.69 4.00 - 12.40 K/cmm 01/06/2024 10:41 [facility] RBC 4.52 3.86 - 5.04 M/cmm 01/06/2024 10:41 [facility] Hemoglobin 13.0 11.6 - 15.2 g/dL 01/06/2024 10:41 [facility] HCT 40.0 34.9 - 44.4 % 01/06/2024 10:41 [facility] MCV 89 81 - 98 fL 01/06/2024 10:41 [facility] MCH 28.8 26.7 - 33.3 pg 01/06/2024 10:41 [facility] MCHC 32.5 32.1 - 35.9 g/dL 01/06/2024 10:41 [facility] RDW-CV 12.3 <14.7 % 01/06/2024 10:41 [facility] RDW-SD 39.9 <50.4 fl 01/06/2024 10:41 [facility] PLT 312 141 - 377 K/cmm 01/06/2024 10:41 [facility] MPV 10.4 9.5 - 12.7 fL 01/06/2024 10:41 [facility] % Neutrophils 55.8 % 01/06/2024 10:41 [facility] % Lymphocytes 31.6 % 01/06/2024 10:41 [facility] % Monocytes 6.6 % 01/06/2024 10:41 [facility] % Eosinophils 5.1 % 01/06/2024 10:41 [facility] % Basophils 0.5 % 01/06/2024 10:41 [facility] % Immature Grans 0.4 <0.9 % 01/06/20 24 10:41 [facility] Absolute Neutrophils 4.29 2.20 - 8.85 K/cmm 01/06/2024 10:41 [facility] Absolute Lymphocytes 2.43 1.09 - 3.30 K/cmm 01/06/2024 10:41 [facility] Absolute Monocytes 0.51 0.10 - 0.80 K/cmm 01/06/2024 10:41 [facility] Absolute Eosinophils 0.39 0.03 - 0.61 K/cmm 01/06/2024 10:41 [facility] ABS Basophils 0.04 0.01 - 0.11 K/cmm 01/06/2024 10:41 [facility] Absolute Immature Grans 0.03 0.00 - 0.06 K/cmm 01/06/2024 10:41 [facility] Type of Differential: Auto 01/06/2024 10:41 [facility] Blood VENOUS BLOOD / Unknown Venipuncture / Unknown 01/06/2024 10:28 EDT 01/06/2024 10:38 EDT Melida Barrera MD PACKAGES & DNA PROB E ORDERABLES Performing Organization Address [facility] Co de Phone Number [facility] [address] [place] [address] * BACTERIAL CULTURE, URINE (01/06/2024 10:28 EDT) Organism ID [id number] to [id number] CFU/ml VITEK SUSCEPTIBILITY 01/07/2024 9:50 EDT [facility] Comment: Usual urogenital rosa. Urine URINE SPECIMEN OBTAINED BY CLEAN CATCH PROCEDURE / Unknown Urine Collect / Unknown 01/06/2024 10:28 EDT 01/06/2024 11:32 EDT Melida Barrera MD MICROBIOLOGY - GENE RAL ORDERABLES Performing Organization Address [facility] Co de Phone Number [facility] [address] [place] [address] * C3 COMPLEMENT (01/06/2024 10:28 EDT) C3 Complement 136 81 - 157 mg/dL 01/07/2024 9:43 EDT [facility] Blood VENOUS BLOOD / Unknown Venipuncture / Unknown 01/06/2024 10:28 EDT 01/06/2024 10:47 EDT Melida Barrera MD CHEMISTRY & BLOOD G ORDERABLES Performing Organization Address [facility]/ZIP Co de Phone Number [facility] [address] [place] [address] * C4 COMPLEMENT (01/06/2024 10:28 EDT) C4 Complement 21 13 - 39 mg/dL 01/07/2024 9:43 EDT [facility] Blood VENOUS BLOOD / Unknown Venipuncture / Unknown 01/06/2024 10:28 EDT 01/06/2024 10:47 EDT Melida Barrera MD CHEMISTRY & BLOOD G ORDERABLES [facility] [address] [place] [address] * (ABNORMAL) COMPREHENSIVE METABOLIC PANEL (CMP) (01/06/2024 10:28 EDT) Sodium 140 136 - 145 mmol/L 01/06/2024 11:19 [facility] Potassium 4.5 3.5 - 5.0 mmol/L 01/06/2024 11:19 [facility] Chloride 106 96 - 110 mmol/L 01/06/2024 11:19 [facility] CO2 Total 21(L) 22 - 32 mmol/L 01/06/2024 11:19 [facility] Glucose 84 70 - 99 mg/dl 01/06/2024 11:19 [facility] BUN 14 10 - 26 mg/dL 01/06/2024 11:19 [facility] Creatinine 0.78 0.52 - 1.04 mg/dL 01/06/2024 11:19 [facility] eGFR 105 >60 mL/min/1.7 3m2 01/06/2024 11:19 [facility] Total Protein 7.8 6.3 - 8.2 g/dL 01/06/2024 11:19 [facility] Albumin 4.5 3.4 - 4.9 g/dL 01/06/2024 11:19 [facility] Alkaline Phosphatase 82 38 - 126 U/L 01/06/2024 11:19 [facility] AST 21 15 - 46 U/L 01/06/2024 11:19 [facility] ALT 21 <35 U/L 01/06/2024 11:19 [facility] Bilirubin, Total 0.9 <1.4 mg/dL 01/06/20 11:19 EDT [facility] Calcium 9.7 8.5 - 10.5 mg/dL 01/06/2024 11:19 EDT [facility] Albumin/Globulin Ratio 1.4 1.0 - 2.5 01/06/2024 11:19 EDT [facility] Anion Gap 13 5 - 14 mmol/L 01/06/2024 11:19 EDT [facility] Blood VENOUS BLOOD / Unknown Venipuncture / Unknown 01/06/2024 10:28 EDT 01/06/2024 10:47 EDT Melida Barrera MD CHEMISTRY & BLOOD G ORDERABLES [facility] [address] [place] [address] * WENDY ANTIBODY PANEL (12/10/2023 15:30 EDT) Ro52 Anitbody, IgG <2.3 <20.0 CU 2023 18:11 T [facility] Comment:Results were obtaine d with the [employer] Flash Ro52 chemiluminescent immunoassay. Values obtained with different manufacturers' assay methods must not be used interchangeably. Ro60 Antibody, IgG <7.0 <20.0 CU 2023 18:11 T [facility] Comment:Results were obtaine d with the [employer] Flash Ro60 chemiluminescent immunoassay. Values obtained with different manufacturers' assay methods must not be used interchangeably. SSB Antibody, IgG <3.3 <20.0 CU 024 18:11 T [facility] Comment:Results were obtaine d with the [employer] Flash SS-B chemiluminescent immunoassay. Values obtained with different manufacturers' assay methods must not be used interchangeably. SM (Steele) Antibody, IgG <8.0 <20.0 CU 12/14/2023 18:11 EDT [facility] Comment:Results were obtaine d with the [employer] Flash Sm chemiluminescent immunoassay. Values obtained with different manufacturers' assay methods must not be used interchangeably. COARSE WIRE DRAWER Antibody, IgG <6.0 <20.0 CU 024 18:11 EDT [facility] Comment:Results were obtaine d with the [employer] Flash COARSE WIRE DRAWER chemilumenscent immunoassay. Values obtained with different manufacturers' assay methods may not be used interchangeably. Blood VENOUS BLOOD / Unknown 12/10/2023 15:30 EDT 12/11/2023 16:59 EDT Provider Outr Resulting Lab IMMUNOLOGY A ND SEROLOGY ORDERABLES Performing Organization Address City/[facility]/ZIP Co de Phone Number [facility] [address] [place], [place] [address] * HEPATITIS C AB W REFLEX TO HCV RNA BY PCR (12/10/2023 15:30 EDT) Hep C Antibody Negative Negative 12/11/2023 21:40 EDT [facility] Blood VENOUS BLOOD / Unknown 12/10/2023 15:30 EDT 12/11/2023 16:59 EDT Provider Outr Resulting Lab CHEMISTRY & BLOOD GAS ORDERABLES Performing Organization Address City/[facility]/ZIP Co de Phone Number [facility] [address] [place], [place] [address] from Last 3 Months Care Teams Aircraft Ordnance Systems Mechanic Relationship Specialty Start Date End Date Marisol Palmer MD [address] [place] [address] PCP - General 12/28/23
--- OUTSIDE RECORDS SUMMARY | 2024-03-04 13:37 | XMS_ITS | Encounter Summary ---
Author Organization [facility] Address [address] [place] [address] Care Team Providers Care Investigation Officer Name Role Phone Marisol Palmer MD Primary Care Provider [phone] Encounter Details Date Type Department Care Team (Late st Contact Info) Description 01/01/2024 Abstract [facility] Rheumatology [address] [place] [address] Melida Barrera MD [address] [place] [phone] Social History Tobacco Use Types Packs/Day Years Used Date Smoking Tobacco: Never Tobacco Cessation:Counseling Given: Not Answered Sex and Gender Information Value Date Recorded Sex Assigned at Not on file Gender Identity Not on file Sexual Orientation Not on file documented as of this encounter Progress Notes * Shantell Dunbar - 01/01/2024 1301 EDT Chart abstracted. bm documented in this encounter Plan of Treatment Upcoming Encounters Date Type Department Care Team (Late st Contact Info) Description 07/07/2024 13:30 EST Telemedicine [facility] Rheumatology [address] [place] [address] Melida Barrera MD [address] [place] [phone] documented as of this encounter Visit Diagnoses Not on filedocumented in this encounter Historical Medications * This list may reflect changes made after this encounter. Medication Sig Dispensed Refills Start Date End Date albuterol 90 mcg/actuation HFA aerosol inhaler inhaler Inhale 2 Puffs as directed every 4 hours. Inhale 2 puffs into the lungs every 6 hours as needed. budesonide-formoterol HFA (SYMBICORT) 80-4.5 mcg/actuation HFA aerosol inhaler inhaler Inhale as directed 2 times daily. Inhale 2 puffs by mouth twice a day. orphenadrine (NORFLEX) 100 mg tablet Take 1 Tablet by mouth if needed. methylphenidate HCl (RITALIN SR; METADATE ER; METHYLIN ER) 20 mg SR tablet Take 1 Tablet by mouth daily. Cholecalciferol, Vitamin D3, 50 mcg capsule Take 1 Capsule by mouth daily. acetaminophen (TYLENOL) 500 mg tablet Take 2 Tablets by mouth every 6 hours as needed for Pain. norelgestromin-ethinyl estradiol (XULANE) 150-35 mcg/[address] 1 Patch onto the skin once a week. Apply one patch onto the skin every 7 days for 3 weeks of a 4 week cycle. 01/06/2024 docusate sodium (COLACE) 100 mg capsule Take 1 Capsule by mouth daily. 01/06/2024 UNABLE TO FIND Med Name: Lidocaine 2% mucosal jelly in applicator. Apply topically twice a day as needed for pain. 01/06/2024 ketOROLAC Tromethamine (TORADOL) 60 mg/2 mL solution injection Inject 1 mL into the muscle every 6 hours. 01/06/2024 ketOROLAC (TORADOL) 10 mg tablet Take 1 Tablet by mouth every 6 hours. Take one tablet by mouth 4X/day for 5 days with food. 01/06/2024 ibuprofen (MOTRIN) 800 mg tablet Take 1 Tablet by mouth daily as needed. Take one tablet by mouth twice a day as needed for headaches and backaches. 01/06/2024 added in this encounter Care Teams Investigation Officer Relationship Specialty Start Date End Date Marisol Palmer MD [address] [place] [address] PCP - General 12/28/23 documented as of this encounter
--- OUTSIDE RECORDS SUMMARY | 2024-03-04 13:37 | XMS_ITS | Encounter Summary ---
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) - Authorization Not Required Specialty Diagnoses / Procedures Referred By Anne Marie mckeon Referred To Contact Rheumatology Diagnoses Systemic lupus erythematosus, unspecified ([facility]) Marisol Palmer MD [address] [place] [address] [facility] [address] [place] [id number] Referral ID Status Reason Start Date Expiration Date Visits Requested Visits Authorized [id number] Authorization Not Required 1 1 Encounter Details Date Type Department Care Team (Late st Contact Info) Description 01/06/2024 9:00 EDT Office Visit [facility] [place] [facility] [address] [place] [id number] Melida Barrera MD [address] [facility], [facility] [address] [place] [address] Fibromyalgia (Primary Dx); Positive VANDANA (antinuclear antibody) Social History Tobacco Use Types Packs/Day Years Used Date Smoking Tobacco: Former Cigarettes Smokeless Tobacco: Never Tobacco Cessation:Counseling Given: Not Answered Sex and Gender Information Value Date Recorded Sex Assigned at Not on file Gender Identity Not on file Sexual Orientation Not on file documented as of this encounter Last Filed Vital Signs Vital Sign Reading Time Taken Comments Blood Pressure 106/72 01/06/2024 0859 EDT Pulse 88 01/06/2024 0859 EDT Temperature - - Respiratory Rate - - Oxygen Saturation - - Inhaled Oxygen Concentration - - Weight 130.2 kg (287 lb) 01/06/2024 0859 EDT Height 170.2 cm (5' 7) 01/06/2024 0859 EDT Body Mass Index 44.95 01/06/2024 0859 EDT documented in this encounter Functional Status Functional Status Response Date of [...] concentrating, remembering, or making decisions? Yes 01/06/2024 documented as of this encounter Patient Instructions * Patient Instructions* Melida Barrera MD - 01/06/2024 9:00 EDT 01/06/24: -lab today -I have a lower suspicion for lupus but we will see what further labs work shows -your positive VANDANA can be seen with autoimmune thyroid disease -your widespread pain is due to fibromyalgia (see below) which is a pain processing disorder: firstline treatment for fibromyalgia is increase in regular gentle exercise, improving sleep and workingon anxiety and depression -you can continue the Plaquenil 1 tab daily for next 6 months while we complete the workup and havefollow-up visit -continue Mobic one tab daily for joint pain, do not take any ibuprofen or aleve at the same time -follow-up by zoom in 6 months FIBROMYALGIA - Patient Fact Sheet CONDITION DESCRIPTION Fibromyalgia is a chronic nervous system condition that causes widespread pain and tenderness, affects 2-4% of people, and usually affects women more often than men. People who have other rheumatic diseases are at higher risk of having fibromyalgia. Fibromyalgia is not an inflammatory or autoimmune disease. Research suggests that the nervous system is involved. Brain chemicals, like serotonin and norepinephrine, may be off balance, changing reactions to painful stimuli. Fibromyalgia may cause fatigue, poor sleep, and mood problems, like anxiety or stress. It does not cause any signs on x-rays or blood tests. There is currently no cure for fibromyalgia. Medications may relieve symptoms for some people. The treatment plan includes exercise, diet, a good sleep routine and cognitive behavioral therapy. SIGN/SYMPTOMS Fibromyalgia symptoms are different for each person. The most common symptoms are widespread pain and tender places around the body. People may feel tenderness to even slight pressure on muscles or around joints. Severe fatigue and sleep problems are also common. Someone with fibromyalgia may not feel refreshed after sleeping all night. Other fibromyalgia signs and symptoms include: Problems with memory or clear thinking, known as fibro fog Depression or anxiety Migraines or tension headaches Digestion problems like IBS or heartburn Irritable or overactive bladder Pelvic pain Temporomandibular disorder (TMJ), or jaw pain or popping Other diseases may cause widespread pain or fatigue. Doctors may ask patients to describe their digestive, sleep or memory problems. Blood tests and x-rays may be used to rule out other causes, like thyroid problems or polymyalgia rheumatica. COMMON TREATMENTS Fibromyalgia is treated with both nondrug therapies and medications. Exercise is the most effectivetreatment, including low-impact aerobic activity and body- based therapies like ceci chi or yoga. Cognitive behavioral therapy and mindfulness training can help people with fibromyalgia learn skills to help manage or reduce their symptoms. Complementary therapies like acupuncture, chiropractic and massage may help ease symptoms, but there is little evidence to support effectiveness. Psychotherapy may help patients manage stress and anxiety. A sleep medicine specialist may help patients address sleep disorders. Three drugs are FDA-approved for fibromyalgia: duloxetine (Cymbalta) and milnacipran (Savella) adjust brain chemicals to ease widespread pain, and pregabalin (Lyrica), which blocks overactive nerve cells involved in pain. Older drugs, such as amitryptiline (Elavil), cyclobenzaprine (Flexeril) and other antidepressants may be used too. Opioids, acetaminophen, nonsteroidal anti-inflammatory drugs (NSAIDs) and sleep medicines like zolpidem (Ambien) are not recommended for use in treating fibromyalgia symptoms. CARE/MANAGEMENT TIPS Self-care is important to manage fibromyalgia symptoms and have good quality of life. A healthy lifestyle, along with medications, can be effective at reducing pain, improving sleep, easing fatigue and stress, and helping patients cope with fibromyalgia. Exercise as often as possible. Start slowly and do more over time. Walking, swimming, stretching and yoga are good activities for people with fibromyalgia. Add more movement to daily routines, like taking a flight of stairs instead of the elevator. Medications may help ease pain and make it easier to be more active. Rest and relaxation are helpful too. Make time to relax each day. Deep breathing or medication can ease stress. Set regular sleep habits, like going to bed at the same time each night. Don't take naps or drink coffee to ease afternoon fatigue. Nicotine is a stimulant, but it makes fibromyalgia sleep problems worse. Quit smoking or using tobacco products. ?? 2017 [employer] documented in this encounter Progress Notes * Melida Barrera MD - 01/06/2024 0900 EDT DIVISION OF RHEUMATOLOGY AND CLINICAL IMMUNOLOGY NEW PATIENT VISIT NOTE Date of Service: 01/06/2024 Patient seen in consultation at the request of Marisol Palmer MD for rheumatologic evaluation for polyarthralgia. Chief Complaint Patient presents with New Patient Visit Lupus HISTORY OF PRESENT ILLNESS: Ms. Lelia Saldana is a 28 y.o. female with obesity, PCOS, hypothyroidism, asthma, anxiety, depression, migraine, chronic fatigue and polyarthralgia who presents today for rheumatologic evaluation possible SLE. Since getting hurt at work summer (injured low back bending over) has had diffuse muscle and joint pain. Most pain is low back and neck. Has done PT each time she throws out her back. Also has pain in knees, shoulders, elbows. Hands appear puffy but no persistent joint swelling/redness/warmth. Pain worsens throughout the day. Lifting, prolonged standing exacerbates pain. Was on thyroid replacement but TSH has normalized so not currently. Notes chronic fatigue for years, since teens. Poor sleep as has difficulty getting comfortable. Notes brain fog. Retinal tear a few years in right eye. Laser surgery. No eye issues since. Rash on forearms and a few lesions on breast starting yesterday. Not-itchy. No history of inflammatory eye disease, IBD, psoriasis. Denies dactylitis or enthesitis. One . No miscarriages. No DVT/PE. Meds: -HCQ 200 mg daily -Mobic 7.5 mg daily REVIEW OF SYSTEMS: Symptom Yes No Symptom Yes No Fever X Morning stiffness X Fatigue X Numbness/ tingling X Night sweats X Headaches X Weight change X gain Muscle weakness X Eye discomfort X Dysuria X Mouth/nose sores X Urinary frequency X Chest pain X chest feels tight with asthma flares Hematuria X Palpitations X Trouble sleeping X Dyspnea X Anxiety X Cough X Depression X Nausea/ vomiting X Change in mood X Abdominal pain X Skin rash/ changes X (yesterday Blood in stools X Sun induced rash X Diarrhea X Raynaud's X Constipation X Itching X Joint pain X Hair loss X Muscle pain X Other X PMH PSH No past medical history on file. Past Surgical History: Procedure Laterality Date RETINAL DETACHMENT SURGERY Right 2000 done at [facility] ALLERGIES Allergies Allergen Reactions Ambien [Zolpidem] Wellbutrin [Bupropion Hcl] SOCIAL HISTORY FAMILY HISTORY Social History Tobacco Use Smoking status: Former Types: Cigarettes Smokeless tobacco: Never Substance Use Topics Alcohol use: Not on file Not currently working. Partnered. One child. No tobacco or etoh. Family History Problem Relation Age of Onset *Other(comment) Mother fam hx of hyperthyroidism, breast CA-estrogen driven(TA TITI)lumpectomy, thyroid inactive, fam history of breast cancer 1 gene mutation Breast Cancer Mother *Other(comment) Father family history of disorder of lung Anxiety Disorder Father Asthma Father *Other(comment) Paternal Grandfather fam hx of malignant neoplasm of skin MGM with RA and OA. MEDICATIONS: Current Outpatient Medications Medication Sig acetaminophen (TYLENOL) 500 mg tablet Take 2 Tablets by mouth every 6 hours as needed for Pain. albuterol 90 mcg/actuation HFA aerosol inhaler inhaler Inhale 2 Puffs as directed every 4 hours. Inhale 2 puffs into the lungs every 6 hours as needed. budesonide-formoterol HFA (SYMBICORT) 80-4.5 mcg/actuation HFA aerosol inhaler inhaler Inhale as directed 2 times daily. Inhale 2 puffs by mouth twice a day. Cholecalciferol, Vitamin D3, 50 mcg capsule Take 1 Capsule by mouth daily. DEBLITANE 0.35 mg tablet Take 1 Tablet by mouth daily. hydroxychloroquine (PLAQUENIL) 200 mg tablet TAKE ONE TABLET BY MOUTH EVERY DAY WITH BREAKFAST IF STOMACH UPSET OCCURS THEN TRY SWITCHING TO EVENING/BEDTIME DOSING meloxicam (MOBIC) 7.5 mg tablet Take 2 Tablets by mouth daily. methylphenidate HCl (RITALIN SR; METADATE ER; METHYLIN ER) 20 mg SR tablet Take 1 Tablet by mouth daily. orphenadrine (NORFLEX) 100 mg tablet Take 1 Tablet by mouth if needed. OBJECTIVE: Blood pressure 106/72, pulse 88, height 170.2 cm (67), weight (!) 130.2 kg (287 lb). General: No acute distress. Alert, fully oriented, pleasant, conversant. HEENT: Conjunctivae/corneas clear. Sclerae anicteric. Mucus membranes moist; oropharynx clear. Neck supple, no cervical lymphadenopathy. Lungs: Clear to auscultation bilaterally. Heart: Regular rate and rhythm, S1, S2 present, no murmur Abdomen: Non-distended. Extremities: Extremities without cyanosis or edema. Skin: Fine, fading macular rash dorsal forearms (appears c/w heat rash). No skin thickening. No nail pitting or onycholysis. Musculoskeletal: General: Diffuse soft tissue tenderness throughout thorax, upper and lower extremities. Spine: Diffuse tenderness. Appropriate range of motion. Shoulder: No synovitis/effusion. Appropriate range of motion. Elbow: No synovitis/effusion. Appropriate range of motion. Wrist: No synovitis or effusion. Appropriate range of motion. Hand: No synovitis or effusion. Appropriate range of motion. Hips: No synovitis or effusion. Appropriate range of motion. Knee: No synovitis or effusion. Appropriate range of motion. Ankle: No synovitis or effusion. Appropriate range of motion. Foot: No synovitis or effusion. Appropriate range of motion. Labs: Latest Reference Range & Units 12/01/23 16:00 12/10/23 15:30 VANDANA Interpretation Negative Positive ! VANDANA Titer Pattern 1:320 Speckled dsDNA Ab, IgG <27.0 IU/mL 45.1 (H) Rheumatoid Factor <12.0 IU/mL <8.6 Ro52 Anitbody, IgG <20.0 CU <2.3 Ro60 Antibody, IgG <20.0 CU <7.0 SSB Antibody, IgG <20.0 CU <3.3 [place] MAORI Antibody, IgG <20.0 CU <6.0 SM (Steele) Antibody, IgG <20.0 CU <8.0 Imaging: No relevant imaging. IMPRESSION / PLAN: Ms. Lelia Saldana is a 28 y.o. female 1. Fibromyalgia CCP ANTIBODIES 2. Positive VANDANA (antinuclear antibody) COMPLETE BLOOD COUNT AND DIFFERENTIAL COMPREHENSIVE METABOLIC PANEL (CMP) UA CHEMICAL & SEDIMENT + REFLEX TO CULTURE C4 COMPLEMENT C3 COMPLEMENT DOUBLE STRANDED DNA ANTIBODY, IGG Diffuse, chronic polyarthralgia, myalgia and tenderness on exam due to fibromyalgia. Has often associated anxiety, depression, chronic fatigue, brain fog, chronic abdominal pain, headache disorder often seen in association. No evidence of immune mediated inflammatory arthritis on history or exam but will complete the workup for joint pain given family history. RF negative. Low titer positive VANDANA can be seen in association with her autoimmune thyroid disease and low positive dsDNA is not diagnostic of SLE in the absence of other features of SLE including mucocutaneous (oral and genital ulcers), dermatologic (rash determined to be autoimmune per dermatology), hematologic (anemia, lymphopenia), MSK (inflammatory arthritis) or internal organ manifestations (renal, pulmonary disease). Will complete CTD workup and continue HCQ for now but will discontinue after 6 months if SLE diagnosis less likely. Continue mobic per PCP for joint pain, counseled to avoid concurrent NSAID use. Discussed nature of fibromyalgia as non-rheumatologic and not autoimmune in nature--it is a disorder of pain proc essing. Provided recommendations on lifestyle changes. Remainder of plan as below. PATIENT INSTRUCTIONS: Patient Instructions 01/06/24: -lab today -I have a lower suspicion for lupus but we will see what further labs work shows -your positive VANDANA can be seen with autoimmune thyroid disease -your widespread pain is due to fibromyalgia (see below) which is a pain processing disorder: firstline treatment for fibromyalgia is increase in regular gentle exercise, improving sleep and workingon anxiety and depression -you can continue the Plaquenil 1 tab daily for next 6 months while we complete the workup and havefollow-up visit -continue Mobic one tab daily for joint pain, do not take any ibuprofen or aleve at the same time -follow-up by zoom in 6 months FIBROMYALGIA - Patient Fact Sheet CONDITION DESCRIPTION Fibromyalgia is a chronic nervous system condition that causes widespread pain and tenderness, affects 2-4% of people, and usually affects women more often than men. People who have other rheumatic diseases are at higher risk of having fibromyalgia. Fibromyalgia is not an inflammatory or autoimmune disease. Research suggests that the nervous system is involved. Brain chemicals, like serotonin and norepinephrine, may be off balance, changing reactions to painful stimuli. Fibromyalgia may cause fatigue, poor sleep, and mood problems, like anxiety or stress. It does not cause any signs on x-rays or blood tests. There is currently no cure for fibromyalgia. Medications may relieve symptoms for some people. The treatment plan includes exercise, diet, a good sleep routine and cognitive behavioral therapy. SIGN/SYMPTOMS Fibromyalgia symptoms are different for each person. The most common symptoms are widespread pain and tender places around the body. People may feel tenderness to even slight pressure on muscles or around joints. Severe fatigue and sleep problems are also common. Someone with fibromyalgia may not feel refreshed after sleeping all night. Other fibromyalgia signs and symptoms include: Problems with memory or clear thinking, known as fibro fog Depression or anxiety Migraines or tension headaches Digestion problems like IBS or heartburn Irritable or overactive bladder Pelvic pain Temporomandibular disorder (TMJ), or jaw pain or popping Other diseases may cause widespread pain or fatigue. Doctors may ask patients to describe their digestive, sleep or memory problems. Blood tests and x-rays may be used to rule out other causes, like thyroid problems or polymyalgia rheumatica. COMMON TREATMENTS Fibromyalgia is treated with both nondrug therapies and medications. Exercise is the most effectivetreatment, including low-impact aerobic activity and body- based therapies like ccei chi or yoga. Cognitive behavioral therapy and mindfulness training can help people with fibromyalgia learn skills to help manage or reduce their symptoms. Complementary therapies like acupuncture, chiropractic and massage may help ease symptoms, but there is little evidence to support effectiveness. Psychotherapy may help patients manage stress and anxiety. A sleep medicine specialist may help patients address sleep disorders. Three drugs are FDA-approved for fibromyalgia: duloxetine (Cymbalta) and milnacipran (Savella) adjust brain chemicals to ease widespread pain, and pregabalin (Lyrica), which blocks overactive nerve cells involved in pain. Older drugs, such as amitryptiline (Elavil), cyclobenzaprine (Flexeril) and other antidepressants may be used too. Opioids, acetaminophen, nonsteroidal anti-inflammatory drugs (NSAIDs) and sleep medicines like zolpidem (Ambien) are not recommended for use in treating fibromyalgia symptoms. CARE/MANAGEMENT TIPS Self-care is important to manage fibromyalgia symptoms and have good quality of life. A healthy lifestyle, along with medications, can be effective at reducing pain, improving sleep, easing fatigue and stress, and helping patients cope with fibromyalgia. Exercise as often as possible. Start slowly and do more over time. Walking, swimming, stretching and yoga are good activities for people with fibromyalgia. Add more movement to daily routines, like taking a flight of stairs instead of the elevator. Medications may help ease pain and make it easier to be more active. Rest and relaxation are helpful too. Make time to relax each day. Deep breathing or medication can ease stress. Set regular sleep habits, like going to bed at the same time each night. Don't take naps or drink coffee to ease afternoon fatigue. Nicotine is a stimulant, but it makes fibromyalgia sleep problems worse. Quit smoking or using tobacco products. ?? 2017 [employer] Patient verbalizes understanding and agrees with plan. There are no barriers to understanding/learning. I spent a total of 55 minutes on the date of this encounter meeting with the patient and reviewing documentation/coordinating care as described in the above note. No procedures were performed at the time of the visit. Melida Barrera MD 01/06/2024 documented in this encounter Plan of Treatment Upcoming Encounters Date Type Department Care Team (Late st Contact Info) Description 07/07/2024 13:30 EST Telemedicine [facility] Rheumatology [address] [place] [address] Melida Barrera MD [address] [place] [address], [facility] [address] [place] [address] documented as of this encounter Results * CCP ANTIBODIES (01/06/2024 10:28 EDT) CCP Antibodies <2.5 <5.0 U/mL 01/07/2024 8:[address] [facility] Blood VENOUS BLOOD / Unknown Venipuncture / Unknown 01/06/2024 10:28 EDT 01/06/2024 10:47 EDT Melida Barrera MD IMMUNOLOGY AND SERO LOGY ORDERABLES Performing Organization Address City/[facility] Care [facility]/ZIP Co de Phone Number [facility] [address] [place], [place] [phone] * (ABNORMAL) DOUBLE STRANDED DNA ANTIBODY, IGG (01/06/2024 10:28 EDT) dsDNA Ab, IgG 42.7(H) <27.0 IU/mL 01/07/2024 12:[address] [facility] Comment: Negative: <27.0 IU/mL Indeterminate: 27.0 - 35.0 IU/mL Positive: >35.0 IU/mL Results were obtained with [employer] Correlec dsDNA chemiluminescent immunoassay. Values obtained with different manufacturers' assay methods may not be used interchangeably. Blood VENOUS BLOOD / Unknown Venipuncture / Unknown 01/06/2024 10:28 EDT 01/06/2024 10:48 EDT Melida Barrera MD IMMUNOLOGY AND SERO LOGY ORDERABLES Performing Organization Address [facility] Co de Phone Number [facility] [address], [place] [phone] * C3 COMPLEMENT (01/06/2024 10:28 EDT) C3 Complement 136 81 - 157 mg/dL 01/07/2024 9:[address] [facility] Blood VENOUS BLOOD / Unknown Venipuncture / Unknown 01/06/2024 10:28 EDT 01/06/2024 10:47 EDT Melida Barrera MD CHEMISTRY & BLOOD G ORDERABLES Performing Organization Address [facility]/ZIP Co de Phone Number [facility] [address] [place], [place] [phone] * C4 COMPLEMENT (01/06/2024 10:28 EDT) C4 Complement 21 13 - 39 mg/dL 01/07/2024 9:43 [facility] Blood VENOUS BLOOD / Unknown Venipuncture / Unknown 01/06/2024 10:28 EDT 01/06/2024 10:47 EDT Melida Barrera MD CHEMISTRY & BLOOD G ORDERABLES [facility] [address] [place], [place] [phone] * (ABNORMAL) UA CHEMICAL & SEDIMENT + REFLEX TO CULTURE (01/06/2024 10:28 EDT) Color UA Yellow Colorless, Yellow 01/06/2024 11:32 [facility] Clarity UA Clear Clear 01/06/2024 11:32 [facility] Glucose UA Negative Negative mg/dL 01/06/2024 11:32 [facility] Bilirubin UA Negative Negative 01/06/2024 11:32 [facility] Ketones UA Trace(A) Negative 01/06/2024 11:32 [facility] Specific [place], Urine >=1.030 1.001 - 1.030 01/06/2024 11:32 [facility] Blood UA Negative Negative 01/06/2024 11:32 [facility] Nitrite UA Negative Negative 01/06/2024 11:32 [facility] Leukocyte Esterase UA 1+(A) Negative 01/06/2024 11:32 [facility] Protein UA Trace(A) Negative mg/dL 01/06/2024 11:32 [facility] pH, UA 5.5 <8.5 01/06/2024 11:32 [facility] Urine RBC Count, Manual 0 - 2 0 - 2 Cells/HPF 01/06/2024 11:32 [facility] Urine WBC Count 10 - 50(A) 0 - 3 Cells/HPF 01/06/2024 11:32 [facility] Urine Squamous Count, Manual Many(A) None Seen Cells/HPF 01/06/2024 11:32 [facility] Urine Hyaline Cast Count, Manual <=10 <=10 Casts/LPF 01/06/2024 11:32 [facility] Urine Bacteria Count, Manual Many(A) None Seen Bacteria/HP F 01/06/2024 11:32 [facility] Urobilinogen UA 0.2 0.2-1.0 mg/dL mg/dL 01/06/2024 11:32 [facility] Urine URINE SPECIMEN OBTAINED BY CLEAN CATCH PROCEDURE / Unknown Urine Collect / Unknown 01/06/2024 10:28 EDT 01/06/2024 11:07 [facility] - 01/06/2024 11:32 EDT Urine Sediment Analysis results are unreliable on urines that are unrefrigerated for >2 hrs or refrigerated >8 hrs. A Urine Culture test has been reflexively ordered based on result criteria from the Urine Sediment Analysis. Melida Barrera MD URINALYSIS ORDERABL ES [facility] [address] [place] [address] * (ABNORMAL) COMPREHENSIVE METABOLIC PANEL (CMP) (01/06/2024 10:28 EDT) Sodium 140 136 - 145 mmol/L 01/06/2024 11:19 [facility] Potassium 4.5 3.5 - 5.0 mmol/L 01/06/2024 11:19 [facility] Chloride 106 96 - 110 mmol/L 01/06/2024 11:19 [facility] CO2 Total 21(L) 22 - 32 mmol/L 01/06/2024 11:19 [facility] Glucose 84 70 - 99 mg/dl 01/06/2024 11:19 [facility] BUN 14 10 - 26 mg/dL 01/06/2024 11:19 [facility] Creatinine 0.78 0.52 - 1.04 mg/dL 01/06/2024 11:19 [facility] eGFR 105 >60 mL/min/1.7 3m2 01/06/2024 11:19 [facility] Total Protein 7.8 6.3 - 8.2 g/dL 01/06/2024 11:19 [facility] Albumin 4.5 3.4 - 4.9 g/dL 01/06/2024 11:19 [facility] Alkaline Phosphatase 82 38 - 126 U/L 01/06/2024 11:19 [facility] AST 21 15 - 46 U/L 01/06/2024 11:19 [facility] ALT 21 <35 U/L 01/06/2024 11:19 [facility] Bilirubin, Total 0.9 <1.4 mg/dL 01/06/20 11:19 [facility] Calcium 9.7 8.5 - 10.5 mg/dL 01/06/2024 11:19 [facility] Albumin/Globulin Ratio 1.4 1.0 - 2.5 01/06/2024 11:19 [facility] Anion Gap 13 5 - 14 mmol/L 01/06/2024 11:19 [facility] Blood VENOUS BLOOD / Unknown Venipuncture / Unknown 01/06/2024 10:28 EDT 01/06/2024 10:47 EDT Melida Barrera MD CHEMISTRY & BLOOD G ORDERABLES [facility] [address] [place] [address] * COMPLETE BLOOD COUNT AND DIFFERENTIAL (01/06/2024 10:28 EDT) WBC 7.69 4.00 - 12.40 K/cmm 01/06/2024 10:41 [facility] RBC 4.52 3.86 - 5.04 M/cmm 01/06/2024 10:41 [facility] Hemoglobin 13.0 11.6 - 15.2 g/dL 01/06/2024 10:41 [facility] HCT 40.0 34.9 - 44.4 % 01/06/2024 10:41 [facility] MCV 89 81 - 98 fL 01/06/2024 10:41 [facility] MCH 28.8 26.7 - 33.3 pg 01/06/2024 10:41 [facility] MCHC 32.5 32.1 - 35.9 g/dL 01/06/2024 10:41 [facility] RDW-CV 12.3 <14.7 % 01/06/2024 10:41 [facility] RDW-SD 39.9 <50.4 fl 01/06/2024 10:41 [facility] PLT 312 141 - 377 K/cmm 01/06/2024 10:41 [facility] MPV 10.4 9.5 - 12.7 fL 01/06/2024 10:41 [facility] % Neutrophils 55.8 % 01/06/2024 10:41 [facility] % Lymphocytes 31.6 % 01/06/2024 10:41 [facility] % Monocytes 6.6 % 01/06/2024 10:41 [facility] % Eosinophils 5.1 % 01/06/2024 10:41 [facility] % Basophils 0.5 % 01/06/2024 10:41 [facility] % Immature Grans 0.4 <0.9 % 01/06/20 10:41 [facility] Absolute Neutrophils 4.29 2.20 - 8.85 K/cmm 01/06/2024 10:41 [facility] Absolute Lymphocytes 2.43 1.09 - 3.30 K/cmm 01/06/2024 10:41 T [facility] Absolute Monocytes 0.51 0.10 - 0.80 K/cmm 01/06/2024 10:41 [facility] Absolute Eosinophils 0.39 0.03 - 0.61 K/cmm 01/06/2024 10:41 [facility] ABS Basophils 0.04 0.01 - 0.11 K/cmm 01/06/2024 10:41 [facility] Absolute Immature Grans 0.03 0.00 - 0.06 K/cmm 01/06/2024 10:41 [facility] Type of Differential: Auto 01/06/2024 10:41 [facility] Blood VENOUS BLOOD / Unknown Venipuncture / Unknown 01/06/2024 10:28 EDT 01/06/2024 10:38 EDT Melida Barrera MD PACKAGES & DNA PROB E ORDERABLES [facility] [address] [place] [address] documented in this encounter Visit Diagnoses Diagnosis Fibromyalgia- Primary Mylagia and myositis, unspecified Positive VANDANA (antinuclear antibody) Other and unspecified nonspecific immunological findings documented in this encounter Discontinued Medications Medication Sig Discontinue Reason Start Date End Da te docusate sodium (COLACE) 100 mg capsule Take 1 Capsule by mouth daily. 01/06/2024 ketOROLAC (TORADOL) 10 mg tablet Take 1 Tablet by mouth every 6 hours. Take one tablet by mouth 4X/day for 5 days with food. 01/06/2024 ketOROLAC Tromethamine (TORADOL) 60 mg/2 mL solution injection Inject 1 mL into the muscle every 6 hours. 01/06/2024 norelgestromin-ethinyl estradiol (XULANE) 150-35 mcg/[address] 1 Patch onto the skin once a week. Apply one patch onto the skin every 7 days for 3 weeks of a 4 week cycle. 01/06/2024 UNABLE TO FIND Med Name: Lidocaine 2% mucosal jelly in applicator. Apply topically twice a day as needed for pain. 01/06/2024 ibuprofen (MOTRIN) 800 mg tablet Take 1 Tablet by mouth daily as needed. Take one tablet by mouth twice a day as needed for headaches and backaches. Alternate therapy 01/06/2024 documented as of this encounter Historical Medications * This list may reflect changes made after this encounter. Medication Sig Dispensed Refills Start Date End Date meloxicam (MOBIC) 7.5 mg tablet Take 2 Tablets by mouth daily. 12/18/2023 hydroxychloroquine (PLAQUENIL) 200 mg tablet TAKE ONE TABLET BY MOUTH EVERY DAY WITH BREAKFAST IF STOMACH UPSET OCCURS THEN TRY SWITCHING TO EVENING/BEDTIME DOSING 12/18/2023 DEBLITANE 0.35 mg tablet Take 1 Tablet by mouth daily. 12/26/2023 added in this encounter Care Teams Public Health Sanitarian Technician Relationship Specialty Start Date End Date Marisol Palmer MD [address] [place] [address] PCP - General 12/28/23 documented as of this encounter
--- OUTSIDE RECORDS SUMMARY | 2024-03-04 13:37 | XMS_ITS | Encounter Summary ---
Author Organization [facility] Address [address] [place] [address] Care Team Providers Care Oil Field Rig Builder Name Role Phone Unknown, Provider Primary Care Provider [phone] Marisol Palmer MD Primary Care Provider [phone] Encounter Details Date Type Department Care Team (Late st Contact Info) Description 01/19/2021 Lab Requisition [facility] Pathology & Laboratory Medicine - [address] [address] Outr Resulting Lab, Provider Social History Tobacco [...] Contact Info) Description 07/07/2024 13:30 EST Telemedicine [facility] - [facility] Rheumatology [address] [place] [address] Melida Barrera MD [address] [facility], [address] [place] [phone] documented as of this encounter Procedures Procedure Name Priority Date/Time Associated Diagnosis Comments HEPATITIS C AB W REFLEX TO HCV RNA BY PCR Routine 01/18/2021 12:35 EDT documented in this encounter Results * HEPATITIS C AB W REFLEX TO HCV RNA BY PCR (01/18/2021 12:35 EDT) Hep C Antibody Negative Negative 01/21/2021 9:05 EDT [facility] Blood VENOUS BLOOD / Unknown 01/18/2021 12:35 EDT 01/20/2021 17:37 EDT Provider Outr Resulting Lab CHEMISTRY & BLOOD GAS ORDERABLES [facility] [address] [place] [address] documented in this encounter Visit Diagnoses Not on filedocumented in this encounter Care Teams Oil Field Rig Builder Relationship Specialty Start Date End Date Unknown, Provider, PCP - General 02/23/17 12/27/23 Marisol Palmer MD [address] [place] [address] PCP - General 12/28/23 documented as of this encounter
--- OUTSIDE RECORDS SUMMARY | 2024-03-04 13:37 | XMS_ITS | Encounter Summary ---
Author Organization [facility] Address [address] [place] [address] Care Team Providers Care Phone Circuit Operator Name Role Phone Unknown, Provider Primary Care Provider [phone] Marisol Palmer MD Primary Care Provider [phone] Encounter Details Date Type Department Care Team (Late st Contact Info) Description 10/20/2022 Lab Requisition [facility] Pathology & Laboratory Medicine - [address] [address] Outr Resulting Lab, Provider Social History Tobacco [...] Contact Info) Description 07/07/2024 13:30 EST Telemedicine [facility] - [facility] Rheumatology [address] [place] [address] Melida Barrera MD [address] [facility], [address] [place] [phone] documented as of this encounter Procedures Procedure Name Priority Date/Time Associated Diagnosis Comments CHLAMYDIA/N. GONORRHOEAE AMPLIFIED NUCLEIC ACID Routine 10/20/2022 16:35 EDT documented in this encounter Results * CHLAMYDIA/N. GONORRHOEAE AMPLIFIED RNA (10/20/2022 16:35 EDT) Neisseria gonorrhoeae Result Negative Negative 10/22/2022 14:31 EDT [facility] Chlamydia trachomatis Result Negative Negative 10/22/2022 14:31 EDT [facility] Swab ENTIRE VAGINA / Unknown 10/20/2022 16:35 EDT 10/21/2022 17:19 EDT Provider Outr Resulting Lab MICROBIOLOGY - GENERAL ORDERABLES Performing Organization Address City/State/[facility] Co de Phone Number [facility] [address] [place] [address] documented in this encounter Visit Diagnoses Not on filedocumented in this encounter Care Teams Phone Circuit Operator Relationship Specialty Start Date End Date Unknown, Provider, PCP - General 02/23/17 12/27/23 Marisol Palmer MD [address] [place] [address] PCP - General 12/28/23 documented as of this encounter
--- OUTSIDE RECORDS SUMMARY | 2024-03-04 13:37 | XMS_ITS | Encounter Summary ---
Author Organization [facility] Address [address] [place] [address] Care Team Providers Care Hat Cone Inspector Name Role Phone Unknown, Provider Primary Care Provider [phone] Marisol Palmer MD Primary Care Provider [phone] Encounter Details Date Type Department Care Team (Late st Contact Info) Description 11/15/2022 Lab Requisition [facility] Pathology & Laboratory Medicine - [address] [address] Outr Resulting Lab, Provider Social History Tobacco [...] Contact Info) Description 07/07/2024 13:30 EST Telemedicine [facility] - [facility] Rheumatology [address] [place] [address] Melida Barrera MD [address] [facility], [address] [place] [phone] documented as of this encounter Procedures Procedure Name Priority Date/Time Associated Diagnosis Comments HEPATITIS C AB W REFLEX TO HCV RNA BY PCR Routine 11/14/2022 15:00 EDT HERPES SIMPLEX VIRUS (HSV) TYPE 1 & 2 AB, IGG Routine 11/14/2022 15:00 EDT documented in this encounter Results * HEPATITIS C AB W REFLEX TO HCV RNA BY PCR (11/14/2022 15:00 EDT) Hep C Antibody Negative Negative 11/17/2022 10:37 EDT [facility] Blood VENOUS BLOOD / Unknown 11/14/2022 15:00 EDT 11/15/2022 21:32 EDT Provider Outr Resulting Lab CHEMISTRY & BLOOD GAS ORDERABLES Performing Organization Address [facility] Co de Phone Number [facility] [address] [place] [address] * HERPES SIMPLEX VIRUS (HSV) TYPE 1 & 2 AB, IGG (11/14/2022 15:00 EDT) HSV Type 1 Ab, IgG Negative Negative 11/17/2022 10:20 EDT [facility] Comment: No detectable antibodies to HSV 1 were found. A negative result generally indicates that the patient has not been infected, but does not always rule out acute HSV infection. If clinical exposure to HSV is suspected despite a negative finding a second sample should be collected and tested no less than 4-6 weeks later. HSV Type 2 Ab, IgG Negative Negative 11/17/2022 10:20 EDT [facility] Comment: No detectable antibodies to HSV 2 were found. A negative result generally indicates that the patient has not been infected, but does not always rule out acute HSV infection. If clinical exposure to HSV is suspected despite a negative finding a second sample should be collected and tested no less than 4-6 weeks later. Blood VENOUS BLOOD / Unknown 11/14/2022 15:00 EDT 11/15/2022 21:32 EDT Provider Outr Resulting Lab IMMUNOLOGY A ND SEROLOGY ORDERABLES Performing Organization Address [facility] Co de Phone Number [facility] [address] [place] [address] documented in this encounter Visit Diagnoses Not on filedocumented in this encounter Care Teams Hat Cone Inspector Relationship Specialty Start Date End Date Unknown, Provider, PCP - General 02/23/17 12/27/23 Marisol Palmer MD [address] [place] [address] PCP - General 12/28/23 documented as of this encounter
--- OUTSIDE RECORDS SUMMARY | 2024-03-04 13:37 | XMS_ITS | Encounter Summary ---
Author Organization [facility] Address [address] [place] [address] Care Team Providers Care Systems Development Consultant Name Role Phone Unknown, Provider Primary Care Provider [phone] Marisol Palmer MD Primary Care Provider [phone] Encounter Details Date Type Department Care Team (Late st Contact Info) Description 03/28/2020 Lab Requisition [facility] Pathology & Laboratory Medicine - [address] [address] Outr Resulting Lab, Provider Social History Tobacco [...] 13:30 EST Telemedicine [facility] - [facility] Rheumatology [address] [place] [address] Melida Barrera MD [address] [place] [address], [address] [place] [phone] documented as of this encounter Procedures Procedure Name Priority Date/Time Associated Diagnosis Comments CHLAMYDIA/N. GONORRHOEAE AMPLIFIED NUCLEIC ACID Routine 03/27/2020 9:30 EDT documented in this encounter Results * CHLAMYDIA/N. GONORRHOEAE AMPLIFIED RNA (03/27/2020 9:30 EDT) Neisseria gonorrhoeae Result Negative Negative 03/29/2020 14:12 EDT [facility] Chlamydia trachomatis Result Negative Negative 03/29/2020 14:12 EDT [facility] Swab ENTIRE WALL OF CERVIX / Unknown 03/27/2020 9:30 EDT 03/28/2020 16:53 EDT Provider Outr Resulting Lab MICROBIOLOGY - GENERAL ORDERABLES Performing Organization Address City/State/[facility] Co de Phone Number [facility] [address] [place] [address] documented in this encounter Visit Diagnoses Not on filedocumented in this encounter Care Teams Systems Development Consultant Relationship Specialty Start Date End Date Unknown, Provider, PCP - General 02/23/17 12/27/23 Marisol Palmer MD [address] [place] [address] PCP - General 12/28/23 documented as of this encounter
--- OUTSIDE RECORDS SUMMARY | 2024-03-04 13:37 | XMS_ITS | Encounter Summary ---
Author Organization [facility] Address [address] [place] [address] Care Team Providers Care Quick Technician Name Role Phone Unknown, Provider Primary Care Provider [phone] Marisol Palmer MD Primary Care Provider [phone] Encounter Details Date Type Department Care Team (Late st Contact Info) Description 05/07/2022 Lab Requisition [facility] Pathology & Laboratory Medicine - [address] [address] Outr Resulting Lab, Provider Social History Tobacco [...] Contact Info) Description 07/07/2024 13:30 EST Telemedicine [facility] - [facility] Rheumatology [address] [place] [address] Melida Barrera MD [address] [facility], [address] [place] [phone] documented as of this encounter Procedures Procedure Name Priority Date/Time Associated Diagnosis Comments HEPATITIS C AB W REFLEX TO HCV RNA BY PCR Routine 05/06/2022 16:00 EDT HEPATITIS B SURFACE ANTIGEN Routine 05/06/2022 16:00 EDT documented in this encounter Results * HEPATITIS B SURFACE ANTIGEN (05/06/2022 16:00 EDT) Hep B Surface Ag Negative Negative 05/08/2022 9:21 EDT [facility] Blood VENOUS BLOOD / Unknown 05/06/2022 16:00 EDT 05/07/2022 16:44 EDT Provider Outr Resulting Lab CHEMISTRY & BLOOD GAS ORDERABLES Performing Organization Address City/[facility]/ZIP Co de Phone Number [facility] [address] [place] [address] * HEPATITIS C AB W REFLEX TO HCV RNA BY PCR (05/06/2022 16:00 EDT) Hep C Antibody Negative Negative 05/08/2022 10:01 EDT [facility] Blood VENOUS BLOOD / Unknown 05/06/2022 16:00 EDT 05/07/2022 16:44 EDT Provider Outr Resulting Lab CHEMISTRY & BLOOD GAS ORDERABLES Performing Organization Address City/[facility]/ZIP Co de Phone Number [facility] [address] [place] [address] documented in this encounter Visit Diagnoses Not on filedocumented in this encounter Care Teams Quick Technician Relationship Specialty Start Date End Date Unknown, MD Thien PCP - General 02/23/17 12/27/23 Marisol Palmer MD [address] [place] [address] PCP - General 12/28/23 documented as of this encounter
--- OUTSIDE RECORDS SUMMARY | 2024-03-04 13:37 | XMS_ITS | Encounter Summary ---
Author Organization [facility] Address [address] [place] [address] Care Team Providers Care Cigar Bander Name Role Phone Unknown, Provider Primary Care Provider [phone] Marisol Palmer MD Primary Care Provider [phone] Encounter Details Date Type Department Care Team (Late st Contact Info) Description 10/27/2022 Lab Requisition [facility] Pathology & Laboratory Medicine - [address] [address] Outr Resulting Lab, Provider Social History Tobacco [...] Contact Info) Description 07/07/2024 13:30 EST Telemedicine [facility] - [facility] Rheumatology [address] [place] [address] Melida Barrera MD [address] [facility], [address] [place] [phone] documented as of this encounter Procedures Procedure Name Priority Date/Time Associated Diagnosis Comments CHLAMYDIA/N. GONORRHOEAE AMPLIFIED NUCLEIC ACID Routine 10/27/2022 15:40 EDT documented in this encounter Results * CHLAMYDIA/N. GONORRHOEAE AMPLIFIED RNA (10/27/2022 15:40 EDT) Neisseria gonorrhoeae Result Negative Negative 10/29/2022 14:[address] [facility] Chlamydia trachomatis Result Negative Negative 10/29/2022 14:[address] [facility] Swab ENTIRE VAGINA / Unknown 10/27/2022 15:40 EDT 10/28/2022 22:50 EDT Provider Outr Resulting Lab MICROBIOLOGY - GENERAL ORDERABLES Performing Organization Address City/State/[facility] Co de Phone Number [facility] [address] [place] [address] documented in this encounter Visit Diagnoses Not on filedocumented in this encounter Care Teams Cigar Bander Relationship Specialty Start Date End Date Unknown, Provider, PCP - General 02/23/17 12/27/23 Marisol Palmer MD [address] [place] [address] PCP - General 12/28/23 documented as of this encounter
--- OUTSIDE RECORDS SUMMARY | 2024-03-04 13:37 | XMS_ITS | Encounter Summary ---
Author Organization [facility] Address [address] [place] [address] Care Team Providers Care Transcribing Machine Operator Name Role Phone Marisol Palmer MD Primary Care Provider [phone] Encounter Details Date Type Department Care Team (Late st Contact Info) Description 01/06/2024 10:10 EDT Phlebotomy Only [facility] - Outpatient Phlebotomy Drawing [address] [place] [address] [place], [facility] [place] Positive VANDANA (antinuclear antibody); Fibromyalgia Social History Tobacco Use Types Packs/Day Years Used Date Smoking Tobacco: Former Cigarettes Smokeless Tobacco: Never Sex and Gender Information Value Date Recorded Sex Assigned at Not on file Gender Identity Not on file Sexual Orientation Not on file documented as of this encounter Functional Status Functional Status Response [...] Yes 01/06/2024 documented as of this encounter Plan of Treatment Upcoming Encounters Date Type Department Care Team (Late st Contact Info) Description 07/07/2024 13:30 EST Telemedicine [facility] Rheumatology [address] [place] [address] Melida Barrera MD [address] [facility], [address] [place] [phone] documented as of this encounter Procedures Procedure Name Priority Date/Time Associated Diagnosis Comments URINE CHEMICAL (DIP) & SEDIMENT (MICRO) WITH REFLEX TO CULTURE Routine 01/06/2024 10:28 EDT Positive VANDANA (antinuclear antibody) CCP ANTIBODIES Routine 01/06/2024 10:28 EDT Fibromyalgia [...] 01/06/2024 10:28 EDT Positive VANDANA (antinuclear antibody) documented in this encounter Results * BACTERIAL CULTURE, URINE (01/06/2024 10:28 EDT) Organism ID [id number], [id number] to 100,000 CFU/ml VITEK SUSCEPTIBILITY 01/07/2024 9:50 EDT [facility] Comment: Usual urogenital rosa. Urine URINE SPECIMEN OBTAINED BY CLEAN CATCH PROCEDURE / Unknown Urine Collect / Unknown 01/06/2024 10:28 EDT 01/06/2024 11:32 EDT Melida Barrera MD MICROBIOLOGY - [facility] ORDERABLES [facility] [address] [place] [address] * CCP ANTIBODIES (01/06/2024 10:28 EDT) CCP Antibodies <2.5 <5.0 U/mL 01/07/2024 8:[address] [facility] Blood VENOUS BLOOD / Unknown Venipuncture / Unknown 01/06/2024 10:28 EDT 01/06/2024 10:47 EDT Melida Barrera MD IMMUNOLOGY AND SERO LOGY ORDERABLES Performing Organization Address [facility] Co de Phone Number [facility] [address] [place] [address] * (ABNORMAL) DOUBLE STRANDED DNA ANTIBODY, IGG (01/06/2024 10:28 EDT) [facility] dsDNA Ab, IgG 42.7(H) <27.0 IU/mL 01/07/2024 12:[address] [facility] Comment: Negative: <27.0 IU/mL Indeterminate: 27.0 - 35.0 IU/mL Positive: >35.0 IU/mL Results were obtained with SymwaveA Flash dsDNA chemiluminescent immunoassay. Values obtained with different manufacturers' assay methods may not be used interchangeably. Blood VENOUS BLOOD / Unknown Venipuncture / Unknown 01/06/2024 10:28 EDT 01/06/2024 10:48 EDT Melida Barrera MD IMMUNOLOGY AND SERO LOGY ORDERABLES Performing Organization Address [facility] Co de Phone Number [facility] [address] [place] [address] * C3 COMPLEMENT (01/06/2024 10:28 EDT) [facility] C3 Complement 136 81 - 157 mg/dL 01/07/2024 9:[address] [facility] Blood VENOUS BLOOD / Unknown Venipuncture / Unknown 01/06/2024 10:28 EDT 01/06/2024 10:47 EDT Melida Barrera MD CHEMISTRY & BLOOD G ORDERABLES Performing Organization Address City/[facility] Co de Phone Number [facility] [address] [place] [address] * C4 COMPLEMENT (01/06/2024 10:28 EDT) C4 Complement 21 13 - 39 mg/dL 01/07/2024 9:[address] [facility] Blood VENOUS BLOOD / Unknown Venipuncture / Unknown 01/06/2024 10:28 EDT 01/06/2024 10:47 EDT Melida Barrera MD CHEMISTRY & BLOOD G ORDERABLES Performing Organization Address City/[facility] Co de Phone Number [facility] [address] [place] [address] * (ABNORMAL) UA CHEMICAL & SEDIMENT + REFLEX TO CULTURE (01/06/2024 10:28 EDT) Color UA Yellow Colorless, Yellow 01/06/2024 11:32 [facility] Clarity UA Clear Clear 01/06/2024 11:32 [facility] Glucose UA Negative Negative mg/dL 01/06/2024 11:32 [facility] Bilirubin UA Negative Negative 01/06/2024 11:32 [facility] Ketones UA Trace(A) Negative 01/06/2024 11:32 [facility] Specific Boron, Urine >=1.030 1.001 - 1.030 01/06/2024 11:32 [facility] Blood UA Negative Negative 01/06/2024 11:32 [facility] Nitrite UA Negative Negative 01/06/2024 11:32 [facility] Leukocyte Esterase UA 1+(A) Negative 01/06/2024 11:32 [facility] Protein UA Trace(A) Negative mg/dL 01/06/2024 11:32 [facility] pH, UA 5.5 <8.5 01/06/2024 11:32 [facility] Urine RBC Count, Manual 0 - 2 0 - 2 Cells/HPF 01/06/2024 11:32 [facility] Urine WBC Count 10 - 50(A) 0 - 3 Cells/HPF 01/06/2024 11:32 [facility] Urine Squamous Count, Manual Many(A) None Seen Cells/HPF 01/06/2024 11:32 [facility] Urine Hyaline Cast Count, Manual <=10 <=10 Casts/LPF 01/06/2024 11:32 [facility] Urine Bacteria Count, Manual Many(A) None Seen Bacteria/HP F 01/06/2024 11:32 [facility] Urobilinogen UA 0.2 0.2-1.0 mg/dL mg/dL 01/06/2024 11:32 [facility] Urine URINE SPECIMEN OBTAINED BY CLEAN CATCH PROCEDURE / Unknown Urine Collect / Unknown 01/06/2024 10:28 EDT 01/06/2024 11:07 [facility] - 01/06/2024 11:32 EDT Urine Sediment Analysis results are unreliable on urines that are unrefrigerated for >2 hrs or refrigerated >8 hrs. A Urine Culture test has been reflexively ordered based on result criteria from the Urine Sediment Analysis. Melida Barrera MD URINALYSIS ORDERABL ES [facility] [address] [place] [address] * (ABNORMAL) COMPREHENSIVE METABOLIC PANEL (CMP) (01/06/2024 10:28 EDT) Sodium 140 136 - 145 mmol/L 01/06/2024 11:19 [facility] Potassium 4.5 3.5 - 5.0 mmol/L 01/06/2024 11:19 [facility] Chloride 106 96 - 110 mmol/L 01/06/2024 11:19 [facility] CO2 Total 21(L) 22 - 32 mmol/L 01/06/2024 11:19 [facility] Glucose 84 70 - 99 mg/dl 01/06/2024 11:19 [facility] BUN 14 10 - 26 mg/dL 01/06/2024 11:19 [facility] Creatinine 0.78 0.52 - 1.04 mg/dL 01/06/2024 11:19 [facility] eGFR 105 >60 mL/min/1.7 3m2 01/06/2024 11:19 [facility] Total Protein 7.8 6.3 - 8.2 g/dL 01/06/2024 11:19 [facility] Albumin 4.5 3.4 - 4.9 g/dL 01/06/2024 11:19 [facility] Alkaline Phosphatase 82 38 - 126 U/L 01/06/2024 11:19 [facility] AST 21 15 - 46 U/L 01/06/2024 11:19 [facility] ALT 21 <35 U/L 01/06/2024 11:19 [facility] Bilirubin, Total 0.9 <1.4 mg/dL 01/06/20 11:19 [facility] Calcium 9.7 8.5 - 10.5 mg/dL 01/06/2024 11:19 [facility] Albumin/Globulin Ratio 1.4 1.0 - 2.5 01/06/2024 11:19 [facility] Anion Gap 13 5 - 14 mmol/L 01/06/2024 11:19 [facility] Blood VENOUS BLOOD / Unknown Venipuncture / Unknown 01/06/2024 10:28 EDT 01/06/2024 10:47 EDT Melida Barrera MD CHEMISTRY & BLOOD G ORDERABLES [facility] [address] [place] [id number] * COMPLETE BLOOD COUNT AND DIFFERENTIAL (01/06/2024 10:28 [facility]) WBC 7.69 4.00 - 12.40 K/cmm 01/06/2024 10:41 [facility] RBC 4.52 3.86 - 5.04 M/cmm 01/06/2024 10:41 [facility] Hemoglobin 13.0 11.6 - 15.2 g/dL 01/06/2024 10:41 [facility] HCT 40.0 34.9 - 44.4 % 01/06/2024 10:41 [facility] MCV 89 81 - 98 fL 01/06/2024 10:41 [facility] MCH 28.8 26.7 - 33.3 pg 01/06/2024 10:41 [facility] MCHC 32.5 32.1 - 35.9 g/dL 01/06/2024 10:41 [facility] RDW-CV 12.3 <14.7 % 01/06/2024 10:41 [facility] RDW-SD 39.9 <50.4 fl 01/06/2024 10:41 [facility] PLT 312 141 - 377 K/cmm 01/06/2024 10:41 [facility] MPV 10.4 9.5 - 12.7 fL 01/06/2024 10:41 [facility] % Neutrophils 55.8 % 01/06/2024 10:41 [facility] % Lymphocytes 31.6 % 01/06/2024 10:41 [facility] % Monocytes 6.6 % 01/06/2024 10:41 [facility] % Eosinophils 5.1 % 01/06/2024 10:41 [facility] % Basophils 0.5 % 01/06/2024 10:41 [facility] % Immature Grans 0.4 <0.9 % 01/06/20 10:41 [facility] Absolute Neutrophils 4.29 2.20 - 8.85 K/cmm 01/06/2024 10:41 [facility] Absolute Lymphocytes 2.43 1.09 - 3.30 K/cmm 01/06/2024 10:41 [facility] Absolute Monocytes 0.51 0.10 - 0.80 K/cmm 01/06/2024 10:41 [facility] Absolute Eosinophils 0.39 0.03 - 0.61 K/cmm 01/06/2024 10:41 [facility] ABS Basophils 0.04 0.01 - 0.11 K/cmm 01/06/2024 10:41 [facility] Absolute Immature Grans 0.03 0.00 - 0.06 K/cmm 01/06/2024 10:41 [facility] Type of Differential: Auto 01/06/2024 10:41 [facility] Blood VENOUS BLOOD / Unknown Venipuncture / Unknown 01/06/2024 10:28 EDT 01/06/2024 10:38 EDT Melida Barrera MD PACKAGES & DNA PROB E ORDERABLES [facility] [address] [place] [address] documented in this encounter Visit Diagnoses Diagnosis Positive VANDANA (antinuclear antibody) Other and unspecified nonspecific immunological findings Fibromyalgia Mylagia and myositis, unspecified documented in this encounter Care Teams Transcribing Machine Operator Relationship Specialty Start Date End Date Marisol Palmer MD [address] [place], [place] [address] PCP - General 12/28/23 documented as of this encounter
--- OUTSIDE RECORDS SUMMARY | 2024-03-04 13:37 | XMS_ITS | Encounter Summary ---
Author Organization [facility] Address [address] [place] [address] Care Team Providers Care Dividing Machine Operator Helper Name Role Phone Unknown, Provider Primary Care Provider Marisol Palmer MD Primary Care Provider [phone] Encounter Details Date Type Department Care Team (Late st Contact Info) Description 12/12/2022 Lab Requisition [facility] Pathology & Laboratory Medicine - [address] [address] Marisol Palmer MD [address] [place] [address] Encounter for other general examination Social History [...] Contact Info) Description 07/07/2024 13:30 EST Telemedicine [facility] Rheumatology [address] [place] [address] Melida Barrera MD [address] [facility], [facility] [address] [place] [phone] documented as of this encounter Procedures Procedure Name Priority Date/Time Associated Diagnosis Comments SURGICAL PATHOLOGY Today 12/11/2022 15 :40 EDT Encounter for other general examination documented in this encounter Results * SURGICAL PATHOLOGY (12/11/2022 15:40 EDT) Note to Patient The following pathology results have been interpreted by your pathologist and may be available to you before your health provider has had the opportunity to review them. Please allow time for your provider to receive these results and explore management options, if applicable. 12/16/2022 13:50 [facility] Final Diagnosis A. SKIN OF AXILLA, RIGHT, EXCISION: - Melanocytic nevus, compound type. B. SKIN OF LEFT, EXCISION: - Melanocytic nevus, predominantly intradermal type. C. SKIN OF FOREARM, LEFT, EXCISION: - Melanocytic nevus, predominantly intradermal type with epithelioid cell focus. See comment. 12/16/2022 13:50 [facility] Diagnosis Comment In specimen C, present is an intradermal nevus. Centrally there is an epithelioid cell focus composed of slightly enlarged cells with overall low nuclear: cytoplasmic ratio, cleared cytoplasm, and irregular distribution of melanin pigment. This likely correlates with the clinical appearance of the lesion. Features supporting the benignity of the focus include the lack of overt cytologic atypia and definitive mitotic activity. Deeper levels have been examined on block C1. 12/16/2022 13:50 [facility] Attestation By the signature below, the attending physician certifies that they have 1) personally conducted a gross and/or microscopic examination of the described specimen(s), and/or personally interpreted the results of laboratory testing of the described specimen(s), and 2) personally rendered or confirmed the above diagnosis. 12/16/2022 13:50 [facility] at 1350 Clinical History 3 nevi with peripartum changes that catch on things, right axilla; 1 cm, raised, brown, left axilla; 7 mm, raised, brown, left forearm-6 x 3 mm, raised, darker central portion 12/16/2022 13:50 [facility] Gross Description A. Received in formalin labelled with proper patient identification (initials P, D) and 1. Right axilla is an unoriented elliptical excision of shaw skin (1.1 x 0.9 cm and is excised to a depth of 0.2 cm). There is a central irregular jennings-brown rubbery papule that measures 1.0 x 0.7 cm. The margins are inked blue. The specimen is serially sectioned and entirely submitted as A1-A2 for central sections and A3 2 tips, reverse en face. B. Received in formalin labelled with proper patient identification (initials P, D) and 2. Left axilla is an unoriented elliptical excision of shaw-white skin (1.2 x 0.6 cm and is excised to a depth of 0.1 cm). There is a central irregular jennings-brown rubbery papule that measures 0.8 x 0.5 cm. The margins are inked blue. The specimen is serially sectioned and entirely submitted as B1 3 central sections and B2 2 tips, reverse en face. C. Received in formalin labelled with proper patient identification (initials P, D) and 3. Left forearm is an unoriented elliptical excision of shaw-white hair-bearing skin (1.0 x 0.4 cm and is excised to a depth of 0.1 cm). There is a central irregular brown-purple rubbery papule that measures 0.5 x 0.3 cm. The margins are inked blue. The specimen is serially sectioned and entirely submitted as C1 3 central sections and C2 2 tips, reverse en face. Joelle Coffman 12/15/2022 12:10 12/16/2022 13:50 EDT [facility] Performing Lab [facility] 12/16/2022 13:50 EDT [facility] Scanned Images 12/16/2022 13:50 T [facility] Tissue TISSUE SPECIMEN FROM SKIN / Unknown 12/11/2022 15:40 EDT 12/12/2022 17:56 EDT Tissue specimen (specimen) SPECIMEN FROM SKIN / Unknown 12/11/2022 15:40 EDT 12/12/2022 17:56 EDT Tissue specimen (specimen) SPECIMEN FROM SKIN / Unknown 12/11/2022 15:40 EDT 12/12/2022 17:56 EDT Marisol Palmer MD PATHOLOGY ORDERABLES [facility] [address] [place] [address] documented in this encounter Visit Diagnoses Diagnosis Encounter for other general examination documented in this encounter Care Teams Dividing Machine Operator Helper Relationship Specialty Start Date End Date Unknown, Provider, PCP - General 02/23/17 12/27/23 Marisol Palmer MD [address] [place] [address] PCP - General 12/28/23 documented as of this encounter
--- OUTSIDE RECORDS SUMMARY | 2024-03-04 13:37 | XMS_ITS | Encounter Summary ---
Author Organization [facility] Address [address] [place] [address] Care Team Providers Care Tape Duplicator Name Role Phone Unknown, Provider Primary Care Provider [phone] Marisol Palmer MD Primary Care Provider [phone] Encounter Details Date Type Department Care Team (Late st Contact Info) Description 05/07/2022 Lab Requisition [facility] Pathology & Laboratory Medicine - [address] [address] Outr Resulting Lab, Provider Social History Tobacco [...] Contact Info) Description 07/07/2024 13:30 EST Telemedicine [facility] Rheumatology [address] [place] [address] eMlida Barrera MD [address] [facility], [address] [place] [phone] documented as of this encounter Procedures Procedure Name Priority Date/Time Associated Diagnosis Comments HIV 1/2 ANTIGEN AND ANTIBODY, 4TH GENERATION Routine 05/06/2022 16:00 EDT documented in this encounter Results * HIV 1/2 ANTIGEN AND ANTIBODY, 4TH GENERATION (05/06/2022 16:00 EDT) HIV 1 and 2 Antibody/p24 Antigen, 4th Generation Negative Negative 05/08/2022 10:19 EDT [facility] Comment:If acute HIV-1 infec tion is suspected in a high risk patient, submit plasma specimen for HIV-1 RNA quantitation test. Blood VENOUS BLOOD / Unknown 05/06/2022 16:00 EDT 05/07/2022 16:44 EDT Narrative [facility] - 05/08/2022 10:19 EDT Fourth Generation assay performed on the Siemens Panlaur XPT. Provider Outr Resulting Lab IMMUNOLOGY A ND SEROLOGY ORDERABLES [facility] [address] [place] [address] documented in this encounter Visit Diagnoses Not on filedocumented in this encounter Care Teams Tape Duplicator Relationship Specialty Start Date End Date Unknown, Provider, PCP - General 02/23/17 12/27/23 Marisol Palmer MD [address] [place] [address] PCP - General 12/28/23 documented as of this encounter
--- OUTSIDE RECORDS SUMMARY | 2024-03-04 13:37 | XMS_ITS | Encounter Summary ---
Author Organization [facility] Address [address] [place] [address] Care Team Providers Care Paving Foreman Name Role Phone Unknown, Provider Primary Care Provider [phone] Marisol Palmer MD Primary Care Provider [phone] Encounter Details Date Type Department Care Team (Late st Contact Info) Description 03/28/2020 Lab Requisition [facility] Pathology & Laboratory Medicine - [address] [address] Outr Resulting Lab, Provider Social History Tobacco [...] Contact Info) Description 07/07/2024 13:30 EST Telemedicine [facility] Rheumatology [address] [place] [address] Melida Barrera MD [address] [place] [address], [address] [place] [phone] documented as of this encounter Procedures Procedure Name Priority Date/Time Associated Diagnosis Comments HIV 1/2 ANTIGEN AND ANTIBODY, 4TH GENERATION Routine 03/27/2020 9:30 EDT documented in this encounter Results * HIV 1/2 ANTIGEN AND ANTIBODY, 4TH GENERATION (03/27/2020 9:30 EDT) HIV 1 and 2 Antibody/p24 Antigen, 4th Generation Negative Negative 03/29/2020 9:48 EDT [facility] Comment: If acute HIV-1 infection is suspected in a high risk ??patient, submit plasma specimen for HIV-1 RNA quantitation test. Fourth Generation assay performed on the Siemens Centaur. Blood VENOUS BLOOD / Unknown 03/27/2020 9:30 EDT 03/28/2020 17:02 EDT Provider Outr Resulting Lab IMMUNOLOGY A ND SEROLOGY ORDERABLES [facility] [address] [place] [address] documented in this encounter Visit Diagnoses Not on filedocumented in this encounter Care Teams Paving Foreman Relationship Specialty Start Date End Date Unknown, Provider, PCP - General 02/23/17 12/27/23 Marisol Palmer MD [address] [place] [address] PCP - General 12/28/23 documented as of this encounter
--- OUTSIDE RECORDS SUMMARY | 2024-03-04 13:37 | XMS_ITS | Encounter Summary ---
Author Organization [facility] Address [address] [place] [address] Care Team Providers Care Production Checker Name Role Phone Unknown, Provider Primary Care Provider [phone] Marisol Palmer MD Primary Care Provider [phone] Encounter Details Date Type Department Care Team (Late st Contact Info) Description 01/19/2021 Lab Requisition [facility] Pathology & Laboratory Medicine - [address] [address] Outr Resulting Lab, Provider Social History Tobacco [...] Contact Info) Description 07/07/2024 13:30 EST Telemedicine [facility] Rheumatology [address] [place] [address] Melida Barrera MD [address] [facility], [address] [place] [phone] documented as of this encounter Procedures Procedure Name Priority Date/Time Associated Diagnosis Comments CHLAMYDIA/N. GONORRHOEAE AMPLIFIED NUCLEIC ACID Routine 01/18/2021 12:35 EDT documented in this encounter Results * CHLAMYDIA/N. GONORRHOEAE AMPLIFIED RNA (01/18/2021 12:35 EDT) Neisseria gonorrhoeae Result Negative Negative 01/21/2021 15:36 EDT [facility] Chlamydia trachomatis Result Negative Negative 01/21/2021 15:36 EDT [facility] Urine URINE / Unknown 01/18/2021 1 2:35 EDT 01/20/2021 18:21 EDT Narrative [facility] - 01/21/2021 15:36 EDT A first catch urine specimen is acceptable for detection of Gonorrhea and Chlamydia, but might detect up to 10% fewer infections when compared with vaginal and endocervical swab samples. Provider Outr Resulting Lab MICROBIOLOGY - GENERAL ORDERABLES [facility] [address] [place] [address] documented in this encounter Visit Diagnoses Not on filedocumented in this encounter Care Teams Production Checker Relationship Specialty Start Date End Date Unknown, ProviderMD PCP - General 02/23/17 12/27/23 Marisol Palmer MD [address] [place] [address] PCP - General 12/28/23 documented as of this encounter
--- OUTSIDE RECORDS SUMMARY | 2024-03-04 13:37 | XMS_ITS | Encounter Summary ---
Author Organization [facility] Address [address] [place] [address] Care Team Providers Care Consumer Banker Name Role Phone Unknown, Provider Primary Care Provider [phone] Marisol Palmer MD Primary Care Provider [phone] Encounter Details Date Type Department Care Team (Late st Contact Info) Description 01/19/2021 Lab Requisition [facility] Pathology & Laboratory Medicine - [address] [address] Outr Resulting Lab, Provider Social History Tobacco [...] Contact Info) Description 07/07/2024 13:[address] [facility] [place] Rheumatology [address] [place] [address] Melida Barrera MD 111 [facility], Level 5 [place] [phone] documented as of this encounter Procedures Procedure Name Priority Date/Time Associated Diagnosis Comments HIV 1/2 ANTIGEN AND ANTIBODY, 4TH GENERATION Routine 01/18/2021 12:35 EDT documented in this encounter Results * HIV 1/2 ANTIGEN AND ANTIBODY, 4TH GENERATION (01/18/2021 12:35 EDT) HIV 1 and 2 Antibody/p24 Antigen, 4th Generation Negative Negative 01/21/2021 9:22 EDT [facility] Comment: If acute HIV-1 infection is suspected in a high risk ??patient, submit plasma specimen for HIV-1 RNA quantitation test. Fourth Generation assay performed on the Siemens Centaur. Blood VENOUS BLOOD / Unknown 01/18/2021 12:35 EDT 01/20/2021 17:37 EDT Provider Outr Resulting Lab IMMUNOLOGY A ND SEROLOGY ORDERABLES [facility] [address] [place] [address] documented in this encounter Visit Diagnoses Not on filedocumented in this encounter Care Teams Consumer Banker Relationship Specialty Start Date End Date Unknown, Provider, PCP - General 02/23/17 12/27/23 Marisol Palmer MD [address] [place] [address] PCP - General 12/28/23 documented as of this encounter
--- OUTSIDE RECORDS SUMMARY | 2024-03-04 13:37 | XMS_ITS | Encounter Summary ---
Author Organization [facility] Address [address] [place] [address] Care Team Providers Care Prop And Scenery Maker Name Role Phone Unknown, Provider Primary Care Provider [phone] Marisol Palmer MD Primary Care Provider [phone] Encounter Details Date Type Department Care Team (Late st Contact Info) Description 11/15/2022 Lab Requisition [facility] Pathology & Laboratory Medicine - [address] [address] Outr Resulting Lab, Provider Social History Tobacco [...] Contact Info) Description 07/07/2024 13:30 EST Telemedicine [facility] Rhe[place] [address] [place] [address] Melida Barrera MD 111 [facility], Level 5 [place] [phone] documented as of this encounter Procedures Procedure Name Priority Date/Time Associated Diagnosis Comments CHLAMYDIA/N. GONORRHOEAE AMPLIFIED NUCLEIC ACID Routine 11/14/2022 15:00 EDT documented in this encounter Results * CHLAMYDIA/N. GONORRHOEAE AMPLIFIED RNA (11/14/2022 15:00 EDT) Neisseria gonorrhoeae Result Negative Negative 11/16/2022 11:52 EDT [facility] Chlamydia trachomatis Result Negative Negative 11/16/2022 11:52 EDT [facility] Urine URINE / Unknown 11/14/2022 1 5:00 EDT 11/15/2022 21:24 EDT Narrative [facility] - 11/16/2022 11:52 EDT A first catch urine specimen is acceptable for detection of Gonorrhea and Chlamydia, but might detect up to 10% fewer infections when compared with vaginal and endocervical swab samples. Provider Outr Resulting Lab MICROBIOLOGY - GENERAL ORDERABLES [facility] [address] [place] [address] documented in this encounter Visit Diagnoses Not on filedocumented in this encounter Care Teams Prop And Scenery Maker Relationship Specialty Start Date End Date Unknown, ProviderMD PCP - General 02/23/17 12/27/23 Marisol Palmer MD [address] [place] [address] PCP - General 12/28/23 documented as of this encounter
--- OUTSIDE RECORDS SUMMARY | 2024-03-04 13:37 | XMS_ITS | Encounter Summary ---
Author Organization [facility] Address [address] [place] [address] Care Team Providers Care Angiography Technologist Name Role Phone Unknown, Provider Primary Care Provider [phone] Marisol Palmer MD Primary Care Provider [phone] Encounter Details Date Type Department Care Team (Late st Contact Info) Description 12/31/2022 Lab Requisition [facility] Pathology & Laboratory Medicine - [address] [address] Outr Resulting Lab, Provider Social History Tobacco [...] Contact Info) Description 07/07/2024 13:30 EST Telemedicine [facility] Rheumatology [address] [place] [address] Melida Barrera MD 111 [facility], Level [address] [place] [phone] documented as of this encounter Procedures Procedure Name Priority Date/Time Associated Diagnosis Comments T3 FREE Routine 12/30/2022 10:15 EDT documented in this encounter Results * T3 FREE (12/30/2022 10:15 EDT) T3, Free 4.3 2.8 - 5.3 pg/mL 12/31/2022 17:56 EDT [facility] Blood VENOUS BLOOD / Unknown 12/30/2022 10:15 EDT 12/31/2022 17:09 EDT Provider Outr Resulting Lab CHEMISTRY & BLOOD GAS ORDERABLES [facility] [address] [place] [address] documented in this encounter Visit Diagnoses Not on filedocumented in this encounter Care Teams Angiography Technologist Relationship Specialty Start Date End Date Unknown, Provider, PCP - General 02/23/17 12/27/23 Marisol Palmer MD [address] [place] [address] PCP - General 12/28/23 documented as of this encounter
--- OUTSIDE RECORDS SUMMARY | 2024-03-04 13:37 | XMS_ITS | Encounter Summary ---
Author Organization [facility] Address [address] [place] [address] Care Team Providers Care Svp Digital Sales Name Role Phone Unknown, Provider Primary Care Provider [phone] Marisol Palmer MD Primary Care Provider [phone] Encounter Details Date Type Department Care Team (Late st Contact Info) Description 04/15/2023 Lab Requisition [facility] Pathology & Laboratory Medicine - [address] [address] Jacqueline Rodriguez, PARKER [address] [place] [phone] Encounter for other general examination Social History [...] EST Telemedicine [facility] Rheumatology [address] [place] [address] Melida Barrera MD 111 [facility] 5 [place] [address] documented as of this encounter Procedures Procedure Name Priority Date/Time Associated Diagnosis Comments PAP TEST Today 04/14/2023 15:20 EDT Encounter for other general examination documented in this encounter Results * PAP TEST (04/14/2023 15:20 EDT) Specimens A. Cervix and/or Endocervix , ThinPrep Imaging System with Manual Evaluation 04/27/2023 13:16 EDT [facility] Specimen Adequacy Satisfactory for Evaluation - transformation zone component present 04/27/2023 13:16 EDT [facility] General Categorization Negative for intraepithelial lesion or malignancy 04/27/2023 13:16 T [facility] Attestation . 04/27/2023 13:16 [facility] at 1316 Clinical History See below 04/27/20 13:16 T [facility] Performing Lab [facility] 04/27/2023 13:16 T [facility] Scanned Images 04/27/2023 13:16 T [facility] Pap Test CERVIX UTERI STRUCTURE / Unknown 04/14/2023 15:20 EDT 04/15/2023 11:07 EDT Jacqueline Rodriguez APN PATHOLOGY ORDERAB LES [facility] [address] [place] [address] documented in this encounter Visit Diagnoses Diagnosis Encounter for other general examination documented in this encounter Care Teams Svp Digital Sales Relationship Specialty Start Date End Date Unknown, MD Thien PCP - General 02/23/17 12/27/23 Marisol Palmer MD [address] [place] [address] PCP - General 12/28/23 documented as of this encounter
--- OUTSIDE RECORDS SUMMARY | 2024-03-04 13:37 | XMS_ITS | Encounter Summary ---
Author Organization [facility] Address [address] [place] [address] Care Team Providers Care Second Worker Name Role Phone Marisol Palmer MD Primary Care Provider Reason for Visit * Reason Onset Date Comments Other 01/07/2024 Encounter Details Date Type Department Care Team (Late st Contact Info) Description 01/07/2024 Telephone [facility] Rheumatology [address] [place] [address] Melida Barrera MD [address] [place] [address], [facility] 5 [place] [address] Other Social History Tobacco Use Types Packs/Day Years [...] Yes 01/06/2024 documented as of this encounter Miscellaneous Notes * Telephone Encounter - Malina Martinez RN - 01/11/2024 1048 EDT I am not familiar with the plan for this patient, but it looks like the labs from 01/06/24 have resulted. Please advise if you are able to review those or if you are waiting on additional labs for patient in regards to FMLA paperwork. Thank you. * Telephone Encounter - Tomeka Elizabeth - 01/11/2024 0923 EDT Mother of Pt called asking when the FMLA paperwork would be faxed. Explained that Dr Guallpa was waiting to review the lab work and it could be a 1-2 weeks before we would have the completed paperwork to fax, Information per note from Dr. Guallpa. * Telephone Encounter - Tomeka Elizabeth - 01/07/2024 1131 EDT Fax # for FMLA paperwork to be sent to [facility] Attn: Serene [phone] once labs reviewed and diagnosis determined by Dr Barrera 1-2 weeks documented in this encounter Plan of Treatment Upcoming Encounters Date Type Department Care Team (Late st Contact Info) Description 07/07/2024 13:30 EST Telemedicine [facility] Rheumatology [address] [place] [address] Melida Barrera MD [address] [place] [address], [address] [place] [address] documented as of this encounter Visit Diagnoses Not on filedocumented in this encounter Care Teams Second Worker Relationship Specialty Start Date End Date Mariosl Palmer MD [address] [place] [address] PCP - General 12/28/23 documented as of this encounter
--- OUTSIDE RECORDS SUMMARY | 2024-03-04 13:37 | XMS_ITS | Encounter Summary ---
Author Organization [facility] Address [address] [place] [address] Care Team Providers Care Rubber Extrusion Machine Operator Name Role Phone Unknown, Provider Primary Care Provider [phone] Marisol Palmer MD Primary Care Provider [phone] Encounter Details Date Type Department Care Team (Late st Contact Info) Description 03/28/2020 Lab Requisition [facility] Pathology & Laboratory Medicine - [address] [address] Outr Resulting Lab, Provider Social History Tobacco [...] Contact Info) Description 07/07/2024 13:30 EST Telemedicine [facility] [place] Rheumatology [address] [place] [address] Melida Barrera MD [address] [place] [address], Level [address] [place] [phone] documented as of this encounter Procedures Procedure Name Priority Date/Time Associated Diagnosis Comments HEPATITIS C AB W REFLEX TO HCV RNA BY PCR Routine 03/27/2020 9:30 EDT documented in this encounter Results * HEPATITIS C AB W REFLEX TO HCV RNA BY PCR (03/27/2020 9:30 EDT) Hep C Antibody Negative Negative 03/29/2020 9:52 EDT [facility] Blood VENOUS BLOOD / Unknown 03/27/2020 9:30 EDT 03/28/2020 17:02 EDT Provider Outr Resulting Lab CHEMISTRY & BLOOD GAS ORDERABLES [facility] [address] [place] [address] documented in this encounter Visit Diagnoses Not on filedocumented in this encounter Care Teams Rubber Extrusion Machine Operator Relationship Specialty Start Date End Date Unknown, Provider, PCP - General 02/23/17 12/27/23 Marisol Palmer MD [address] [place] [address] PCP - General 12/28/23 documented as of this encounter
--- OUTSIDE RECORDS SUMMARY | 2024-03-04 13:37 | XMS_ITS | Encounter Summary ---
Author Organization [facility] Address [address] [place] [address] Care Team Providers Care Die Storage Worker Name Role Phone Unknown, Provider Primary Care Provider [phone] Marisol Palmer MD Primary Care Provider [phone] Encounter Details Date Type Department Care Team (Late st Contact Info) Description 03/28/[address] [facility] Pathology & Laboratory Medicine - [address] [address] Outr Resulting Lab, Provider Social History Tobacco [...] Contact Info) Description 07/07/2024 13:30 EST Telemedicine [facility] [place] [address] [place] [address] Melida Barrera MD [address] [place] [address], Level [address] [place] [phone] documented as of this encounter Procedures Procedure Name Priority Date/Time Associated Diagnosis Comments SYPHILIS SEROLOGY Routine 03/27/2020 9:30 EDT documented in this encounter Results * SYPHILIS SEROLOGY (03/27/2020 9:30 EDT) Syphilis Serology Negative Negative 03/29/2020 9:41 EDT [facility] Blood VENOUS BLOOD / Unknown 03/27/2020 9:30 EDT 03/28/2020 17:02 EDT Provider Outr Resulting Lab IMMUNOLOGY A ND SEROLOGY ORDERABLES [facility] [address] [place] [address] documented in this encounter Visit Diagnoses Not on filedocumented in this encounter Care Teams Die Storage Worker Relationship Specialty Start Date End Date Unknown, MD Thien PCP - General 02/23/17 12/27/23 Marisol Palmer MD [address] [place] [address] PCP - General 12/28/23 documented as of this encounter
--- OUTSIDE RECORDS SUMMARY | 2024-03-04 13:37 | XMS_ITS | Encounter Summary ---
Author Organization [facility] Address [address] [place] [address] Care Team Providers Care Hvac Technician Residential Name Role Phone Unknown, Provider Primary Care Provider [phone] Marisol Palmer MD Primary Care Provider [phone] Encounter Details Date Type Department Care Team (Late st Contact Info) Description 03/07/2023 Lab Requisition [facility] Pathology & Laboratory Medicine - [address] [address] Loco Huynh, [address] [address] Neoplasm of unspecified behavior of bone, soft tissue, and skin Social History Tobacco Use Types Packs/Day Years Used Date Smoking Tobacco: Never Assessed Sex and Gender Information Value Date Recorded Sex Assigned at Not on file Gender Identity Not on file Sexual Orientation Not on file documented as of this encounter Plan of Treatment Upcoming Encounters Date Type Department Care Team (Late st Contact Info) Description 07/07/2024 13:[address] [facility] Rheumatology [address] [place] [address] Melida Barrera MD 111 [facility] 5 [place] [phone] documented as of this encounter Procedures Procedure Name Priority Date/Time Associated Diagnosis Comments SURGICAL PATHOLOGY Today 03/06/2023 15 :20 EDT Neoplasm of unspecified behavior of bone, soft tissue, and skin documented in this encounter Results * SURGICAL PATHOLOGY (03/06/2023 15:20 EDT) Note to Patient The following pathology results have been interpreted by your pathologist and may be available to you before your health provider has had the opportunity to review them. Please allow time for your provider to receive these results and explore management options, if applicable. 03/10/2023 8:26 T [facility] Final Diagnosis A. SKIN OF LEG, RIGHT UPPER, PUNCH BIOPSY: - Predominantly intradermal compound nevus. 03/10/2023 8:26 [facility] Attestation By the signature below, the attending physician certifies that they have 1) personally conducted a gross and/or microscopic examination of the described specimen(s), and/or personally interpreted the results of laboratory testing of the described specimen(s), and 2) personally rendered or confirmed the above diagnosis. 03/10/2023 8:26 [facility] at 0826 Clinical History Clinical diagnosis code: D49.2 03/10/2023 8:26 [facility] Gross Description A. Received in formalin labelled with proper patient identification (initials P, D) and right upper leg punch is a 0.4 cm distorted skin punch biopsy excised to a depth of 0.2 cm. There is a dark brown somewhat scaly appearing lesion. The specimen is inked in blue and entirely submitted intact in A1. JOSIAS Motta(ASCP) 03/09/2023 9:09 03/10/2023 8:26 T [facility] Performing Lab [facility] 03/10/2023 8:26 [facility] Scanned Images 03/10/2023 8:26 [facility] Tissue SPECIMEN FROM SKIN / Unknown 03/06/2023 15:20 EDT 03/07/2023 8:53 EDT Loco Huynh DO PATHOLOGY ORDER [facility] [address] [place] [address] documented in this encounter Visit Diagnoses Diagnosis Neoplasm of unspecified behavior of bone, soft tissue, and skin documented in this encounter Care Teams Hvac Technician Residential Relationship Specialty Start Date End Date Unknown, Provider, PCP - General 02/23/17 12/27/23 Marisol Palmer MD [address] [place] [address] PCP - General 12/28/23 documented as of this encounter
--- OUTSIDE RECORDS SUMMARY | 2024-03-04 13:37 | XMS_ITS | Encounter Summary ---
Author Organization [facility] Address [address] [place] [address] Care Team Providers Care Stock Controller Name Role Phone Unknown, Provider Primary Care Provider [phone] Marisol Palmer MD Primary Care Provider [phone] Encounter Details Date Type Department Care Team (Late st Contact Info) Description 11/15/2022 Lab Requisition [facility] Pathology & Laboratory Medicine - [address] [address] Outr Resulting Lab, Provider Social History Tobacco [...] Contact Info) Description 07/07/2024 13:30 EST Telemedicine [facility] [place] [address] [place] [address] Melida Barrera MD 111 [facility], Level [address] [place] [phone] documented as of this encounter Procedures Procedure Name Priority Date/Time Associated Diagnosis Comments HIV 1/2 ANTIGEN AND ANTIBODY, 4TH GENERATION Routine 11/14/2022 15:00 EDT documented in this encounter Results * HIV 1/2 ANTIGEN AND ANTIBODY, 4TH GENERATION (11/14/2022 15:00 EDT) HIV 1 and 2 Antibody/p24 Antigen, 4th Generation Negative Negative 11/16/2022 10:02 EDT [facility] Comment:If acute HIV-1 infec tion is suspected in a high risk patient, submit plasma specimen for HIV-1 RNA quantitation test. Blood VENOUS BLOOD / Unknown 11/14/2022 15:00 EDT 11/15/2022 21:32 EDT Narrative [facility] - 11/16/2022 10:02 EDT Fourth Generation assay performed on the Siemens GreenSQLaur XPT. Provider Outr Resulting Lab IMMUNOLOGY A ND SEROLOGY ORDERABLES [facility] [address] [place] [address] documented in this encounter Visit Diagnoses Not on filedocumented in this encounter Care Teams Stock Controller Relationship Specialty Start Date End Date Unknown, Provider, PCP - General 02/23/17 12/27/23 Marisol Palmer MD [address] [place] [address] PCP - General 12/28/23 documented as of this encounter
--- OUTSIDE RECORDS SUMMARY | 2024-03-04 13:37 | XMS_ITS | Encounter Summary ---
Author Organization [facility] Address [address] [place] [address] Care Team Providers Care Applied Science And Technologies Dean Name Role Phone Unknown, Provider Primary Care Provider [phone] Marisol Palmer MD Primary Care Provider [phone] Encounter Details Date Type Department Care Team (Late st Contact Info) Description 06/04/2022 Lab Requisition [facility] Pathology & Laboratory Medicine - [address] [address] Outr Resulting Lab, Provider Social History Tobacco [...] Contact Info) Description 07/07/2024 13:30 EST Telemedicine [facility] Rheumatology [address] [place] [address] Melida Barrera MD [address] [place] [address], [address] [place] [phone] documented as of this encounter Procedures Procedure Name Priority Date/Time Associated Diagnosis Comments CHLAMYDIA/N. GONORRHOEAE AMPLIFIED NUCLEIC ACID Routine 06/03/2022 15:30 EST documented in this encounter Results * (ABNORMAL) CHLAMYDIA/N. GONORRHOEAE AMPLIFIED RNA (06/03/2022 15:30 EST) Neisseria gonorrhoeae Result Negative Negative 06/06/2022 10:58 EST [facility] Chlamydia trachomatis Result Positive(A) Negative 06/06/2022 10:58 EST [facility] Urine URINE / Unknown 06/03/2022 1 5:30 EST 06/04/2022 17:11 EST Narrative [facility] - 06/06/2022 10:58 EST A first catch urine specimen is acceptable for detection of Gonorrhea and Chlamydia, but might detect up to 10% fewer infections when compared with vaginal and endocervical swab samples. Provider Outr Resulting Lab MICROBIOLOGY - GENERAL ORDERABLES [facility] [address] [place] [address] documented in this encounter Visit Diagnoses Not on filedocumented in this encounter Care Teams [employer] Science [employer] Technologies Dean Relationship Specialty Start Date End Date Unknown, MD Thien PCP - General 02/23/17 12/27/23 Marisol Palmer MD [address] [place] [address] PCP - General 12/28/23 documented as of this encounter
--- OUTSIDE RECORDS SUMMARY | 2024-03-04 13:37 | XMS_ITS | Encounter Summary ---
Author Organization [facility] Address [address] [place] [address] Care Team Providers Care Gas Engineer Name Role Phone Unknown, Provider Primary Care Provider [phone] Marisol Palmer MD Primary Care Provider [phone] Encounter Details Date Type Department Care Team (Late st Contact Info) Description 12/11/2023 Lab Requisition [facility] Pathology & Laboratory Medicine - [address] [address] Outr Resulting Lab, Provider Social History Tobacco [...] Info) Description 07/07/2024 13:[address] [facility] - [facility] Rheumatology [address] [place] [address] Melida Barrera MD 111 [facility], Level 5 [place] [phone] documented as of this encounter Procedures Procedure Name Priority Date/Time Associated Diagnosis Comments WENDY ANTIBODY PANEL Routine 12/10/2023 15 :30 EDT HEPATITIS C AB W REFLEX TO HCV RNA BY PCR Routine 12/10/2023 15:30 EDT DOUBLE STRANDED DNA ANTIBODY, IGG Routine 12/10/2023 15:30 EDT documented in this encounter Results * HEPATITIS C AB W REFLEX TO HCV RNA BY PCR (12/10/2023 15:30 EDT) Hep C Antibody Negative Negative 12/11/2023 21:40 EDT [facility] Blood VENOUS BLOOD / Unknown 12/10/2023 15:30 EDT 12/11/2023 16:59 EDT Provider Outr Resulting Lab CHEMISTRY & BLOOD GAS ORDERABLES Performing Organization Address [facility] de Phone Number [facility] [address] [place] [address] * (ABNORMAL) DOUBLE STRANDED DNA ANTIBODY, IGG (12/10/2023 15:30 EDT) Pathologist [facility] dsDNA Ab, IgG 45.1(H) <27.0 IU/mL 12/15/2023 6:47 EDT [facility] Comment: Negative: <27.0 IU/mL Indeterminate: 27.0 - 35.0 IU/mL Positive: >35.0 IU/mL Results were obtained with CequintA Flash dsDNA chemiluminescent immunoassay. Values obtained with different manufacturers' assay methods may not be used interchangeably. Blood VENOUS BLOOD / Unknown 12/10/2023 15:30 EDT 12/11/2023 16:59 EDT Provider Outr Resulting Lab IMMUNOLOGY A ND SEROLOGY ORDERABLES Performing Organization Address City/[facility] Co de Phone Number [facility] [address] [place] [address] * WENDY ANTIBODY PANEL (12/10/2023 15:30 EDT) Ro52 Anitbody, IgG <2.3 <20.0 CU 2023 18:11 EDT [facility] Comment:Results were obtaine d with the [employer] QUANTA Flash Ro52 chemiluminescent immunoassay. Values obtained with different manufacturers' assay methods must not be used interchangeably. Ro60 Antibody, IgG <7.0 <20.0 CU 2023 18:11 EDT [facility] Comment:Results were obtaine d with the CequintA Flash Ro60 chemiluminescent immunoassay. Values obtained with different manufacturers' assay methods must not be used interchangeably. SSB Antibody, IgG <3.3 <20.0 CU 024 18:11 EDT [facility] Comment:Results were obtaine d with the CequintA Flash SS-B chemiluminescent immunoassay. Values obtained with different manufacturers' assay methods must not be used interchangeably. SM (Steele) Antibody, IgG <8.0 <20.0 CU 12/14/2023 18:11 EDT [facility] Comment:Results were obtaine d with the CequintA Flash Sm chemiluminescent immunoassay. Values obtained with different manufacturers' assay methods must not be used interchangeably. CARD RUNNER Antibody, IgG <6.0 <20.0 CU 024 18:11 EDT [facility] Comment:Results were obtaine d with the CequintA Flash CARD RUNNER chemilumenscent immunoassay. Values obtained with different manufacturers' assay methods may not be used interchangeably. Blood VENOUS BLOOD / Unknown 12/10/2023 15:30 EDT 12/11/2023 16:59 EDT Provider Outr Resulting Lab IMMUNOLOGY A ND SEROLOGY ORDERABLES Performing Organization Address City/State/[facility] Co de Phone Number [facility] [address] [place], [place] [phone] documented in this encounter Visit Diagnoses Not on filedocumented in this encounter Care Teams Gas Engineer Relationship Specialty Start Date End Date Unknown, Provider, PCP - General 02/23/17 12/27/23 Marisol Palmer MD [address] [place] [address] PCP - General 12/28/23 documented as of this encounter
--- OUTSIDE RECORDS SUMMARY | 2024-03-04 13:37 | XMS_ITS | Encounter Summary ---
Author Organization [facility] Address [address] [place] [address] Care Team Providers Care Winding Operator Name Role Phone Unknown, Provider Primary Care Provider [phone] Marisol Palmer MD Primary Care Provider [phone] Encounter Details Date Type Department Care Team (Late st Contact Info) Description 07/30/2022 Lab Requisition [facility] Pathology & Laboratory Medicine - [address] [address] Outr Resulting Lab, Provider Social History Tobacco [...] 13:30 EST Telemedicine [facility] Rhe[place]ology [address] [place] [address] Melida Barrera MD [address] [place] [address], [address] [place] [phone] documented as of this encounter Procedures Procedure Name Priority Date/Time Associated Diagnosis Comments CHLAMYDIA/N. GONORRHOEAE AMPLIFIED NUCLEIC ACID Routine 07/29/2022 19:30 EST documented in this encounter Results * CHLAMYDIA/N. GONORRHOEAE AMPLIFIED RNA (07/29/2022 19:30 EST) Neisseria gonorrhoeae Result Negative Negative 07/31/2022 13:47 EST [facility] Chlamydia trachomatis Result Negative Negative 07/31/2022 13:47 EST [facility] Swab ENTIRE VAGINA / Unknown 07/29/2022 19:30 EST 07/30/2022 16:54 EST Provider Outr Resulting Lab MICROBIOLOGY - GENERAL ORDERABLES Performing Organization Address City/State/[facility] Co de Phone Number [facility] [address] [place] [address] documented in this encounter Visit Diagnoses Not on filedocumented in this encounter Care Teams Winding Operator Relationship Specialty Start Date End Date Unknown, Provider, PCP - General 02/23/17 12/27/23 Marisol Palmer MD [address] [place] [address] PCP - General 12/28/23 documented as of this encounter
--- OUTSIDE RECORDS SUMMARY | 2024-03-04 13:37 | XMS_ITS | Encounter Summary ---
Author Organization [facility] Address [address] [place] [address] Care Team Providers Care Property Claim Rep Name Role Phone Unknown, Provider Primary Care Provider [phone] Marisol Palmer MD Primary Care Provider [phone] Encounter Details Date Type Department Care Team (Late st Contact Info) Description 03/30/2020 Lab Requisition [facility] Pathology & Laboratory Medicine - [address] [address] Unique Francois PA-C [address] [place] [address] Encounter for other general examination Social History [...] Contact Info) Description 07/07/2024 13:30 EST Telemedicine [facility] Rheumatology [address] [place] [address] Melida Barrera MD 111 [facility] 5 [place] [phone] documented as of this encounter Procedures Procedure Name Priority Date/Time Associated Diagnosis Comments PAP TEST Today 03/27/2020 12:00 EDT Encounter for other general examination documented in this encounter Results * PAP TEST (03/27/2020 12:00 EDT) Specimens A. Cervix and/or Endocervix , ThinPrep Imaging System with Manual Evaluation 04/10/2020 12:13 EDT [facility] Specimen Adequacy Satisfactory for Evaluation - transformation zone component present 04/10/2020 12:13 EDT [facility] General Categorization Negative for intraepithelial lesion or malignancy 04/10/2020 12:13 EDT [facility] Descriptive Diagnosis Shift in rosa present suggestive of bacterial vaginosis. 04/10/2020 12:13 EDT [facility] Attestation . 04/10/2020 12:13 T [facility] at 1213 Clinical History SEE ORDER COMMENTS 04/10/2020 12:13 EDT [facility] Performing Lab [facility] 04/10/2020 12:13 T [facility] Scanned Images 04/10/2020 12:13 T [facility] Papanicolaou smear specimen (specimen) CERVIX UTERI STRUCTURE / Unknown 03/27/2020 12:00 EDT 03/30/2020 10:05 EDT Unique Francois PA-C PATHOLOGY ORDERA BLES [facility] [address] [place] [address] documented in this encounter Visit Diagnoses Diagnosis Encounter for other general examination documented in this encounter Care Teams Property Claim Rep Relationship Specialty Start Date End Date Unknown, Provider, PCP - General 02/23/17 12/27/23 Marisol Palmer MD [address] [place] [address] PCP - General 12/28/23 documented as of this encounter
--- OUTSIDE RECORDS SUMMARY | 2024-03-04 13:38 | XMS_ITS | Encounter Summary ---
Author Organization [facility] Address [address] [place] [address] Care Team Providers Care Sheet Metal Duct Installer Apprentice Name Role Phone Unknown, Provider Primary Care Provider [phone] Encounter Details Date Type Department Care Team (Late st Contact Info) Description 02/19/2017 Results Only [facility] [phone] Marisol Palmer MD [address] [place] [id number] Social History Tobacco Use Types Packs/Day Years Used Date Smoking Tobacco: Never Assessed Sex and Gender Information Value Date Recorded Sex Assigned at Not on file Gender Identity Not on file Sexual Orientation Not on file documented as of this encounter Plan of Treatment Upcoming Encounters Date Type Department Care Team (Late st Contact Info) Description 07/07/2024 13:30 EST Telemedicine [facility] Rheumatology [address] [place] [address] Melida Barrera MD 111 [facility] 5 [place] [address] documented as of this encounter Procedures Procedure Name Priority Date/Time Associated Diagnosis Comments PAP TEST- RESULT ONLY Routine 02/19/2017 0:00 EDT documented in this encounter Results * PAP TEST- RESULT ONLY (02/19/2017 0:00 EDT) Pathology Report: CYTOPATHOLOGY REPORT Reports generated via electronic interface contain original data; however they are lacking the format of the original report. Caution should be taken when reading/interpreti ng unformatted reports. Name: ? PERSONS, ZARI Jain ? Accession #: ? [id number] : ? 1995 (Age: 21) ??F ?Collect Date: ? 02/19/2017 Location: ? [facility] ? Receive Date: ? 02/23/2017 Provider: ?MARISOL PALMER MD Copy to: ? Specimen/Source: ?Pap Test, Cervix/Endocervix, ThinPrep Imaging System with manual evaluation Last Menstrual Period: ? Hormonal/Contracep tive Status: ? Depo-Provera: 6 months ago Other: ? First Pap ? SPECIMEN ADEQUACY ? Satisfactory for Evaluation - transformation zone component present GENERAL CATEGORIZATION ? Negative for Intraepithelial Lesion or Malignancy INTERPRETATION ? Shift in rosa present suggestive of bacterial vaginosis. ? Document reviewed and electronically signed by: ? TORITO Hatfield(ASCP) ? Report Date: ??03/03/2017 12:08 End of Report [facility] 02/19/2017 02/23/2017 Marisol Palmer MD PATHOLOGY ORDERABLES [facility] [address] [place] [address] documented in this encounter Visit Diagnoses Not on filedocumented in this encounter Care Teams Sheet Metal Duct Installer Apprentice Relationship Specialty Start Date End Date Unknown, Provider, PCP - General 02/23/17 12/27/23 documented as of this encounter
--- OUTSIDE RECORDS SUMMARY | 2024-03-04 13:38 | XMS_ITS | Encounter Summary ---
Author Organization [facility] Address [facility] [place] [address] Care Team Providers Care Army Senior Officer Name Role Phone Unavailable Primary Care Provider Unavailabl e Encounter Details Date Type Department Care Team (Late st Contact Info) Description 11/09/2018 External Results Laboratory at [facility] [address] [place] [phone] Jayce Mcguire MD [address] [place] [address] Social History Tobacco Use Types Packs/Day Years Used Date Smoking Tobacco: Never Assessed Sex and Gender Information Value Date Recorded Sex Assigned at Not on file Gender Identity Not on file Sexual Orientation Not on file documented as of this encounter Plan of Treatment Not on file documented as of this encounter Procedures Procedure Name Priority Date/Time Associated Diagnosis Comments UPPER RESPIRATORY CULTURE Routine 11/09/2018 2:01 AM EDT documented in this encounter Results * (ABNORMAL) Upper Respiratory Culture (11/09/2018 2:01 AM EDT) [facility] LAB RESULT BETA STREP CULTURE (THROAT)(EXT ERNAL/ABN) [facility] 11/09/2018 2:01 AM EDT 11/09/2018 4:33 AM EDT Narrative [facility] - 11/10/2018 8:40 AM EDT [place] date: 11/09/18 [place] time: 0133 Is the pt taking abx, list: NO Specimen source: THROAT Microbiology susceptibilities will display in 'Abn?' column if performed. Component ? Value ?RefRange ??Units ? Status Abn? STRA ?QUANTITY OF ?F ?N ? GROWTH: LIGHT ? Organism #1: STRA - Strep group A by ANTIGEN DETEC ? Identification methodology: Liposome Immunoassay. ? Beta Strep group A is universally susceptible to Penicillin. Jayce Mcguire MD MICROBIOLOGY - GENER AL ORDERABLES Performing Organization Address City/State/[facility] Co de Phone Number [facility] [address] [place] [address] documented in this encounter Visit Diagnoses Not on filedocumented in this encounter
--- OUTSIDE RECORDS SUMMARY | 2024-03-04 13:38 | XMS_ITS | Clinical Summary ---
Author Organization [facility] [place] [address] Care Team Providers Care Hydramatic Mechanic Name Role Phone Unavailable Primary Care Provider Unavailabl e Social History Tobacco Use Types Packs/Day Years Used Date Smoking Tobacco: Never Assessed Sex and Gender Information Value Date Recorded Sex Assigned at Not on file Gender Identity Not on file Sexual Orientation Not on file Plan of Treatment Health Maintenance Due Date Last Done Comments HIV screen 11/21/2011 Hepatitis C Screening 11/21/2011 Hepatitis B vaccine (0-59 yrs) (1) 2012 Tdap adult 2012 Tetanus vaccine 2012 Covid-19 Vaccine ( - 2022-24 season) 2023 HPV test 11/21/2023 PAP Smear 11/21/2023 Influenza (Flu) vaccine (1 o f 1 - Influenza standard series) 03/27/2024
[2024-03-04 16:44] LABS: TSH (W/Ref FT4) 1.61 uIU/mL (0.36-3.74)
[2024-03-07 09:56] LABS: HIV-1/2 Ag & Ab Screen Negative (Negative)
[2024-03-07 10:10] LABS: Hepatitis C Ab w Rflx HCV PCR Negative (Negative)
[2024-03-07 11:27] LABS: Syphilis Serology (RPR) Negative (Negative)
== END 2024-03-04 13:34 | disposition home or self-care (01) ==
LOC: NCHCN 13:33
PROVIDERS: PCP Family Medicine; Visit Provider Family Medicine
DX: E03.9 Hypothyroidism, unspecified (principal); Z11.3 Encounter for screening for infections with a predominantly sexual mode of transmission; Z11.4 Encounter for screening for human immunodeficiency virus [HIV]; Z11.59 Encounter for screening for other viral diseases
CPT/HCPCS: 86803; 87389; 87491; 87591; 84443; 86592

== ENCOUNTER 2024-03-10 12:19 | Outpatient (REF) | payer MEDICAID, SELFPAY ==
--- OUTSIDE RECORDS SUMMARY | 2024-03-10 12:22 | XMS_ITS | Encounter Summary ---
Author Organization [facility] Address [address] [place] [address] Care Team Providers Care Peer Health Promoter Name Role Phone Unknown, Provider Primary Care Provider [phone] Marisol Palmer MD Primary Care Provider [phone] Encounter Details Date Type Department Care Team (Late st Contact Info) Description 06/04/2022 Lab Requisition [facility] Pathology & Laboratory Medicine - [address] [address] Outr Resulting Lab, Provider Social History Tobacco [...] Info) Description 07/07/2024 13:[address] [facility] Rheumatology [address] [place] [address] Melida Barrera MD [address] [place] [address], [address] [place] [phone] documented as of this encounter Procedures Procedure Name Priority Date/Time Associated Diagnosis Comments CHLAMYDIA/N. GONORRHOEAE AMPLIFIED NUCLEIC ACID Routine 06/03/2022 15:30 EST documented in this encounter Results * (ABNORMAL) CHLAMYDIA/N. GONORRHOEAE AMPLIFIED RNA (06/03/2022 15:30 EST) Neisseria gonorrhoeae Result Negative Negative 06/06/2022 10:58 EST [facility] Chlamydia trachomatis Result Positive(A) Negative 06/06/2022 10:58 EST [facility] Urine URINE / Unknown 06/03/2022 1 5:30 EST 06/04/2022 17:11 EST Narrative [facility] - 06/06/2022 10:58 EST A first catch urine specimen is acceptable for detection of Gonorrhea and Chlamydia, but might detect up to 10% fewer infections when compared with vaginal and endocervical swab samples. Provider Outr Resulting Lab MICROBIOLOGY - GENERAL ORDERABLES [facility] [address] [place] [address] documented in this encounter Visit Diagnoses Not on filedocumented in this encounter Care Teams Peer Health Promoter Relationship Specialty Start Date End Date Unknown, MD Thien PCP - General 02/23/17 12/27/23 Marisol Palmer MD [address] [place] [address] PCP - General 12/28/23 documented as of this encounter
--- OUTSIDE RECORDS SUMMARY | 2024-03-10 12:22 | XMS_ITS | Encounter Summary ---
Author Organization [facility] Address [address] [place] [address] Care Team Providers Care Watch Case Polisher Name Role Phone Unknown, Provider Primary Care Provider [phone] Marisol Palmer MD Primary Care Provider [phone] Encounter Details Date Type Department Care Team (Late st Contact Info) Description 01/19/2021 Lab Requisition [facility] Pathology & Laboratory Medicine - [address] [address] Outr Resulting Lab, Provider Social History Tobacco [...] 13:30 EST Telemedicine [facility] - [facility] Rheumatology [address] [place] [address] Melida Barrera MD 111 [facility], Level [address] [place] [phone] documented as of this encounter Procedures Procedure Name Priority Date/Time Associated Diagnosis Comments HEPATITIS C AB W REFLEX TO HCV RNA BY PCR Routine 01/18/2021 12:35 EDT documented in this encounter Results * HEPATITIS C AB W REFLEX TO HCV RNA BY PCR (01/18/2021 12:35 EDT) Hep C Antibody Negative Negative 01/21/2021 9:[address] [facility] Blood VENOUS BLOOD / Unknown 01/18/2021 12:35 EDT 01/20/2021 17:37 EDT Provider Outr Resulting Lab CHEMISTRY & BLOOD GAS ORDERABLES [facility] [address] [place] [address] documented in this encounter Visit Diagnoses Not on filedocumented in this encounter Care Teams Watch Case Polisher Relationship Specialty Start Date End Date Unknown, Provider, PCP - General 02/23/17 12/27/23 Marisol Palmer MD [address] [place] [address] PCP - General 12/28/23 documented as of this encounter
--- OUTSIDE RECORDS SUMMARY | 2024-03-10 12:22 | XMS_ITS | Encounter Summary ---
Author Organization [facility] Address [address] [place] [address] Care Team Providers Care Internal Control Manager Name Role Phone Marisol Palmer MD Primary Care Provider [phone] Encounter Details Date Type Department Care Team (Late st Contact Info) Description 03/05/2024 Lab Requisition [facility] Pathology & Laboratory Medicine - [address] [address] Outr Resulting Lab, Provider Social History Tobacco [...] Contact Info) Description 07/07/2024 13:30 EST Telemedicine [facility] - [facility] Rheumatology [address] [place] [address] Melida Barrera MD 111 [facility], [facility] 5 [place] [phone] documented as of this encounter Procedures Procedure Name Priority Date/Time Associated Diagnosis Comments HIV 1/2 ANTIGEN AND ANTIBODY, 4TH GENERATION Routine 03/04/2024 11:25 EDT documented in this encounter Results * HIV 1/2 ANTIGEN AND ANTIBODY, 4TH GENERATION (03/04/2024 11:25 EDT) HIV 1 and 2 Antibody/p24 Antigen, 4th Generation Negative Negative 03/07/2024 9:52 EDT [facility] Comment:If acute HIV-1 infec tion is suspected in a high risk patient, submit plasma specimen for HIV-1 RNA quantitation test. Blood VENOUS BLOOD / Unknown 03/04/2024 11:25 EDT 03/05/2024 21:49 EDT Narrative [facility] - 03/07/2024 9:52 EDT Fourth Generation assay performed on the Siemens iCrackedaur XPT. Provider Outr Resulting Lab IMMUNOLOGY A ND SEROLOGY ORDERABLES [facility] [address] [place] [address] documented in this encounter Visit Diagnoses Not on filedocumented in this encounter Care Teams Internal Control Manager Relationship Specialty Start Date End Date Marisol Palmer MD [address] [place] [address] PCP - General 12/28/23 documented as of this encounter
--- OUTSIDE RECORDS SUMMARY | 2024-03-10 12:22 | XMS_ITS | Encounter Summary ---
Author Organization [facility] Address [address] [place] [address] Care Team Providers Care Rail Switch Operator Name Role Phone Unknown, Provider Primary Care Provider [phone] Marisol Palmer MD Primary Care Provider [phone] Encounter Details Date Type Department Care Team (Late st Contact Info) Description 10/27/2022 Lab Requisition [facility] Pathology & Laboratory Medicine - [address] [address] Outr Resulting Lab, Provider Social History Tobacco [...] Description 07/07/2024 13:30 EST Telemedicine [facility] - [facility] [place] Rheumatology [address] [place] [address] Melida Barrera MD 111 [facility], Level [address] [place] [phone] documented as of this encounter Procedures Procedure Name Priority Date/Time Associated Diagnosis Comments CHLAMYDIA/N. GONORRHOEAE AMPLIFIED NUCLEIC ACID Routine 10/27/2022 15:40 EDT documented in this encounter Results * CHLAMYDIA/N. GONORRHOEAE AMPLIFIED RNA (10/27/2022 15:40 EDT) Neisseria gonorrhoeae Result Negative Negative 10/29/2022 14:19 EDT [facility] Chlamydia trachomatis Result Negative Negative 10/29/2022 14:19 EDT [facility] Swab ENTIRE VAGINA / Unknown 10/27/2022 15:40 EDT 10/28/2022 22:50 EDT Provider Outr Resulting Lab MICROBIOLOGY - GENERAL ORDERABLES Performing Organization Address City/State/[facility] Co de Phone Number [facility] [address] [place] [address] documented in this encounter Visit Diagnoses Not on filedocumented in this encounter Care Teams Rail Switch Operator Relationship Specialty Start Date End Date Unknown, Provider, PCP - General 02/23/17 12/27/23 Marisol Palmer MD [address] [place] [address] PCP - General 12/28/23 documented as of this encounter
--- OUTSIDE RECORDS SUMMARY | 2024-03-10 12:22 | XMS_ITS | Clinical Summary ---
Author Organization [facility] Address [address] [place] [address] Care Team Providers Care Long Filler Cigar Roller Machine Name Role Phone Marisol Palmer MD Primary Care Provider Allergies Active Allergy Reactions Criticality Noted Date [...] Encounters Date Type Department Care Team Description 03/05/2024 Lab Requisition [facility] Pathology & Laboratory Medicine [address] [address] Outr Resulting Lab, Provider 03/05/2024 Lab Requisition [facility] Pathology & Laboratory Medicine [address] [address] Outr Resulting Lab, Provider 01/07/2024 Telephone [facility] Rheumatology [address] [place] [address] Melida Barrera MD Other 01/06/2024 10:10 EDT Phlebotomy Only [facility] - Outpatient Phlebotomy Drawing [address] [place] [address] Lab, [facility] Phlebotomy Positive VANDANA (antinuclear antibody); Fibromyalgia 01/06/2024 9:00 EDT Office Visit [facility] Rheumatology [address] [place] [address] Melida Barrera MD Fibromyalgia (Primary Dx); Positive VANDANA (antinuclear antibody) 01/01/2024 Abstract [facility] Rheumatology [address] [place] [address] Melida Barrera MD 12/11/2023 Lab Requisition [facility] Pathology & Laboratory Medicine - [address] [address] Outr Resulting Lab, Provider from Last 3 [...] SURGERY 07/27/2000 - 07/26/2001 Right done at [facility] Family History Medical History Relation Comments *Other(comment) [...] Contact Info) Description 07/07/2024 13:30 EST Telemedicine [facility] - [facility] Rheumatology [address] [place] [address] Melida Barrera MD [address] [place] [address], [address] [place] [address] Health Maintenance Due Date Last Done Comments Asthma Action Plan 1993 Lung Function Test (Spirometry) 1993 COVID-19 Vaccine (2022-2 4 season) 2023 Hepatitis B Vaccine Completed 10/22/1994, 03/28/1994, 1993 Hepatitis C Screen Completed 03/04/2024, 0 12/10/2023, 11/14/2022, Additional history exists Procedures Procedure Name Priority Date/Time Associated Diagnosis Comments HIV 1/2 ANTIGEN AND ANTIBODY, 4TH GENERATION Routine 03/04/2024 11:25 EDT SYPHILIS SEROLOGY Routine 03/04/2024 11: 25 EDT HEPATITIS C AB W REFLEX TO HCV RNA BY PCR Routine 03/04/2024 11:25 EDT CCP ANTIBODIES Routine 01/06/2024 10:28 EDT Fibromyalgia [...] EDT from Last 3 Months Results * SYPHILIS SEROLOGY (03/04/2024 11:25 EDT) Syphilis Serology Negative Negative 03/07/2024 11:22 EDT [facility] Blood VENOUS BLOOD / Unknown 03/04/2024 11:25 EDT 03/05/2024 21:48 EDT Provider Outr Resulting Lab IMMUNOLOGY A ND SEROLOGY ORDERABLES Performing Organization Address [facility] Co de Phone Number [facility] [address] [place], [place] [id number] * HEPATITIS C AB W REFLEX TO HCV RNA BY PCR (03/04/2024 11:25 EDT) Only the most recent of2 resultswithin the time period is included. Hep C Antibody Negative Negative 03/07/2024 10:05 EDT [facility] Blood VENOUS BLOOD / Unknown 03/04/2024 11:25 EDT 03/05/2024 21:48 EDT Provider Outr Resulting Lab CHEMISTRY & BLOOD GAS ORDERABLES Performing Organization Address [facility] de Phone Number [facility] [address] [place] [address] * HIV 1/2 ANTIGEN AND ANTIBODY, 4TH GENERATION (03/04/2024 11:25 EDT) HIV 1 and 2 Antibody/p24 Antigen, 4th Generation Negative Negative 03/07/2024 9:52 EDT [facility] Comment:If acute HIV-1 infec tion is suspected in a high risk patient, submit plasma specimen for HIV-1 RNA quantitation test. Blood VENOUS BLOOD / Unknown 03/04/2024 11:25 EDT 03/05/2024 21:49 EDT Narrative [facility] - 03/07/2024 9:52 EDT Fourth Generation assay performed on the Siemens Ayasdiaur XPT. Provider Outr Resulting Lab IMMUNOLOGY A ND SEROLOGY ORDERABLES Performing Organization Address [facility] Co de Phone Number [facility] [address] [place], [place] [phone] * (ABNORMAL) UA CHEMICAL & SEDIMENT + REFLEX TO CULTURE (01/06/2024 10:28 [facility]) Color UA Yellow Colorless, Yellow 01/06/2024 11:32 [facility] Clarity UA Clear Clear 01/06/2024 11:32 [facility] Glucose UA Negative Negative mg/dL 01/06/2024 11:32 [facility] Bilirubin UA Negative Negative 01/06/2024 11:32 [facility] Ketones UA Trace(A) Negative 01/06/2024 11:32 [facility] Specific [place], Urine >=1.030 1.001 - 1.030 01/06/2024 11:32 [facility] Blood UA Negative Negative 01/06/2024 11:32 [facility] Nitrite UA Negative Negative 01/06/2024 11:32 [facility] Leukocyte Esterase UA 1+(A) Negative 01/06/2024 11:32 [facility] Protein UA Trace(A) Negative mg/dL 01/06/2024 11:32 [facility] pH, UA 5.5 <8.5 01/06/2024 11:32 [facility] Urine RBC Count, Manual 0 - 2 0 - 2 Cells/HPF 01/06/2024 11:32 [facility] Urine WBC Count 10 - 50(A) 0 - 3 Cells/HPF 01/06/2024 11:32 [facility] Urine Squamous Count, Manual Many(A) None Seen Cells/HPF 01/06/2024 11:32 [facility] Urine Hyaline Cast Count, Manual <=10 <=10 Casts/LPF 01/06/2024 11:32 [facility] Urine Bacteria Count, Manual Many(A) None Seen Bacteria/HP F 01/06/2024 11:32 [facility] Urobilinogen UA 0.2 0.2-1.0 mg/dL mg/dL 01/06/2024 11:[address] [facility] Urine URINE SPECIMEN OBTAINED BY CLEAN CATCH PROCEDURE / Unknown Urine Collect / Unknown 01/06/2024 10:28 EDT 01/06/2024 11:[address] [facility] - 01/06/2024 11:32 EDT Urine Sediment Analysis results are unreliable on urines that are unrefrigerated for >2 hrs or refrigerated >8 hrs. A Urine Culture test has been reflexively ordered based on result criteria from the Urine Sediment Analysis. Melida Barrera MD URINALYSIS ORDERABL ES Performing Organization Address City/[facility]/ZIP Co de Phone Number [facility] [address] [place] [address] * CCP ANTIBODIES (01/06/2024 10:28 EDT) CCP Antibodies <2.5 <5.0 U/mL 01/07/2024 8:50 EDT [facility] Blood VENOUS BLOOD / Unknown Venipuncture / Unknown 01/06/2024 10:28 EDT 01/06/2024 10:47 EDT Melida Barrera MD IMMUNOLOGY AND SERO LOGY ORDERABLES [facility] [address] [place] [address] * (ABNORMAL) DOUBLE STRANDED DNA ANTIBODY, IGG (01/06/2024 10:28 EDT) Only the most recent of2 resultswithin the time period is included. dsDNA Ab, IgG 42.7(H) <27.0 IU/mL 01/07/2024 12:48 EDT [facility] Comment: Negative: <27.0 IU/mL Indeterminate: 27.0 - 35.0 IU/mL Positive: >35.0 IU/mL Results were obtained with AquirisA Flash dsDNA chemiluminescent immunoassay. Values obtained with different manufacturers' assay methods may not be used interchangeably. Blood VENOUS BLOOD / Unknown Venipuncture / Unknown 01/06/2024 10:28 EDT 01/06/2024 10:48 EDT Melida Barrera MD IMMUNOLOGY AND SERO LOGY ORDERABLES [facility] [address] [place] [address] * COMPLETE BLOOD COUNT AND DIFFERENTIAL (01/06/2024 10:28 EDT) WBC 7.69 4.00 - 12.40 K/cmm 01/06/2024 10:41 [facility] RBC 4.52 3.86 - 5.04 M/cmm 01/06/2024 10:41 [facility] Hemoglobin 13.0 11.6 - 15.2 g/dL 01/06/2024 10:41 [facility] HCT 40.0 34.9 - 44.4 % 01/06/2024 10:41 [facility] MCV 89 81 - 98 fL 01/06/2024 10:41 [facility] MCH 28.8 26.7 - 33.3 pg 01/06/2024 10:41 [facility] MCHC 32.5 32.1 - 35.9 g/dL 01/06/2024 10:41 [facility] RDW-CV 12.3 <14.7 % 01/06/2024 10:41 [facility] RDW-SD 39.9 <50.4 fl 01/06/2024 10:41 [facility] PLT 312 141 - 377 K/cmm 01/06/2024 10:41 [facility] MPV 10.4 9.5 - 12.7 fL 01/06/2024 10:41 [facility] % Neutrophils 55.8 % 01/06/2024 10:41 [facility] % Lymphocytes 31.6 % 01/06/2024 10:41 [facility] % Monocytes 6.6 % 01/06/2024 10:41 [facility] % Eosinophils 5.1 % 01/06/2024 10:41 [facility] % Basophils 0.5 % 01/06/2024 10:41 [facility] % Immature Grans 0.4 <0.9 % 01/06/20 10:41 [facility] Absolute Neutrophils 4.29 2.20 - 8.85 K/cmm 01/06/2024 10:41 [facility] Absolute Lymphocytes 2.43 1.09 - 3.30 K/cmm 01/06/2024 10:41 [facility] Absolute Monocytes 0.51 0.10 - 0.80 K/cmm 01/06/2024 10:41 [facility] Absolute Eosinophils 0.39 0.03 - 0.61 K/cmm 01/06/2024 10:41 [facility] ABS Basophils 0.04 0.01 - 0.11 K/cmm 01/06/2024 10:41 [facility] Absolute Immature Grans 0.03 0.00 - 0.06 K/cmm 01/06/2024 10:41 [facility] Type of Differential: Auto 01/06/2024 10:41 [facility] Blood VENOUS BLOOD / Unknown Venipuncture / Unknown 01/06/2024 10:28 EDT 01/06/2024 10:38 EDT Melida Barrera MD PACKAGES & DNA PROB E ORDERABLES [facility] [address] [place] [address] * BACTERIAL CULTURE, URINE (01/06/2024 10:28 EDT) Organism ID [id number] to [id number] CFU/ml VITEK SUSCEPTIBILITY 01/07/2024 9:50 [facility] Comment: Usual urogenital rosa. Urine URINE SPECIMEN OBTAINED BY CLEAN CATCH PROCEDURE / Unknown Urine Collect / Unknown 01/06/2024 10:28 EDT 01/06/2024 11:32 EDT Melida Barrera MD MICROBIOLOGY - GENE RAL ORDERABLES Performing Organization Address City/[facility]/ZIP Co de Phone Number [facility] [address] [place] [address] * C3 COMPLEMENT (01/06/2024 10:28 EDT) C3 Complement 136 81 - 157 mg/dL 01/07/2024 9:43 EDT [facility] Blood VENOUS BLOOD / Unknown Venipuncture / Unknown 01/06/2024 10:28 EDT 01/06/2024 10:47 EDT Melida Barrera MD CHEMISTRY & BLOOD G ORDERABLES Performing Organization Address [facility] Co de Phone Number [facility] [address] [place] [address] * C4 COMPLEMENT (01/06/2024 10:28 EDT) C4 Complement 21 13 - 39 mg/dL 01/07/2024 9:43 EDT [facility] Blood VENOUS BLOOD / Unknown Venipuncture / Unknown 01/06/2024 10:28 EDT 01/06/2024 10:47 EDT Melida Barrera MD CHEMISTRY & BLOOD G ORDERABLES Performing Organization Address [facility]/ZIP Co de Phone Number [facility] [address] [place] [address] * (ABNORMAL) COMPREHENSIVE METABOLIC PANEL (CMP) (01/06/2024 10:28 EDT) Sodium 140 136 - 145 mmol/L 01/06/2024 11:[address] [facility] Potassium 4.5 3.5 - 5.0 mmol/L 01/06/2024 11:19 [facility] Chloride 106 96 - 110 mmol/L 01/06/2024 11:19 [facility] CO2 Total 21(L) 22 - 32 mmol/L 01/06/2024 11:19 [facility] Glucose 84 70 - 99 mg/dl 01/06/2024 11:19 [facility] BUN 14 10 - 26 mg/dL 01/06/2024 11:19 [facility] Creatinine 0.78 0.52 - 1.04 mg/dL 01/06/2024 11:19 [facility] eGFR 105 >60 mL/min/1.7 3m2 01/06/2024 11:19 [facility] Total Protein 7.8 6.3 - 8.2 g/dL 01/06/2024 11:19 [facility] Albumin 4.5 3.4 - 4.9 g/dL 01/06/2024 11:19 [facility] Alkaline Phosphatase 82 38 - 126 U/L 01/06/2024 11:19 [facility] AST 21 15 - 46 U/L 01/06/2024 11:19 [facility] ALT 21 <35 U/L 01/06/2024 11:19 [facility] Bilirubin, Total 0.9 <1.4 mg/dL 01/06/20 11:19 [facility] Calcium 9.7 8.5 - 10.5 mg/dL 01/06/2024 11:19 [facility] Albumin/Globulin Ratio 1.4 1.0 - 2.5 01/06/2024 11:19 [facility] Anion Gap 13 5 - 14 mmol/L 01/06/2024 11:19 [facility] Blood VENOUS BLOOD / Unknown Venipuncture / Unknown 01/06/2024 10:28 EDT 01/06/2024 10:47 EDT Melida Barrera MD CHEMISTRY & BLOOD G ORDERABLES [facility] [address] [place] [phone] * WENDY ANTIBODY PANEL (12/10/2023 15:30 EDT) Ro52 Anitbody, IgG <2.3 <20.0 CU 2023 18:11 EDT [facility] Comment:Results were obtaine d with the AquirisA Flash Ro52 chemiluminescent immunoassay. Values obtained with different manufacturers' assay methods must not be used interchangeably. Ro60 Antibody, IgG <7.0 <20.0 CU 2023 18:11 EDT [facility] Comment:Results were obtaine d with the [employer] QUANTA Flash Ro60 chemiluminescent immunoassay. Values obtained with different manufacturers' assay methods must not be used interchangeably. SSB Antibody, IgG <3.3 <20.0 CU 024 18:11 EDT [facility] Comment:Results were obtaine d with the AquirisA Flash SS-B chemiluminescent immunoassay. Values obtained with different manufacturers' assay methods must not be used interchangeably. SM (Steele) Antibody, IgG <8.0 <20.0 CU 12/14/2023 18:11 EDT [facility] Comment:Results were obtaine d with the [employer] QUANTA Flash Sm chemiluminescent immunoassay. Values obtained with different manufacturers' assay methods must not be used interchangeably. GENERAL EDUCATION INSTRUCTOR Antibody, IgG <6.0 <20.0 CU 024 18:11 EDT [facility] Comment:Results were obtaine d with the AquirisA Flash GENERAL EDUCATION INSTRUCTOR chemilumenscent immunoassay. Values obtained with different manufacturers' assay methods may not be used interchangeably. Blood VENOUS BLOOD / Unknown 12/10/2023 15:30 EDT 12/11/2023 16:59 EDT Provider Outr Resulting Lab IMMUNOLOGY A ND SEROLOGY ORDERABLES [facility] [address] [place] [address] from Last 3 Months Care Teams Long Filler Cigar Roller Machine Relationship Specialty Start Date End Date Marsiol Palmer MD [address] [place] [address] PCP - General 12/28/23
--- OUTSIDE RECORDS SUMMARY | 2024-03-10 12:22 | XMS_ITS | Encounter Summary ---
Author Organization [facility] Address [address] [place] [address] Care Team Providers Care Apprentice Architect Name Role Phone Unknown, Provider Primary Care Provider [phone] Marisol Palmer MD Primary Care Provider [phone] Encounter Details Date Type Department Care Team (Late st Contact Info) Description 03/07/[address] [facility] Pathology & Laboratory Medicine - [address] [address] Loco Huynh, [address] [address] Neoplasm of unspecified behavior of bone, soft [...] 07/07/2024 13:30 EST Telemedicine [facility] Rheumatology [address] [place] [address] Melida Barrera MD [address] [facility] [address] [place] [phone] documented as of this encounter Procedures Procedure [...] management options, if applicable. 03/10/2023 8:26 T [facility] Final Diagnosis A. SKIN OF LEG, RIGHT UPPER, PUNCH BIOPSY: - Predominantly intradermal compound nevus. 03/10/2023 8:26 [facility] Attestation By the signature below, the attending physician certifies that they have 1) personally conducted a gross and/or microscopic examination of the described specimen(s), and/or personally interpreted the results of laboratory testing of the described specimen(s), and 2) personally rendered or confirmed the above diagnosis. 03/10/2023 8:26 [facility] at 0826 Clinical History Clinical diagnosis code: D49.2 03/10/2023 8:26 [facility] Gross Description A. [...] JOSIAS Motta(ASCP) 03/09/2023 9:09 03/10/2023 8:26 T [facility] Performing Lab [facility] 03/10/2023 8:26 [facility] Scanned Images 03/10/2023 8:26 [facility] Tissue SPECIMEN FROM SKIN / Unknown 03/06/2023 15:20 EDT 03/07/2023 8:53 EDT Loco Huynh DO PATHOLOGY ORDER NOA [facility] [address] [place] [address] documented in this encounter Visit Diagnoses Diagnosis Neoplasm of unspecified behavior of bone, soft tissue, and skin documented in this encounter Care Teams Apprentice Architect Relationship Specialty Start Date End Date Unknown, Provider, PCP - General 02/23/17 12/27/23 Marisol Palmer MD [address] [place] [address] PCP - General 12/28/23 documented as of this encounter
--- OUTSIDE RECORDS SUMMARY | 2024-03-10 12:22 | XMS_ITS | Encounter Summary ---
Author Organization [facility] Address [address] [place] [address] Care Team Providers Care Linen Worker Name Role Phone Unknown, Provider Primary Care Provider [phone] Marisol Palmer MD Primary Care Provider [phone] Encounter Details Date Type Department Care Team (Late st Contact Info) Description 05/07/2022 Lab Requisition [facility] Pathology & Laboratory Medicine - [address] [address] Outr Resulting Lab, Provider Social History Tobacco [...] Contact Info) Description 07/07/2024 13:30 EST Telemedicine [facility] [place] [address] [place] [address] Melida Barrera MD [address] [facility], [address] [place] [phone] documented as of this encounter Procedures Procedure Name Priority Date/Time Associated Diagnosis Comments HEPATITIS C AB W REFLEX TO HCV RNA BY PCR Routine 05/06/2022 16:00 EDT HEPATITIS B SURFACE ANTIGEN Routine 05/06/2022 16:00 EDT documented in this encounter Results * HEPATITIS B SURFACE ANTIGEN (05/06/2022 16:00 EDT) Hep B Surface Ag Negative Negative 05/08/2022 9:21 EDT [facility] Blood VENOUS BLOOD / Unknown 05/06/2022 16:00 EDT 05/07/2022 16:44 EDT Provider Outr Resulting Lab CHEMISTRY & BLOOD GAS ORDERABLES Performing Organization Address City/[facility]/ZIP Co de Phone Number [facility] [address] [place] [address] * HEPATITIS C AB W REFLEX TO HCV RNA BY PCR (05/06/2022 16:00 EDT) Hep C Antibody Negative Negative 05/08/2022 10:01 EDT [facility] Blood VENOUS BLOOD / Unknown 05/06/2022 16:00 EDT 05/07/2022 16:44 EDT Provider Outr Resulting Lab CHEMISTRY & BLOOD GAS ORDERABLES Performing Organization Address City/[facility]/ZIP Co de Phone Number [facility] [address] [place] [address] documented in this encounter Visit Diagnoses Not on filedocumented in this encounter Care Teams Linen Worker Relationship Specialty Start Date End Date Unknown, MD Thien PCP - General 02/23/17 12/27/23 Marisol Palmer MD [address] [place] [address] PCP - General 12/28/23 documented as of this encounter
--- OUTSIDE RECORDS SUMMARY | 2024-03-10 12:22 | XMS_ITS | Encounter Summary ---
Author Organization [facility] Address [address] [place] [address] Care Team Providers Care Swage Tender Name Role Phone Unknown, Provider Primary Care Provider [phone] Marisol Palmer MD Primary Care Provider [phone] Encounter Details Date Type Department Care Team (Late st Contact Info) Description 05/07/2022 Lab Requisition [place] Pathology & Laboratory Medicine - [address] [address] Outr Resulting Lab, Provider Social History Tobacco [...] Contact Info) Description 07/07/2024 13:30 EST Telemedicine [facility] Rheumatology [address] [place] [address] Melida Barrera MD [address] [facility], [address] [place] [phone] documented as of this encounter Procedures Procedure Name Priority Date/Time Associated Diagnosis Comments HIV 1/2 ANTIGEN AND ANTIBODY, 4TH GENERATION Routine 05/06/2022 16:00 EDT documented in this encounter Results * HIV 1/2 ANTIGEN AND ANTIBODY, 4TH GENERATION (05/06/2022 16:00 EDT) HIV 1 and 2 Antibody/p24 Antigen, 4th Generation Negative Negative 05/08/2022 10:[address] [facility] Comment:If acute HIV-1 infec tion is suspected in a high risk patient, submit plasma specimen for HIV-1 RNA quantitation test. Blood VENOUS BLOOD / Unknown 05/06/2022 16:00 EDT 05/07/2022 16:[address] [facility] - 05/08/2022 10:19 EDT Fourth Generation assay performed on the Siemens SolePoweraur XPT. Provider Outr Resulting Lab IMMUNOLOGY A ND SEROLOGY ORDERABLES [facility] [address] [place] [address] documented in this encounter Visit Diagnoses Not on filedocumented in this encounter Care Teams Swage Tender Relationship Specialty Start Date End Date Unknown, Provider, PCP - General 02/23/17 12/27/23 Marisol Palmer MD [address] [place] [id number] PCP - General 12/28/23 documented as of this encounter
--- OUTSIDE RECORDS SUMMARY | 2024-03-10 12:22 | XMS_ITS | Encounter Summary ---
Author Organization [facility] Address [address] [place] [address] Care Team Providers Care Patient Services Manager Name Role Phone Unknown, Provider Primary Care Provider [phone] Marisol Palmer MD Primary Care Provider [phone] Encounter Details Date Type Department Care Team (Late st Contact Info) Description 10/13/2023 Lab Requisition [facility] Pathology & Laboratory Medicine - [address] [address] Outr Resulting Lab, Provider Social History Tobacco [...] Description 07/07/2024 13:30 EST Telemedicine [facility] [place] [address] [place] [address] Melida Barrera MD [address] [facility], [address] [place] [phone] documented as of this encounter Procedures Procedure Name Priority Date/Time Associated Diagnosis Comments HIGH SENSITIVITY C-REACTIVE PROTEIN (CARDIOVASCULAR DISEASE) Routine 10/13/2023 10:05 EDT documented in this encounter Results * HIGH SENSITIVITY C-REACTIVE PROTEIN (CARDIOVASCULAR DISEASE) (10/13/2023 10:05 EDT) High Sensitivity CRP 7.74 See Note mg/L 10/13/2023 21:43 EDT [facility] Comment: Reference Range: ??Low Risk: ? <1.0 mg/L ??Average Risk: ?? 1.0 - 3.0 mg/L ??High Risk: ?>3.0 mg/L ??Indeterminate*: >10.0 mg/L ??*May be an indication of another source of inflammation or infection Blood VENOUS BLOOD / Unknown 10/13/2023 10:05 EDT 10/13/2023 21:23 EDT Provider Outr Resulting Lab CHEMISTRY & BLOOD GAS ORDERABLES Performing Organization Address City/State/[facility] Co de Phone Number [facility] [address] [place] [address] documented in this encounter Visit Diagnoses Not on filedocumented in this encounter Care Teams Patient Services Manager Relationship Specialty Start Date End Date Unknown, MD Thien PCP - General 02/23/17 12/27/23 Marisol Palmer MD [address] [place] [address] PCP - General 12/28/23 documented as of this encounter
--- OUTSIDE RECORDS SUMMARY | 2024-03-10 12:22 | XMS_ITS | Encounter Summary ---
Author Organization [facility] Address [address] [place] [address] Care Team Providers Care Physician Support Coordinator Name Role Phone Unknown, Provider Primary Care Provider [phone] Marisol Palmer MD Primary Care Provider [phone] Encounter Details Date Type Department Care Team (Late st Contact Info) Description 03/28/2020 Lab Requisition [facility] Pathology & Laboratory Medicine - [address] [address] Outr Resulting Lab, Provider Social History Tobacco [...] Contact Info) Description 07/07/2024 13:30 EST Telemedicine [facility] - [facility] Rheumatology [address] [place] [address] Melida Barrera MD [address] [place] [address], [address] [place] [phone] documented as of this encounter Procedures Procedure Name Priority Date/Time Associated Diagnosis Comments HIV 1/2 ANTIGEN AND ANTIBODY, 4TH GENERATION Routine 03/27/2020 9:30 EDT documented in this encounter Results * HIV 1/2 ANTIGEN AND ANTIBODY, 4TH GENERATION (03/27/2020 9:30 EDT) HIV 1 and 2 Antibody/p24 Antigen, 4th Generation Negative Negative 03/29/2020 9:48 EDT [facility] Comment: If acute HIV-1 infection is suspected in a high risk ??patient, submit plasma specimen for HIV-1 RNA quantitation test. Fourth Generation assay performed on the Siemens Centaur. Blood VENOUS BLOOD / Unknown 03/27/2020 9:30 EDT 03/28/2020 17:02 EDT Provider Outr Resulting Lab IMMUNOLOGY A ND SEROLOGY ORDERABLES [facility] [address] [place] [address] documented in this encounter Visit Diagnoses Not on filedocumented in this encounter Care Teams Physician Support Coordinator Relationship Specialty Start Date End Date Unknown, Provider, PCP - General 02/23/17 12/27/23 Marisol Palmer MD [address] [place] [address] PCP - General 12/28/23 documented as of this encounter
--- OUTSIDE RECORDS SUMMARY | 2024-03-10 12:22 | XMS_ITS | Encounter Summary ---
Author Organization [facility] Address [address] [place] [address] Care Team Providers Care Superintendent Distribution Name Role Phone Marisol Palmer MD Primary Care Provider [phone] Encounter Details Date Type Department Care Team (Late st Contact Info) Description 03/05/2024 Lab Requisition [facility] Pathology & Laboratory Medicine - [address] [address] Outr Resulting Lab, Provider Social History Tobacco [...] Contact Info) Description 07/07/2024 13:30 EST Telemedicine [facility] - [facility] Rheumatology [address] [place] [address] Melida Barrera MD [address] [facility], [facility] [address] [place] [phone] documented as of this encounter Procedures Procedure Name Priority Date/Time Associated Diagnosis Comments SYPHILIS SEROLOGY Routine 03/04/2024 11: 25 EDT HEPATITIS C AB W REFLEX TO HCV RNA BY PCR Routine 03/04/2024 11:25 EDT documented in this encounter Results * SYPHILIS SEROLOGY (03/04/2024 11:25 EDT) Syphilis Serology Negative Negative 03/07/2024 11:22 EDT [facility] Blood VENOUS BLOOD / Unknown 03/04/2024 11:25 EDT 03/05/2024 21:48 EDT Provider Outr Resulting Lab IMMUNOLOGY A ND SEROLOGY ORDERABLES [facility] [address] [place], [place] [id number] * HEPATITIS C AB W REFLEX TO HCV RNA BY PCR (03/04/2024 11:25 EDT) Hep C Antibody Negative Negative 03/07/2024 10:05 EDT [facility] Blood VENOUS BLOOD / Unknown 03/04/2024 11:25 EDT 03/05/2024 21:48 EDT Provider Outr Resulting Lab CHEMISTRY & BLOOD GAS ORDERABLES Performing Organization Address City/[facility]/ZIP Co de Phone Number [facility] [address] [place], [place] [address] documented in this encounter Visit Diagnoses Not on filedocumented in this encounter Care Teams Superintendent Distribution Relationship Specialty Start Date End Date Marisol Palmer MD [address] [place] [address] PCP - General 12/28/23 documented as of this encounter
--- OUTSIDE RECORDS SUMMARY | 2024-03-10 12:22 | XMS_ITS | Encounter Summary ---
Author Organization [facility] Address [address] [place] [address] Care Team Providers Care Escort Vehicle Driver Name Role Phone Unknown, Provider Primary Care Provider [phone] Marisol Palmer MD Primary Care Provider [phone] Encounter Details Date Type Department Care Team (Late st Contact Info) Description 10/20/2022 Lab Requisition [facility] Pathology & Laboratory Medicine - [address] [address] Outr Resulting Lab, Provider Social History Tobacco [...] Contact Info) Description 07/07/2024 13:30 EST Telemedicine [facility] - [facility] Rheumatology [address] [place] [address] Melida Barrera MD [address] [facility], [address] [place] [phone] documented as of this encounter Procedures Procedure Name Priority Date/Time Associated Diagnosis Comments CHLAMYDIA/N. GONORRHOEAE AMPLIFIED NUCLEIC ACID Routine 10/20/2022 16:35 EDT documented in this encounter Results * CHLAMYDIA/N. GONORRHOEAE AMPLIFIED RNA (10/20/2022 16:35 EDT) Neisseria gonorrhoeae Result Negative Negative 10/22/2022 14:31 EDT [facility] Chlamydia trachomatis Result Negative Negative 10/22/2022 14:31 EDT [facility] Swab ENTIRE VAGINA / Unknown 10/20/2022 16:35 EDT 10/21/2022 17:19 EDT Provider Outr Resulting Lab MICROBIOLOGY - GENERAL ORDERABLES Performing Organization Address City/State/[facility] Co de Phone Number [facility] [address] [place] [address] documented in this encounter Visit Diagnoses Not on filedocumented in this encounter Care Teams Escort Vehicle Driver Relationship Specialty Start Date End Date Unknown, Provider, PCP - General 02/23/17 12/27/23 Marisol Palmer MD [address] [place] [address] PCP - General 12/28/23 documented as of this encounter
--- OUTSIDE RECORDS SUMMARY | 2024-03-10 12:22 | XMS_ITS | Encounter Summary ---
Author Organization [facility] Address [address] [place] [address] Care Team Providers Care Operations Officer Name Role Phone Marisol Palmer MD Primary Care Provider [phone] Encounter Details Date Type Department Care Team (Late st Contact Info) Description 01/01/2024 Abstract [facility] Rheumatology [address] [place] [address] Melida Barrera MD [address] [place] [phone] Social History Tobacco Use Types Packs/Day [...] Telemedicine [facility] Rheumatology [address] [place] [address] Melida Barrera MD [address] [place] [phone] documented as of this encounter Visit [...] 01/06/2024 added in this encounter Care Teams Operations Officer Relationship Specialty Start Date End Date Marisol Palmer MD [address] [place] [address] PCP - General 12/28/23 documented as of this encounter
--- OUTSIDE RECORDS SUMMARY | 2024-03-10 12:22 | XMS_ITS | Referral Summary ---
Author Organization [facility] Address [address] [place] [address] Care Team Providers Care Continuous Yarn Dyeing Machine Operator Name Role Phone Marisol Palmer MD Primary Care Provider [phone] Encounters Date Type Department Care Team Description 03/05/2024 Lab Requisition [facility] Pathology & Laboratory Medicine [address] [address] Outr Resulting Lab, Provider 03/05/2024 Lab Requisition [facility] Pathology & Laboratory Medicine [address] [address] Outr Resulting Lab, Provider 01/07/2024 Telephone [facility] Rheumatology [address] [place] [address] Melida Barrera MD Other 01/06/2024 10:10 EDT Phlebotomy Only [facility] - Outpatient Phlebotomy Drawing [address] [place] [address] Lab, [facility] [place] Positive VANDANA (antinuclear antibody); Fibromyalgia 01/06/2024 9:00 EDT Office Visit [facility] Rheumatology [address] [place] [address] Melida Barrera MD Fibromyalgia (Primary Dx); Positive VANDANA (antinuclear antibody) 01/01/2024 Abstract [facility] Rheumatology [address] [place] [address] Melida Barrera MD 12/11/2023 Lab Requisition [facility] Pathology & Laboratory [address] [address] Outr Resulting Lab, Provider from Last 3 [...] Contact Info) Description 07/07/2024 13:30 EST Telemedicine [facility] Rheumatology [address] [place] [address] Melida Barrera MD [address] [place] [address], [facility] [address] [place] [address] Procedures Procedure Name Priority Date/Time [...] Syphilis Serology Negative Negative 03/07/2024 11:22 EDT [facility] Blood VENOUS BLOOD / Unknown 03/04/2024 11:25 EDT 03/05/2024 21:48 EDT Provider Outr Resulting Lab IMMUNOLOGY A ND SEROLOGY ORDERABLES [facility] [address] [place] [address] * HEPATITIS C AB W REFLEX TO HCV RNA BY PCR (03/04/2024 11:25 EDT) Only the most recent of2 resultswithin the time period is included. Hep C Antibody Negative Negative 03/07/2024 10:05 EDT [facility] Blood VENOUS BLOOD / Unknown 03/04/2024 11:25 EDT 03/05/2024 21:48 EDT Provider Outr Resulting Lab CHEMISTRY & BLOOD GAS ORDERABLES Performing Organization Address [facility] Co de Phone Number [facility] [address] [place] [address] * HIV 1/2 ANTIGEN AND ANTIBODY, 4TH GENERATION (03/04/2024 11:25 EDT) HIV 1 and 2 Antibody/p24 Antigen, 4th Generation Negative Negative 03/07/2024 9:52 EDT [facility] Comment:If acute HIV-1 infec tion is suspected in a high risk patient, submit plasma specimen for HIV-1 RNA quantitation test. Blood VENOUS BLOOD / Unknown 03/04/2024 11:25 EDT 03/05/2024 21:49 EDT Narrative [facility] - 03/07/2024 9:52 EDT Fourth Generation assay performed on the Siemens Wanteringaur XPT. Provider Outr Resulting Lab IMMUNOLOGY A ND SEROLOGY ORDERABLES Performing Organization Address [facility] Co de Phone Number [facility] [address] [place] [address] * (ABNORMAL) UA CHEMICAL & SEDIMENT + REFLEX TO CULTURE (01/06/2024 10:28 EDT) Color UA Yellow Colorless, Yellow 01/06/2024 11:32 EDT [facility] Clarity UA Clear Clear 01/06/2024 11:32 EDT [facility] Glucose UA Negative Negative mg/dL 01/06/2024 11:32 EDT [facility] Bilirubin UA Negative Negative 01/06/2024 11:32 EDT [facility] Ketones UA Trace(A) Negative 01/06/2024 11:32 [facility] Specific [place], Urine >=1.030 1.001 - 1.030 01/06/2024 11:32 [facility] Blood UA Negative Negative 01/06/2024 11:32 [facility] Nitrite UA Negative Negative 01/06/2024 11:32 [facility] Leukocyte Esterase UA 1+(A) Negative 01/06/2024 11:32 [facility] Protein UA Trace(A) Negative mg/dL 01/06/2024 11:32 [facility] pH, UA 5.5 <8.5 01/06/2024 11:32 [facility] Urine RBC Count, Manual 0 - 2 0 - 2 Cells/HPF 01/06/2024 11:32 [facility] Urine WBC Count 10 - 50(A) 0 - 3 Cells/HPF 01/06/2024 11:32 [facility] Urine Squamous Count, Manual Many(A) None Seen Cells/HPF 01/06/2024 11:32 [facility] Urine Hyaline Cast Count, Manual <=10 <=10 Casts/LPF 01/06/2024 11:32 [facility] Urine Bacteria Count, Manual Many(A) None Seen Bacteria/HP F 01/06/2024 11:32 [facility] Urobilinogen UA 0.2 0.2-1.0 mg/dL mg/dL 01/06/2024 11:32 [facility] Urine URINE SPECIMEN OBTAINED BY CLEAN CATCH PROCEDURE / Unknown Urine Collect / Unknown 01/06/2024 10:28 T 01/06/2024 11:07 [facility] - 01/06/2024 11:32 [facility] Urine Sediment Analysis results are unreliable on urines that are unrefrigerated for >2 hrs or refrigerated >8 hrs. A Urine Culture test has been reflexively ordered based on result criteria from the Urine Sediment Analysis. Melida Barrera MD URINALYSIS ORDERABL ES Performing Organization Address City/[facility]/ZIP Co de Phone Number [facility] [address] [place] [address] * CCP ANTIBODIES (01/06/2024 10:28 EDT) [facility] CCP Antibodies <2.5 <5.0 U/mL 01/07/2024 8:50 EDT [facility] Blood VENOUS BLOOD / Unknown Venipuncture / Unknown 01/06/2024 10:28 EDT 01/06/2024 10:47 EDT Melida Barrera MD IMMUNOLOGY AND SERO LOGY ORDERABLES Performing Organization Address [facility] Co de Phone Number [facility] [address] [place] [address] * (ABNORMAL) DOUBLE STRANDED DNA ANTIBODY, IGG (01/06/2024 10:28 EDT) Only the most recent of2 resultswithin the time period is included. [facility] dsDNA Ab, IgG 42.7(H) <27.0 IU/mL 01/07/2024 12:48 EDT [facility] Comment: Negative: <27.0 IU/mL Indeterminate: 27.0 - 35.0 IU/mL Positive: >35.0 IU/mL Results were obtained with [employer] QUANTA Flash dsDNA chemiluminescent immunoassay. Values obtained with different manufacturers' assay methods may not be used interchangeably. Blood VENOUS BLOOD / Unknown Venipuncture / Unknown 01/06/2024 10:28 EDT 01/06/2024 10:48 EDT Melida Barrera MD IMMUNOLOGY AND SERO LOGY ORDERABLES Performing Organization Address [facility]/ZIP Co de Phone Number [facility] [address] [place] [address] * COMPLETE BLOOD COUNT AND DIFFERENTIAL (01/06/2024 10:28 EDT) [facility] WBC 7.69 4.00 - 12.40 K/cmm 01/06/2024 10:41 [facility] RBC 4.52 3.86 - 5.04 M/cmm 01/06/2024 10:41 [facility] Hemoglobin 13.0 11.6 - 15.2 g/dL 01/06/2024 10:41 [facility] HCT 40.0 34.9 - 44.4 % 01/06/2024 10:41 [facility] MCV 89 81 - 98 fL 01/06/2024 10:41 [facility] MCH 28.8 26.7 - 33.3 pg 01/06/2024 10:41 [facility] MCHC 32.5 32.1 - 35.9 g/dL 01/06/2024 10:41 [facility] RDW-CV 12.3 <14.7 % 01/06/2024 10:41 [facility] RDW-SD 39.9 <50.4 fl 01/06/2024 10:41 [facility] PLT 312 141 - 377 K/cmm 01/06/2024 10:41 [facility] MPV 10.4 9.5 - 12.7 fL 01/06/2024 10:41 [facility] % Neutrophils 55.8 % 01/06/2024 10:41 [facility] % Lymphocytes 31.6 % 01/06/2024 10:41 [facility] % Monocytes 6.6 % 01/06/2024 10:41 [facility] % Eosinophils 5.1 % 01/06/2024 10:41 [facility] % Basophils 0.5 % 01/06/2024 10:41 [facility] % Immature Grans 0.4 <0.9 % 01/06/20 10:41 [facility] Absolute Neutrophils 4.29 2.20 - 8.85 K/cmm 01/06/2024 10:41 [facility] Absolute Lymphocytes 2.43 1.09 - 3.30 K/cmm 01/06/2024 10:41 [facility] Absolute Monocytes 0.51 0.10 - 0.80 K/cmm 01/06/2024 10:41 [facility] Absolute Eosinophils 0.39 0.03 - 0.61 K/cmm 01/06/2024 10:41 [facility] ABS Basophils 0.04 0.01 - 0.11 K/cmm 01/06/2024 10:41 [facility] Absolute Immature Grans 0.03 0.00 - 0.06 K/cmm 01/06/2024 10:41 [facility] Type of Differential: Auto 01/06/2024 10:41 [facility] Blood VENOUS BLOOD / Unknown Venipuncture / Unknown 01/06/2024 10:28 EDT 01/06/2024 10:38 EDT Melida Barrera MD PACKAGES & DNA PROB E ORDERABLES Performing Organization Address City/[facility]/ZIP Co de Phone Number [facility] [address] [place] [address] * BACTERIAL CULTURE, URINE (01/06/2024 10:28 EDT) Organism ID [id number] to [id number] CFU/ml VITEK SUSCEPTIBILITY 01/07/2024 9:50 EDT [facility] Comment: Usual urogenital rosa. Urine URINE SPECIMEN OBTAINED BY CLEAN CATCH PROCEDURE / Unknown Urine Collect / Unknown 01/06/2024 10:28 EDT 01/06/2024 11:32 EDT Melida Barrera MD MICROBIOLOGY - GENE RAL ORDERABLES Performing Organization Address City/[facility]/ZIP Co de Phone Number [facility] [address] [place], [place] [id number] * C3 COMPLEMENT (01/06/2024 10:28 EDT) C3 Complement 136 81 - 157 mg/dL 01/07/2024 9:43 EDT [facility] Blood VENOUS BLOOD / Unknown Venipuncture / Unknown 01/06/2024 10:28 EDT 01/06/2024 10:47 EDT Melida Barrera MD CHEMISTRY & BLOOD G ORDERABLES Performing Organization Address City/[facility]/ZIP Co de Phone Number [facility] [address] [place] [address] * C4 COMPLEMENT (01/06/2024 10:28 EDT) C4 Complement 21 13 - 39 mg/dL 01/07/2024 9:43 EDT [facility] Blood VENOUS BLOOD / Unknown Venipuncture / Unknown 01/06/2024 10:28 EDT 01/06/2024 10:47 EDT Melida Barrera MD CHEMISTRY & BLOOD G ORDERABLES Performing Organization Address City/[facility]/ZIP Co de Phone Number [facility] [address] [place] [address] * (ABNORMAL) COMPREHENSIVE METABOLIC PANEL (CMP) (01/06/2024 10:28 EDT) Sodium 140 136 - 145 mmol/L 01/06/2024 11:19 [facility] Potassium 4.5 3.5 - 5.0 mmol/L 01/06/2024 11:19 [facility] Chloride 106 96 - 110 mmol/L 01/06/2024 11:19 [facility] CO2 Total 21(L) 22 - 32 mmol/L 01/06/2024 11:19 [facility] Glucose 84 70 - 99 mg/dl 01/06/2024 11:19 [facility] BUN 14 10 - 26 mg/dL 01/06/2024 11:19 [facility] Creatinine 0.78 0.52 - 1.04 mg/dL 01/06/2024 11:19 [facility] eGFR 105 >60 mL/min/1.7 3m2 01/06/2024 11:19 [facility] Total Protein 7.8 6.3 - 8.2 g/dL 01/06/2024 11:19 [facility] Albumin 4.5 3.4 - 4.9 g/dL 01/06/2024 11:19 [facility] Alkaline Phosphatase 82 38 - 126 U/L 01/06/2024 11:19 [facility] AST 21 15 - 46 U/L 01/06/2024 11:19 [facility] ALT 21 <35 U/L 01/06/2024 11:19 [facility] Bilirubin, Total 0.9 <1.4 mg/dL 01/06/20 11:19 [facility] Calcium 9.7 8.5 - 10.5 mg/dL 01/06/2024 11:19 [facility] Albumin/Globulin Ratio 1.4 1.0 - 2.5 01/06/2024 11:19 [facility] Anion Gap 13 5 - 14 mmol/L 01/06/2024 11:19 [facility] Blood VENOUS BLOOD / Unknown Venipuncture / Unknown 01/06/2024 10:28 EDT 01/06/2024 10:47 EDT Melida Barrera MD CHEMISTRY & BLOOD G ORDERABLES [facility] [address] [place], [place] [phone] * WENDY ANTIBODY PANEL (12/10/2023 15:30 EDT) Ro52 Anitbody, IgG <2.3 <20.0 CU 2023 18:11 [facility] Comment:Results were obtaine d with the [employer] Flash Ro52 chemiluminescent immunoassay. Values obtained with different manufacturers' assay methods must not be used interchangeably. Ro60 Antibody, IgG <7.0 <20.0 CU 2023 18:11 T [facility] Comment:Results were obtaine d with the [employer] QUANTA Flash Ro60 chemiluminescent immunoassay. Values obtained with different manufacturers' assay methods must not be used interchangeably. SSB Antibody, IgG <3.3 <20.0 CU 024 18:11 T [facility] Comment:Results were obtaine d with the [employer] Flash SS-B chemiluminescent immunoassay. Values obtained with different manufacturers' assay methods must not be used interchangeably. SM (Steele) Antibody, IgG <8.0 <20.0 CU 12/14/2023 18:11 T [facility] Comment:Results were obtaine d with the [employer] QUANTA Flash Sm chemiluminescent immunoassay. Values obtained with different manufacturers' assay methods must not be used interchangeably. FINE PATCHER Antibody, IgG <6.0 <20.0 CU 024 18:11 [facility] Comment:Results were obtaine d with the [employer] FINE PATCHER chemilumenscent immunoassay. Values obtained with different manufacturers' assay methods may not be used interchangeably. Blood VENOUS BLOOD / Unknown 12/10/2023 15:30 EDT 12/11/2023 16:59 EDT Provider Outr Resulting Lab IMMUNOLOGY A ND SEROLOGY ORDERABLES [facility] [address] [place] [address] from Last 3 Months Care Teams Continuous Yarn Dyeing Machine Operator Relationship Specialty Start Date End Date Marisol Palmer MD [address] [place] [address] PCP - General 12/28/23
--- OUTSIDE RECORDS SUMMARY | 2024-03-10 12:22 | XMS_ITS | Encounter Summary ---
Author Organization [facility] Address [address] [place] [address] Care Team Providers Care Road Sign Installer Name Role Phone Unknown, Provider Primary Care Provider [phone] Marisol Palmer MD Primary Care Provider [phone] Encounter Details Date Type Department Care Team (Late st Contact Info) Description 01/19/2021 Lab Requisition [facility] Pathology & Laboratory Medicine - [address] [address] Outr Resulting Lab, Provider Social History Tobacco [...] Contact Info) Description 07/07/2024 13:30 EST Telemedicine [facility] Rheumatology [address] [place] [address] Melida Barrera MD [address] [facility], [address] [place] [phone] documented as of this encounter Procedures Procedure Name Priority Date/Time Associated Diagnosis Comments CHLAMYDIA/N. GONORRHOEAE AMPLIFIED NUCLEIC ACID Routine 01/18/2021 12:35 EDT documented in this encounter Results * CHLAMYDIA/N. GONORRHOEAE AMPLIFIED RNA (01/18/2021 12:35 EDT) Neisseria gonorrhoeae Result Negative Negative 01/21/2021 15:36 EDT [facility] Chlamydia trachomatis Result Negative Negative 01/21/2021 15:36 EDT [facility] Urine URINE / Unknown 01/18/2021 1 2:35 EDT 01/20/2021 18:21 EDT Narrative [facility] - 01/21/2021 15:36 EDT A first catch urine specimen is acceptable for detection of Gonorrhea and Chlamydia, but might detect up to 10% fewer infections when compared with vaginal and endocervical swab samples. Provider Outr Resulting Lab MICROBIOLOGY - GENERAL ORDERABLES [facility] [address] [place] [address] documented in this encounter Visit Diagnoses Not on filedocumented in this encounter Care Teams Road Sign Installer Relationship Specialty Start Date End Date Unknown, ProviderMD PCP - General 02/23/17 12/27/23 Marisol Palmer MD [address] [place] [address] PCP - General 12/28/23 documented as of this encounter
--- OUTSIDE RECORDS SUMMARY | 2024-03-10 12:22 | XMS_ITS | Encounter Summary ---
Author Organization [facility] Address [address] [place] [address] Care Team Providers Care Stunner Animal Name Role Phone Unknown, Provider Primary Care Provider [phone] Marisol Palmer MD Primary Care Provider [phone] Encounter Details Date Type Department Care Team (Late st Contact Info) Description 03/28/2020 Lab Requisition [facility] Pathology & Laboratory Medicine - [address] [address] Outr Resulting Lab, Provider Social History Tobacco [...] Contact Info) Description 07/07/2024 13:30 EST Telemedicine [facility] Rheumatology [address] [place] [address] Melida Barrera MD [address] [place] [address], [address] [place] [phone] documented as of this encounter Procedures Procedure Name Priority Date/Time Associated Diagnosis Comments SYPHILIS SEROLOGY Routine 03/27/2020 9:30 EDT documented in this encounter Results * SYPHILIS SEROLOGY (03/27/2020 9:30 EDT) Syphilis Serology Negative Negative 03/29/2020 9:41 EDT [facility] Blood VENOUS BLOOD / Unknown 03/27/2020 9:30 EDT 03/28/2020 17:02 EDT Provider Outr Resulting Lab IMMUNOLOGY A ND SEROLOGY ORDERABLES [facility] [address] [place] [address] documented in this encounter Visit Diagnoses Not on filedocumented in this encounter Care Teams Stunner Animal Relationship Specialty Start Date End Date Unknown, MD Thien PCP - General 02/23/17 12/27/23 Marisol Palmer MD [address] [place] [address] PCP - General 12/28/23 documented as of this encounter
--- OUTSIDE RECORDS SUMMARY | 2024-03-10 12:22 | XMS_ITS | Encounter Summary ---
Author Organization [facility] Address [address] [place] [address] Care Team Providers Care Answering Service Agent Name Role Phone Unknown, Provider Primary Care Provider [phone] Marisol Palmer MD Primary Care Provider [phone] Encounter Details Date Type Department Care Team (Late st Contact Info) Description 11/15/2022 Lab Requisition [facility] Pathology & Laboratory Medicine - [address] [address] Outr Resulting Lab, Provider Social History Tobacco [...] Info) Description 07/07/2024 13:30 EST Telemedicine [facility] Rheumatology [address] [place] [address] Melida Barrera MD [address] [facility], [address] [place] [phone] documented as of this encounter Procedures Procedure [...] C Antibody Negative Negative 11/17/2022 10:37 EDT [facility] Blood VENOUS BLOOD / Unknown 11/14/2022 15:00 EDT 11/15/2022 21:32 EDT Provider Outr Resulting Lab CHEMISTRY & BLOOD GAS ORDERABLES Performing Organization Address [facility] Co de Phone Number [facility] [address] [place] [address] * HERPES SIMPLEX VIRUS (HSV) TYPE 1 & 2 AB, IGG (11/14/2022 15:00 EDT) HSV Type 1 Ab, IgG Negative Negative 11/17/2022 10:20 EDT [facility] Comment: No detectable antibodies to [...] Ab, IgG Negative Negative 11/17/2022 10:20 EDT [facility] Comment: No detectable antibodies to [...] A ND SEROLOGY ORDERABLES Performing Organization Address [facility] Co de Phone Number [facility] [address] [place] [address] documented in this encounter Visit Diagnoses Not on filedocumented in this encounter Care Teams Answering Service Agent Relationship Specialty Start Date End Date Unknown, Provider, PCP - General 02/23/17 12/27/23 Marisol Palmer MD [address] [place] [address] PCP - General 12/28/23 documented as of this encounter
--- OUTSIDE RECORDS SUMMARY | 2024-03-10 12:22 | XMS_ITS | Encounter Summary ---
Author Organization [facility] Address [address] [place] [address] Care Team Providers Care Forms Analysis Manager Name Role Phone Unknown, Provider Primary Care Provider [phone] Marisol Palmer MD Primary Care Provider [phone] Encounter Details Date Type Department Care Team (Late st Contact Info) Description 03/28/2020 Lab Requisition [facility] Pathology & Laboratory Medicine - [address] [address] Outr Resulting Lab, Provider Social History Tobacco [...] Telemedicine [facility] - [facility] Rheumatology [address] [place] [address] Melida Barrera MD [address] [place] [address], [address] [place] [phone] documented as of this encounter Procedures Procedure Name Priority Date/Time Associated Diagnosis Comments CHLAMYDIA/N. GONORRHOEAE AMPLIFIED NUCLEIC ACID Routine 03/27/2020 9:30 EDT documented in this encounter Results * CHLAMYDIA/N. GONORRHOEAE AMPLIFIED RNA (03/27/2020 9:30 EDT) Neisseria gonorrhoeae Result Negative Negative 03/29/2020 14:12 EDT [facility] Chlamydia trachomatis Result Negative Negative 03/29/2020 14:12 EDT [facility] Swab ENTIRE WALL OF CERVIX / Unknown 03/27/2020 9:30 EDT 03/28/2020 16:53 EDT Provider Outr Resulting Lab MICROBIOLOGY - GENERAL ORDERABLES Performing Organization Address City/State/[facility] Co de Phone Number [facility] [address] [place] [address] documented in this encounter Visit Diagnoses Not on filedocumented in this encounter Care Teams Forms Analysis Manager Relationship Specialty Start Date End Date Unknown, Provider, PCP - General 02/23/17 12/27/23 Marisol Palmer MD [address] [place] [address] PCP - General 12/28/23 documented as of this encounter
--- OUTSIDE RECORDS SUMMARY | 2024-03-10 12:22 | XMS_ITS | Encounter Summary ---
Author Organization [facility] Address [address] [place] [address] Care Team Providers Care Banjo Repair Person Name Role Phone Unknown, Provider Primary Care Provider Marisol Palmer MD Primary Care Provider [phone] Encounter Details Date Type Department Care Team (Late st Contact Info) Description 12/12/2022 Lab Requisition [facility] Pathology & Laboratory Medicine - [address] [address] Marisol Palmer MD [address] [place] [address] Encounter for other general examination Social History [...] Contact Info) Description 07/07/2024 13:30 EST Telemedicine [facility] Rheumatology [address] [place] [address] Melida Barrera MD 111 [facility], [facility] 5 [place] [phone] documented as of this encounter Procedures Procedure [...] explore management options, if applicable. 12/16/2022 13:50 [facility] Final Diagnosis A. SKIN OF AXILLA, RIGHT, EXCISION: - Melanocytic nevus, compound type. B. SKIN OF LEFT, EXCISION: - Melanocytic nevus, predominantly intradermal type. C. SKIN OF FOREARM, LEFT, EXCISION: - Melanocytic nevus, predominantly intradermal type with epithelioid cell focus. See comment. 12/16/2022 13:50 [facility] Diagnosis Comment In specimen C, [...] been examined on block C1. 12/16/2022 13:50 [facility] Attestation By the signature below, the attending physician certifies that they have 1) personally conducted a gross and/or microscopic examination of the described specimen(s), and/or personally interpreted the results of laboratory testing of the described specimen(s), and 2) personally rendered or confirmed the above diagnosis. 12/16/2022 13:50 [facility] at 1350 Clinical History 3 nevi with peripartum changes that catch on things, right axilla; 1 cm, raised, brown, left axilla; 7 mm, raised, brown, left forearm-6 x 3 mm, raised, darker central portion 12/16/2022 13:50 [facility] Gross Description A. Received in [...] Joelle Coffman 12/15/2022 12:10 12/16/2022 13:50 EDT [facility] Performing Lab [facility] 12/16/2022 13:50 EDT [facility] Scanned Images 12/16/2022 13:50 T [facility] Tissue TISSUE SPECIMEN FROM SKIN / Unknown 12/11/2022 15:40 EDT 12/12/2022 17:56 EDT Tissue specimen (specimen) SPECIMEN FROM SKIN / Unknown 12/11/2022 15:40 EDT 12/12/2022 17:56 EDT Tissue specimen (specimen) SPECIMEN FROM SKIN / Unknown 12/11/2022 15:40 EDT 12/12/2022 17:56 EDT Marisol Palmer MD PATHOLOGY ORDERABLES [facility] [address] [place] [address] documented in this encounter Visit Diagnoses Diagnosis Encounter for other general examination documented in this encounter Care Teams Banjo Repair Person Relationship Specialty Start Date End Date Unknown, Provider, PCP - General 02/23/17 12/27/23 Marisol Palmer MD [address] [place] [address] PCP - General 12/28/23 documented as of this encounter
--- OUTSIDE RECORDS SUMMARY | 2024-03-10 12:22 | XMS_ITS | Encounter Summary ---
Author Organization [facility] Address [address] [place] [address] Care Team Providers Care Bilingual Interpreter Name Role Phone Unknown, Provider Primary Care Provider [phone] Marisol Palmer MD Primary Care Provider [phone] Encounter Details Date Type Department Care Team (Late st Contact Info) Description 12/31/2022 Lab Requisition [facility] Pathology & Laboratory Medicine - [address] [address] Outr Resulting Lab, Provider Social History Tobacco [...] Contact Info) Description 07/07/2024 13:30 EST Telemedicine [facility] Rheumatology [address] [place] [address] Melida Barrera MD 111 [facility], Level 5 [place] [phone] documented as of this encounter Procedures Procedure Name Priority Date/Time Associated Diagnosis Comments T3 FREE Routine 12/30/2022 10:15 EDT documented in this encounter Results * T3 FREE (12/30/2022 10:15 EDT) T3, Free 4.3 2.8 - 5.3 pg/mL 12/31/2022 17:56 EDT [facility] Blood VENOUS BLOOD / Unknown 12/30/2022 10:15 EDT 12/31/2022 17:09 EDT Provider Outr Resulting Lab CHEMISTRY & BLOOD GAS ORDERABLES [facility] [address] [place] [address] documented in this encounter Visit Diagnoses Not on filedocumented in this encounter Care Teams Bilingual Interpreter Relationship Specialty Start Date End Date Unknown, Provider, PCP - General 02/23/17 12/27/23 Marisol Palmer MD [address] [place] [address] PCP - General 12/28/23 documented as of this encounter
--- OUTSIDE RECORDS SUMMARY | 2024-03-10 12:22 | XMS_ITS | Encounter Summary ---
Author Organization [facility] Address [address] [place] [address] Care Team Providers Care Personnel Clerks Supervisor Name Role Phone Unknown, Provider Primary Care Provider [phone] Marisol Palmer MD Primary Care Provider [phone] Encounter Details Date Type Department Care Team (Late st Contact Info) Description 03/26/2023 Lab Requisition [facility] Pathology & Laboratory Medicine - [address] [address] Ellyn Portillo MD [address] [place] [address] [place] [address] Encounter for other general examination Social History [...] Contact Info) Description 07/07/2024 13:30 EST Telemedicine [facility] Rheumatology [address] [place] [address] Melida Barrera MD [address] [facility], [facility] 5 [place] [address] documented as of this encounter [...] explore management options, if applicable. 03/31/2023 18:33 [facility] Final Diagnosis A. APPENDIX, APPENDECTOMY: - Early (mucosal) acute appendicitis. 03/31/2023 18:33 [facility] Attestation There was significant resident/fellow involvement in the diagnostic evaluation of this case. By the signature below, the attending physician certifies that they have personally conducted a gross and/or microscopic examination of the described specimens and rendered or confirmed the above diagnosis. 03/31/2023 18:33 [facility] at 1833 Clinical History Acute appendicitis 03/31/2023 18:33 [facility] Gross Description A. Received [...] BOTELLO MD PhD 03/26/2023 16:19 03/31/2023 18:33 [facility] Resident/Freedom w: Jermaine Botello MD PhD 03/31/2023 18:33 [facility] Performing Lab [facility] 03/31/2023 18:33 [facility] Scanned Images 03/31/2023 18:33 [facility] Tissue APPENDIX STRUCTURE / Unknown 03/25/2023 12:25 EDT 03/26/2023 6:53 EDT Ellyn Portillo MD PATHOLOGY ORDERA IVETT [facility] [address] [place] [address] documented in this encounter Visit Diagnoses Diagnosis Encounter for other general examination documented in this encounter Care Teams Personnel Clerks Supervisor Relationship Specialty Start Date End Date Unknown, Provider, PCP - General 02/23/17 12/27/23 Marisol aPlmer MD [address] [place] [address] PCP - General 12/28/23 documented as of this encounter
--- OUTSIDE RECORDS SUMMARY | 2024-03-10 12:22 | XMS_ITS | Encounter Summary ---
Author Organization [facility] Address [address] [place] [address] Care Team Providers Care Shape Carver Name Role Phone Unknown, Provider Primary Care Provider [phone] Marisol Palmer MD Primary Care Provider [phone] Encounter Details Date Type Department Care Team (Late st Contact Info) Description 12/11/2023 Lab Requisition [facility] Pathology & Laboratory Medicine - [address] [address] Outr Resulting Lab, Provider Social History Tobacco [...] Contact Info) Description 07/07/2024 13:30 EST Telemedicine [facility] Rheumatology [address] [place] [address] Melida Barrera MD 111 [facility], Level [address] [place] [phone] documented as of this encounter Procedures Procedure [...] C Antibody Negative Negative 12/11/2023 21:40 EDT [facility] Blood VENOUS BLOOD / Unknown 12/10/2023 15:30 EDT 12/11/2023 16:59 EDT Provider Outr Resulting Lab CHEMISTRY & BLOOD GAS ORDERABLES Performing Organization Address [facility] de Phone Number [facility] [address] [place] [address] * (ABNORMAL) DOUBLE STRANDED DNA ANTIBODY, IGG (12/10/2023 15:30 EDT) Pathologist [facility] dsDNA Ab, IgG 45.1(H) <27.0 IU/mL 12/15/2023 6:47 EDT [facility] Comment: Negative: <27.0 IU/mL Indeterminate: 27.0 - 35.0 IU/mL Positive: >35.0 IU/mL Results were obtained with [employer] Flash dsDNA chemiluminescent immunoassay. Values obtained with different manufacturers' assay methods may not be used interchangeably. Blood VENOUS BLOOD / Unknown 12/10/2023 15:30 EDT 12/11/2023 16:59 EDT Provider Outr Resulting Lab IMMUNOLOGY A ND SEROLOGY ORDERABLES Performing Organization Address City/[facility] Co de Phone Number [facility] [address] [place] [address] * WENDY ANTIBODY PANEL (12/10/2023 15:30 EDT) Ro52 Anitbody, IgG <2.3 <20.0 CU 2023 18:11 EDT [facility] Comment:Results were obtaine d with the [employer] QUANTA Flash Ro52 chemiluminescent immunoassay. Values obtained with different manufacturers' assay methods must not be used interchangeably. Ro60 Antibody, IgG <7.0 <20.0 CU 2023 18:11 EDT [facility] Comment:Results were obtaine d with the [employer] Flash Ro60 chemiluminescent immunoassay. Values obtained with different manufacturers' assay methods must not be used interchangeably. SSB Antibody, IgG <3.3 <20.0 CU 024 18:11 EDT [facility] Comment:Results were obtaine d with the [employer] Flash SS-B chemiluminescent immunoassay. Values obtained with different manufacturers' assay methods must not be used interchangeably. SM (Steele) Antibody, IgG <8.0 <20.0 CU 12/14/2023 18:11 EDT [facility] Comment:Results were obtaine d with the [employer] Flash Sm chemiluminescent immunoassay. Values obtained with different manufacturers' assay methods must not be used interchangeably. FACILITIES MECHANICAL DESIGN ENGINEER Antibody, IgG <6.0 <20.0 CU 024 18:11 EDT [facility] Comment:Results were obtaine d with the [employer] Flash FACILITIES MECHANICAL DESIGN ENGINEER chemilumenscent immunoassay. Values obtained with different manufacturers' assay methods may not be used interchangeably. Blood VENOUS BLOOD / Unknown 12/10/2023 15:30 EDT 12/11/2023 16:59 EDT Provider Outr Resulting Lab IMMUNOLOGY A ND SEROLOGY ORDERABLES Performing Organization Address City/State/[facility] Co de Phone Number [facility] [address] [place], [place] [phone] documented in this encounter Visit Diagnoses Not on filedocumented in this encounter Care Teams Shape Carver Relationship Specialty Start Date End Date Unknown, Provider, PCP - General 02/23/17 12/27/23 Marisol Palmer MD [address] [place] [address] PCP - General 12/28/23 documented as of this encounter
--- OUTSIDE RECORDS SUMMARY | 2024-03-10 12:22 | XMS_ITS | Encounter Summary ---
Author Organization [facility] Address [address] [place] [address] Care Team Providers Care Product Management Manager Name Role Phone Unknown, Provider Primary Care Provider [phone] Encounter Details Date Type Department Care Team (Late st Contact Info) Description 02/19/2017 Results Only [facility] [phone] Marisol Palmer MD [address] [place] [phone] Social History Tobacco Use Types Packs/Day Years Used Date Smoking Tobacco: Never Assessed Sex and Gender Information Value Date Recorded Sex Assigned at Not on file Gender Identity Not on file Sexual Orientation Not on file documented as of this encounter Plan of Treatment Upcoming Encounters Date Type Department Care Team (Late st Contact Info) Description 07/07/2024 13:30 EST Telemedicine [facility] - [facility] Rheumatology [address] [place] [address] Melida Barrera MD 111 [facility] 5 [place] [address] documented as of this encounter [...] PERSONS, ZARI Jain ? Accession #: ? [id number] : ? 1995 (Age: 21) ??F ?Collect [...] Report Date: ??03/03/2017 12:08 End of Report [facility] 02/19/2017 02/23/2017 Marisol Palmer MD PATHOLOGY ORDERABLES [facility] [address] [place] [address] documented in this encounter Visit Diagnoses Not on filedocumented in this encounter Care Teams Product Management Manager Relationship Specialty Start Date End Date Unknown, Provider, PCP - General 02/23/17 12/27/23 documented as of this encounter
--- OUTSIDE RECORDS SUMMARY | 2024-03-10 12:22 | XMS_ITS | Encounter Summary ---
Author Organization [facility] Address [address] [place] [address] Care Team Providers Care Tank Assembler Name Role Phone Unknown, Provider Primary Care Provider [phone] Marisol Palmer MD Primary Care Provider [phone] Encounter Details Date Type Department Care Team (Late st Contact Info) Description 04/15/2023 Lab Requisition [facility] Pathology & Laboratory Medicine - [address] [address] Jacqueline Rodriguez, HEAD FILTER TANK TENDER HELPER [address] [place] [phone] Encounter for other general examination Social [...] Contact Info) Description 07/07/2024 13:30 EST Telemedicine [facility] Rheumatology [address] [place] [address] Melida Barrera MD 111 [facility], [facility] 5 [place] [address] documented as of this encounter Procedures Procedure Name Priority Date/Time Associated Diagnosis Comments PAP TEST Today 04/14/2023 15:20 EDT Encounter for other general examination documented in this encounter Results * PAP TEST (04/14/2023 15:20 EDT) Specimens A. Cervix and/or Endocervix , ThinPrep Imaging System with Manual Evaluation 04/27/2023 13:[address] [facility] Specimen Adequacy Satisfactory for Evaluation - transformation zone component present 04/27/2023 13:[address] [facility] General Categorization Negative for intraepithelial lesion or malignancy 04/27/2023 13:[address] [facility] Attestation . 04/27/2023 13:16 [facility] at 1316 Clinical History See below 04/27/20 13:[address] [facility] Performing Lab [facility] 04/27/2023 13:[address] [facility] Scanned Images 04/27/2023 13:[address] [facility] Pap Test CERVIX UTERI STRUCTURE / Unknown 04/14/2023 15:20 EDT 04/15/2023 11:07 EDT Jacqueline Rodriguez APN PATHOLOGY ORDERAB LES [facility] [address] [place] [address] documented in this encounter Visit Diagnoses Diagnosis Encounter for other general examination documented in this encounter Care Teams Tank Assembler Relationship Specialty Start Date End Date Unknown, MD Thien PCP - General 02/23/17 12/27/23 Marisol Palmer MD [address] [place] [address] PCP - General 12/28/23 documented as of this encounter
--- OUTSIDE RECORDS SUMMARY | 2024-03-10 12:22 | XMS_ITS | Encounter Summary ---
Author Organization [facility] Address [address] [place] [address] Care Team Providers Care Privacy Specialist Name Role Phone Unknown, Provider Primary Care Provider [phone] Marisol Palmer MD Primary Care Provider [phone] Encounter Details Date Type Department Care Team (Late st Contact Info) Description 03/30/2020 Lab Requisition [facility] Pathology & Laboratory Medicine - [address] [address] Unique Francois PA-C [address] [place] [address] Encounter for other general examination Social History [...] Description 07/07/2024 13:[address] [facility] Rheumatology [address] [place] [address] Melida Barrera MD 111 [facility], [facility] 5 [place] [phone] documented as of this encounter Procedures Procedure Name Priority Date/Time Associated Diagnosis Comments PAP TEST Today 03/27/2020 12:00 EDT Encounter for other general examination documented in this encounter Results * PAP TEST (03/27/2020 12:00 EDT) Specimens A. Cervix and/or Endocervix , ThinPrep Imaging System with Manual Evaluation 04/10/2020 12:13 EDT [facility] Specimen Adequacy Satisfactory for Evaluation - transformation zone component present 04/10/2020 12:13 EDT [facility] General Categorization Negative for intraepithelial lesion or malignancy 04/10/2020 12:13 EDT [facility] Descriptive Diagnosis Shift in rosa present suggestive of bacterial vaginosis. 04/10/2020 12:13 EDT [facility] Attestation . 04/10/2020 12:13 T [facility] at 1213 Clinical History SEE ORDER COMMENTS 04/10/2020 12:13 EDT [facility] Performing Lab [facility] 04/10/2020 12:13 T [facility] Scanned Images 04/10/2020 12:13 T [facility] Papanicolaou smear specimen (specimen) CERVIX UTERI STRUCTURE / Unknown 03/27/2020 12:00 EDT 03/30/2020 10:05 EDT Unique Francois PA-C PATHOLOGY ORDERA BLES [facility] [address] [place] [address] documented in this encounter Visit Diagnoses Diagnosis Encounter for other general examination documented in this encounter Care Teams Privacy Specialist Relationship Specialty Start Date End Date Unknown, Provider, PCP - General 02/23/17 12/27/23 Marisol Palmer MD [address] [place] [address] PCP - General 12/28/23 documented as of this encounter
--- OUTSIDE RECORDS SUMMARY | 2024-03-10 12:22 | XMS_ITS | Encounter Summary ---
Author Organization [facility] Address [address] [place] [address] Care Team Providers Care Project Designer Name Role Phone Unknown, Provider Primary Care Provider [phone] Marisol Palmer MD Primary Care Provider [phone] Encounter Details Date Type Department Care Team (Late st Contact Info) Description 02/20/2022 Lab Requisition [facility] Pathology & Laboratory Medicine - [address] [address] Outr Resulting Lab, Provider Social History Tobacco [...] Contact Info) Description 07/07/2024 13:30 EST Telemedicine [facility] Rheumatology [address] [place] [address] Melida Barrera MD 111 [facility], Level [address] [place] [phone] documented as of this encounter Procedures Procedure Name Priority Date/Time Associated Diagnosis Comments CHLAMYDIA/N. GONORRHOEAE AMPLIFIED NUCLEIC ACID Routine 02/19/2022 15:40 EDT documented in this encounter Results * CHLAMYDIA/N. GONORRHOEAE AMPLIFIED RNA (02/19/2022 15:40 EDT) Neisseria gonorrhoeae Result Negative Negative 02/21/2022 14:52 EDT [facility] Chlamydia trachomatis Result Negative Negative 02/21/2022 14:52 EDT [facility] Urine URINE / Unknown 02/19/2022 1 5:40 EDT 02/20/2022 19:50 EDT Narrative [facility] - 02/21/2022 14:52 EDT A first catch urine specimen is acceptable for detection of Gonorrhea and Chlamydia, but might detect up to 10% fewer infections when compared with vaginal and endocervical swab samples. Provider Outr Resulting Lab MICROBIOLOGY - GENERAL ORDERABLES [facility] [address] [place] [address] documented in this encounter Visit Diagnoses Not on filedocumented in this encounter Care Teams Project Designer Relationship Specialty Start Date End Date Unknown, ProviderMD PCP - General 02/23/17 12/27/23 Marisol Palmer MD [address] [place] [address] PCP - General 12/28/23 documented as of this encounter
--- OUTSIDE RECORDS SUMMARY | 2024-03-10 12:22 | XMS_ITS | Encounter Summary ---
Author Organization [facility] Address [address] [place] [address] Care Team Providers Care Government Instructor Name Role Phone Unknown, Provider Primary Care Provider [phone] Marisol Palmer MD Primary Care Provider [phone] Encounter Details Date Type Department Care Team (Late st Contact Info) Description 03/28/2020 Lab Requisition [facility] Pathology & Laboratory Medicine - [address] [address] Outr Resulting Lab, Provider Social History Tobacco [...] Contact Info) Description 07/07/2024 13:30 EST Telemedicine [facility] - [facility] Rheumatology [address] [place] [address] Melida Barrera MD [address] [place] [address], Level [address] [place] [phone] documented as of this encounter Procedures Procedure Name Priority Date/Time Associated Diagnosis Comments HEPATITIS C AB W REFLEX TO HCV RNA BY PCR Routine 03/27/2020 9:30 EDT documented in this encounter Results * HEPATITIS C AB W REFLEX TO HCV RNA BY PCR (03/27/2020 9:30 EDT) Hep C Antibody Negative Negative 03/29/2020 9:52 EDT [facility] Blood VENOUS BLOOD / Unknown 03/27/2020 9:30 EDT 03/28/2020 17:02 EDT Provider Outr Resulting Lab CHEMISTRY & BLOOD GAS ORDERABLES [facility] [address] [place] [address] documented in this encounter Visit Diagnoses Not on filedocumented in this encounter Care Teams Government Instructor Relationship Specialty Start Date End Date Unknown, Provider, PCP - General 02/23/17 12/27/23 Marisol Palmer MD [address] [place] [address] PCP - General 12/28/23 documented as of this encounter
--- OUTSIDE RECORDS SUMMARY | 2024-03-10 12:22 | XMS_ITS | Encounter Summary ---
Author Organization [facility] Address [address] [place] [address] Care Team Providers Care Lead Trainer Name Role Phone Unknown, Provider Primary Care Provider [phone] Marisol Palmer MD Primary Care Provider [phone] Encounter Details Date Type Department Care Team (Late st Contact Info) Description 12/02/2023 Lab Requisition [facility] Pathology & Laboratory Medicine - [address] [address] Outr Resulting Lab, Provider Social History Tobacco [...] Contact Info) Description 07/07/2024 13:30 EST Telemedicine [facility] - [facility] Rheumatology [address] [place] [address] Melida Barrera MD [address] [facility], [address] [place] [phone] documented as of this encounter Procedures Procedure Name Priority Date/Time Associated Diagnosis Comments HOLD SST Today 12/01/2023 16:00 EDT RHEUMATOID FACTOR Today 12/01/2023 16: 00 EDT ANTI NUCLEAR AB (VANDANA), IFA Today 12/01/2023 16:00 EDT documented in this encounter Results * HOLD SST (12/01/2023 16:00 EDT) Hold Hold 12/02/2023 19:46 EDT [facility] Blood VENOUS BLOOD / Unknown 12/01/2023 16:00 EDT 12/02/2023 18:39 EDT Provider Outr Resulting Lab LAB INFO SER VICE AND SUPPORT & PHONE RESULT Performing Organization Address [facility]/ZIP Co de Phone Number [facility] [address] [place] [address] * RHEUMATOID FACTOR (12/01/2023 16:00 EDT) Pathologist [facility] Rheumatoid Factor <8.6 <12.0 IU/mL 12/02/2023 17:53 EDT [facility] Blood VENOUS BLOOD / Unknown 12/01/2023 16:00 EDT 12/02/2023 17:30 EDT Provider Outr Resulting Lab CHEMISTRY & BLOOD GAS ORDERABLES Performing Organization Address [facility] Co de Phone Number [facility] [address] [place] [address] * (ABNORMAL) ANTI NUCLEAR AB (VANDANA), IFA (12/01/2023 16:00 EDT) Pathologist [facility] VANDANA Interpretation Positive(A) Negative 12/03/2023 13:21 EDT [facility] Comment: For titers greater [...] Pattern 1 1:320 Speckled 12/03/2023 13:21 EDT [facility] Blood VENOUS BLOOD / Unknown 12/01/2023 16:00 EDT 12/02/2023 17:30 EDT Narrative [facility] - 12/03/2023 13:21 EDT Results were obtained with the INOVA NOVA Lite HEp-2 VANDANA Kit by indirect immunofluorescence. Provider Outr Resulting Lab IMMUNOLOGY A ND SEROLOGY ORDERABLES Performing Organization Address City/State/[facility] Co de Phone Number [facility] [address] [place], [place] [address] documented in this encounter Visit Diagnoses Not on filedocumented in this encounter Care Teams Lead Trainer Relationship Specialty Start Date End Date Unknown, Provider, PCP - General 02/23/17 12/27/23 Marisol Palmer MD [address] [place] [address] PCP - General 12/28/23 documented as of this encounter
--- OUTSIDE RECORDS SUMMARY | 2024-03-10 12:22 | XMS_ITS | Clinical Summary ---
Author Organization [facility] [place] [address] Care Team Providers Care Marzipan Molder Name Role Phone Unavailable Primary Care Provider [...]
--- OUTSIDE RECORDS SUMMARY | 2024-03-10 12:22 | XMS_ITS | Encounter Summary ---
Author Organization [facility] Address [address] [place] [address] Care Team Providers Care Child Development Assistant Name Role Phone Unknown, Provider Primary Care Provider [phone] Marisol Palmer MD Primary Care Provider [phone] Encounter Details Date Type Department Care Team (Late st Contact Info) Description 11/15/2022 Lab Requisition [facility] Pathology & Laboratory Medicine - [address] [address] Outr Resulting Lab, Provider Social History Tobacco [...] Contact Info) Description 07/07/2024 13:30 EST Telemedicine [facility] - [facility] Rhe[facility]ology [address] [place] [address] Melida Barrera MD [address] [facility], [address] [place] [phone] documented as of this encounter Procedures Procedure Name Priority Date/Time Associated Diagnosis Comments CHLAMYDIA/N. GONORRHOEAE AMPLIFIED NUCLEIC ACID Routine 11/14/2022 15:00 EDT documented in this encounter Results * CHLAMYDIA/N. GONORRHOEAE AMPLIFIED RNA (11/14/2022 15:00 EDT) Neisseria gonorrhoeae Result Negative Negative 11/16/2022 11:52 EDT [facility] Chlamydia trachomatis Result Negative Negative 11/16/2022 11:52 EDT [facility] Urine URINE / Unknown 11/14/2022 1 5:00 EDT 11/15/2022 21:24 EDT Narrative [facility] - 11/16/2022 11:52 EDT A first catch urine specimen is acceptable for detection of Gonorrhea and Chlamydia, but might detect up to 10% fewer infections when compared with vaginal and endocervical swab samples. Provider Outr Resulting Lab MICROBIOLOGY - GENERAL ORDERABLES [facility] [address] [place] [address] documented in this encounter Visit Diagnoses Not on filedocumented in this encounter Care Teams Child Development Assistant Relationship Specialty Start Date End Date Unknown, ProviderMD PCP - General 02/23/17 12/27/23 Marisol Palmer MD [address] [place] [address] PCP - General 12/28/23 documented as of this encounter
--- OUTSIDE RECORDS SUMMARY | 2024-03-10 12:22 | XMS_ITS | Encounter Summary ---
Author Organization [facility] Address [facility] [place] [address] Care Team Providers Care Overhead Foreman Name Role Phone Unavailable Primary Care Provider Unavailabl e Encounter Details Date Type Department Care Team (Late st Contact Info) Description 11/09/2018 External Results Laboratory at [facility] [address] [place] [phone] Jayce Mcguire MD [address] [place] [address] Social History Tobacco Use Types Packs/Day Years [...] LAB RESULT BETA STREP CULTURE (THROAT)(EXT ERNAL/ABN) [facility] 11/09/2018 2:01 AM EDT 11/09/2018 4:33 AM EDT Narrative [facility] - 11/10/2018 8:40 AM EDT [place] date: [...] GENER AL ORDERABLES Performing Organization Address City/State/[facility] Co de Phone Number [facility] [address] [place] [address] documented in this encounter Visit Diagnoses Not on filedocumented in this encounter
--- OUTSIDE RECORDS SUMMARY | 2024-03-10 12:22 | XMS_ITS | Encounter Summary ---
Author Organization [facility] Address [address] [place] [address] Care Team Providers Care Fraud Prevention Analyst Name Role Phone Unknown, Provider Primary Care Provider [phone] Marisol Palmer MD Primary Care Provider [phone] Encounter Details Date Type Department Care Team (Late st Contact Info) Description 11/15/2022 Lab Requisition [facility] Pathology & Laboratory Medicine - [address] [address] Outr Resulting Lab, Provider Social History Tobacco [...] Description 07/07/2024 13:30 EST Telemedicine [facility] - [facility] Rheumatology [address] [place] [address] Melida Barrera MD 111 [facility], [address] [place] [phone] documented as of this encounter Procedures Procedure Name Priority Date/Time Associated Diagnosis Comments HIV 1/2 ANTIGEN AND ANTIBODY, 4TH GENERATION Routine 11/14/2022 15:00 EDT documented in this encounter Results * HIV 1/2 ANTIGEN AND ANTIBODY, 4TH GENERATION (11/14/2022 15:00 EDT) HIV 1 and 2 Antibody/p24 Antigen, 4th Generation Negative Negative 11/16/2022 10:02 EDT [facility] Comment:If acute HIV-1 infec tion is suspected in a high risk patient, submit plasma specimen for HIV-1 RNA quantitation test. Blood VENOUS BLOOD / Unknown 11/14/2022 15:00 EDT 11/15/2022 21:32 EDT Narrative [facility] - 11/16/2022 10:02 EDT Fourth Generation assay performed on the Siemens Prim’Visionaur XPT. Provider Outr Resulting Lab IMMUNOLOGY A ND SEROLOGY ORDERABLES [facility] [address] [place] [address] documented in this encounter Visit Diagnoses Not on filedocumented in this encounter Care Teams Fraud Prevention Analyst Relationship Specialty Start Date End Date Unknown, Provider, PCP - General 02/23/17 12/27/23 Marisol Palmer MD [address] [place] [address] PCP - General 12/28/23 documented as of this encounter
--- OUTSIDE RECORDS SUMMARY | 2024-03-10 12:22 | XMS_ITS | Encounter Summary ---
Author Organization [facility] Address [address] [place] [address] Care Team Providers Care Administrative Officer Name Role Phone Marisol Palmer MD Primary Care Provider [phone] Encounter Details Date Type Department Care Team (Late st Contact Info) Description 01/06/2024 10:10 EDT Phlebotomy Only [facility] - Outpatient Phlebotomy Drawing [address] [place] [address] Lab, [facility] Phlebotomy Positive VANDANA (antinuclear antibody); Fibromyalgia [...] 07/07/2024 13:30 EST Telemedicine [facility] Rheumatology [address] [place] [address] Melida Barrera MD 111 [facility], [address] [place] [phone] documented as of this encounter Procedures Procedure [...] 100,000 CFU/ml VITEK SUSCEPTIBILITY 01/07/2024 9:50 EDT [facility] Comment: Usual urogenital rosa. Urine URINE SPECIMEN OBTAINED BY CLEAN CATCH PROCEDURE / Unknown Urine Collect / Unknown 01/06/2024 10:28 EDT 01/06/2024 11:32 EDT Melida Barrera MD MICROBIOLOGY - [facility] ORDERABLES [facility] [address] [place] [address] * CCP ANTIBODIES (01/06/2024 10:28 EDT) CCP Antibodies <2.5 <5.0 U/mL 01/07/2024 8:50 EDT [facility] Blood VENOUS BLOOD / Unknown Venipuncture / Unknown 01/06/2024 10:28 EDT 01/06/2024 10:47 EDT Melida Barrera MD IMMUNOLOGY AND SERO LOGY ORDERABLES Performing Organization Address [facility] Co de Phone Number [facility] [address] [place] [address] * (ABNORMAL) DOUBLE STRANDED DNA ANTIBODY, IGG (01/06/2024 10:28 EDT) [facility] dsDNA Ab, IgG 42.7(H) <27.0 IU/mL 01/07/2024 12:48 EDT [facility] Comment: Negative: <27.0 IU/mL Indeterminate: 27.0 - 35.0 IU/mL Positive: >35.0 IU/mL Results were obtained with LengowA Flash dsDNA chemiluminescent immunoassay. Values obtained with different manufacturers' assay methods may not be used interchangeably. Blood VENOUS BLOOD / Unknown Venipuncture / Unknown 01/06/2024 10:28 EDT 01/06/2024 10:48 EDT Melida Barrera MD IMMUNOLOGY AND SERO LOGY ORDERABLES Performing Organization Address [facility] Co de Phone Number [facility] [address] [place] [address] * C3 COMPLEMENT (01/06/2024 10:28 EDT) [facility] C3 Complement 136 81 - 157 mg/dL 01/07/2024 9:43 EDT [facility] Blood VENOUS BLOOD / Unknown Venipuncture / Unknown 01/06/2024 10:28 EDT 01/06/2024 10:47 EDT Melida Barrera MD CHEMISTRY & BLOOD G ORDERABLES Performing Organization Address City/[facility] Co de Phone Number [facility] [address] [place] [address] * C4 COMPLEMENT (01/06/2024 10:28 EDT) C4 Complement 21 13 - 39 mg/dL 01/07/2024 9:43 EDT [facility] Blood VENOUS BLOOD / Unknown Venipuncture / Unknown 01/06/2024 10:28 EDT 01/06/2024 10:47 EDT Melida Barrera MD CHEMISTRY & BLOOD G ORDERABLES Performing Organization Address City/[facility] Co de Phone Number [facility] [address] [place] [address] * (ABNORMAL) UA CHEMICAL & SEDIMENT + REFLEX TO CULTURE (01/06/2024 10:28 EDT) Color UA Yellow Colorless, Yellow 01/06/2024 11:32 [facility] Clarity UA Clear Clear 01/06/2024 11:32 [facility] Glucose UA Negative Negative mg/dL 01/06/2024 11:32 [facility] Bilirubin UA Negative Negative 01/06/2024 11:32 [facility] Ketones UA Trace(A) Negative 01/06/2024 11:32 [facility] Specific [place], Urine >=1.030 1.001 - 1.030 01/06/2024 11:32 [facility] Blood UA Negative Negative 01/06/2024 11:32 [facility] Nitrite UA Negative Negative 01/06/2024 11:32 [facility] Leukocyte Esterase UA 1+(A) Negative 01/06/2024 11:32 [facility] Protein UA Trace(A) Negative mg/dL 01/06/2024 11:32 [facility] pH, UA 5.5 <8.5 01/06/2024 11:32 [facility] Urine RBC Count, Manual 0 - 2 0 - 2 Cells/HPF 01/06/2024 11:32 [facility] Urine WBC Count 10 - 50(A) 0 - 3 Cells/HPF 01/06/2024 11:32 [facility] Urine Squamous Count, Manual Many(A) None Seen Cells/HPF 01/06/2024 11:32 [facility] Urine Hyaline Cast Count, Manual <=10 <=10 Casts/LPF 01/06/2024 11:32 [facility] Urine Bacteria Count, Manual Many(A) None Seen Bacteria/HP F 01/06/2024 11:32 [facility] Urobilinogen UA 0.2 0.2-1.0 mg/dL mg/dL 01/06/2024 11:32 [facility] Urine URINE SPECIMEN OBTAINED BY CLEAN CATCH PROCEDURE / Unknown Urine Collect / Unknown 01/06/2024 10:28 EDT 01/06/2024 11:07 [facility] - 01/06/2024 11:32 EDT Urine Sediment Analysis results are unreliable on urines that are unrefrigerated for >2 hrs or refrigerated >8 hrs. A Urine Culture test has been reflexively ordered based on result criteria from the Urine Sediment Analysis. Melida Barrera MD URINALYSIS ORDERABL ES [facility] [address] [place] [address] * (ABNORMAL) COMPREHENSIVE METABOLIC PANEL (CMP) (01/06/2024 10:28 EDT) Sodium 140 136 - 145 mmol/L 01/06/2024 11:19 [facility] Potassium 4.5 3.5 - 5.0 mmol/L 01/06/2024 11:19 [facility] Chloride 106 96 - 110 mmol/L 01/06/2024 11:19 [facility] CO2 Total 21(L) 22 - 32 mmol/L 01/06/2024 11:19 [facility] Glucose 84 70 - 99 mg/dl 01/06/2024 11:19 [facility] BUN 14 10 - 26 mg/dL 01/06/2024 11:19 [facility] Creatinine 0.78 0.52 - 1.04 mg/dL 01/06/2024 11:19 [facility] eGFR 105 >60 mL/min/1.7 3m2 01/06/2024 11:19 [facility] Total Protein 7.8 6.3 - 8.2 g/dL 01/06/2024 11:19 [facility] Albumin 4.5 3.4 - 4.9 g/dL 01/06/2024 11:19 [facility] Alkaline Phosphatase 82 38 - 126 U/L 01/06/2024 11:19 [facility] AST 21 15 - 46 U/L 01/06/2024 11:19 [facility] ALT 21 <35 U/L 01/06/2024 11:19 [facility] Bilirubin, Total 0.9 <1.4 mg/dL 01/06/20 11:19 [facility] Calcium 9.7 8.5 - 10.5 mg/dL 01/06/2024 11:19 [facility] Albumin/Globulin Ratio 1.4 1.0 - 2.5 01/06/2024 11:19 [facility] Anion Gap 13 5 - 14 mmol/L 01/06/2024 11:19 [facility] Blood VENOUS BLOOD / Unknown Venipuncture / Unknown 01/06/2024 10:28 EDT 01/06/2024 10:47 EDT Melida Barrera MD CHEMISTRY & BLOOD G ORDERABLES [facility] [address] [place] [address] * COMPLETE BLOOD COUNT AND DIFFERENTIAL (01/06/2024 10:28 [facility]) WBC 7.69 4.00 - 12.40 K/cmm 01/06/2024 10:41 [facility] RBC 4.52 3.86 - 5.04 M/cmm 01/06/2024 10:41 [facility] Hemoglobin 13.0 11.6 - 15.2 g/dL 01/06/2024 10:41 [facility] HCT 40.0 34.9 - 44.4 % 01/06/2024 10:41 [facility] MCV 89 81 - 98 fL 01/06/2024 10:41 [facility] MCH 28.8 26.7 - 33.3 pg 01/06/2024 10:41 [facility] MCHC 32.5 32.1 - 35.9 g/dL 01/06/2024 10:41 [facility] RDW-CV 12.3 <14.7 % 01/06/2024 10:41 [facility] RDW-SD 39.9 <50.4 fl 01/06/2024 10:41 [facility] PLT 312 141 - 377 K/cmm 01/06/2024 10:41 [facility] MPV 10.4 9.5 - 12.7 fL 01/06/2024 10:41 [facility] % Neutrophils 55.8 % 01/06/2024 10:41 [facility] % Lymphocytes 31.6 % 01/06/2024 10:41 [facility] % Monocytes 6.6 % 01/06/2024 10:41 [facility] % Eosinophils 5.1 % 01/06/2024 10:41 [facility] % Basophils 0.5 % 01/06/2024 10:41 [facility] % Immature Grans 0.4 <0.9 % 01/06/20 10:41 [facility] Absolute Neutrophils 4.29 2.20 - 8.85 K/cmm 01/06/2024 10:41 [facility] Absolute Lymphocytes 2.43 1.09 - 3.30 K/cmm 01/06/2024 10:41 [facility] Absolute Monocytes 0.51 0.10 - 0.80 K/cmm 01/06/2024 10:41 [facility] Absolute Eosinophils 0.39 0.03 - 0.61 K/cmm 01/06/2024 10:41 [facility] ABS Basophils 0.04 0.01 - 0.11 K/cmm 01/06/2024 10:41 [facility] Absolute Immature Grans 0.03 0.00 - 0.06 K/cmm 01/06/2024 10:41 [facility] Type of Differential: Auto 01/06/2024 10:41 [facility] Blood VENOUS BLOOD / Unknown Venipuncture / Unknown 01/06/2024 10:28 EDT 01/06/2024 10:38 EDT Melida Barrera MD PACKAGES & DNA PROB E ORDERABLES [facility] [address] [place] [address] documented in this encounter Visit Diagnoses Diagnosis Positive VANDANA (antinuclear antibody) Other and unspecified nonspecific immunological findings Fibromyalgia Mylagia and myositis, unspecified documented in this encounter Care Teams Administrative Officer Relationship Specialty Start Date End Date Marisol Palmer MD [address] [place], [place] [address] PCP - General 12/28/23 documented as of this encounter
--- OUTSIDE RECORDS SUMMARY | 2024-03-10 12:22 | XMS_ITS | Encounter Summary ---
Author Organization [facility] Address [address] [place] [address] Care Team Providers Care Small Animal Veterinarian Name Role Phone Unknown, Provider Primary Care Provider [phone] Marisol Palmer MD Primary Care Provider [phone] Encounter Details Date Type Department Care Team (Late st Contact Info) Description 05/07/2022 Lab Requisition [facility] Pathology & Laboratory Medicine - [address] [address] Outr Resulting Lab, Provider Social History Tobacco [...] Contact Info) Description 07/07/2024 13:30 EST Telemedicine [facility] Rheumatology [address] [place] [address] Melida Barrera MD 111 [facility], [address] [place] [phone] documented as of this encounter Procedures Procedure Name Priority Date/Time Associated Diagnosis Comments HOLD SST Today 05/06/2022 16:00 EDT HOLD SST Today 05/06/2022 16:00 EDT HOLD SST Today 05/06/2022 16:00 EDT RUBELLA IGG ANTIBODY Today 05/06/2022 16:00 EDT VARICELLA IGG ANTIBODY Today 05/06/2022 16:00 EDT documented in this encounter Results * HOLD SST (05/06/2022 16:00 EDT) Hold Hold 05/07/2022 17:46 EDT [facility] Blood VENOUS BLOOD / Unknown 05/06/2022 16:00 EDT 05/07/2022 16:46 EDT Provider Outr Resulting Lab LAB INFO SER VICE AND SUPPORT & PHONE RESULT Performing Organization Address [facility]/ZIP Co de Phone Number [facility] [address] [place] [address] * HOLD SST (05/06/2022 16:00 EDT) Hold Hold 05/07/2022 17:46 EDT [facility] Blood VENOUS BLOOD / Unknown 05/06/2022 16:00 EDT 05/07/2022 16:46 EDT Provider Outr Resulting Lab LAB INFO SER VICE AND SUPPORT & PHONE RESULT Performing Organization Address [facility]/ZIP Co de Phone Number [facility] [address] [place] [address] * HOLD SST (05/06/2022 16:00 EDT) Hold Hold 05/07/2022 17:46 EDT [facility] Blood VENOUS BLOOD / Unknown 05/06/2022 16:00 EDT 05/07/2022 16:46 EDT Provider Outr Resulting Lab LAB INFO SER VICE AND SUPPORT & PHONE RESULT Performing Organization Address [facility]/ZIP Co de Phone Number [facility] [address] [place] [address] * VARICELLA IGG ANTIBODY (05/06/2022 16:00 EDT) Varicella IgG Ab Negative See Note 05/08/2022 9:50 EDT [facility] Comment:Absence of detectabl e Varicella [...] SEROLOGY ORDERABLES Performing Organization Address [facility] Co de Phone Number [facility] [address] [place] [address] * RUBELLA IGG ANTIBODY (05/06/2022 16:00 EDT) Rubella IgG Ab Positive See Note 05/08/2022 10:00 EDT [facility] Comment:Positive for IgG ant ibodies to Rubella virus. Blood VENOUS BLOOD / Unknown 05/06/2022 16:00 EDT 05/07/2022 16:44 EDT Provider Outr Resulting Lab CHEMISTRY & BLOOD GAS ORDERABLES Performing Organization Address City/[facility] Co de Phone Number [facility] [address] [place] [address] documented in this encounter Visit Diagnoses Not on filedocumented in this encounter Care Teams Small Animal Veterinarian Relationship Specialty Start Date End Date Unknown, MD Thien PCP - General 02/23/17 12/27/23 Marisol Palmer MD [address] [place] [address] PCP - General 12/28/23 documented as of this encounter
--- OUTSIDE RECORDS SUMMARY | 2024-03-10 12:22 | XMS_ITS | Encounter Summary ---
Author Organization [facility] Address [address] [place] [address] Care Team Providers Care Registered Route Associate Name Role Phone Unknown, Provider Primary Care Provider [phone] Marisol Palmer MD Primary Care Provider [phone] Encounter Details Date Type Department Care Team (Late st Contact Info) Description 01/19/2021 Lab Requisition [facility] Pathology & Laboratory Medicine - [address] [address] Outr Resulting Lab, Provider Social History Tobacco [...] Contact Info) Description 07/07/2024 13:30 EST Telemedicine [facility] - [facility] [place] Rheumatology [address] [place] [address] Melida Barrera MD [address] [facility], [address] [place] [phone] documented as of this encounter Procedures Procedure Name Priority Date/Time Associated Diagnosis Comments HIV 1/2 ANTIGEN AND ANTIBODY, 4TH GENERATION Routine 01/18/2021 12:35 EDT documented in this encounter Results * HIV 1/2 ANTIGEN AND ANTIBODY, 4TH GENERATION (01/18/2021 12:35 EDT) HIV 1 and 2 Antibody/p24 Antigen, 4th Generation Negative Negative 01/21/2021 9:[address] [facility] Comment: If acute HIV-1 infection is suspected in a high risk ??patient, submit plasma specimen for HIV-1 RNA quantitation test. Fourth Generation assay performed on the Siemens Centaur. Blood VENOUS BLOOD / Unknown 01/18/2021 12:35 EDT 01/20/2021 17:37 EDT Provider Outr Resulting Lab IMMUNOLOGY A ND SEROLOGY ORDERABLES [facility] [address] [place] [address] documented in this encounter Visit Diagnoses Not on filedocumented in this encounter Care Teams Registered Route Associate Relationship Specialty Start Date End Date Unknown, Provider, PCP - General 02/23/17 12/27/23 Marisol Palmer MD [address] [place] [address] PCP - General 12/28/23 documented as of this encounter
--- OUTSIDE RECORDS SUMMARY | 2024-03-10 12:22 | XMS_ITS | Encounter Summary ---
Author Organization [facility] Address [address] [place] [address] Care Team Providers Care Materials Coordinator Name Role Phone Unknown, Provider Primary Care Provider [phone] Marisol Palmer MD Primary Care Provider [phone] Encounter Details Date Type Department Care Team (Late st Contact Info) Description 07/30/2022 Lab Requisition [facility] Pathology & Laboratory Medicine - [address] [address] Outr Resulting Lab, Provider Social History Tobacco [...] Contact Info) Description 07/07/2024 13:30 EST Telemedicine [facility] [address] [place] [address] Melida Barrera MD [address] [place] [address], [address] [place] [phone] documented as of this encounter Procedures Procedure Name Priority Date/Time Associated Diagnosis Comments CHLAMYDIA/N. GONORRHOEAE AMPLIFIED NUCLEIC ACID Routine 07/29/2022 19:30 EST documented in this encounter Results * CHLAMYDIA/N. GONORRHOEAE AMPLIFIED RNA (07/29/2022 19:30 EST) Neisseria gonorrhoeae Result Negative Negative 07/31/2022 13:47 EST [facility] Chlamydia trachomatis Result Negative Negative 07/31/2022 13:47 EST [facility] Swab ENTIRE VAGINA / Unknown 07/29/2022 19:30 EST 07/30/2022 16:54 EST Provider Outr Resulting Lab MICROBIOLOGY - GENERAL ORDERABLES Performing Organization Address City/State/[facility] Co de Phone Number [facility] [address] [place] [address] documented in this encounter Visit Diagnoses Not on filedocumented in this encounter Care Teams Materials Coordinator Relationship Specialty Start Date End Date Unknown, Provider, PCP - General 02/23/17 12/27/23 Marisol Palmer MD [address] [place] [address] PCP - General 12/28/23 documented as of this encounter
--- OUTSIDE RECORDS SUMMARY | 2024-03-10 12:22 | XMS_ITS | Encounter Summary ---
Author Organization [facility] Address [address] [place] [address] Care Team Providers Care Radio Announcer Name Role Phone Marisol Palmer MD Primary Care Provider [phone] Reason for Visit * Reason Onset Date Comments Other 01/07/2024 Encounter Details Date Type Department Care Team (Late st Contact Info) Description 01/07/2024 Telephone [facility] [place] [address] [place] [phone] Melida Barrera MD [address] [place] [address], [facility] [address] [place] [address] Other Social History Tobacco Use [...] for FMLA paperwork to be sent to [facility] Attn: Serene [phone] once labs reviewed and diagnosis determined by Dr Barrera 1-2 weeks documented in this encounter Plan of Treatment Upcoming Encounters Date Type Department Care Team (Late st Contact Info) Description 07/07/2024 13:30 EST Telemedicine [facility] Rheumatology [address] [place] [address] Melida Barrera MD [address] [place] [address], [address] [place] [address] documented as of this encounter Visit Diagnoses Not on filedocumented in this encounter Care Teams Radio Announcer Relationship Specialty Start Date End Date Marisol Palmer MD [address] [place] [address] PCP - General 12/28/23 documented as of this encounter
--- OUTSIDE RECORDS SUMMARY | 2024-03-10 12:22 | XMS_ITS | Encounter Summary ---
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) - Authorization Not Required Specialty Diagnoses / Procedures Referred By Anne Marie mckeon Referred To Contact Rheumatology Diagnoses Systemic lupus erythematosus, unspecified ([facility]) Marisol Palmer MD [address] [place] [address] [facility] [place] [address] [place] [address] Referral ID Status Reason Start Date Expiration Date Visits Requested Visits Authorized [id number] Authorization Not Required 1 1 Encounter Details Date Type Department Care Team (Late st Contact Info) Description 01/06/2024 9:00 EDT [facility] Visit [facility] [place] [address] [place] [address] [phone] Melida Barrera MD [address] [facility], [facility] [address] [place] [address] Fibromyalgia (Primary Dx); Positive VANDANA [...] smoking or using tobacco products. ?? 2017 [employer] documented in this encounter [...] RETINAL DETACHMENT SURGERY Right 2000 done at [facility] Allergies Allergen Reactions Ambien [Zolpidem] Wellbutrin [...] <7.0 SSB Antibody, IgG <20.0 CU <3.3 BOILERMA[employer]ER [employer]FTSM[employer] Antibody, IgG <20.0 CU <6.0 SM (Steele) [...] smoking or using tobacco products. ?? 2017 [employer] Patient verbalizes understanding and [...] 13:30 EST Telemedicine [facility] Rheumatology [address] [place] [address] Melida Barrera MD [address] [place] [address], [facility] [address] [place] [address] documented as of this encounter Results * CCP ANTIBODIES (01/06/2024 10:28 EDT) CCP Antibodies <2.5 <5.0 U/mL 01/07/2024 8:50 EDT [facility] Blood VENOUS BLOOD / Unknown Venipuncture / Unknown 01/06/2024 10:28 EDT 01/06/2024 10:47 EDT Melida Barrera MD IMMUNOLOGY AND SERO LOGY ORDERABLES Performing Organization Address City/[facility]/ZIP Co de Phone Number [facility] [address] [place], [place] [phone] * (ABNORMAL) DOUBLE STRANDED DNA ANTIBODY, IGG (01/06/2024 10:28 EDT) dsDNA Ab, IgG 42.7(H) <27.0 IU/mL 01/07/2024 12:48 EDT [facility] Comment: Negative: <27.0 IU/mL Indeterminate: 27.0 - 35.0 IU/mL Positive: >35.0 IU/mL Results were obtained with TeepixA Egalet dsDNA chemiluminescent immunoassay. Values obtained with different manufacturers' assay methods may not be used interchangeably. Blood VENOUS BLOOD / Unknown Venipuncture / Unknown 01/06/2024 10:28 EDT 01/06/2024 10:48 EDT Melida Barrera MD IMMUNOLOGY AND SERO LOGY ORDERABLES Performing Organization Address [facility] Co de Phone Number [facility] [address] [place], [place] [phone] * C3 COMPLEMENT (01/06/2024 10:28 EDT) C3 Complement 136 81 - 157 mg/dL 01/07/2024 9:43 EDT [facility] Blood VENOUS BLOOD / Unknown Venipuncture / Unknown 01/06/2024 10:28 EDT 01/06/2024 10:47 EDT Melida Barrera MD CHEMISTRY & BLOOD G ORDERABLES Performing Organization Address [facility]/ZIP Co de Phone Number [facility] [address] [place], [place] [phone] * C4 COMPLEMENT (01/06/2024 10:28 EDT) C4 Complement 21 13 - 39 mg/dL 01/07/2024 9:43 [facility] Blood VENOUS BLOOD / Unknown Venipuncture / Unknown 01/06/2024 10:28 EDT 01/06/2024 10:47 EDT Melida Barrera MD CHEMISTRY & BLOOD G ORDERABLES [facility] [address] [place], [place] [phone] * (ABNORMAL) UA CHEMICAL & SEDIMENT + [...] 11:32 [facility] Specific [place], Urine >=1.030 1.001 - 1.030 01/06/2024 11:32 [...] / Unknown 01/06/2024 10:28 EDT 01/06/2024 11:07 [facility] - 01/06/2024 11:32 EDT Urine Sediment Analysis results are unreliable on urines that are unrefrigerated for >2 hrs or refrigerated >8 hrs. A Urine Culture test has been reflexively ordered based on result criteria from the Urine Sediment Analysis. Melida Barrera MD URINALYSIS ORDERABL ES [facility] [address] [place] [address] * (ABNORMAL) COMPREHENSIVE METABOLIC PANEL (CMP) (01/06/2024 [...] Barrera MD CHEMISTRY & BLOOD G ORDERABLES [facility] [address] [place] [address] * COMPLETE BLOOD COUNT AND DIFFERENTIAL (01/06/2024 [...] 1.09 - 3.30 K/cmm 01/06/2024 10:41 T [facility] Absolute Monocytes 0.51 0.10 [...] MD PACKAGES & DNA PROB E ORDERABLES [facility] [address] [place] [address] documented in this encounter Visit Diagnoses Diagnosis [...] 12/26/2023 added in this encounter Care Teams Polymerization Kettle Operator Relationship Specialty Start Date End Date Marisol Palmer MD [address] [place] [address] PCP - General 12/28/23 documented as of this encounter
[2024-03-11 13:34] LABS: Chlamydia Result Negative (Negative); GC Result Negative (Negative)
== END 2024-03-10 12:20 | disposition home or self-care (01) ==
LOC: NCHCN 12:19
PROVIDERS: PCP Family Medicine; Visit Provider Family Medicine
DX: Z11.3 Encounter for screening for infections with a predominantly sexual mode of transmission (principal)
CPT/HCPCS: 87491; 87591

== ENCOUNTER 2024-06-09 01:08 | Outpatient (CLI) | payer MEDICAID, SELFPAY ==
--- NOTE | 2024-06-09 13:00 | DI.US_ITS ---
Exam(s) US PELVIS TRANSVAGINAL EXAM: US PELVIS TRANSVAGINAL CLINICAL HISTORY: abnl uterine bleeding,n93.9 TECHNIQUE: Transabdominal and transvaginal imaging was performed using standard protocol. COMPARISON: CT CT ABDOMEN PELVIS W from 03/24/2023 FINDINGS: UTERUS: Anteverted. 8.1 x 3.9 x 4.3 cm Endometrium: 4 mm Myometrium: Unremarkable. Cervix: Unremarkable. OVARIES: Right: Cyst or mass: None. Left: Cyst or mass: None. DOPPLER: Color: Symmetric and uniform flow to both ovaries. No hyperemia. CUL-DE-SAC: Free fluid: None. IMPRESSION: 1. Normal-appearing uterus with endometrial stripe within normal limits. 2. Unremarkable bilateral ovaries. DATA REPOSITORY:
== END 2024-06-09 01:28 ==
LOC: DI 01:08
PROVIDERS: PCP Family Medicine; Visit Provider Nurse Practitioner Women's Health
DX: N93.9 Abnormal uterine and vaginal bleeding, unspecified (principal)
CPT/HCPCS: 76830; 76856

== ENCOUNTER 2024-09-23 01:11 | Outpatient (CLI) | payer OTHER, SELFPAY ==
[2024-09-23] MEDS: Inhaler, Assist Device 1 EACH MC (10:54)
[2024-09-23] MEDS: Levalbuterol HFA 15 GM INH 4 PUFF IH (10:54)
--- NOTE | 2024-09-26 14:08 | W.PFT ---
Date of service: 09/23/24 Time of Service: 09:59 Pulmonary Function Test Result Indications: Disability Interpretation Spirometry: Mild airflow limitation. Significant bronchodilatory response. Impression Mild airflow obstruction with a bronchodilator response. Clinical Correlation therefore is recommended.
== END 2024-09-23 01:12 | disposition home or self-care (01) ==
LOC: RT 01:11
PROVIDERS: PCP Family Medicine; Visit Provider Student in an Organized Health Care Education/Training Program
DX: Z02.71 Encounter for disability determination (principal)
CPT/HCPCS: 94060

== ENCOUNTER 2024-11-11 23:09 | Outpatient (REF) | payer MEDICAID, SELFPAY ==
[2024-11-11 18:52] LABS: HCT 41.2 % (36.0-46.0); HGB 13.2 g/dL (11.2-15.7)
[2024-11-11 18:57] LABS: ESR 43 mm/hr (0-20)
[2024-11-11 20:32] LABS: Hemoglobin A1C 5.2 % (<5.7)
[2024-11-12 21:56] LABS: CRP, High Sensitivity 3.88 mg/L (See Note)
== END 2024-11-11 23:10 | disposition home or self-care (01) ==
LOC: NCHCN 23:09
PROVIDERS: PCP Family Medicine; Visit Provider Family Medicine
DX: M79.7 Fibromyalgia (principal)
CPT/HCPCS: 85652; 86141; 83036; 85014; 85018

== ENCOUNTER 2024-11-30 14:24 | Outpatient (REF) | payer MEDICAID, SELFPAY ==
--- NOTE | 2024-11-30 14:15 | PAPFT_PTH ---
PATIENT: Lelia Saldana LOC: [facility] U#:[id number] AGE/SX: 29/F ROOM: RE11/30/[address]: Erika Sherman NP : 1995 BED: DIS: 11/30/2024 SPEC #: [id number] RECD: 11/30/24 17:50 STATUS: AMEE PEÑA #: [id number] MENG: 11/30/24 14:[address]: Erika Sherman NP DEPT: [facility] Cytology RECD BY: Lenora Blancas ENTERED: 11/30/24 17:51 SP TYPE: PAPFT OTHR DR: Marisol Palmer V Tissues: 1 - CX/ENDOCX FOR PAP SMEARS Procedures: PAP THIN PREP/[facility] Screening HPV DNA PROBE Comments: [id number] (HPV 16 & 18/45)
== END 2024-11-30 14:25 | disposition home or self-care (01) ==
LOC: LBN 14:24
PROVIDERS: PCP Family Medicine; Visit Provider Nurse Practitioner Women's Health
DX: Z12.4 Encounter for screening for malignant neoplasm of cervix (principal)
CPT/HCPCS: 88142; 87624

== ENCOUNTER 2024-12-16 19:05 | Outpatient (CLI) | payer MEDICAID, SELFPAY ==
--- NOTE | 2024-12-16 14:45 | DI.RAD_ITS ---
Exam(s) XR CERVICAL SPINE COMP 4-5V EXAM: XR CERVICAL SPINE COMP 4-5V CLINICAL HISTORY: Cervicalgia, M54.2; evaluate pathology. TECHNIQUE: 2D digital imaging was performed. Five views were performed. COMPARISON: No exams were available for comparison FINDINGS: BONES: No fracture or destructive lesion. Vertebral bodies are unremarkable. DISKS: Intervertebral disc spaces are maintained. ALIGNMENT: Straightening of the normal cervical lordosis which could be secondary to muscle spasm. T he odontoid and atlantoaxial articulations are normal. SOFT TISSUE: Normal. The lung apices are clear. IMPRESSION: Straightening of the normal cervical lordosis which could be secondary to muscle spasm. DATA REPOSITORY: RADIATION DOSE DELIVERED:
== END 2024-12-16 19:25 ==
LOC: DI 19:05
PROVIDERS: PCP Family Medicine; Visit Provider Nurse Practitioner Family
DX: M54.2 Cervicalgia (principal)
CPT/HCPCS: 72050